=== PATIENT | male | born 1955 | race Caucasian/White ===

== ENCOUNTER 2017-10-07 13:46 | Emergency (ER) | payer MEDICARE, MEDICAID, SELFPAY ==
[2017-10-07 13:47] VITALS: BP 155/83; PULSE 106; RESP 18; TEMP 36.5; O2SAT 95; BMI 33.0
--- NOTE | 2017-10-07 14:04 | ED.VISSUMM ---
- ER Visit Summary Date of Service: 10/07/17 Chief Complaint: [Pain right neck and right arm] History of Present Illness: The patient is a 62 M [presents to the emergency department complaint of pain in his right shoulder and right arm started over a week ago. Patient denies any trauma. Patient denies any chest pain or shortness of breath. Patient states the pain is worse with certain movements. Patient also describes a numbness and tingling sensation going down the arm to the fingertips. Patient denies any falls or injuries to the neck. Patient denies weakness in the extremity.] Physical Examination: [HEENT-PERRLA, EOMI. Cranial nerves II through XII grossly intact. TMs clear. Mucous membranes moist. No adenopathy. Patient has some mild discomfort over the right cervical part paraspinal musculature as well as the right trapezius that seems to reproduce his pain. Cardiovascular-regular rate and rhythm without murmur or ectopy Lungs-clear to auscultation, chest wall stable without crepitus or subcu emphysema Abdomen-normoactive bowel sounds, soft, nontender, no rebound or rigidity, no peritoneal signs. Extremities-intact ?4, normal range of motion, normal pulses, atraumatic]. Patient has deep tendon reflexes of plus 1 out of 4 bilaterally at the bicep, tricep, and brachioradialis. Patient has normal emergency planning and response manager strength in both upper extremities. Test Results: [None indicated] Emergency Department Course and Treatment: [Patient will be medicated with [place] for pain as he did not want any steroids given his diabetes and risk of elevating his blood glucose.] Treatment Plan: [Patient to follow-up with Dr. Chavez as patient may require imaging such as MRI to evaluate further if symptoms persist or worsen.] Disposition: [Discharged home in stable condition]. Patient advised to return if worsening pain, weakness in extremity, or condition should worsen in any way. Impression: [Cervical radiculopathy] This note was generated with [employer] dictation software. It may contain incorrect words, spelling, and punctuation that were not noted in review of the chart prior to signing ED Disposition - Plan for ED Patient: Chief Complaint: Other, Pain/Inj Referrals: Connor Chavez MD [Primary Care Provider] -
--- NOTE | 2017-10-07 14:08 | ED.DCSUM_ITS ---
- ER Visit Summary Date of Service: 10/07/17 Chief Complaint: [Pain right neck and right arm] History of Present Illness: The patient is a 62 M [presents to the emergency department complaint of pain in his right shoulder and right arm started over a week ago. Patient denies any trauma. Patient denies any chest pain or shortness of breath. Patient states the pain is worse with certain movements. Patient also describes a numbness and tingling sensation going down the arm to the fingertips. Patient denies any falls or injuries to the neck. Patient denies weakness in the extremity.] Physical Examination: [HEENT-PERRLA, EOMI. Cranial nerves II through XII grossly intact. TMs clear. Mucous membranes moist. No adenopathy. Patient has some mild discomfort over the right cervical part paraspinal musculature as well as the right trapezius that seems to reproduce his pain. Cardiovascular-regular rate and rhythm without murmur or ectopy Lungs-clear to auscultation, chest wall stable without crepitus or subcu emphysema Abdomen-normoactive bowel sounds, soft, nontender, no rebound or rigidity, no peritoneal signs. Extremities-intact ?4, normal range of motion, normal pulses, atraumatic]. Patient has deep tendon reflexes of plus 1 out of 4 bilaterally at the bicep, tricep, and brachioradialis. Patient has normal on site nurse strength in both upper extremities. Test Results: [None indicated] Emergency Department Course and Treatment: [Patient will be medicated with [place] for pain as he did not want any steroids given his diabetes and risk of elevating his blood glucose.] Treatment Plan: [Patient to follow-up with Dr. Chavez as patient may require imaging such as MRI to evaluate further if symptoms persist or worsen.] Disposition: [Discharged home in stable condition]. Patient advised to return if worsening pain, weakness in extremity, or condition should worsen in any way. Impression: [Cervical radiculopathy] This note was generated with [email or web address] dictation software. It may contain incorrect words, spelling, and punctuation that were not noted in review of the chart prior to signing ED Disposition - Plan for ED Patient: Chief Complaint: Other, Pain/Inj Referrals: Connor Chavez MD [Primary Care Provider] -
--- NOTE | 2017-10-07 14:08 | ED.DEP ---
ED Disposition - Plan for ED Patient: Chief Complaint: Other, Pain/Inj Instructions: ED Cervical Radiculopathy Prescriptions: Hydrocodone/Acetaminophen [[place] 5-325 Tablet] 1 - 2 ea PO 4X/DAY PRN PRN 5 Days #20 tab PRN Reason: Pain Referrals: Connor Chavez MD [Primary Care Provider] - 3-5 Days
[2017-10-07 14:31] VITALS: PULSE 95; RESP 16; O2SAT 96
--- NOTE | 2017-10-07 14:31 | ED.RN ---
REVIEWED D/C INSTRUCTIONS, FOLLOW UP CARE, PRESCRIPTION, AND S/S THAT WOULD WARRANT A RETURN TO THE ED WITH PT. PT VERBALIZED AN UNDERSTANDING AND DENIES FURTHER QUESTIONS FOR THIS RN. PT SKIN P/W/D, RESP EVEN AND UNLABORED, PT A&O X 3, NO DISTRESS NOTED. PT AMBULATED OUT OF ED, GAIT STEADY.
== END 2017-10-07 14:32 | disposition home or self-care (01) ==
LOC: ED 14:16
PROVIDERS: Emergency Provider Emergency Medicine; Family Provider Family Medicine; PCP Family Medicine
DX: M54.12 Radiculopathy, cervical region (principal); I25.10 Atherosclerotic heart disease of native coronary artery without angina pectoris; E11.9 Type 2 diabetes mellitus without complications; I10 Essential (primary) hypertension; E78.00 Pure hypercholesterolemia, unspecified; G40.909 Epilepsy, unspecified, not intractable, without status epilepticus; Z86.73 Personal history of transient ischemic attack (TIA), and cerebral infarction without residual deficits; Z79.82 Long term (current) use of aspirin; Z79.4 Long term (current) use of insulin; Z79.84 Long term (current) use of oral hypoglycemic drugs; Z79.02 Long term (current) use of antithrombotics/antiplatelets; Z79.899 Other long term (current) drug therapy
CPT/HCPCS: 99282

== ENCOUNTER 2018-03-16 16:36 | Emergency (ER) | payer MEDICARE, MEDICAID, SELFPAY ==
[2018-03-16 16:37] VITALS: BP 146/86; PULSE 97; RESP 18; TEMP 36.4; O2SAT 95; BMI 33.8
[2018-03-16] MEDS: 0.9% Normal Saline 1,000 ML 150 ML IV (18:06)
[2018-03-16 18:07] VITALS: BP 145/77; PULSE 80; RESP 18; TEMP 36.6; O2SAT 94
--- NOTE | 2018-03-16 18:25 | RAD_ITS ---
STUDY: X-RAY - RIGHT FOOT CLINICAL: Male, 62 years old. ] Toe infection. TECHNIQUE: 3 view(s) of the foot. COMPARISON: None. FINDINGS: There is an enthesophyte involving the posterior superior calcaneus at the site of insertion of the Achilles tendon. There is a plantar calcaneal enthesophyte noted as well. There are degenerative changes of the mid and hindfoot. Normal metatarsi. There is degenerative arthrosis of the metatarsophalangeal joint of the hallux . There is degenerative arthrosis of the interphalangeal joint of the great toe. Within normal limits phalanges of the great toe. There is diffuse soft tissue swelling of the great toe. Normal second through fifth metatarsophalangeal joints. There are degenerative changes of the interphalangeal joints of the lesser toes. RAD/Foot min 3 Views IMPRESSION: Degenerative changes. No definitive evidence of osteomyelitis. Electronically Signed: Breann Marquez MD at 19:23 EST Tel , Service support ,
[2018-03-16 18:27] LABS: Absolute Lymphocyte Count 2.19 X10^3/ul (0.83-4.51); Absolute Neutrophil Count 3.3 X10^3/uL (2.0-7.7); Basophil# 0.03 X10^3/uL; Basophil% 0.5 % (0-1); Eosinophil# 0.27 X10^3/uL; Eosinophils% 4.3 % (0-5); Hematocrit 42.8 % (40-54); Hemoglobin 13.9 g/dl (13.0-16.5); Lymphocyte # 2.19 X10^3/ul (4.0); Lymphocyte % 34.9 % (19-41); Mean Corp Hgb Conc 32.5 g/gl (32-36); Mean Corpuscular Hgb 29.4 pg (27.0-32.0); Mean Corpuscular Volume 90.5 fL (80-94); Mean Platelet Vol. 10.5 fl (6.2-12.0); Monocyte# 0.48 X10^3/uL; Monocyte% 7.7 % (0-10); Neutrophil # 3.28 X10^3/uL (2.7-7.7); Neutrophil % 52.3 % (47-70); Platelet Count 273 K/mm3 (150-450); RBC Distribution Width CV 12.9 % (11.6-14.6); RBC Distribution Width SD 42.8 fl (35.1-43.9); Red Blood Count 4.73 M/mm3 (4.6-6.2); White Blood Count 6.3 K/mm3 (4.4-11.0)
[2018-03-16 18:28] LABS: POSITIVE COUNT NO; POSITIVE DIFFERENTIAL NO; POSITIVE MORPHOLOGY NO
[2018-03-16 18:33] LABS: Erythrocyte Sedimentation Rate 14 mm/hr (0-20)
[2018-03-16 18:47] LABS: Anion Gap 10 (5-15); BUN 11 mg/dL (7-18); BUN/Creat Ratio 13.6 RATIO (10-20); CRP < 2.90 mg/L (0.0-3.0); Calcium,Total 8.8 mg/dL (8.5-10.1); Chloride 104 mmol/L (98-107); Creatinine, Serum 0.81 mg/dL (0.70-1.30); EST Glomerular Filtration Rate 102 mL/min (>60); Est Glom Filt Rate - Afr Amer 123 mL/min (>60); Estimated Creatinine Clearance 96.38 ml/min; Glucose 162 mg/dL (74-106); Potassium 3.8 mmol/L (3.5-5.1); Sodium Level 138 mmol/L (136-145)
--- NOTE | 2018-03-16 19:34 | ED.VISSUMM ---
- ER Visit Summary Date of Service: 03/16/18 Chief Complaint: Right great toe infection History of Present Illness: The patient is a 62 M who was deer hunting 3 weeks ago when his feet got wet in his boots. He developed a right great toe medial ulceration. His PCP gave his clindamycin on the . He states the wound got better while he is on antibiotics, but is now worsening again since stopping the antibiotic. He is scheduled to see podiatry on March 23. He denies fever or chills. Physical Examination: Vital signs unremarkable. Patient sitting upright in bed no acute distress. He is nontoxic appearing. Heart is regular rate and rhythm. Lung sounds are clear. Abdomen is soft and nontender. Right lower extremity examination reveals a pencil eraser-sized punched-out ulcer to the medial right great toe. Wound edges around this are clean. He has moist granulation of the wound bed. There is mild erythema of the great toe, but no lymphangitic streaking is noted. Test Results: CBC and chemistry studies significant only for glucose of 162. Sed rate and CRP are both normal. Blood cultures were sent. Right foot x-ray shows degenerative changes with no evidence of osteomyelitis. Emergency Department Course and Treatment: Patient is resting comfortably on repeat exam. He did quite well with clindamycin previously. He will be given combination of clindamycin plus Cipro for diabetic foot wound. He will follow-up with podiatry next week as scheduled. If he develops worsening of the erythema or fever, he is to return for IV antibiotics. Treatment Plan: [] Disposition: Discharge Impression: Diabetic foot wound This note was generated with [employer] dictation software. It may contain incorrect words, spelling, and punctuation that were not noted in review of the chart prior to signing ED Disposition - Plan for ED Patient: Chief Complaint: Wound Check Referrals: Connor Chavez MD [Primary Care Provider] -
--- NOTE | 2018-03-16 19:36 | ED.DEP ---
ED Disposition - Plan for ED Patient: Disposition: Home or Assisted Living Chief Complaint: Wound Check Instructions: ED Foot Care Diabetic Prescriptions: Ciprofloxacin [Cipro] 500 mg PO BID #14 tablet Clindamycin [Cleocin] 450 mg PO TID #10 days Referrals: Marcell Fitzgerald DPM [STAFF PHYSICIAN] - Keep [place] appointment
[2018-03-16] MEDS: Clindamycin HCl 150 MG Capsule 450 MG PO (19:50)
[2018-03-16] MEDS: Ciprofloxacin 500 MG Tablet PO (19:50)
[2018-03-16 19:58] VITALS: RESP 16
== END 2018-03-16 19:58 | disposition home or self-care (01) ==
PROVIDERS: Emergency Provider Emergency Medicine; Family Provider Family Medicine; PCP Family Medicine
DX: E11.621 Type 2 diabetes mellitus with foot ulcer (principal); L97.519 Non-pressure chronic ulcer of other part of right foot with unspecified severity; I10 Essential (primary) hypertension; E78.00 Pure hypercholesterolemia, unspecified; Z86.73 Personal history of transient ischemic attack (TIA), and cerebral infarction without residual deficits; Z79.82 Long term (current) use of aspirin; Z79.02 Long term (current) use of antithrombotics/antiplatelets; Z79.4 Long term (current) use of insulin; Z79.84 Long term (current) use of oral hypoglycemic drugs; Z79.899 Other long term (current) drug therapy
CPT/HCPCS: 73630; 80048; 85025; 85652; 86140; 87040; 96360; 96361; 99284; J7030

== ENCOUNTER 2018-08-18 10:00 | Outpatient (RCR) | payer MEDICARE, MEDICAID, SELFPAY ==
[2018-08-11 10:21] VITALS: BP 156/88; PULSE 84; RESP 16; TEMP 36.6; BMI 33.0
--- NOTE | 2018-08-11 12:43 | PCM.WC.HP ---
(1) Diabetic foot ulcer associated with type 2 diabetes mellitus Status: Acute Current Visit: Yes Code(s): E11.621 - Type 2 diabetes mellitus with foot ulcer; L97.509 - Non-pressure chronic ulcer of other part of unspecified foot with unspecified severity (2) TIA (transient ischemic attack) Status: Acute Current Visit: Yes Qualifiers: (3) Hyperlipidemia Status: Chronic Current Visit: Yes Qualifiers: Code(s): E78.5 - Hyperlipidemia, unspecified (4) Hypertension Status: Chronic Current Visit: Yes Qualifiers: Code(s): I10 - Essential (primary) hypertension (5) Type II diabetes mellitus Status: Chronic Current Visit: Yes Qualifiers: Code(s): E11.9 - Type 2 diabetes mellitus without complications (6) Decubitus ulcer of toe, stage 3 Status: Chronic Current Visit: Yes Code(s): L89.893 - Pressure ulcer of other site, stage 3 History of Present Illness Date of Service: 08/11/18 Chief Complaint: Follow-up right great toe ulcer History of Wound: 63-year-old white male who is diabetic type II noncompliant on insulin for his type 2 diabetes. Seen by a manager gift and another city and is having difficulty with healing. Was already approved for puraply. Today we will clean it and apply the first puraply for treatment. Is in a boot and crutches. Patient is noncompliant with offloading and you can tell because he have undermining between 6 and 12 from him walking in the boot. Past Medical History Past Medical History: Chronic Problems Decubitus ulcer of toe, stage 3 (Chronic) Type II diabetes mellitus (Chronic) Coronary artery disease (Chronic) status post stents History of stroke (Chronic) Hyperlipidemia (Chronic) Hypertension (Chronic) Past Medical History: DFU right foot toe. Decubitus ulcer right great toe Surgical History: - - T+A, notes had ex lap for concern of renal CA, operative evaluation kidney unremarkable and it was placed back without resection. Allergies/Adverse Reactions: Allergies pregabalin [From Lyrica] Allergy (Verified 03/16/18 16:39) Unknown Penicillins Adverse Reaction (Verified 03/16/18 16:39) Hives Home Medications: Ambulatory Orders Medication Instructions Recorded Atorvastatin Calcium [Lipitor] 80 mg PO QHS 10/01/15 Carbidopa/Levodopa 25/100 [Sinemet 1 tablet PO TIDAC 10/01/15 25/100] Carvedilol [Coreg (Beta [place])] 6.25 mg PO BID 10/01/15 Insulin NPH Human [Humulin N Pen] 9 units SC BID 10/01/15 Lisinopril [Zestril] 5 mg PO DAILY 10/01/15 Metformin HCl [Glucophage] 1,000 mg PO BIDCM 10/01/15 Mirtazapine [Remeron] 30 mg PO QHS 01/24/17 Aspirin [Aspirin, Baby] 81 mg PO DAILY@0800 tab.chew 01/26/17 Clopidogrel Bisulfate [Plavix] 75 mg PO DAILY #30 tablet 01/26/17 Empagliflozin [Jardiance] 10 mg PO DAILY #30 tablet 01/26/17 Ciprofloxacin [Cipro] 500 mg PO BID #14 tablet 03/16/18 Clindamycin [Cleocin] 450 mg PO TID #10 days 03/16/18 Oxcarbazepine [Trileptal] 300 mg PO 4X/DAY 03/16/18 Polyethylene Glycol 3350 [Miralax] 17 gm PO DAILY 03/16/18 Tizanidine HCl 4 mg PO Q8H PRN PRN 03/16/18 - Family History Maternal No pertinent history Paternal No pertinent history Lives: Spouse/ Significant Other Smoking Status: Never smoker Alcohol: None Drugs: None Review of Systems Constitutional: Denies: Chills, Fever Eyes: Denies: Blurred vision, Drainage, Pain HEENT: Denies: Difficulty Hearing, Difficulty Swallowing, Sore Throat, Visual Changes Cardiovascular: Denies: Chest Pain, Palpitations, Syncope Respiratory: Denies: Cough, Shortness of Breath Gastrointestinal: Denies: Abdominal Pain, Nausea, Vomiting Genitourinary: Denies: Dysuria, Frequency Musculoskeletal: Denies: Joint Pain, Muscle pain Skin: Reports: - - Right great toe ulcer. Denies: Jaundice, Rash Neurological: Denies: Balance problems, Change in Speech, Difficulty swallowing, Focal weakness Psychiatric: Denies: Anxiety, Depression Endocrine: Denies: Change in Body Habitus Hematologic/ Lymphatic: Denies: Adenopathy - Physical Exam Vital Signs Temp Pulse Resp BP 97.8 F 84 16 156/88 H 08/11/18 10:21 08/11/18 10:21 08/11/18 10:21 08/11/18 10:21 General: Oriented x3, Cooperative, Well developed HEENT: Atraumatic, PERRLA Oral: Moist Mucosa Neck: Supple, No JVD Lungs: Clear to auscultation, Normal air movement Cardiovascular: Regular rate, Regular Rhythm Abdomen: Bowel Sounds Present, Soft, Non Tender, No Hepato-splenomegaly Extremities: No clubbing, No edema, - - Right great toe ulcer Wound Measurements and Assessment WC - Nurse 1 - General Ulcer Measurement Start: 08/11/18 10:21 Freq: Status: Active Protocol: Activity Type Activity Date Activity User E-Sign Co-Sign Detail Recorded Client Recorded Date Recorded By Document 08/11/18 10:21 [id number] 08/11/18 10:50 08/11/18 10:21 Wound Center Nurse 1 [Ulcer Assessment] #1 right great toe -Combined with other wound No -Current Size (cm) - Length 0.6 -Current Size (cm) - Width 0.6 -Current Size (cm) - Depth 0.2 -Total Square Cm 0.36 -Date of Last Picture (Recall this 08/11/18 field) -Photo Taken Yes -Epithelialization None Present -Tunneling No -Undermining/Tunneling No -Circular Undermining Yes -Exudate Amt Medium -Exudate Type Serous -Wound Margin Distinct, Outline Attached -Granulation Amt Small (1-33%) -Granulation Quality Pale [place] -Slough/Fibrin Yes -Necrosis Amt None Present (0 %) -Necrotic Tissue Type Adherent Slough -Texture ([place]-wound Skin Appearance) Callus -Moisture ([place]-wound Skin Appearance No Abnormality ) Assessed -Color ([place]-wound Skin Appearance) No Abnormality -Temperature ([place]-wound Skin No Abnormality Appearance) (Pt Warm) -Tenderness on Palpation ([place]-wound Yes Skin Appearance) -Ulcer Cleansing Rinsed/ Irrigated with Saline -Foul Odor after Cleansing No -Anesthetic Used 5% Lidocaine Gel [Edema Assessment] -Lower Limb Edema Present No -Right Calf (cm) 37.5 -Right Ankle (cm) 24 -Left Calf (cm) 37.8 -Left Ankle (cm) 24 WC - Nurse 2 - General Ulcer CM Notes Start: 08/11/18 10:21 Freq: Status: Active Protocol: Activity Type Activity Date Activity User E-Sign Co-Sign Detail Recorded Client Recorded Date Recorded By Document 08/11/18 11:10 MW [id number] 08/11/18 11:20 MW 08/11/18 11:10 Wound Center Nurse 2 [Procedure/Treatment] #1 right great toe -Time 11:12 -Correct Patient Yes -Correct Side, Site, Position Yes -Correct Procedure Yes -Procedure Performed Yes -Type of Procedure Debridement -Clinical Debridement Subcutaneous -Post Debridement Size (cm) - Length 0.8 -Post Debridement Size (cm) - Width 0.7 -Post Debridement Size (cm) - Depth 0.2 -Total Square Cm 0.56 -Wound/Ulcer Outcome Not Healed -Ulcer Cleansing Rinsed/ Irrigated with Saline -Foul Odor after Cleansing No -Bioengineered Tissue Yes -Type of bioengineered Tissue [id number] -Expiration Date 09/23/20 -Product Lot Number [id number] -Percent Used 100 -Saline Lot Number [id number] -Bleeding Controlled with Pressure -Offloading No -Treatment Response Procedure Tolerated Well [See Physician Procedure note for Specifics] Pain Scale: 0-10 Numeric [Pain] -Is Patient Pain Free? Yes Musculoskeletal: No Tenderness to Palpation of Joints or Extremities Lymphatic: No Cervical, Supraclavicular, or Inguinal Adenopathy Neurological: Cranial nerves II-XII grossly intact, Neuro grossly intact Psych/Mental Status: Normal Affect, Appropriate, Alert and oriented to time, place, person, mood and affect Debridement Note Post-Debridement Measurements/Treatment WC - Nurse 2 - General Ulcer CM Notes Start: 08/11/18 10:21 Freq: Status: Active Protocol: Activity Type Activity Date Activity User E-Sign Co-Sign Detail Recorded Client Recorded Date Recorded By Document 08/11/18 11:10 MW [id number] 08/11/18 11:20 MW 08/11/18 11:10 Wound Center Nurse 2 #1 right great toe -Time 11:12 -Correct Patient Yes -Correct Side, Site, Position Yes -Correct Procedure Yes -Procedure Performed Yes -Type of Procedure Debridement -Clinical Debridement Subcutaneous -Post Debridement Size (cm) - Length 0.8 -Post Debridement Size (cm) - Width 0.7 -Post Debridement Size (cm) - Depth 0.2 -Total Square Cm 0.56 -Wound/Ulcer Outcome Not Healed -Ulcer Cleansing Rinsed/ Irrigated with Saline -Foul Odor after Cleansing No -Bioengineered Tissue Yes -Type of bioengineered Tissue [id number] -Expiration Date 09/23/20 -Product Lot Number [id number] -Percent Used 100 -Saline Lot Number [id number] -Bleeding Controlled with Pressure -Offloading No -Treatment Response Procedure Tolerated Well Pain Scale: 0-10 Numeric Is Patient Pain Free? Yes Wound debrided: Right great toe ulcer Wound Grade/Stage: Stage III Type of Debridement: Excisional debridement Anesthesia Used: 5% Lidocaine Gel Depth: Down to and including healthy tissue, in the subcutaneous layer Percentage of wound debrided: 100 Instrument Used: 5mm curette Tissue Removed: Fibrin and callus Amount of bleeding with debridement: Mild Bleeding Controlled with: Compression and gauze Patient tolerated procedure well Assessment/Plan Active Problems Diabetic foot ulcer associated with type 2 diabetes mellitus (Acute) Decubitus ulcer of toe, stage 3 (Chronic) TIA (transient ischemic attack) (Acute) Type II diabetes mellitus (Chronic) Hyperlipidemia (Chronic) Hypertension (Chronic) Assessment: Decubitus ulcer right great toe stage II. DFU right great toe. Noncompliant diabetic type 2 insulin-dependent. Hypertension. stroke Plan: Applied puraply #1 to the area. Leave dressing alone do not remove. Follow-up in 1 week
--- NOTE | 2018-08-11 12:47 | HP.PCM_ITS ---
(1) Diabetic foot ulcer associated with type 2 diabetes mellitus Status: Acute Current Visit: Yes Code(s): E11.621 - Type 2 diabetes mellitus with foot ulcer; L97.509 - Non-pressure chronic ulcer of other part of unspecified foot with unspecified severity (2) TIA (transient ischemic attack) Status: Acute Current Visit: Yes Qualifiers: (3) Hyperlipidemia Status: Chronic Current Visit: Yes Qualifiers: Code(s): E78.5 - Hyperlipidemia, unspecified (4) Hypertension Status: Chronic Current Visit: Yes Qualifiers: Code(s): I10 - Essential (primary) hypertension (5) Type II diabetes mellitus Status: Chronic Current Visit: Yes Qualifiers: Code(s): E11.9 - Type 2 diabetes mellitus without complications (6) Decubitus ulcer of toe, stage 3 Status: Chronic Current Visit: Yes Code(s): L89.893 - Pressure ulcer of other site, stage 3 History of Present Illness Date of Service: 08/11/18 Chief Complaint: Follow-up right great toe ulcer History of Wound: 63-year-old white male who is diabetic type II noncompliant on insulin for his type 2 diabetes. Seen by a [place] management specialist and another city and is having difficulty with healing. Was already approved for puraply. Today we will clean it and apply the first puraply for treatment. Is in a boot and crutches. Patient is noncompliant with offloading and you can tell because he have undermining between 6 and 12 from him walking in the boot. Past Medical History Past Medical History: Chronic Problems Decubitus ulcer of toe, stage 3 (Chronic) Type II diabetes mellitus (Chronic) Coronary artery disease (Chronic) status post stents History of stroke (Chronic) Hyperlipidemia (Chronic) Hypertension (Chronic) Past Medical History: DFU right foot toe. Decubitus ulcer right great toe Surgical History: - - T+A, notes had ex lap for concern of renal CA, operative evaluation kidney unremarkable and it was placed back without resection. Allergies/Adverse Reactions: Allergies pregabalin [From Lyrica] Allergy (Verified 03/16/18 16:39) Unknown Penicillins Adverse Reaction (Verified 03/16/18 16:39) Hives Home Medications: Ambulatory Orders Medication Instructions Recorded Atorvastatin Calcium [Lipitor] 80 mg PO QHS 10/01/15 Carbidopa/Levodopa 25/100 [Sinemet 1 tablet PO TIDAC 10/01/15 25/100] Carvedilol [Coreg (Beta [place])] 6.25 mg PO BID 10/01/15 Insulin NPH Human [Humulin N Pen] 9 units SC BID 10/01/15 Lisinopril [Zestril] 5 mg PO DAILY 10/01/15 Metformin HCl [Glucophage] 1,000 mg PO BIDCM 10/01/15 Mirtazapine [Remeron] 30 mg PO QHS 01/24/17 Aspirin [Aspirin, Baby] 81 mg PO DAILY@0800 tab.chew 01/26/17 Clopidogrel Bisulfate [Plavix] 75 mg PO DAILY #30 tablet 01/26/17 Empagliflozin [Jardiance] 10 mg PO DAILY #30 tablet 01/26/17 Ciprofloxacin [Cipro] 500 mg PO BID #14 tablet 03/16/18 Clindamycin [Cleocin] 450 mg PO TID #10 days 03/16/18 Oxcarbazepine [Trileptal] 300 mg PO 4X/DAY 03/16/18 Polyethylene Glycol 3350 [Miralax] 17 gm PO DAILY 03/16/18 Tizanidine HCl 4 mg PO Q8H PRN PRN 03/16/18 - Family History Maternal No pertinent history Paternal No pertinent history Lives: Spouse/ Significant Other Smoking Status: Never smoker Alcohol: None Drugs: None Review of Systems Constitutional: Denies: Chills, Fever Eyes: Denies: Blurred vision, Drainage, Pain HEENT: Denies: Difficulty Hearing, Difficulty Swallowing, Sore Throat, Visual Changes Cardiovascular: Denies: Chest Pain, Palpitations, Syncope Respiratory: Denies: Cough, Shortness of Breath Gastrointestinal: Denies: Abdominal Pain, Nausea, Vomiting Genitourinary: Denies: Dysuria, Frequency Musculoskeletal: Denies: Joint Pain, Muscle pain Skin: Reports: - - Right great toe ulcer. Denies: Jaundice, Rash Neurological: Denies: Balance problems, Change in Speech, Difficulty swallowing, Focal weakness Psychiatric: Denies: Anxiety, Depression Endocrine: Denies: Change in Body Habitus Hematologic/ Lymphatic: Denies: Adenopathy - Physical Exam Vital Signs Temp Pulse Resp BP 97.8 F 84 16 156/88 H 08/11/18 10:21 08/11/18 10:21 08/11/18 10:21 08/11/18 10:21 General: Oriented x3, Cooperative, Well developed HEENT: Atraumatic, PERRLA Oral: Moist Mucosa Neck: Supple, No JVD Lungs: Clear to auscultation, Normal air movement Cardiovascular: Regular rate, Regular Rhythm Abdomen: Bowel Sounds Present, Soft, Non Tender, No Hepato-splenomegaly Extremities: No clubbing, No edema, - - Right great toe ulcer Wound Measurements and Assessment WC - Nurse 1 - General Ulcer Measurement Start: 08/11/18 10:21 Freq: Status: Active Protocol: Activity Type Activity Date Activity User E-Sign Co-Sign Detail Recorded Client Recorded Date Recorded By Document 08/11/18 10:21 [id number] 08/11/18 10:50 08/11/18 10:21 Wound Center Nurse 1 [Ulcer Assessment] #1 right great toe -Combined with other wound No -Current Size (cm) - Length 0.6 -Current Size (cm) - Width 0.6 -Current Size (cm) - Depth 0.2 -Total Square Cm 0.36 -Date of Last Picture (Recall this 08/11/18 field) -Photo Taken Yes -Epithelialization None Present -Tunneling No -Undermining/Tunneling No -Circular Undermining Yes -Exudate Amt Medium -Exudate Type Serous -Wound Margin Distinct, Outline Attached -Granulation Amt Small (1-33%) -Granulation Quality Pale [place] -Slough/Fibrin Yes -Necrosis Amt None Present (0 %) -Necrotic Tissue Type Adherent Slough -Texture ([place]-wound Skin Appearance) Callus -Moisture ([place]-wound Skin Appearance No Abnormality ) Assessed -Color ([place]-wound Skin Appearance) No Abnormality -Temperature ([place]-wound Skin No Abnormality Appearance) (Pt Warm) -Tenderness on Palpation ([place]-wound Yes Skin Appearance) -Ulcer Cleansing Rinsed/ Irrigated with Saline -Foul Odor after Cleansing No -Anesthetic Used 5% Lidocaine Gel [Edema Assessment] -Lower Limb Edema Present No -Right Calf (cm) 37.5 -Right Ankle (cm) 24 -Left Calf (cm) 37.8 -Left Ankle (cm) 24 WC - Nurse 2 - General Ulcer CM Notes Start: 08/11/18 10:21 Freq: Status: Active Protocol: Activity Type Activity Date Activity User E-Sign Co-Sign Detail Recorded Client Recorded Date Recorded By Document 08/11/18 11:10 MW [id number] 08/11/18 11:20 MW 08/11/18 11:10 Wound Center Nurse 2 [Procedure/Treatment] #1 right great toe -Time 11:12 -Correct Patient Yes -Correct Side, Site, Position Yes -Correct Procedure Yes -Procedure Performed Yes -Type of Procedure Debridement -Clinical Debridement Subcutaneous -Post Debridement Size (cm) - Length 0.8 -Post Debridement Size (cm) - Width 0.7 -Post Debridement Size (cm) - Depth 0.2 -Total Square Cm 0.56 -Wound/Ulcer Outcome Not Healed -Ulcer Cleansing Rinsed/ Irrigated with Saline -Foul Odor after Cleansing No -Bioengineered Tissue Yes -Type of bioengineered Tissue [id number] -Expiration Date 09/23/20 -Product Lot Number [id number] -Percent Used 100 -Saline Lot Number [id number] -Bleeding Controlled with Pressure -Offloading No -Treatment Response Procedure Tolerated Well [See Physician Procedure note for Specifics] Pain Scale: 0-10 Numeric [Pain] -Is Patient Pain Free? Yes Musculoskeletal: No Tenderness to Palpation of Joints or Extremities Lymphatic: No Cervical, Supraclavicular, or Inguinal Adenopathy Neurological: Cranial nerves II-XII grossly intact, Neuro grossly intact Psych/Mental Status: Normal Affect, Appropriate, Alert and oriented to time, place, person, mood and affect Debridement Note Post-Debridement Measurements/Treatment WC - Nurse 2 - General Ulcer CM Notes Start: 08/11/18 10:21 Freq: Status: Active Protocol: Activity Type Activity Date Activity User E-Sign Co-Sign Detail Recorded Client Recorded Date Recorded By Document 08/11/18 11:10 MW [id number] 08/11/18 11:20 MW 08/11/18 11:10 Wound Center Nurse 2 #1 right great toe -Time 11:12 -Correct Patient Yes -Correct Side, Site, Position Yes -Correct Procedure Yes -Procedure Performed Yes -Type of Procedure Debridement -Clinical Debridement Subcutaneous -Post Debridement Size (cm) - Length 0.8 -Post Debridement Size (cm) - Width 0.7 -Post Debridement Size (cm) - Depth 0.2 -Total Square Cm 0.56 -Wound/Ulcer Outcome Not Healed -Ulcer Cleansing Rinsed/ Irrigated with Saline -Foul Odor after Cleansing No -Bioengineered Tissue Yes -Type of bioengineered Tissue [id number] -Expiration Date 09/23/20 -Product Lot Number [id number] -Percent Used 100 -Saline Lot Number [id number] -Bleeding Controlled with Pressure -Offloading No -Treatment Response Procedure Tolerated Well Pain Scale: 0-10 Numeric Is Patient Pain Free? Yes Wound debrided: Right great toe ulcer Wound Grade/Stage: Stage III Type of Debridement: Excisional debridement Anesthesia Used: 5% Lidocaine Gel Depth: Down to and including healthy tissue, in the subcutaneous layer Percentage of wound debrided: 100 Instrument Used: 5mm curette Tissue Removed: Fibrin and callus Amount of bleeding with debridement: Mild Bleeding Controlled with: Compression and gauze Patient tolerated procedure well Assessment/Plan Active Problems Diabetic foot ulcer associated with type 2 diabetes mellitus (Acute) Decubitus ulcer of toe, stage 3 (Chronic) TIA (transient ischemic attack) (Acute) Type II diabetes mellitus (Chronic) Hyperlipidemia (Chronic) Hypertension (Chronic) Assessment: Decubitus ulcer right great toe stage II. DFU right great toe. Noncompliant diabetic type 2 insulin-dependent. Hypertension. stroke Plan: Applied puraply #1 to the area. Leave dressing alone do not remove. Follow-up in 1 week
[2018-08-18 09:42] VITALS: BP 155/84; PULSE 90; RESP 18; TEMP 36.6; BMI 33.0
--- NOTE | 2018-08-18 10:20 | PCM.WC.PN ---
(1) Diabetic foot ulcer associated with type 2 diabetes mellitus Status: Acute Current Visit: Yes Code(s): E11.621 - Type 2 diabetes mellitus with foot ulcer; L97.509 - Non-pressure chronic ulcer of other part of unspecified foot with unspecified severity (2) TIA (transient ischemic attack) Status: Acute Current Visit: Yes Qualifiers: (3) Hyperlipidemia Status: Chronic Current Visit: Yes Qualifiers: Code(s): E78.5 - Hyperlipidemia, unspecified (4) Hypertension Status: Chronic Current Visit: Yes Qualifiers: Code(s): I10 - Essential (primary) hypertension (5) Type II diabetes mellitus Status: Chronic Current Visit: Yes Qualifiers: Code(s): E11.9 - Type 2 diabetes mellitus without complications (6) Decubitus ulcer of toe, stage 3 Status: Chronic Current Visit: Yes Code(s): L89.893 - Pressure ulcer of other site, stage 3 Type of Wound Chief Complaint: Follow-up right great toe ulcer History of Wound: 63-year-old white male who is diabetic type II noncompliant on insulin for his type 2 diabetes. Seen by a life skills coach and another city and is having difficulty with healing. Was already approved for puraply. Today we will clean it and apply the first puraply for treatment. Is in a boot and crutches. Patient is noncompliant with offloading and you can tell because he have undermining between 6 and 12 from him walking in the boot. Progress of Wound: Today the wound has no undermining and very clean flat 0.1 depth after 1 puraply. Sign of infection good epithelial development in the wound base. - Physical Exam Vital Signs Temp Pulse Resp BP 98 F 90 18 155/84 H 08/18/18 09:42 08/18/18 09:42 08/18/18 09:42 08/18/18 09:42 General: Oriented x3, Cooperative, Well developed HEENT: Atraumatic, PERRLA Oral: Moist Mucosa Neck: Supple, No JVD Lungs: Clear to auscultation, Normal air movement Cardiovascular: Regular rate, Regular Rhythm Abdomen: Bowel Sounds Present, Soft, Non Tender, No Hepato-splenomegaly Extremities: No clubbing, No edema Skin: Ulcer/ Wound Wound Measurements and Assessment WC - Nurse 1 - General Ulcer Measurement Start: 08/11/18 10:21 Freq: Status: Active Protocol: Activity Type Activity Date Activity User E-Sign Co-Sign Detail Recorded Client Recorded Date Recorded By Document 08/18/18 09:[address] [facility] [id number] 08/18/18 09:[address] [facility] 08/18/18 09:42 Wound Center Nurse 1 [Ulcer Assessment] #1 right great toe -Combined with other wound No -Current Size (cm) - Length 0.9 -Current Size (cm) - Width 0.6 -Current Size (cm) - Depth 0.1 -Total Square Cm 0.54 -Photo Taken No -Tunneling No -Undermining/Tunneling Yes -Undermining/Tunneling Starts (O' 1 clock) -Undermining/Tunneling Ends (O'clock) 4 -Maximum Distance (cm) 0.1 -Circular Undermining No -Exudate Amt Small -Exudate Type Serosanguineous -Wound Margin Distinct, Outline Attached -Granulation Amt Large (67-100%) -Granulation Quality Pale [place] -Slough/Fibrin Yes -Necrosis Amt Small (1-33%) -Necrotic Tissue Type Adherent Slough -Texture ([place]-wound Skin Appearance) Assessed Scarring -Moisture ([place]-wound Skin Appearance Assessed ) Maceration -Color ([place]-wound Skin Appearance) Assessed Palor -Temperature ([place]-wound Skin No Abnormality Appearance) (Pt Warm) -Tenderness on Palpation ([place]-wound Yes Skin Appearance) -Ulcer Cleansing Wound Cleanser -Foul Odor after Cleansing No -Anesthetic Used 5% Lidocaine Gel WC - Nurse 2 - General Ulcer CM Notes Start: 08/11/18 10:21 Freq: Status: Active Protocol: Activity Type Activity Date Activity User E-Sign Co-Sign Detail Recorded Client Recorded Date Recorded By Document 08/18/18 09:53 [id number] 08/18/18 10:00 MW 08/18/18 09:53 Wound Center Nurse 2 [Procedure/Treatment] -Time 09:53 -Correct Patient Yes -Correct Side, Site, Position Yes -Correct Procedure Yes -Procedure Performed Yes -Type of Procedure Debridement -Clinical Debridement Subcutaneous -Post Debridement Size (cm) - Length 1.0 -Post Debridement Size (cm) - Width 0.7 -Post Debridement Size (cm) - Depth 0.1 -Total Square Cm 0.70 -Wound/Ulcer Outcome Not Healed -Ulcer Cleansing Rinsed/ Irrigated with Saline -Foul Odor after Cleansing No -Bioengineered Tissue Yes -Type of bioengineered Tissue [id number] -Expiration Date 09/23/20 -Product Lot Number [id number] -Percent Used 100 -Saline Lot Number [id number] -Bleeding Controlled with Pressure -Offloading No -Treatment Response Procedure Tolerated Well [See Physician Procedure note for Specifics] Pain Scale: 0-10 Numeric [Pain] -Is Patient Pain Free? Yes Musculoskeletal: No Tenderness to Palpation of Joints or Extremities Lymphatic: No Cervical, Supraclavicular, or Inguinal Adenopathy Neurological: Cranial nerves II-XII grossly intact, Neuro grossly intact Psych/Mental Status: Normal Affect, Appropriate, Alert and oriented to time, place, person, mood and affect - Right great toe lateral ulcer stage II Debridement Note Post-Debridement Measurements/Treatment WC - Nurse 2 - General Ulcer CM Notes Start: 08/11/18 10:21 Freq: Status: Active Protocol: Activity Type Activity Date Activity User E-Sign Co-Sign Detail Recorded Client Recorded Date Recorded By Document 08/11/18 11:10 MW [id number] 08/11/18 11:20 MW Document 08/18/18 09:53 MW [id number] 08/18/18 10:00 MW 08/11/18 08/18/18 11:10 09:53 Wound Center Nurse 2 #1 right great toe -Time 11:12 09:53 -Correct Patient Yes Yes -Correct Side, Site, Position Yes Yes -Correct Procedure Yes Yes -Procedure Performed Yes Yes -Type of Procedure Debridement Debridement -Clinical Debridement Subcutaneous Subcutaneous -Post Debridement Size (cm) - Length 0.8 1.0 -Post Debridement Size (cm) - Width 0.7 0.7 -Post Debridement Size (cm) - Depth 0.2 0.1 -Total Square Cm 0.56 0.70 -Wound/Ulcer Outcome Not Healed Not Healed -Ulcer Cleansing Rinsed/ Rinsed/ Irrigated with Irrigated with Saline Saline -Foul Odor after Cleansing No No -Bioengineered Tissue Yes Yes -Type of bioengineered Tissue [id number] -Expiration Date 09/23/20 09/23/20 -Product Lot Number [id number] -Percent Used 100 100 -Saline Lot Number [id number] -Bleeding Controlled with Pressure Pressure -Offloading No No -Treatment Response Procedure Procedure Tolerated Well Tolerated Well Pain Scale: 0-10 Numeric Is Patient Pain Free? Yes Yes Wound debrided: DFU right great toe Wound Grade/Stage: Stage II Type of Debridement: Excisional debridement Anesthesia Used: 5% Lidocaine Gel Depth: Down to and including healthy tissue, in the subcutaneous layer Instrument Used: 5mm curette Tissue Removed: Fibrin and some callus devitalized tissue Severity: Limited To Skin Breakdown Amount of bleeding with debridement: None Bleeding Controlled with: Compression and gauze Assessment/Plan Active Problems Diabetic foot ulcer associated with type 2 diabetes mellitus (Acute) Decubitus ulcer of toe, stage 3 (Chronic) TIA (transient ischemic attack) (Acute) Type II diabetes mellitus (Chronic) Hyperlipidemia (Chronic) Hypertension (Chronic) Assessment: Decubitus ulcer right great toe stage II. DFU right great toe. Noncompliant diabetic type 2 insulin-dependent. Hypertension. stroke Plan: Applied puraply #2 to the area. Leave dressing alone do not remove. Follow-up in 1 week
--- NOTE | 2018-08-18 10:23 | PN.PCM_ITS ---
(1) Diabetic foot ulcer associated with type 2 diabetes mellitus Status: Acute Current Visit: Yes Code(s): E11.621 - Type 2 diabetes mellitus with foot ulcer; L97.509 - Non-pressure chronic ulcer of other part of unspecified foot with unspecified severity (2) TIA (transient ischemic attack) Status: Acute Current Visit: Yes Qualifiers: (3) Hyperlipidemia Status: Chronic Current Visit: Yes Qualifiers: Code(s): E78.5 - Hyperlipidemia, unspecified (4) Hypertension Status: Chronic Current Visit: Yes Qualifiers: Code(s): I10 - Essential (primary) hypertension (5) Type II diabetes mellitus Status: Chronic Current Visit: Yes Qualifiers: Code(s): E11.9 - Type 2 diabetes mellitus without complications (6) Decubitus ulcer of toe, stage 3 Status: Chronic Current Visit: Yes Code(s): L89.893 - Pressure ulcer of other site, stage 3 Type of Wound Chief Complaint: Follow-up right great toe ulcer History of Wound: 63-year-old white male who is diabetic type II noncompliant on insulin for his type 2 diabetes. Seen by a [employer] black trainer and another city and is having difficulty with healing. Was already approved for puraply. Today we will clean it and apply the first puraply for treatment. Is in a boot and crutches. Patient is noncompliant with offloading and you can tell because he have undermining between 6 and 12 from him walking in the boot. Progress of Wound: Today the wound has no undermining and very clean flat 0.1 depth after 1 puraply. Sign of infection good epithelial development in the wound base. - Physical Exam Vital Signs Temp Pulse Resp BP 98 F 90 18 155/84 H 08/18/18 09:42 08/18/18 09:42 08/18/18 09:42 08/18/18 09:42 General: Oriented x3, Cooperative, Well developed HEENT: Atraumatic, PERRLA Oral: Moist Mucosa Neck: Supple, No JVD Lungs: Clear to auscultation, Normal air movement Cardiovascular: Regular rate, Regular Rhythm Abdomen: Bowel Sounds Present, Soft, Non Tender, No Hepato-splenomegaly Extremities: No clubbing, No edema Skin: Ulcer/ Wound Wound Measurements and Assessment WC - Nurse 1 - General Ulcer Measurement Start: 08/11/18 10:21 Freq: Status: Active Protocol: Activity Type Activity Date Activity User E-Sign Co-Sign Detail Recorded Client Recorded Date Recorded By Document 08/18/18 09:42 [facility] [id number] 08/18/18 09:46 [facility] 08/18/18 09:42 Wound Center Nurse 1 [Ulcer Assessment] #1 right great toe -Combined with other wound No -Current Size (cm) - Length 0.9 -Current Size (cm) - Width 0.6 -Current Size (cm) - Depth 0.1 -Total Square Cm 0.54 -Photo Taken No -Tunneling No -Undermining/Tunneling Yes -Undermining/Tunneling Starts (O' 1 clock) -Undermining/Tunneling Ends (O'clock) 4 -Maximum Distance (cm) 0.1 -Circular Undermining No -Exudate Amt Small -Exudate Type Serosanguineous -Wound Margin Distinct, Outline Attached -Granulation Amt Large (67-100%) -Granulation Quality Pale [place] -Slough/Fibrin Yes -Necrosis Amt Small (1-33%) -Necrotic Tissue Type Adherent Slough -Texture ([place]-wound Skin Appearance) Assessed Scarring -Moisture ([place]-wound Skin Appearance Assessed ) Maceration -Color ([place]-wound Skin Appearance) Assessed Palor -Temperature ([place]-wound Skin No Abnormality Appearance) (Pt Warm) -Tenderness on Palpation ([place]-wound Yes Skin Appearance) -Ulcer Cleansing Wound Cleanser -Foul Odor after Cleansing No -Anesthetic Used 5% Lidocaine Gel WC - Nurse 2 - General Ulcer CM Notes Start: 08/11/18 10:21 Freq: Status: Active Protocol: Activity Type Activity Date Activity User E-Sign Co-Sign Detail Recorded Client Recorded Date Recorded By Document 08/18/18 09:53 [id number] 08/18/18 10:00 MW 08/18/18 09:53 Wound Center Nurse 2 [Procedure/Treatment] -Time 09:53 -Correct Patient Yes -Correct Side, Site, Position Yes -Correct Procedure Yes -Procedure Performed Yes -Type of Procedure Debridement -Clinical Debridement Subcutaneous -Post Debridement Size (cm) - Length 1.0 -Post Debridement Size (cm) - Width 0.7 -Post Debridement Size (cm) - Depth 0.1 -Total Square Cm 0.70 -Wound/Ulcer Outcome Not Healed -Ulcer Cleansing Rinsed/ Irrigated with Saline -Foul Odor after Cleansing No -Bioengineered Tissue Yes -Type of bioengineered Tissue [id number] -Expiration Date 09/23/20 -Product Lot Number [id number] -Percent Used 100 -Saline Lot Number [id number] -Bleeding Controlled with Pressure -Offloading No -Treatment Response Procedure Tolerated Well [See Physician Procedure note for Specifics] Pain Scale: 0-10 Numeric [Pain] -Is Patient Pain Free? Yes Musculoskeletal: No Tenderness to Palpation of Joints or Extremities Lymphatic: No Cervical, Supraclavicular, or Inguinal Adenopathy Neurological: Cranial nerves II-XII grossly intact, Neuro grossly intact Psych/Mental Status: Normal Affect, Appropriate, Alert and oriented to time, place, person, mood and affect - Right great toe lateral ulcer stage II Debridement Note Post-Debridement Measurements/Treatment WC - Nurse 2 - General Ulcer CM Notes Start: 08/11/18 10:21 Freq: Status: Active Protocol: Activity Type Activity Date Activity User E-Sign Co-Sign Detail Recorded Client Recorded Date Recorded By Document 08/11/18 11:10 MW [id number] 08/11/18 11:20 MW Document 08/18/18 09:53 MW [id number] 08/18/18 10:00 MW 08/11/18 08/18/18 11:10 09:53 Wound Center Nurse 2 #1 right great toe -Time 11:12 09:53 -Correct Patient Yes Yes -Correct Side, Site, Position Yes Yes -Correct Procedure Yes Yes -Procedure Performed Yes Yes -Type of Procedure Debridement Debridement -Clinical Debridement Subcutaneous Subcutaneous -Post Debridement Size (cm) - Length 0.8 1.0 -Post Debridement Size (cm) - Width 0.7 0.7 -Post Debridement Size (cm) - Depth 0.2 0.1 -Total Square Cm 0.56 0.70 -Wound/Ulcer Outcome Not Healed Not Healed -Ulcer Cleansing Rinsed/ Rinsed/ Irrigated with Irrigated with Saline Saline -Foul Odor after Cleansing No No -Bioengineered Tissue Yes Yes -Type of bioengineered Tissue [id number] -Expiration Date 09/23/20 09/23/20 -Product Lot Number [id number] -Percent Used 100 100 -Saline Lot Number [id number] -Bleeding Controlled with Pressure Pressure -Offloading No No -Treatment Response Procedure Procedure Tolerated Well Tolerated Well Pain Scale: 0-10 Numeric Is Patient Pain Free? Yes Yes Wound debrided: DFU right great toe Wound Grade/Stage: Stage II Type of Debridement: Excisional debridement Anesthesia Used: 5% Lidocaine Gel Depth: Down to and including healthy tissue, in the subcutaneous layer Instrument Used: 5mm curette Tissue Removed: Fibrin and some callus devitalized tissue Severity: Limited To Skin Breakdown Amount of bleeding with debridement: None Bleeding Controlled with: Compression and gauze Assessment/Plan Active Problems Diabetic foot ulcer associated with type 2 diabetes mellitus (Acute) Decubitus ulcer of toe, stage 3 (Chronic) TIA (transient ischemic attack) (Acute) Type II diabetes mellitus (Chronic) Hyperlipidemia (Chronic) Hypertension (Chronic) Assessment: Decubitus ulcer right great toe stage II. DFU right great toe. Noncompliant diabetic type 2 insulin-dependent. Hypertension. stroke Plan: Applied puraply #2 to the area. Leave dressing alone do not remove. Follow-up in 1 week
== END 2018-08-18 23:59 ==
LOC: WC 10:00
PROVIDERS: Family Provider Family Medicine; PCP Family Medicine; Visit Provider Nurse Practitioner
DX: E11.621 Type 2 diabetes mellitus with foot ulcer (principal); E78.5 Hyperlipidemia, unspecified; I10 Essential (primary) hypertension; Z86.73 Personal history of transient ischemic attack (TIA), and cerebral infarction without residual deficits; L89.893 Pressure ulcer of other site, stage 3; Z91.14 Patient's other noncompliance with medication regimen; Z91.19 Patient's noncompliance with other medical treatment and regimen; I25.10 Atherosclerotic heart disease of native coronary artery without angina pectoris; Z79.899 Other long term (current) drug therapy; Z79.82 Long term (current) use of aspirin
CPT/HCPCS: 15275; 99213; Q4196; G0463

== ENCOUNTER 2018-09-15 10:00 | Outpatient (RCR) | payer MEDICARE, SELFPAY ==
[2018-08-19 01:28] VITALS: BP 155/84; PULSE 90; RESP 18; TEMP 36.6
[2018-08-25 09:52] VITALS: BP 138/87; PULSE 87; RESP 16; TEMP 36.6; BMI 33.0
--- NOTE | 2018-08-25 11:49 | PCM.WC.PN ---
(1) Diabetic foot ulcer associated with type 2 diabetes mellitus Status: Acute Current Visit: Yes Qualifiers: Diabetic foot ulcer location: toe Laterality: right Code(s): E11.621 - Type 2 diabetes mellitus with foot ulcer; L97.509 - Non-pressure chronic ulcer of other part of unspecified foot with unspecified severity (2) TIA (transient ischemic attack) Status: Chronic Current Visit: Yes Qualifiers: (3) Coronary artery disease Status: Chronic Current Visit: Yes Qualifiers: Code(s): I25.10 - Atherosclerotic heart disease of [place] coronary artery without angina pectoris Comment: status post stents (4) Decubitus ulcer of toe, stage 3 Status: Acute Current Visit: Yes Code(s): L89.893 - Pressure ulcer of other site, stage 3 (5) History of stroke Status: Chronic Current Visit: No Code(s): Z86.73 - Personal history of transient ischemic attack (TIA), and cerebral infarction without residual deficits Type of Wound Chief Complaint: Follow-up right great toe ulcer History of Wound: 63-year-old white male who is diabetic type II noncompliant on insulin for his type 2 diabetes. Seen by a dispatcher tow truck and another city and is having difficulty with healing. Was already approved for puraply. Today we will clean it and apply the first puraply for treatment. Is in a boot and crutches. Patient is noncompliant with offloading and you can tell because he have undermining between 6 and 12 from him walking in the boot. Progress of Wound: Today the wound has no undermining and very clean flat 0.1 depth after 2 puraply. No sign of infection good epithelial development in the wound base. Tolerating wound care well. - Physical Exam Vital Signs Temp Pulse Resp BP 97.9 F 87 16 138/87 H 08/25/18 09:52 08/25/18 09:52 08/25/18 09:52 08/25/18 09:52 General: Oriented x3, Cooperative, Well developed HEENT: Atraumatic, PERRLA Oral: Moist Mucosa Neck: Supple, No JVD Lungs: Clear to auscultation, Normal air movement Cardiovascular: Regular rate, Regular Rhythm Abdomen: Bowel Sounds Present, Soft, Non Tender, No Hepato-splenomegaly Extremities: No clubbing, No edema, - - Right great toe Skin: Ulcer/ Wound Wound Measurements and Assessment WC - Nurse 1 - General Ulcer Measurement Start: 08/25/18 09:50 Freq: Status: Active Protocol: Activity Type Activity Date Activity User E-Sign Co-Sign Detail Recorded Client Recorded Date Recorded By Document 08/25/18 09:52 [facility] [id number] 08/25/18 09:59 [facility] 08/25/18 09:52 Wound Center Nurse 1 [Ulcer Assessment] #1 right great toe -Combined with other wound No -Current Size (cm) - Length 1.2 -Current Size (cm) - Width 1.2 -Current Size (cm) - Depth 0.2 -Total Square Cm 1.44 -Photo Taken No -Epithelialization Small 1-33% -Tunneling No -Undermining/Tunneling No -Circular Undermining No -Exudate Amt Medium -Exudate Type Serous -Wound Margin Flat & Intact -Granulation Amt Large (67-100%) -Granulation Quality Red -Slough/Fibrin No -Necrosis Amt None Present (0 %) -Texture ([place]-wound Skin Appearance) Assessed Localized Edema Scarring -Moisture ([place]-wound Skin Appearance Assessed ) Maceration -Color ([place]-wound Skin Appearance) Palor -Temperature ([place]-wound Skin No Abnormality Appearance) (Pt Warm) -Tenderness on Palpation ([place]-wound Yes Skin Appearance) -Anesthetic Used 5% Lidocaine Gel - Nurse 2 - General Ulcer CM Notes Start: 08/25/18 09:50 Freq: Status: Active Protocol: Activity Type Activity Date Activity User E-Sign Co-Sign Detail Recorded Client Recorded Date Recorded By Document 08/25/18 10:48 MW [id number] 08/25/18 10:55 MW 08/25/18 10:48 Wound Center Nurse 2 [Procedure/Treatment] -Time 10:48 -Correct Patient Yes -Correct Side, Site, Position Yes -Correct Procedure Yes -Procedure Performed Yes -Type of Procedure Debridement -Clinical Debridement Subcutaneous -Post Debridement Size (cm) - Length 1.0 -Post Debridement Size (cm) - Width 0.8 -Post Debridement Size (cm) - Depth 0.2 -Total Square Cm 0.80 -Wound/Ulcer Outcome Not Healed -Ulcer Cleansing Rinsed/ Irrigated with Saline -Foul Odor after Cleansing No -Bioengineered Tissue Yes -Type of bioengineered Tissue [id number] -Expiration Date 01/05/21 -Product Lot Number [id number] -Percent Used 100 -Saline Lot Number [id number] -Bleeding Controlled with Pressure -Offloading No -Treatment Response Procedure Tolerated Well [See Physician Procedure note for Specifics] Pain Scale: 0-10 Numeric [Pain] -Is Patient Pain Free? Yes Musculoskeletal: No Tenderness to Palpation of Joints or Extremities Lymphatic: No Cervical, Supraclavicular, or Inguinal Adenopathy Neurological: Cranial nerves II-XII grossly intact, Neuro grossly intact Psych/Mental Status: Normal Affect, Appropriate, Alert and oriented to time, place, person, mood and affect Debridement Note Post-Debridement Measurements/Treatment WC - Nurse 2 - General Ulcer CM Notes Start: 08/25/18 09:50 Freq: Status: Active Protocol: Activity Type Activity Date Activity User E-Sign Co-Sign Detail Recorded Client Recorded Date Recorded By Document 08/25/18 10:48 MW [id number] 08/25/18 10:55 MW 08/25/18 10:48 Wound Center Nurse 2 #1 right great toe -Time 10:48 -Correct Patient Yes -Correct Side, Site, Position Yes -Correct Procedure Yes -Procedure Performed Yes -Type of Procedure Debridement -Clinical Debridement Subcutaneous -Post Debridement Size (cm) - Length 1.0 -Post Debridement Size (cm) - Width 0.8 -Post Debridement Size (cm) - Depth 0.2 -Total Square Cm 0.80 -Wound/Ulcer Outcome Not Healed -Ulcer Cleansing Rinsed/ Irrigated with Saline -Foul Odor after Cleansing No -Bioengineered Tissue Yes -Type of bioengineered Tissue [id number] -Expiration Date 01/05/21 -Product Lot Number [id number] -Percent Used 100 -Saline Lot Number [id number] -Bleeding Controlled with Pressure -Offloading No -Treatment Response Procedure Tolerated Well Pain Scale: 0-10 Numeric Is Patient Pain Free? Yes Wound debrided: Right great toe Wound Grade/Stage: Stage III Type of Debridement: Excisional debridement Anesthesia Used: 5% Lidocaine Gel Depth: Down to and including healthy tissue, in the subcutaneous layer Percentage of wound debrided: 100 Instrument Used: 5mm curette Tissue Removed: Fibrin Severity: Limited To Skin Breakdown Amount of bleeding with debridement: Mild Bleeding Controlled with: Compression and gauze Patient tolerated procedure well Assessment/Plan Active Problems Diabetic foot ulcer associated with type 2 diabetes mellitus (Acute) Decubitus ulcer of toe, stage 3 (Acute) TIA (transient ischemic attack) (Chronic) Coronary artery disease (Chronic) status post stents Assessment: Decubitus ulcer right great toe stage II. DFU right great toe. Noncompliant diabetic type 2 insulin-dependent. Hypertension. stroke Plan: Applied puraply #3 to the area. Leave dressing alone do not remove. Follow-up in 1 week
--- NOTE | 2018-08-25 11:52 | PN.PCM_ITS ---
(1) Diabetic foot ulcer associated with type 2 diabetes mellitus Status: Acute Current Visit: Yes Qualifiers: Diabetic foot ulcer location: toe Laterality: right Code(s): E11.621 - Type 2 diabetes mellitus with foot ulcer; L97.509 - Non- pressure chronic ulcer of other part of unspecified foot with unspecified severity (2) TIA (transient ischemic attack) Status: Chronic Current Visit: Yes Qualifiers: (3) Coronary artery disease Status: Chronic Current Visit: Yes Qualifiers: Code(s): I25.10 - Atherosclerotic heart disease of [place] coronary artery without angina pectoris Comment: status post stents (4) Decubitus ulcer of toe, stage 3 Status: Acute Current Visit: Yes Code(s): L89.893 - Pressure ulcer of other site, stage 3 (5) History of stroke Status: Chronic Current Visit: No Code(s): Z86.73 - Personal history of transient ischemic attack (TIA), and cerebral infarction without residual deficits Type of Wound Chief Complaint: Follow-up right great toe ulcer History of Wound: 63-year-old white male who is diabetic type II noncompliant on insulin for his type 2 diabetes. Seen by a operational risk manager and another city and is having difficulty with healing. Was already approved for puraply. Today we will clean it and apply the first puraply for treatment. Is in a boot and crutches. Patient is noncompliant with offloading and you can tell because he have undermining between 6 and 12 from him walking in the boot. Progress of Wound: Today the wound has no undermining and very clean flat 0.1 depth after 2 puraply. No sign of infection good epithelial development in the wound base. Tolerating wound care well. - Physical Exam Vital Signs Temp Pulse Resp BP 97.9 F 87 16 138/87 H 08/25/18 09:52 08/25/18 09:52 08/25/18 09:52 08/25/18 09:52 General: Oriented x3, Cooperative, Well developed HEENT: Atraumatic, PERRLA Oral: Moist Mucosa Neck: Supple, No JVD Lungs: Clear to auscultation, Normal air movement Cardiovascular: Regular rate, Regular Rhythm Abdomen: Bowel Sounds Present, Soft, Non Tender, No Hepato-splenomegaly Extremities: No clubbing, No edema, - - Right great toe Skin: Ulcer/ Wound Wound Measurements and Assessment WC - Nurse 1 - General Ulcer Measurement Start: 08/25/18 09:50 Freq: Status: Active Protocol: Activity Type Activity Date Activity User E-Sign Co-Sign Detail Recorded Client Recorded Date Recorded By Document 08/25/18 09:52 [facility] [id number] 08/25/18 09:59 [facility] 08/25/18 09:52 Wound Center Nurse 1 [Ulcer Assessment] #1 right great toe -Combined with other wound No -Current Size (cm) - Length 1.2 -Current Size (cm) - Width 1.2 -Current Size (cm) - Depth 0.2 -Total Square Cm 1.44 -Photo Taken No -Epithelialization Small 1-33% -Tunneling No -Undermining/Tunneling No -Circular Undermining No -Exudate Amt Medium -Exudate Type Serous -Wound Margin Flat & Intact -Granulation Amt Large (67-100%) -Granulation Quality Red -Slough/Fibrin No -Necrosis Amt None Present (0 %) -Texture ([place]-wound Skin Appearance) Assessed Localized Edema Scarring -Moisture ([place]-wound Skin Appearance Assessed ) Maceration -Color ([place]-wound Skin Appearance) Palor -Temperature ([place]-wound Skin No Abnormality Appearance) (Pt Warm) -Tenderness on Palpation ([place]-wound Yes Skin Appearance) -Anesthetic Used 5% Lidocaine Gel - Nurse 2 - General Ulcer CM Notes Start: 08/25/18 09:50 Freq: Status: Active Protocol: Activity Type Activity Date Activity User E-Sign Co-Sign Detail Recorded Client Recorded Date Recorded By Document 08/25/18 10:48 MW [id number] 08/25/18 10:55 MW 08/25/18 10:48 Wound Center Nurse 2 [Procedure/Treatment] -Time 10:48 -Correct Patient Yes -Correct Side, Site, Position Yes -Correct Procedure Yes -Procedure Performed Yes -Type of Procedure Debridement -Clinical Debridement Subcutaneous -Post Debridement Size (cm) - Length 1.0 -Post Debridement Size (cm) - Width 0.8 -Post Debridement Size (cm) - Depth 0.2 -Total Square Cm 0.80 -Wound/Ulcer Outcome Not Healed -Ulcer Cleansing Rinsed/ Irrigated with Saline -Foul Odor after Cleansing No -Bioengineered Tissue Yes -Type of bioengineered Tissue [id number] -Expiration Date 01/05/21 -Product Lot Number [id number] -Percent Used 100 -Saline Lot Number [id number] -Bleeding Controlled with Pressure -Offloading No -Treatment Response Procedure Tolerated Well [See Physician Procedure note for Specifics] Pain Scale: 0-10 Numeric [Pain] -Is Patient Pain Free? Yes Musculoskeletal: No Tenderness to Palpation of Joints or Extremities Lymphatic: No Cervical, Supraclavicular, or Inguinal Adenopathy Neurological: Cranial nerves II-XII grossly intact, Neuro grossly intact Psych/Mental Status: Normal Affect, Appropriate, Alert and oriented to time, place, person, mood and affect Debridement Note Post-Debridement Measurements/Treatment WC - Nurse 2 - General Ulcer CM Notes Start: 08/25/18 09:50 Freq: Status: Active Protocol: Activity Type Activity Date Activity User E-Sign Co-Sign Detail Recorded Client Recorded Date Recorded By Document 08/25/18 10:48 MW [id number] 08/25/18 10:55 MW 08/25/18 10:48 Wound Center Nurse 2 #1 right great toe -Time 10:48 -Correct Patient Yes -Correct Side, Site, Position Yes -Correct Procedure Yes -Procedure Performed Yes -Type of Procedure Debridement -Clinical Debridement Subcutaneous -Post Debridement Size (cm) - Length 1.0 -Post Debridement Size (cm) - Width 0.8 -Post Debridement Size (cm) - Depth 0.2 -Total Square Cm 0.80 -Wound/Ulcer Outcome Not Healed -Ulcer Cleansing Rinsed/ Irrigated with Saline -Foul Odor after Cleansing No -Bioengineered Tissue Yes -Type of bioengineered Tissue [id number] -Expiration Date 01/05/21 -Product Lot Number [id number] -Percent Used 100 -Saline Lot Number [id number] -Bleeding Controlled with Pressure -Offloading No -Treatment Response Procedure Tolerated Well Pain Scale: 0-10 Numeric Is Patient Pain Free? Yes Wound debrided: Right great toe Wound Grade/Stage: Stage III Type of Debridement: Excisional debridement Anesthesia Used: 5% Lidocaine Gel Depth: Down to and including healthy tissue, in the subcutaneous layer Percentage of wound debrided: 100 Instrument Used: 5mm curette Tissue Removed: Fibrin Severity: Limited To Skin Breakdown Amount of bleeding with debridement: Mild Bleeding Controlled with: Compression and gauze Patient tolerated procedure well Assessment/Plan Active Problems Diabetic foot ulcer associated with type 2 diabetes mellitus (Acute) Decubitus ulcer of toe, stage 3 (Acute) TIA (transient ischemic attack) (Chronic) Coronary artery disease (Chronic) status post stents Assessment: Decubitus ulcer right great toe stage II. DFU right great toe. Noncompliant diabetic type 2 insulin-dependent. Hypertension. stroke Plan: Applied puraply #3 to the area. Leave dressing alone do not remove. Follow-up in 1 week
[2018-09-01 09:41] VITALS: BP 149/89; PULSE 87; RESP 16; TEMP 36.1; BMI 33.0
--- NOTE | 2018-09-01 10:29 | PCM.WC.PN ---
(1) Diabetic foot ulcer associated with type 2 diabetes mellitus Status: Acute Current Visit: Yes Qualifiers: Diabetic foot ulcer location: toe Laterality: right Code(s): E11.621 - Type 2 diabetes mellitus with foot ulcer; L97.509 - Non-pressure chronic ulcer of other part of unspecified foot with unspecified severity (2) TIA (transient ischemic attack) Status: Chronic Current Visit: Yes Qualifiers: (3) Coronary artery disease Status: Chronic Current Visit: Yes Qualifiers: Code(s): I25.10 - Atherosclerotic heart disease of [place] coronary artery without angina pectoris Comment: status post stents (4) Decubitus ulcer of toe, stage 3 Status: Acute Current Visit: Yes Code(s): L89.893 - Pressure ulcer of other site, stage 3 (5) History of stroke Status: Chronic Current Visit: No Code(s): Z86.73 - Personal history of transient ischemic attack (TIA), and cerebral infarction without residual deficits Type of Wound Chief Complaint: Follow-up right great toe ulcer History of Wound: 63-year-old white male who is diabetic type II noncompliant on insulin for his type 2 diabetes. Seen by a auto servicer and another city and is having difficulty with healing. Was already approved for puraply. Today we will clean it and apply the first puraply for treatment. Is in a boot and crutches. Patient is noncompliant with offloading and you can tell because he have undermining between 6 and 12 from him walking in the boot. Progress of Wound: Today the wound very small, responded well to the puraply and now we will use nu- shield to finish the ulcer off and hopefully he will be healed by next week. Has no undermining and very clean flat 0.1 depth after 3 puraply. No sign of infection good epithelial development in the wound base. Tolerating wound care well. - Physical Exam Vital Signs Temp Pulse Resp BP 97.0 F L 87 16 149/89 H 09/01/18 09:41 09/01/18 09:41 09/01/18 09:41 09/01/18 09:41 General: Oriented x3, Cooperative, Well developed HEENT: Atraumatic, PERRLA Oral: Moist Mucosa Neck: Supple, No JVD Lungs: Clear to auscultation, Normal air movement Cardiovascular: Regular rate, Regular Rhythm Abdomen: Bowel Sounds Present, Soft, Non Tender, No Hepato-splenomegaly Extremities: No clubbing, No edema, - - Right great toe pressure ulcer Wound Measurements and Assessment WC - Nurse 1 - General Ulcer Measurement Start: 08/25/18 09:50 Freq: Status: Active Protocol: Activity Type Activity Date Activity User E-Sign Co-Sign Detail Recorded Client Recorded Date Recorded By Document 09/01/18 09:41 [id number] 09/01/18 09:43 JF 09/01/18 09:41 Wound Center Nurse 1 [Ulcer Assessment] #1 right great toe -Combined with other wound No -Current Size (cm) - Length 0.7 -Current Size (cm) - Width 0.5 -Current Size (cm) - Depth 0.2 -Total Square Cm 0.35 -Photo Taken No -Epithelialization Small 1-33% -Tunneling No -Undermining/Tunneling No -Circular Undermining No -Exudate Amt Medium -Exudate Type Serosanguineous -Wound Margin Flat & Intact -Granulation Amt Medium (34-66%) -Granulation Quality [place] -Slough/Fibrin Yes -Necrosis Amt Medium (34-66%) -Necrotic Tissue Type Adherent Slough -Structure Exposed N/A -Texture ([place]-wound Skin Appearance) Assessed -Moisture ([place]-wound Skin Appearance Assessed ) Maceration Dry/Scaly -Color ([place]-wound Skin Appearance) Assessed -Temperature ([place]-wound Skin No Abnormality Appearance) (Pt Warm) -Tenderness on Palpation ([place]-wound No Skin Appearance) -Ulcer Cleansing Wound Cleanser -Foul Odor after Cleansing No -Anesthetic Used 4% Lidocaine Solution [Edema Assessment] -Lower Limb Edema Present No WC - Nurse 2 - General Ulcer CM Notes Start: 08/25/18 09:50 Freq: Status: Active Protocol: Activity Type Activity Date Activity User E-Sign Co-Sign Detail Recorded Client Recorded Date Recorded By Document 09/01/18 09:48 MW [id number] 09/01/18 09:59 MW 09/01/18 09:48 Wound Center Nurse 2 [Procedure/Treatment] #1 right great toe -Time 09:53 -Correct Patient Yes -Correct Side, Site, Position Yes -Correct Procedure Yes -Procedure Performed Yes -Type of Procedure Debridement -Clinical Debridement Subcutaneous -Post Debridement Size (cm) - Length 0.7 -Post Debridement Size (cm) - Width 0.5 -Post Debridement Size (cm) - Depth 0.1 -Total Square Cm 0.35 -Wound/Ulcer Outcome Not Healed -Ulcer Cleansing Rinsed/ Irrigated with Saline -Foul Odor after Cleansing No -Bioengineered Tissue Yes -Type of bioengineered Tissue NU-[id number] -Expiration Date 07/24/23 -Product Lot Number [id number] -Percent Used 100 -Saline Lot Number [id number] -Bleeding Controlled with Pressure -Offloading No -Treatment Response Procedure Tolerated Well [See Physician Procedure note for Specifics] Pain Scale: 0-10 Numeric [Pain] -Is Patient Pain Free? Yes Musculoskeletal: No Tenderness to Palpation of Joints or Extremities Lymphatic: No Cervical, Supraclavicular, or Inguinal Adenopathy Neurological: Cranial nerves II-XII grossly intact, Neuro grossly intact Psych/Mental Status: Normal Affect, Appropriate Debridement Note Post-Debridement Measurements/Treatment WC - Nurse 2 - General Ulcer CM Notes Start: 08/25/18 09:50 Freq: Status: Active Protocol: Activity Type Activity Date Activity User E-Sign Co-Sign Detail Recorded Client Recorded Date Recorded By Document 08/25/18 10:48 MW [id number] 08/25/18 10:55 MW Document 09/01/18 09:48 MW [id number] 09/01/18 09:59 MW 08/25/18 09/01/18 10:48 09:48 Wound Center Nurse 2 #1 right great toe -Time 10:48 09:53 -Correct Patient Yes Yes -Correct Side, Site, Position Yes Yes -Correct Procedure Yes Yes -Procedure Performed Yes Yes -Type of Procedure Debridement Debridement -Clinical Debridement Subcutaneous Subcutaneous -Post Debridement Size (cm) - Length 1.0 0.7 -Post Debridement Size (cm) - Width 0.8 0.5 -Post Debridement Size (cm) - Depth 0.2 0.1 -Total Square Cm 0.80 0.35 -Wound/Ulcer Outcome Not Healed Not Healed -Ulcer Cleansing Rinsed/ Rinsed/ Irrigated with Irrigated with Saline Saline -Foul Odor after Cleansing No No -Bioengineered Tissue Yes Yes -Type of bioengineered Tissue [id number] NU-SHIELD -Expiration Date 01/05/21 07/24/23 -Product Lot Number [id number] -Percent Used 100 100 -Saline Lot Number [id number] -Bleeding Controlled with Pressure Pressure -Offloading No No -Treatment Response Procedure Procedure Tolerated Well Tolerated Well Pain Scale: 0-10 Numeric Is Patient Pain Free? Yes Yes Wound debrided: Right great toe Wound Grade/Stage: Stage II Type of Debridement: Excisional debridement Anesthesia Used: 5% Lidocaine Gel Depth: Down to and including healthy tissue, in the subcutaneous layer Instrument Used: 5mm curette Tissue Removed: Fibrin Severity: Limited To Skin Breakdown Amount of bleeding with debridement: Mild Bleeding Controlled with: Compression and gauze Patient tolerated procedure well Assessment/Plan Active Problems Diabetic foot ulcer associated with type 2 diabetes mellitus (Acute) Decubitus ulcer of toe, stage 3 (Acute) TIA (transient ischemic attack) (Chronic) Coronary artery disease (Chronic) status post stents Assessment: Decubitus ulcer right great toe stage II. DFU right great toe. Noncompliant diabetic type 2 insulin-dependent. Hypertension. stroke Plan: Applied nu-sheild #4 to the area. Leave dressing alone do not remove. Follow-up in 1 week
--- NOTE | 2018-09-01 10:32 | PN.PCM_ITS ---
(1) Diabetic foot ulcer associated with type 2 diabetes mellitus Status: Acute Current Visit: Yes Qualifiers: Diabetic foot ulcer location: toe Laterality: right Code(s): E11.621 - Type 2 diabetes mellitus with foot ulcer; L97.509 - Non- pressure chronic ulcer of other part of unspecified foot with unspecified severity (2) TIA (transient ischemic attack) Status: Chronic Current Visit: Yes Qualifiers: (3) Coronary artery disease Status: Chronic Current Visit: Yes Qualifiers: Code(s): I25.10 - Atherosclerotic heart disease of [place] coronary artery without angina pectoris Comment: status post stents (4) Decubitus ulcer of toe, stage 3 Status: Acute Current Visit: Yes Code(s): L89.893 - Pressure ulcer of other site, stage 3 (5) History of stroke Status: Chronic Current Visit: No Code(s): Z86.73 - Personal history of transient ischemic attack (TIA), and cerebral infarction without residual deficits Type of Wound Chief Complaint: Follow-up right great toe ulcer History of Wound: 63-year-old white male who is diabetic type II noncompliant on insulin for his type 2 diabetes. Seen by a information operator and another city and is having difficulty with healing. Was already approved for puraply. Today we will clean it and apply the first puraply for treatment. Is in a boot and crutches. Patient is noncompliant with offloading and you can tell because he have undermining between 6 and 12 from him walking in the boot. Progress of Wound: Today the wound very small, responded well to the puraply and now we will use nu- shield to finish the ulcer off and hopefully he will be healed by next week. Has no undermining and very clean flat 0.1 depth after 3 puraply. No sign of infection good epithelial development in the wound base. Tolerating wound care well. - Physical Exam Vital Signs Temp Pulse Resp BP 97.0 F L 87 16 149/89 H 09/01/18 09:41 09/01/18 09:41 09/01/18 09:41 09/01/18 09:41 General: Oriented x3, Cooperative, Well developed HEENT: Atraumatic, PERRLA Oral: Moist Mucosa Neck: Supple, No JVD Lungs: Clear to auscultation, Normal air movement Cardiovascular: Regular rate, Regular Rhythm Abdomen: Bowel Sounds Present, Soft, Non Tender, No Hepato-splenomegaly Extremities: No clubbing, No edema, - - Right great toe pressure ulcer Wound Measurements and Assessment WC - Nurse 1 - General Ulcer Measurement Start: 08/25/18 09:50 Freq: Status: Active Protocol: Activity Type Activity Date Activity User E-Sign Co-Sign Detail Recorded Client Recorded Date Recorded By Document 09/01/18 09:41 [id number] 09/01/18 09:43 JF 09/01/18 09:41 Wound Center Nurse 1 [Ulcer Assessment] #1 right great toe -Combined with other wound No -Current Size (cm) - Length 0.7 -Current Size (cm) - Width 0.5 -Current Size (cm) - Depth 0.2 -Total Square Cm 0.35 -Photo Taken No -Epithelialization Small 1-33% -Tunneling No -Undermining/Tunneling No -Circular Undermining No -Exudate Amt Medium -Exudate Type Serosanguineous -Wound Margin Flat & Intact -Granulation Amt Medium (34-66%) -Granulation Quality [place] -Slough/Fibrin Yes -Necrosis Amt Medium (34-66%) -Necrotic Tissue Type Adherent Slough -Structure Exposed N/A -Texture ([place]-wound Skin Appearance) Assessed -Moisture ([place]-wound Skin Appearance Assessed ) Maceration Dry/Scaly -Color ([place]-wound Skin Appearance) Assessed -Temperature ([place]-wound Skin No Abnormality Appearance) (Pt Warm) -Tenderness on Palpation ([place]-wound No Skin Appearance) -Ulcer Cleansing Wound Cleanser -Foul Odor after Cleansing No -Anesthetic Used 4% Lidocaine Solution [Edema Assessment] -Lower Limb Edema Present No WC - Nurse 2 - General Ulcer CM Notes Start: 08/25/18 09:50 Freq: Status: Active Protocol: Activity Type Activity Date Activity User E-Sign Co-Sign Detail Recorded Client Recorded Date Recorded By Document 09/01/18 09:48 MW [id number] 09/01/18 09:59 MW 09/01/18 09:48 Wound Center Nurse 2 [Procedure/Treatment] #1 right great toe -Time 09:53 -Correct Patient Yes -Correct Side, Site, Position Yes -Correct Procedure Yes -Procedure Performed Yes -Type of Procedure Debridement -Clinical Debridement Subcutaneous -Post Debridement Size (cm) - Length 0.7 -Post Debridement Size (cm) - Width 0.5 -Post Debridement Size (cm) - Depth 0.1 -Total Square Cm 0.35 -Wound/Ulcer Outcome Not Healed -Ulcer Cleansing Rinsed/ Irrigated with Saline -Foul Odor after Cleansing No -Bioengineered Tissue Yes -Type of bioengineered Tissue NU-SHIELD -Expiration Date 07/24/23 -Product Lot Number [id number] -Percent Used 100 -Saline Lot Number [id number] -Bleeding Controlled with Pressure -Offloading No -Treatment Response Procedure Tolerated Well [See Physician Procedure note for Specifics] Pain Scale: 0-10 Numeric [Pain] -Is Patient Pain Free? Yes Musculoskeletal: No Tenderness to Palpation of Joints or Extremities Lymphatic: No Cervical, Supraclavicular, or Inguinal Adenopathy Neurological: Cranial nerves II-XII grossly intact, Neuro grossly intact Psych/Mental Status: Normal Affect, Appropriate Debridement Note Post-Debridement Measurements/Treatment WC - Nurse 2 - General Ulcer CM Notes Start: 08/25/18 09:50 Freq: Status: Active Protocol: Activity Type Activity Date Activity User E-Sign Co-Sign Detail Recorded Client Recorded Date Recorded By Document 08/25/18 10:48 MW [id number] 08/25/18 10:55 MW Document 09/01/18 09:48 MW [id number] 09/01/18 09:59 MW 08/25/18 09/01/18 10:48 09:48 Wound Center Nurse 2 #1 right great toe -Time 10:48 09:53 -Correct Patient Yes Yes -Correct Side, Site, Position Yes Yes -Correct Procedure Yes Yes -Procedure Performed Yes Yes -Type of Procedure Debridement Debridement -Clinical Debridement Subcutaneous Subcutaneous -Post Debridement Size (cm) - Length 1.0 0.7 -Post Debridement Size (cm) - Width 0.8 0.5 -Post Debridement Size (cm) - Depth 0.2 0.1 -Total Square Cm 0.80 0.35 -Wound/Ulcer Outcome Not Healed Not Healed -Ulcer Cleansing Rinsed/ Rinsed/ Irrigated with Irrigated with Saline Saline -Foul Odor after Cleansing No No -Bioengineered Tissue Yes Yes -Type of bioengineered Tissue [id number] NU-SHIELD -Expiration Date 01/05/21 07/24/23 -Product Lot Number [id number] -Percent Used 100 100 -Saline Lot Number [id number] -Bleeding Controlled with Pressure Pressure -Offloading No No -Treatment Response Procedure Procedure Tolerated Well Tolerated Well Pain Scale: 0-10 Numeric Is Patient Pain Free? Yes Yes Wound debrided: Right great toe Wound Grade/Stage: Stage II Type of Debridement: Excisional debridement Anesthesia Used: 5% Lidocaine Gel Depth: Down to and including healthy tissue, in the subcutaneous layer Instrument Used: 5mm curette Tissue Removed: Fibrin Severity: Limited To Skin Breakdown Amount of bleeding with debridement: Mild Bleeding Controlled with: Compression and gauze Patient tolerated procedure well Assessment/Plan Active Problems Diabetic foot ulcer associated with type 2 diabetes mellitus (Acute) Decubitus ulcer of toe, stage 3 (Acute) TIA (transient ischemic attack) (Chronic) Coronary artery disease (Chronic) status post stents Assessment: Decubitus ulcer right great toe stage II. DFU right great toe. Noncompliant diabetic type 2 insulin-dependent. Hypertension. stroke Plan: Applied nu-sheild #4 to the area. Leave dressing alone do not remove. Follow-up in 1 week
[2018-09-08 08:50] VITALS: BP 146/84; PULSE 83; RESP 16; TEMP 37; BMI 33.0
--- NOTE | 2018-09-08 12:14 | PCM.WC.HP ---
(1) Diabetic foot ulcer associated with type 2 diabetes mellitus Status: Acute Current Visit: Yes Qualifiers: Diabetic foot ulcer location: toe Laterality: right Non-pressure ulcer stage: with fat layer exposed Qualified Code(s): E11.621 - Type 2 diabetes mellitus with foot ulcer; L97.512 - Non-pressure chronic ulcer of other part of right foot with fat layer exposed Code(s): E11.621 - Type 2 diabetes mellitus with foot ulcer; L97.509 - Non-pressure chronic ulcer of other part of unspecified foot with unspecified severity (2) Decubitus ulcer of toe, stage 3 Status: Chronic Current Visit: Yes Qualifiers: Laterality: right Qualified Code(s): L89.893 - Pressure ulcer of other site, stage 3 Code(s): L89.893 - Pressure ulcer of other site, stage 3 (3) Type II diabetes mellitus Status: Chronic Current Visit: Yes Qualifiers: Diabetes mellitus complication detail: with other skin complication Code(s): E11.9 - Type 2 diabetes mellitus without complications (4) Paresthesia Status: Acute Current Visit: Yes Code(s): R20.2 - Paresthesia of skin History of Present Illness Date of Service: 09/08/18 Chief Complaint: Follow-up right great toe ulcer History of Wound: 63-year-old white male who is diabetic type II noncompliant on insulin for his type 2 diabetes. Seen by a drying rack changer in another city and was having difficulty with healing. He's in a boot and using crutches. He has been having N[place]ield applied to his wound by Thelma Mann NP and has had improvement. He is being seen as a courtesy visit for her today. He denies any concerns at this time. Past Medical History Past Medical History: Chronic Problems Decubitus ulcer of toe, stage 3 (Chronic) TIA (transient ischemic attack) (Chronic) Type II diabetes mellitus (Chronic) Coronary artery disease (Chronic) status post stents History of stroke (Chronic) Hyperlipidemia (Chronic) Hypertension (Chronic) Surgical History: - - T+A, notes had ex lap for concern of renal CA, operative evaluation kidney unremarkable and it was placed back without resection. Allergies/Adverse Reactions: Allergies pregabalin [From Lyrica] Allergy (Verified 03/16/18 16:39) Unknown Penicillins Adverse Reaction (Verified 03/16/18 16:39) Hives Home Medications: Ambulatory Orders Medication Instructions Recorded Atorvastatin Calcium [Lipitor] 80 mg PO QHS 10/01/15 Carbidopa/Levodopa 25/100 [Sinemet 1 tablet PO TIDAC 10/01/15 25/100] Carvedilol [Coreg (Beta [place])] 6.25 mg PO BID 10/01/15 Insulin NPH Human [Humulin N Pen] 9 units SC BID 10/01/15 Lisinopril [Zestril] 5 mg PO DAILY 10/01/15 metFORMIN HCl [Glucophage] 1,000 mg PO BIDCM 10/01/15 Mirtazapine [Remeron] 30 mg PO QHS 01/24/17 Aspirin [Aspirin, Baby] 81 mg PO DAILY@0800 tab.chew 01/26/17 Clopidogrel Bisulfate [Plavix] 75 mg PO DAILY #30 tablet 01/26/17 Empagliflozin [Jardiance] 10 mg PO DAILY #30 tablet 01/26/17 Ciprofloxacin [Cipro] 500 mg PO BID #14 tablet 03/16/18 Clindamycin [Cleocin] 450 mg PO TID #10 days 03/16/18 Oxcarbazepine [Trileptal] 300 mg PO 4X/DAY 03/16/18 Polyethylene Glycol 3350 [Miralax] 17 gm PO DAILY 03/16/18 Tizanidine HCl 4 mg PO Q8H PRN PRN 03/16/18 - Family History Maternal No pertinent history Paternal No pertinent history Smoking Status: Never smoker Tobacco Use: Non-smoker Alcohol: None Drugs: None Review of Systems Constitutional: Denies: Chills, Fever, Weight Change Eyes: Denies: Pain, Vision Change HEENT: Denies: Difficulty Hearing, Difficulty Swallowing, Sinus Congestion Cardiovascular: Denies: Chest Pain, Palpitations Respiratory: Denies: Cough, Shortness of Breath Gastrointestinal: Denies: Diarrhea, Nausea, Vomiting Genitourinary: Denies: Dysuria, Hematuria Musculoskeletal: Reports: Foot Pain Skin: Reports: Wounds Endocrine: Denies: Heat/ Cold Intolerance, Polydipsia, Polyuria Hematologic/ Lymphatic: Denies: Easy Bruising, Easy Bleeding - Physical Exam Vital Signs Temp Pulse Resp BP 98.6 F 83 16 146/84 H 09/08/18 08:50 09/08/18 08:50 09/08/18 08:50 09/08/18 08:50 General: Alert, Oriented x3, Cooperative, No apparent distress HEENT: Atraumatic, Normocephalic Oral: Moist Mucosa Neck: Supple Lungs: Clear to auscultation Cardiovascular: Regular rate, Regular Rhythm Abdomen: Soft, Non Tender, Obese Extremities: No edema Skin: Ulcer/ Wound Wound Measurements and Assessment WC - Nurse 1 - General Ulcer Measurement Start: 08/25/18 09:50 Freq: Status: Active Protocol: Activity Type Activity Date Activity User E-Sign Co-Sign Detail Recorded Client Recorded Date Recorded By Document 09/08/18 08:50 [id number] 09/08/18 09:05 MD Document 09/08/18 09:49 [id number] 09/08/18 09:51 09/08/18 09/08/18 08:50 09:49 Wound Center Nurse 1 [Ulcer Assessment] #1 right great toe -Combined with other wound No No -Current Size (cm) - Length 0.5 -Current Size (cm) - Width 0.7 -Current Size (cm) - Depth 0.1 -Total Square Cm 0.35 -Photo Taken No -Epithelialization None Present None Present -Tunneling No -Undermining/Tunneling No No -Circular Undermining No No -Exudate Amt Small Small -Exudate Type Serosanguineous Sanguineous -Wound Margin Flat & Intact Distinct, Outline Attached -Granulation Amt Large (67-100%) Large (67-100%) -Granulation Quality Pale Pale -Slough/Fibrin Yes Yes -Necrosis Amt None Present (0 %) -Necrotic Tissue Type Adherent Slough -Structure Exposed None/Limited to None/Limited to Skin Breakdown Skin Breakdown -Texture ([place]-wound Skin Appearance) Friable Friable -Moisture ([place]-wound Skin Appearance Maceration Maceration ) -Color ([place]-wound Skin Appearance) [place] -Temperature ([place]-wound Skin No Abnormality No Abnormality Appearance) (Pt Warm) (Pt Warm) -Tenderness on Palpation ([place]-wound No No Skin Appearance) -Ulcer Cleansing Rinsed/ Irrigated with Saline -Foul Odor after Cleansing No No -Anesthetic Used 5% Lidocaine 5% Lidocaine Gel Gel [Edema Assessment] -Lower Limb Edema Present No No WC - Nurse 2 - General Ulcer CM Notes Start: 08/25/18 09:50 Freq: Status: Active Protocol: Activity Type Activity Date Activity User E-Sign Co-Sign Detail Recorded Client Recorded Date Recorded By Document 09/08/18 09:27 AN [id number] 09/08/18 09:29 AN 09/08/18 09:27 Wound Center Nurse 2 [Procedure/Treatment] #1 right great toe -Time 09:27 -Correct Patient Yes -Correct Side, Site, Position Yes -Correct Procedure Yes -Procedure Performed Yes -Type of Procedure Debridement -Clinical Debridement Subcutaneous -Post Debridement Size (cm) - Length 0.3 -Post Debridement Size (cm) - Width 0.3 -Post Debridement Size (cm) - Depth 0.2 -Total Square Cm 0.09 -Wound/Ulcer Outcome Not Healed -Ulcer Cleansing Rinsed/ Irrigated with Saline -Foul Odor after Cleansing No -Bioengineered Tissue Yes -Type of bioengineered Tissue NU-SHIELD -Expiration Date 07/05/23 -Product Lot Number [id number] -Percent Used 100 -Saline Lot Number [id number] -Bleeding Controlled with Pressure -Offloading Yes -Type of Offloading Camwalker -Treatment Response Procedure Tolerated Well [See Physician Procedure note for Specifics] Pain Scale: 0-10 Numeric [Pain] -Is Patient Pain Free? Yes Psych/Mental Status: Normal Affect, Appropriate Debridement Note Post-Debridement Measurements/Treatment WC - Nurse 2 - General Ulcer CM Notes Start: 08/25/18 09:50 Freq: Status: Active Protocol: Activity Type Activity Date Activity User E-Sign Co-Sign Detail Recorded Client Recorded Date Recorded By Document 08/25/18 10:48 MW [id number] 08/25/18 10:55 MW Document 09/01/18 09:48 MW [id number] 09/01/18 09:59 MW Document 09/08/18 09:27 AN [id number] 09/08/18 09:29 AN 08/25/18 09/01/18 09/08/18 10:48 09:48 09:27 Wound Center Nurse 2 #1 right great toe -Time 10:48 09:53 09:27 -Correct Patient Yes Yes Yes -Correct Side, Site, Position Yes Yes Yes -Correct Procedure Yes Yes Yes -Procedure Performed Yes Yes Yes -Type of Procedure Debridement Debridement Debridement -Clinical Debridement Subcutaneous Subcutaneous Subcutaneous -Post Debridement Size (cm) - Length 1.0 0.7 0.3 -Post Debridement Size (cm) - Width 0.8 0.5 0.3 -Post Debridement Size (cm) - Depth 0.2 0.1 0.2 -Total Square Cm 0.80 0.35 0.09 -Wound/Ulcer Outcome Not Healed Not Healed Not Healed -Ulcer Cleansing Rinsed/ Rinsed/ Rinsed/ Irrigated with Irrigated with Irrigated with Saline Saline Saline -Foul Odor after Cleansing No No No -Bioengineered Tissue Yes Yes Yes -Type of bioengineered Tissue [id number] NU-SHIELD NU-SHIELD -Expiration Date 01/05/21 07/24/23 07/05/23 -Product Lot Number [id number] -Percent Used 100 100 100 -Saline Lot Number [id number] -Bleeding Controlled with Pressure Pressure Pressure -Offloading No No Yes -Type of Offloading Camwalker -Treatment Response Procedure Procedure Procedure Tolerated Well Tolerated Well Tolerated Well Pain Scale: 0-10 Numeric Is Patient Pain Free? Yes Yes Yes Wound debrided: right great toe Laterality: Right Wound Grade/Stage: Stage 3 Type of Debridement: Excisional debridement Anesthesia Used: 4% Lidocaine Solution Depth: Down to and including healthy tissue, in the subcutaneous layer Percentage of wound debrided: 100 Instrument Used: 3mm curette Tissue Removed: yellow slough, devitalized tissue Severity: Fat Layer Exposed Amount of bleeding with debridement: Mild Bleeding Controlled with: Compression and gauze Patient tolerated procedure well Assessment/Plan Active Problems Diabetic foot ulcer associated with type 2 diabetes mellitus (Acute) Decubitus ulcer of toe, stage 3 (Chronic) TIA (transient ischemic attack) (Chronic) Type II diabetes mellitus (Chronic) Coronary artery disease (Chronic) status post stents Paresthesia (Acute) Assessment: Decubitus ulcer right great toe stage II. DFU right great toe. Noncompliant diabetic type 2 insulin-dependent. Hypertension. stroke Plan: Applied nu-sheild #5 to the area. Cover with gauze. Leave dressing alone do not remove. Follow-up in 1 week
[2018-09-15 10:25] VITALS: BP 151/79; PULSE 94; RESP 18; TEMP 36.9; BMI 33.0
--- NOTE | 2018-09-15 12:52 | PCM.WC.PN ---
(1) Diabetic foot ulcer associated with type 2 diabetes mellitus Status: Chronic Current Visit: Yes Qualifiers: Diabetic foot ulcer location: toe Laterality: right Non-pressure ulcer stage: with fat layer exposed Qualified Code(s): E11.621 - Type 2 diabetes mellitus with foot ulcer; L97.512 - Non-pressure chronic ulcer of other part of right foot with fat layer exposed Code(s): E11.621 - Type 2 diabetes mellitus with foot ulcer; L97.509 - Non-pressure chronic ulcer of other part of unspecified foot with unspecified severity (2) TIA (transient ischemic attack) Status: Chronic Current Visit: Yes Qualifiers: (3) Coronary artery disease Status: Chronic Current Visit: Yes Qualifiers: Code(s): I25.10 - Atherosclerotic heart disease of [place] coronary artery without angina pectoris Comment: status post stents (4) Decubitus ulcer of toe, stage 3 Status: Chronic Current Visit: Yes Qualifiers: Laterality: right Qualified Code(s): L89.893 - Pressure ulcer of other site, stage 3 Code(s): L89.893 - Pressure ulcer of other site, stage 3 (5) History of stroke Status: Chronic Current Visit: Yes Code(s): Z86.73 - Personal history of transient ischemic attack (TIA), and cerebral infarction without residual deficits Type of Wound Date of Service: 09/15/18 Chief Complaint: Follow-up right great toe ulcer History of Wound: 63-year-old white male who is diabetic type II noncompliant on insulin for his type 2 diabetes. Seen by a field human resources manager in another city and was having difficulty with healing. He's in a boot and using crutches. He has been having [facility] applied to his wound by Thelma Mann NP and has had improvement. He is being seen as a courtesy visit for her today. He denies any concerns at this time. Progress of Wound: Today the wound very small a pinpoint, responded well to the puraply and now we will use nu- shield to finish the ulcer off and hopefully he will be healed by next week. - Physical Exam Vital Signs Temp Pulse Resp BP 98.4 F 94 18 151/79 H 09/15/18 10:25 09/15/18 10:25 09/15/18 10:25 09/15/18 10:25 General: Oriented x3, Cooperative, Well developed HEENT: Atraumatic, PERRLA Oral: Moist Mucosa Neck: Supple, No JVD Lungs: Clear to auscultation, Normal air movement Cardiovascular: Regular rate, Regular Rhythm Abdomen: Bowel Sounds Present, Soft, Non Tender, No Hepato-splenomegaly Extremities: No clubbing, No edema, - - Right great toe pressure ulcer Wound Measurements and Assessment - Nurse 1 - General Ulcer Measurement Start: 08/25/18 09:50 Freq: Status: Active Protocol: Activity Type Activity Date Activity User E-Sign Co-Sign Detail Recorded Client Recorded Date Recorded By Document 09/15/18 10:25 RB [id number] 09/15/18 10:32 RB 09/15/18 10:25 Wound Center Nurse 1 [Ulcer Assessment] #1 right great toe -Combined with other wound No -Current Size (cm) - Length 0.1 -Current Size (cm) - Width 0.1 -Current Size (cm) - Depth 0.1 -Total Square Cm 0.01 -Tunneling No -Undermining/Tunneling No -Circular Undermining No -Exudate Amt None Present -Wound Margin Distinct, Outline Attached -Granulation Amt Small (1-33%) -Granulation Quality [place] -Slough/Fibrin Yes -Necrosis Amt Large (67-100%) -Necrotic Tissue Type Adherent Slough -Structure Exposed N/A -Texture (Magdalena-wound Skin Appearance) Callus -Moisture ([place]dalena-wound Skin Appearance Assessed ) -Color ([place]dalena-wound Skin Appearance) Assessed -Temperature ([place]dalena-wound Skin No Abnormality Appearance) (Pt Warm) -Tenderness on Palpation ([place]dalena-wound No Skin Appearance) -Ulcer Cleansing Wound Cleanser -Foul Odor after Cleansing No -Anesthetic Used 5% Lidocaine Gel - Nurse 2 - General Ulcer CM Notes Start: 08/25/18 09:50 Freq: Status: Active Protocol: Activity Type Activity Date Activity User E-Sign Co-Sign Detail Recorded Client Recorded Date Recorded By Document 09/15/18 10:54 MW [id number] 09/15/18 11:06 MW 09/15/18 10:54 Wound Center Nurse 2 [Procedure/Treatment] -Time 10:54 -Correct Patient Yes -Correct Side, Site, Position Yes -Correct Procedure Yes -Procedure Performed Yes -Type of Procedure Debridement -Clinical Debridement Subcutaneous -Post Debridement Size (cm) - Length 0.5 -Post Debridement Size (cm) - Width 0.6 -Post Debridement Size (cm) - Depth 0.1 -Total Square Cm 0.30 -Wound/Ulcer Outcome Not Healed -Ulcer Cleansing Rinsed/ Irrigated with Saline -Foul Odor after Cleansing No -Bioengineered Tissue Yes -Type of bioengineered Tissue NU-SHIELD -Expiration Date 07/18/23 -Product Lot Number [id number] -Percent Used 33 -Saline Lot Number [id number] -Bleeding Controlled with Pressure -Offloading No -Treatment Response Procedure Tolerated Well [See Physician Procedure note for Specifics] Pain Scale: 0-10 Numeric [Pain] -Is Patient Pain Free? Yes Musculoskeletal: No Tenderness to Palpation of Joints or Extremities Lymphatic: No Cervical, Supraclavicular, or Inguinal Adenopathy Neurological: Cranial nerves II-XII grossly intact, Neuro grossly intact Psych/Mental Status: Normal Affect, Appropriate Debridement Note Post-Debridement Measurements/Treatment WC - Nurse 2 - General Ulcer CM Notes Start: 08/25/18 09:50 Freq: Status: Active Protocol: Activity Type Activity Date Activity User E-Sign Co-Sign Detail Recorded Client Recorded Date Recorded By Document 08/25/18 10:48 MW [id number] 08/25/18 10:55 MW Document 09/01/18 09:48 MW [id number] 09/01/18 09:59 MW Document 09/08/18 09:27 AN [id number] 09/08/18 09:29 AN Document 09/15/18 10:54 MW [id number] 09/15/18 11:06 MW 08/25/18 09/01/18 09/08/18 10:48 09:48 09:27 Wound Center Nurse 2 #1 right great toe -Time 10:48 09:53 09:27 -Correct Patient Yes Yes Yes -Correct Side, Site, Position Yes Yes Yes -Correct Procedure Yes Yes Yes -Procedure Performed Yes Yes Yes -Type of Procedure Debridement Debridement Debridement -Clinical Debridement Subcutaneous Subcutaneous Subcutaneous -Post Debridement Size (cm) - Length 1.0 0.7 0.3 -Post Debridement Size (cm) - Width 0.8 0.5 0.3 -Post Debridement Size (cm) - Depth 0.2 0.1 0.2 -Total Square Cm 0.80 0.35 0.09 -Wound/Ulcer Outcome Not Healed Not Healed Not Healed -Ulcer Cleansing Rinsed/ Rinsed/ Rinsed/ Irrigated with Irrigated with Irrigated with Saline Saline Saline -Foul Odor after Cleansing No No No -Bioengineered Tissue Yes Yes Yes -Type of bioengineered Tissue [id number] NU-SHIELD NU-SHIELD -Expiration Date 01/05/21 07/24/23 07/05/23 -Product Lot Number [id number] -Percent Used 100 100 100 -Saline Lot Number [id number] -Bleeding Controlled with Pressure Pressure Pressure -Offloading No No Yes -Type of Offloading [place] -Treatment Response Procedure Procedure Procedure Tolerated Well Tolerated Well Tolerated Well Pain Scale: 0-10 Numeric Is Patient Pain Free? Yes Yes Yes 09/15/18 10:54 Wound Center Nurse 2 #1 right great toe -Time 10:54 -Correct Patient Yes -Correct Side, Site, Position Yes -Correct Procedure Yes -Procedure Performed Yes -Type of Procedure Debridement -Clinical Debridement Subcutaneous -Post Debridement Size (cm) - Length 0.5 -Post Debridement Size (cm) - Width 0.6 -Post Debridement Size (cm) - Depth 0.1 -Total Square Cm 0.30 -Wound/Ulcer Outcome Not Healed -Ulcer Cleansing Rinsed/ Irrigated with Saline -Foul Odor after Cleansing No -Bioengineered Tissue Yes -Type of bioengineered Tissue NU-SHIELD -Expiration Date 07/18/23 -Product Lot Number [id number] -Percent Used 33 -Saline Lot Number [id number] -Bleeding Controlled with Pressure -Offloading No -Type of Offloading -Treatment Response Procedure Tolerated Well Pain Scale: 0-10 Numeric Is Patient Pain Free? Yes Wound debrided: Right great toe Laterality: Right Wound Grade/Stage: Stage II Type of Debridement: Excisional debridement Anesthesia Used: 5% Lidocaine Gel Depth: Down to and including healthy tissue, in the subcutaneous layer Instrument Used: 7mm curette, - - Nippers Tissue Removed: Callus devitalized tissue fibrin Severity: Fat Layer Exposed Amount of bleeding with debridement: Moderate Bleeding Controlled with: Compression and gauze Patient tolerated procedure well Assessment/Plan Active Problems Diabetic foot ulcer associated with type 2 diabetes mellitus (Chronic) Decubitus ulcer of toe, stage 3 (Chronic) TIA (transient ischemic attack) (Chronic) Type II diabetes mellitus (Chronic) Coronary artery disease (Chronic) status post stents History of stroke (Chronic) Paresthesia (Acute) Assessment: Decubitus ulcer right great toe stage II. DFU right great toe. Noncompliant diabetic type 2 insulin-dependent. Hypertension. stroke Plan: Applied kalpana-lavonneild #6 to the area. Cover with gauze. Leave dressing alone do not remove. Follow-up in 1 week
== END 2018-09-17 23:59 ==
LOC: WC 10:00
PROVIDERS: Family Provider Family Medicine; PCP Family Medicine; Visit Provider Nurse Practitioner
DX: E11.621 Type 2 diabetes mellitus with foot ulcer (principal); L89.893 Pressure ulcer of other site, stage 3; Z86.73 Personal history of transient ischemic attack (TIA), and cerebral infarction without residual deficits; I25.10 Atherosclerotic heart disease of native coronary artery without angina pectoris; Z91.19 Patient's noncompliance with other medical treatment and regimen; Z91.14 Patient's other noncompliance with medication regimen; I10 Essential (primary) hypertension; L89.892 Pressure ulcer of other site, stage 2
CPT/HCPCS: 15275; Q4160; Q4196

== ENCOUNTER 2018-09-29 09:00 | Outpatient (RCR) | payer MEDICARE, MEDICAID, SELFPAY ==
[2018-09-18 00:58] VITALS: BP 151/79; PULSE 94; RESP 18; TEMP 36.9
[2018-09-22 09:00] VITALS: BP 143/82; PULSE 87; RESP 16; TEMP 36.8; BMI 33.0
--- NOTE | 2018-09-22 09:50 | PN.PCM_ITS ---
(1) Speech abnormality Status: Acute Current Visit: No (2) Diabetic foot ulcer associated with type 2 diabetes mellitus Status: Chronic Current Visit: No Qualifiers: Diabetic foot ulcer location: toe Non-pressure ulcer stage: with fat layer exposed Code(s): E11.621 - Type 2 diabetes mellitus with foot ulcer; L97.509 - Non- pressure chronic ulcer of other part of unspecified foot with unspecified severity (3) History of stroke Status: Chronic Current Visit: Yes Code(s): Z86.73 - Personal history of transient ischemic attack (TIA), and cerebral infarction without residual deficits Type of Wound Date of Service: 09/22/18 Chief Complaint: Follow-up right great toe ulcer History of Wound: 63-year-old white male who is diabetic type II noncompliant on insulin for his type 2 diabetes. Seen by a networking engineer in another city and was having difficulty with healing. He's in a boot and using crutches. He has been having Nushield applied to his wound by Thelma Mann NP and has had improvement. He is being seen as a courtesy visit for her today. He denies any concerns at this time. Progress of Wound: Today the wound very small a pinpoint, responded well to the puraply and now we will use nu- shield to finish healing of the ulcer. - Physical Exam Vital Signs Temp Pulse Resp BP 98.2 F 87 16 143/82 H 09/22/18 09:00 09/22/18 09:00 09/22/18 09:00 09/22/18 09:00 General: Oriented x3, Cooperative, Well developed HEENT: Atraumatic, PERRLA Oral: Moist Mucosa Neck: Supple, No JVD Lungs: Clear to auscultation, Normal air movement Cardiovascular: Regular rate, Regular Rhythm Abdomen: Bowel Sounds Present, Soft, Non Tender, No Hepato-splenomegaly Extremities: No clubbing, No edema Skin: Ulcer/ Wound - Right great toe decubitus ulcer stage II Wound Measurements and Assessment WC - Nurse 1 - General Ulcer Measurement Start: 09/22/18 08:58 Freq: Status: Active Protocol: Activity Type Activity Date Activity User E-Sign Co-Sign Detail Recorded Client Recorded Date Recorded By Document 09/22/18 09:00 [facility] [id number] 09/22/18 09:06 [facility] 09/22/18 09:00 Wound Center Nurse 1 [Ulcer Assessment] #1 right great toe -Combined with other wound No -Current Size (cm) - Length 0.3 -Current Size (cm) - Width 0.5 -Current Size (cm) - Depth 0.2 -Total Square Cm 0.15 -Photo Taken No -Epithelialization Small 1-33% -Tunneling No -Undermining/Tunneling No -Circular Undermining No -Exudate Amt Small -Exudate Type Serous -Wound Margin Flat & Intact -Granulation Amt Large (67-100%) -Granulation Quality [place] -Slough/Fibrin No -Necrosis Amt None Present (0 %) -Texture ([place]dalena-wound Skin Appearance) Callus,Scarring -Moisture ([place]dalena-wound Skin Appearance Assessed, ) Maceration -Color ([place]dalena-wound Skin Appearance) Assessed,Palor -Temperature ([place]-wound Skin No Abnormality Appearance) (Pt Warm) -Tenderness on Palpation ([place]-wound Yes Skin Appearance) -Foul Odor after Cleansing No -Anesthetic Used 5% Lidocaine Gel WC - Nurse 2 - General Ulcer CM Notes Start: 09/22/18 08:58 Freq: Status: Active Protocol: Activity Type Activity Date Activity User E-Sign Co-Sign Detail Recorded Client Recorded Date Recorded By Document 09/22/18 09:26 MW [id number] 09/22/18 09:35 MW 09/22/18 09:26 Wound Center Nurse 2 [Procedure/Treatment] -Time 09:26 -Correct Patient Yes -Correct Side, Site, Position Yes -Correct Procedure Yes -Procedure Performed Yes -Type of Procedure Debridement -Clinical Debridement Subcutaneous -Post Debridement Size (cm) - Length 0.5 -Post Debridement Size (cm) - Width 0.5 -Post Debridement Size (cm) - Depth 0.1 -Total Square Cm 0.25 -Wound/Ulcer Outcome Not Healed -Ulcer Cleansing Rinsed/ Irrigated with Saline -Foul Odor after Cleansing No -Bioengineered Tissue Yes -Type of bioengineered Tissue NU-SHIELD -Expiration Date 07/28/23 -Product Lot Number [id number] -Percent Used 100 -Saline Lot Number [id number] -Bleeding Controlled with Pressure -Offloading No -Treatment Response Procedure Tolerated Well [See Physician Procedure note for Specifics] Pain Scale: 0-10 Numeric [Pain] -Is Patient Pain Free? Yes Musculoskeletal: No Tenderness to Palpation of Joints or Extremities Lymphatic: No Cervical, Supraclavicular, or Inguinal Adenopathy Neurological: Cranial nerves II-XII grossly intact, Neuro grossly intact Psych/Mental Status: Normal Affect, Appropriate Debridement Note Post-Debridement Measurements/Treatment WC - Nurse 2 - General Ulcer CM Notes Start: 09/22/18 08:58 Freq: Status: Active Protocol: Activity Type Activity Date Activity User E-Sign Co-Sign Detail Recorded Client Recorded Date Recorded By Document 09/22/18 09:26 MW [id number] 09/22/18 09:35 MW 09/22/18 09:26 Wound Center Nurse 2 #1 right great toe -Time 09:26 -Correct Patient Yes -Correct Side, Site, Position Yes -Correct Procedure Yes -Procedure Performed Yes -Type of Procedure Debridement -Clinical Debridement Subcutaneous -Post Debridement Size (cm) - Length 0.5 -Post Debridement Size (cm) - Width 0.5 -Post Debridement Size (cm) - Depth 0.1 -Total Square Cm 0.25 -Wound/Ulcer Outcome Not Healed -Ulcer Cleansing Rinsed/ Irrigated with Saline -Foul Odor after Cleansing No -Bioengineered Tissue Yes -Type of bioengineered Tissue NU-SHIELD -Expiration Date 07/28/23 -Product Lot Number [id number] -Percent Used 100 -Saline Lot Number [id number] -Bleeding Controlled with Pressure -Offloading No -Treatment Response Procedure Tolerated Well Pain Scale: 0-10 Numeric Is Patient Pain Free? Yes Wound debrided: Right great toe Laterality: Right Wound Grade/Stage: Stage II Type of Debridement: Excisional debridement Anesthesia Used: 5% Lidocaine Gel Depth: Down to and including healthy tissue, in the subcutaneous layer Percentage of wound debrided: 100 Instrument Used: 3mm curette, - - Nippers Tissue Removed: Fibrin and devitalized tissue Severity: Limited To Skin Breakdown Amount of bleeding with debridement: Mild Bleeding Controlled with: Compression and gauze Patient tolerated procedure well Assessment/Plan Active Problems History of stroke (Chronic) Assessment: Decubitus ulcer right great toe stage II. DFU right great toe. Noncompliant diabetic type 2 insulin-dependent. Hypertension. stroke Plan: Applied nu-sheild #7 to the area. Cover with gauze. Leave dressing alone do not remove. Follow-up in 1 week
[2018-09-29 09:03] VITALS: BP 142/77; PULSE 92; RESP 18; TEMP 36.1; BMI 33.0
--- NOTE | 2018-09-29 09:54 | PN.PCM_ITS ---
(1) Speech abnormality Status: Chronic Current Visit: Yes (2) Diabetic foot ulcer associated with type 2 diabetes mellitus Status: Chronic Current Visit: Yes Qualifiers: Diabetic foot ulcer location: toe Non-pressure ulcer stage: with fat layer exposed Code(s): E11.621 - Type 2 diabetes mellitus with foot ulcer; L97.509 - Non- pressure chronic ulcer of other part of unspecified foot with unspecified severity (3) History of stroke Status: Chronic Current Visit: Yes Code(s): Z86.73 - Personal history of transient ischemic attack (TIA), and cerebral infarction without residual deficits Type of Wound Date of Service: 09/29/18 Chief Complaint: Follow-up right great toe ulcer History of Wound: 63-year-old white male who is diabetic type II noncompliant on insulin for his type 2 diabetes. Seen by a emergency technician in another city and was having difficulty with healing. He's in a boot and using crutches. He has been having Nushield applied to his wound by Thelma Mann NP and has had improvement. He is being seen as a courtesy visit for her today. He denies any concerns at this time. Progress of Wound: Today the wound is healed patient will be discharged from the wound center. Patient finally bought his diabetic tennis shoes - Physical Exam Vital Signs Temp Pulse Resp BP 97 F L 92 18 142/77 H 09/29/18 09:03 09/29/18 09:03 09/29/18 09:03 09/29/18 09:03 General: Oriented x3, Cooperative, Well developed HEENT: Atraumatic, PERRLA Oral: Moist Mucosa Neck: Supple, No JVD Lungs: Clear to auscultation, Normal air movement Cardiovascular: Regular rate, Regular Rhythm Abdomen: Bowel Sounds Present, Soft, Non Tender, No Hepato-splenomegaly Extremities: No clubbing, No edema Skin: Ulcer/ Wound Wound Measurements and Assessment WC - Nurse 1 - General Ulcer Measurement Start: 09/22/18 08:58 Freq: Status: Active Protocol: Activity Type Activity Date Activity User E-Sign Co-Sign Detail Recorded Client Recorded Date Recorded By Document 09/29/18 09:03 [facility] [id number] 09/29/18 09:07 [facility] 09/29/18 09:03 Wound Center Nurse 1 [Ulcer Assessment] #1 right great toe -Combined with other wound No -Current Size (cm) - Length 0.1 -Current Size (cm) - Width 0.1 -Current Size (cm) - Depth 0.1 -Total Square Cm 0.01 -Photo Taken No -Epithelialization Large 67-100% -Tunneling No -Undermining/Tunneling No -Circular Undermining No -Exudate Amt Small -Exudate Type Serosanguineous -Slough/Fibrin Yes -Necrosis Amt Small (1-33%) -Necrotic Tissue Type Adherent Slough -Texture ([place]dalena-wound Skin Appearance) Assessed, Scarring -Moisture ([place]dal[place]-wound Skin Appearance Assessed, ) Maceration -Color ([place]dalena-wound Skin Appearance) Assessed,Palor -Temperature ([place]dalena-wound Skin No Abnormality Appearance) (Pt Warm) -Tenderness on Palpation ([place]dalena-wound Yes Skin Appearance) -Ulcer Cleansing Wound Cleanser -Foul Odor after Cleansing No -Anesthetic Used 5% Lidocaine Gel WC - Nurse 2 - General Ulcer CM Notes Start: 09/22/18 08:58 Freq: Status: Active Protocol: Activity Type Activity Date Activity User E-Sign Co-Sign Detail Recorded Client Recorded Date Recorded By Document 09/29/18 09:14 MW [id number] 09/29/18 09:15 MW 09/29/18 09:14 Wound Center Nurse 2 [Procedure/Treatment] -Time 09:14 -Correct Patient Yes -Correct Side, Site, Position Yes -Correct Procedure Yes -Procedure Performed No -Post Debridement Size (cm) - Length 0 -Post Debridement Size (cm) - Width 0 -Post Debridement Size (cm) - Depth 0 -Total Square Cm 0 -Wound/Ulcer Outcome Healed- Epithelialized [See Physician Procedure note for Specifics] Pain Scale: 0-10 Numeric [Pain] -Is Patient Pain Free? Yes Musculoskeletal: No Tenderness to Palpation of Joints or Extremities Lymphatic: No Cervical, Supraclavicular, or Inguinal Adenopathy Neurological: Cranial nerves II-XII grossly intact, Neuro grossly intact Psych/Mental Status: Normal Affect, Appropriate, Alert and oriented to time, pl delta, person, mood and affect Debridement Note Post-Debridement Measurements/Treatment WC - Nurse 2 - General Ulcer CM Notes Start: 09/22/18 08:58 Freq: Status: Active Protocol: Activity Type Activity Date Activity User E-Sign Co-Sign Detail Recorded Client Recorded Date Recorded By Document 09/22/18 09:26 MW [id number] 09/22/18 09:35 MW Document 09/29/18 09:14 MW [id number] 09/29/18 09:15 MW 09/22/18 09/29/18 09:26 09:14 Wound Center Nurse 2 #1 right great toe -Time 09: 09:14 -Correct Patient Yes Yes -Correct Side, Site, Position Yes Yes -Correct Procedure Yes Yes -Procedure Performed Yes No -Type of Procedure Debridement -Clinical Debridement Subcutaneous -Post Debridement Size (cm) - Length 0.5 0 -Post Debridement Size (cm) - Width 0.5 0 -Post Debridement Size (cm) - Depth 0.1 0 -Total Square Cm 0.25 0 -Wound/Ulcer Outcome Not Healed Healed- Epithelialized -Ulcer Cleansing Rinsed/ Irrigated with Saline -Foul Odor after Cleansing No -Bioengineered Tissue Yes -Type of bioengineered Tissue NU-SHIELD -Expiration Date 07/28/23 -Product Lot Number [id number] -Percent Used 100 -Saline Lot Number [id number] -Bleeding Controlled with Pressure -Offloading No -Treatment Response Procedure Tolerated Well Pain Scale: 0-10 Numeric Is Patient Pain Free? Yes Yes No debridement was completed today Assessment/Plan Active Problems Diabetic foot ulcer associated with type 2 diabetes mellitus (Chronic) History of stroke (Chronic) Speech abnormality (Chronic) Assessment: Decubitus ulcer right great toe stage II resolved. DFU right great toe resolved. Noncompliant diabetic type 2 insulin-dependent. Hypertension. stroke Plan: Discharge from the wound center follow-up as needed
== END 2018-10-18 23:59 ==
LOC: WC 09:00
PROVIDERS: Family Provider Family Medicine; PCP Family Medicine; Visit Provider Nurse Practitioner
DX: E11.621 Type 2 diabetes mellitus with foot ulcer (principal); L89.892 Pressure ulcer of other site, stage 2; I10 Essential (primary) hypertension; Z86.73 Personal history of transient ischemic attack (TIA), and cerebral infarction without residual deficits; Z91.19 Patient's noncompliance with other medical treatment and regimen; Z79.4 Long term (current) use of insulin
CPT/HCPCS: 15275; 99213; Q4160; G0463

== ENCOUNTER 2019-03-27 18:58 | Emergency (ER) | payer MEDICARE, MEDICAID, SELFPAY ==
[2019-03-27 18:59] VITALS: BP 146/85; PULSE 90; RESP 16; TEMP 36.8; O2SAT 97; BMI 33.7
--- NOTE | 2019-03-27 20:17 | ED.VIS.GEN ---
History of Present Illness Chief Complaint: Abd Pain Detail of Chief Complaint: Pain after lifting heavy bucket Informant: Patient, Significant Other Onset: Today Context: Sudden Onset Timing: Intermittent Quality: Pain initially Location: Right side near anterior axillary line below rib cage Current Severity: - - None Maximum Severity: Moderate Worsened by: Lifting bucket Relieved by: On its own Associated Symptoms: No nausea or vomiting. Narrative: She has a 63-year-old male status post kidney surgery who presents because of severe pain and bulge right upper abdomen anterior axillary line to posterior axillary line. This is over her incision site. He states he had a small bulge. Is not significant. He no longer is having pain. He denies nausea or vomiting. He has no other complaints. Prior similar symptoms: No Recent Illness/Hospitalization: No - Past Medical History (1) Seizure Status: Acute (2) Coronary artery disease Status: Chronic Comment: status post stents (3) History of stroke Status: Chronic (4) Hyperlipidemia Status: Chronic (5) Hypertension Status: Chronic (6) TIA (transient ischemic attack) Status: Chronic (7) Type II diabetes mellitus Status: Chronic Past Medical History - Allergies and Home Meds Allergies/Adverse Reactions: Allergies pregabalin [From Lyrica] Allergy (Verified 03/27/19 18:59) Unknown Penicillins Adverse Reaction (Verified 03/27/19 18:59) Hives Primary Care Physician: Connor Chavez MD [Primary Care Provider] - Surgical History: - - T+A, notes had ex lap for concern of renal CA, operative evaluation kidney unremarkable and it was placed back without resection. Lives: Spouse/ Significant Other Smoking Status: Never smoker Alcohol: None Drugs: None - Family History Maternal Family History: Reports: No pertinent history Paternal Family History: Reports: No pertinent history Review of Systems General: Denies: Chills, Fever, Malaise, Subjective Respiratory: Denies: Dyspnea, Cough, Dyspnea on exertion Gastrointestinal: Reports: Abdominal pain. Denies: Nausea, Vomiting, Constipation Genitourinary: Denies: Dysuria, Hematuria, Frequency Musculoskeletal: Denies: Myalgias, Arthralgias, Neck pain, Back pain, Swelling, Extremity Pain, -, - Physical Exam Vital Signs/Narrative: Vital Signs Temp Pulse Resp BP Pulse Ox 03/27/19 18:59 98.2 F 90 16 146/85 H 97 Inital Vital Signs reviewed: Yes General: Well nourished, Well developed, No Acute Distress Head: Normocephalic, Atraumatic Eyes: Perrl, EOMI Cardiovascular: Regular rate, Regular rhythm Respiratory: No distress Abdomen: Soft, Nontender, Nondistended, Normal bowel sounds, Hernia reducible - Incisional Back: Nontender, Normal Inspection Skin: Normal color, No rash Neurological: Alert, Oriented x3, Cranial nerves II-XII grossly intact, Normal Strength, Normal Sensation Psychological: Normal affect, Normal Mood Diagnostic/Tx/Re-eval - Medical Decision Making Patient presents with hernia after lifting bucket. Since the hernia is reducible he was referred to Dr. Natalia Davis. ED Disposition - Plan for ED Patient: Disposition: Home or Assisted Living Diagnosis: Incisional hernia of anterior abdominal wall without obstruction or gangrene Instructions: HERNIA (Inguinal, Ventral, Umbilical) Referrals: Connor Chavez MD [Primary Care Provider] - Natalia Davis MD [STAFF PHYSICIAN] - 3-5 Days
[2019-03-27 21:05] VITALS: O2SAT 95
[2019-03-27 21:06] VITALS: RESP 16
== END 2019-03-27 21:06 | disposition home or self-care (01) ==
PROVIDERS: Emergency Provider Emergency Medicine; Family Provider Family Medicine; PCP Family Medicine
DX: K43.2 Incisional hernia without obstruction or gangrene (principal); E11.9 Type 2 diabetes mellitus without complications; E78.5 Hyperlipidemia, unspecified; I10 Essential (primary) hypertension; I25.10 Atherosclerotic heart disease of native coronary artery without angina pectoris; G40.909 Epilepsy, unspecified, not intractable, without status epilepticus; Z86.73 Personal history of transient ischemic attack (TIA), and cerebral infarction without residual deficits; Z95.5 Presence of coronary angioplasty implant and graft; Z79.82 Long term (current) use of aspirin; Z79.4 Long term (current) use of insulin; Z79.02 Long term (current) use of antithrombotics/antiplatelets; Z79.899 Other long term (current) drug therapy
CPT/HCPCS: 99282

== ENCOUNTER → 2019-04-05 14:02 | Outpatient (CLI) | payer MEDICARE, SELFPAY ==
[2019-04-05 13:22] VITALS: BMI 33.7
--- NOTE | 2019-04-05 14:04 | CT_ITS ---
STUDY: CT ABDOMEN AND PELVIS WITHOUT CONTRAST REASON FOR EXAM: Male, 63 years old. PT STATED RT SIDE SWELLING POST KIDNEY SURGERY. SUSPECTED INCISIONAL HERNIA RADIATION DOSAGE (If Supplied By Facility): CTDIvol = ( 19.45 ) mGy, DLP = ( 1161.54 ) mGycm TECHNIQUE: Transaxial images were obtained from the dome of the diaphragm to the symphysis pubis without oral contrast, and without intravenous contrast. Sagittal and coronal images were reconstructed. Individualized dose optimization techniques were used for this CT. COMPARISON: 01/28/2012 FINDINGS: The visualized lung bases are unremarkable. The visualized portions of the heart are within normal limits. Normal liver. There is a solitary gallstone. Normal spleen. Normal pancreas. No change in a 3 cm mass of decreased attenuation the right adrenal gland consistent with an adenoma. No change in 1.5 cm similar mass of the left adrenal gland consistent with an adenoma. Some partially calcified scarring surrounding the right kidney likely from prior trauma or infection. The kidney itself is relatively normal. Normal left kidney. Normal visualized stomach. Normal small intestine. Normal colon. The appendix is visualized and appears normal. There is diffuse atherosclerotic calcification of the abdominal aorta, without a demonstrated aneurysm. Normal inferior vena cava. Normal retroperitoneum. Normal urinary bladder. There is enlargement of the prostate gland. There is a small umbilical hernia containing fat. Small bilateral anal hernias containing fat. Normal osseous structures. CT/Abdomen without IV Contrast IMPRESSION: Some calcified scarring surrounding the right kidney. Electronically Signed: Canelo Rodriguez MD at 14:57 EST Tel , Service support ,
== END ==
PROVIDERS: PCP Family Medicine; Referring Provider Surgery; Visit Provider Surgery
DX: K43.2 Incisional hernia without obstruction or gangrene (principal); R10.9 Unspecified abdominal pain
CPT/HCPCS: 74150

== ENCOUNTER 2019-04-10 11:54 | Emergency (ER) | payer MEDICARE, MEDICAID, SELFPAY ==
[2019-04-05 13:22] VITALS: BMI 33.7
[2019-04-10 11:55] VITALS: BP 159/79; PULSE 89; RESP 16; TEMP 36.4; O2SAT 95; BMI 33.1
--- NOTE | 2019-04-10 12:29 | ED.DCSUM_ITS ---
- ER Visit Summary Date of Service: 04/10/19 Chief Complaint: Abdominal pain History of Present Illness: The patient is a 63 M who presents with right upper quadrant abdominal pain that is been constant for the past 1 to 2 weeks. Patient had an outpatient CT scan for possible incisional hernia. Patient st ates his surgeon contacted him and was told that it was not an incisional hernia and that he should come to the emergency department. Patient states his pain began initially when he was lifting something. Patient states the swelling is worse with standing. Patient admits to some mild nausea when the pain is severe. Patient also admits to some diarrhea which is loose. Patient denies any dysuria or hematuria. Patient admits to subjective fever. Physical Examination: Vital signs are stable. Patient is afebrile. Patient is in no acute distress. Oral mucosa is pink and moist. Neck is supple. Trachea is midline. There is no JVD. Heart was regular rate and rhythm. Lungs are clear and equal bilaterally. Abdomen is soft. Bowel sounds are normal. There is some right upper quadrant tenderness. There is some mild edema over the lateral aspect of the right upper quadrant. There is no erythema or warmth. There is no hernia palpated. Cranial nerves II through XII are intact. There are no focal motor or sensory deficits noted. Test Results: CBC and comprehensive metabolic profile were essentially within normal limits. Emergency Department Course and Treatment: Patient was advised of his CT results. Patient was also advised of his lab results. Patient was instructed to use ice to the area. Patient was instructed to follow-up with his primary care physician in 5 to 7 days. Patient was given a prescription for Naprosyn for pain. Patient understood and was agreeable with the plan. All questions were answered. Disposition: Discharge home Impression: Right upper quadrant abdominal pain This note was generated with [employer] dictation software. It may contain incorrect words, spelling, and punctuation that were not noted in review of the chart prior to signing ED Disposition - Plan for ED Patient: Disposition: Home or Assisted Living Diagnosis: Right upper quadrant abdominal pain of unknown etiology Instructions: ABDOMINAL PAIN, Unkown Cause, (Male) Prescriptions: Naproxen [Naprosyn] 500 mg PO BID PRN #20 tab Prescription Printed Referrals: Connor Chavez MD [Primary Care Provider] - 3-5 Days Natalia Davis MD [STAFF PHYSICIAN] - 3-5 Days
[2019-04-10] MEDS: Ketorolac 30 MG/ML Syringe IV (12:32)
[2019-04-10 12:42] LABS: Absolute Lymphocyte Count 1.89 X10^3/uL (0.83-4.51); Absolute Neutrophil Count 2.9 X10^3/uL (2.0-7.7); Basophil# 0.05 X10^3/uL; Basophil% 0.9 % (0-1); Eosinophil# 0.19 X10^3/uL; Eosinophils% 3.5 % (0-5); Hematocrit 45.9 % (40-54); Hemoglobin 14.7 g/dL (13.0-16.5); Lymphocyte # 1.89 X10^3/ul (4.0); Lymphocyte % 34.4 % (19-41); Mean Corpuscular Hgb 29.1 pg (27.0-32.0); Mean Corpuscular Volume 90.9 fL (80-94); Mean Platelet Vol. 10.1 fl (6.2-12.0); Monocyte# 0.41 X10^3/uL; Monocyte% 7.5 % (0-10); NRBC Flagged by Analyzer 0 % (0-5); Neutrophil # 2.92 X10^3/uL (2.7-7.7); Neutrophil % 53.2 % (47-70); Platelet Count 240 K/mm3 (150-450); RBC Distribution Width CV 12.8 % (11.6-14.6); RBC Distribution Width SD 41.9 fl (35.1-43.9); Red Blood Count 5.05 M/mm3 (4.6-6.2); White Blood Count 5.5 K/mm3 (4.4-11.0)
[2019-04-10 12:54] LABS: AST(SGOT) 18 U/L (15-37); Alanine Aminotransfer ALT/SGPT 18 U/L (16-61); Albumin, Serum 3.7 g/dL (3.2-5.0); Alkaline Phosphatase 120 U/L (45-117); Anion Gap 5 (5-15); BUN 12 mg/dL (7-18); Calcium,Total 9.3 mg/dL (8.5-10.1); Chloride 107 mmol/L (98-107); Creatinine, Serum 0.92 mg/dL (0.70-1.30); EST Glomerular Filtration Rate 88 mL/min (>60); Est Glom Filt Rate - Afr Amer 106 mL/min (>60); Estimated Creatinine Clearance 83.76 ml/min; Globulin 3.8 g/dL (2.2-4.2); Glucose 162 mg/dL (74-106); Lipase 340 U/L (73-393); Potassium 4.3 mmol/L (3.5-5.1); Protein, Total 7.5 g/dL (6.4-8.2); Sodium Level 139 mmol/L (136-145)
== END 2019-04-10 13:40 | disposition home or self-care (01) ==
PROVIDERS: Emergency Provider Emergency Medicine; PCP Family Medicine
DX: R10.11 Right upper quadrant pain (principal); R19.7 Diarrhea, unspecified; R11.0 Nausea; I25.2 Old myocardial infarction; E11.9 Type 2 diabetes mellitus without complications; I10 Essential (primary) hypertension; G40.909 Epilepsy, unspecified, not intractable, without status epilepticus; Z86.73 Personal history of transient ischemic attack (TIA), and cerebral infarction without residual deficits; Z95.5 Presence of coronary angioplasty implant and graft; Z79.82 Long term (current) use of aspirin; Z79.4 Long term (current) use of insulin; Z79.84 Long term (current) use of oral hypoglycemic drugs; Z79.02 Long term (current) use of antithrombotics/antiplatelets; Z79.899 Other long term (current) drug therapy
CPT/HCPCS: 80053; 83690; 85025; 96374; 99283; A4216

== ENCOUNTER 2020-06-14 13:58 | Emergency (ER) | payer MEDICARE, MEDICAID, SELFPAY ==
[2020-06-14 14:01] VITALS: BP 134/73; PULSE 95; RESP 18; TEMP 36.2; O2SAT 98; BMI 32.5
--- NOTE | 2020-06-14 14:10 | ED.VIS.GEN ---
History of Present Illness Chief Complaint: Constipation Informant: Patient Narrative: 64-year-old male states that he has not had a bowel movement for days. No vomiting. He is passing a small amount of gas. He states he can hear his stomach gurgling. He has been taking MiraLAX for 4 days. No history of bowel obstructions. He states that he feels very bloated. He notes some upper abdominal discomfort after he eats. No vomiting. No fevers. - Past Medical History (1) Coronary artery disease Status: Chronic Comment: status post stents (2) History of stroke Status: Chronic (3) Hyperlipidemia Status: Chronic (4) Hypertension Status: Chronic (5) TIA (transient ischemic attack) Status: Chronic (6) Type II diabetes mellitus Status: Chronic Past Medical History - Allergies and Home Meds Allergies/Adverse Reactions: Allergies pregabalin [From Lyrica] Allergy (Verified 06/14/20 14:01) Unknown Penicillins Adverse Reaction (Verified 06/14/20 14:01) Hives Primary Care Physician: Connor Chavez MD [Primary Care Provider] - Surgical History: - Smoking Status: Former smoker Alcohol: None Drugs: None - Family History Maternal Family History: Family History (Last Updated 04/05/19 @ 13:18 by Gem Us) Mother Diabetes Heart disease Hypertension Brother Diabetes Heart disease Hypertension Family History: Reports: No pertinent history Paternal Family History: Family History (Last Updated 04/05/19 @ 13:18 by Gem Us) Mother Diabetes Heart disease Hypertension Brother Diabetes Heart disease Hypertension Family History: Reports: No pertinent history Review of Systems General: Denies: Chills, Fever, Sweats Eyes: Denies: Visual changes - bilaterally, Diplopia ENT: Denies: Rhinorrhea, Sore throat Cardiovascular: Denies: Chest pain, Palpitations Respiratory: Denies: Dyspnea, Cough, Dyspnea on exertion Gastrointestinal: Reports: Constipation. Denies: Abdominal pain, Nausea, Vomiting, Diarrhea, Melena, Hematochezia Genitourinary: Denies: Dysuria, Hematuria, Frequency Musculoskeletal: Denies: Back pain, Extremity Pain Skin: Denies: Rash, Wounds Neurological: Denies: Headache, Weakness, Numbness Physical Exam Vital Signs/Narrative: Vital Signs Temp Pulse Resp BP Pulse Ox 06/14/20 14:01 97.2 F L 95 18 134/73 H 98 Inital Vital Signs reviewed: Yes General: Well nourished, Well developed, No Acute Distress Head: Normocephalic, Atraumatic Eyes: Perrl, EOMI ENT: Moist mucous membranes, No rhinorrhea Neck: Supple, Nontender Cardiovascular: Regular rate, Regular rhythm, No murmurs Respiratory: No distress, CTA bilaterally, Chest nontender Abdomen: Soft, Nontender, Hyperactive bowel sounds. Negative for: Nondistended Back: Nontender, Normal Inspection Extremities: Nontender, No edema Skin: Normal color, No rash Neurological: Alert, Oriented x3, Cranial nerves II-XII grossly intact, Normal Strength, Normal Sensation Psychological: Normal affect, Normal Mood Diagnostic/Tx/Re-eval Clinical Impression(s) from Imaging Studies KUB X-Ray 06/14/20 14:28 IMPRESSION: Nonobstructive bowel gas pattern. Electronically Signed: Nash Jacobs MD (Brooks) at 14:34 EDT , Service support , Abdomen/Pelvis CT 06/14/20 14:48 IMPRESSION: No acute findings in the abdomen or pelvis. Electronically Signed: Nash Jacobs MD (Brooks) at 15:13 EDT , Service support , - Medical Decision Making My interpretation of the single view abdominal x-ray is known obstructive pattern. Patient appears to have very minimal stool. With bag spoke with the patient he states that he has been getting some discomfort after he eats and he has not been eating as much. He describes it as more of a fullness in his epigastrium. Therefore a CT of the pelvis was ordered. Again very minimal stool. He appears to have a gallstone. He is not tender in the right upper quadrant nor is he had any right upper quadrant pain or vomiting. Patient can continue his MiraLAX I do not see the need for mag citrate or enema. I will place him on a PPI. If he continues to have symptoms have him follow-up with his primary care doctor ED Disposition - Plan for ED Patient: Disposition: Home or Assisted Living Diagnosis: Constipation, Abdominal pain Instructions: ED Constipation (Adult), ED Gastritis (Adult) Prescriptions: Pantoprazole Sodium [Protonix] 20 mg PO DAILY #14 tab Transmission Status: Pending to [facility]/pharmacy #[id number] Referrals: Connor Chavez MD [Primary Care Provider] - 1 Week if not improving Additional Instructions: You can continue on your MiraLAX.
--- NOTE | 2020-06-14 14:28 | RAD_ITS ---
STUDY: X-RAY - ABDOMEN/PELVIS REASON FOR EXAM: Male, 64 years old. Constipation and nausea. Pain across lower abdomen. TECHNIQUE: Single AP view of the abdomen / pelvis. COMPARISON: None. FINDINGS: Normal visualized lung bases. There is an unremarkable bowel gas pattern. There is no demonstrated free abdominal air. The visualized liver, spleen and kidneys are grossly normal in size and morphology. Atherosclerosis of the iliac arteries. There are diffuse degenerative changes of the visualized lumbar spine. RAD/Abdomen Single View IMPRESSION: Nonobstructive bowel gas pattern. Electronically Signed: Nash Jacobs MD (Brooks) at 14:34 EDT , Service support ,
--- NOTE | 2020-06-14 14:48 | CT_ITS ---
EXAM: CT ABDOMEN AND PELVIS WITHOUT INTRAVENOUS CONTRAST CLINICAL INDICATION: constipation abdominal pain TECHNIQUE: Helically acquired images were obtained of the abdomen and pelvis without intravenous contrast. This CT exam was performed using one or more of the following dose reduction techniques: automated exposure control, adjustment of the mA and/or kV according to patient size, and/or use of iterative reconstruction technique. This report was created using [employer] report generation technology. COMPARISON: 04/05/2019 FINDINGS: LOWER THORAX: Granuloma in the right lower lobe. Coronary artery stents/calcifications. No cardiomegaly. No significant pericardial effusion. ABDOMEN: LIVER: Granulomatous calcifications of the liver. No hepatic masses. GALLBLADDER AND BILE DUCTS: Unremarkable. No calcified gallstones. No gallbladder distention or wall edema. No intra- or extrahepatic biliary ductal dilation. PANCREAS: Unremarkable. No focal cystic mass. SPLEEN: Granulomatous calcifications of the spleen, stable. ADRENALS: Lipid rich adenomas of the bilateral adrenal glands are stable; benign. No imaging follow-up needed. KIDNEYS AND URETERS: Exophytic partially calcified lesions of the right kidney compatible with sequela of prior injury/hematoma (chronic). Stable simple cyst of the inferior left kidney. Normal renal size and position. No hydronephrosis. STOMACH AND BOWEL: Unremarkable. No stomach or bowel distention. No focal inflammatory change. PELVIS: APPENDIX: No evidence of acute appendicitis. BLADDER: Unremarkable. REPRODUCTIVE: Prostate is enlarged. ABDOMEN and PELVIS: INTRAPERITONEAL SPACE: Unremarkable. No ascites or other fluid collection. No free air. BONES/JOINTS: Unremarkable. No suspicious lytic or blastic abnormality. SOFT TISSUES: Fat-containing bilateral inguinal hernias. Small fat-containing periumbilical hernia. VASCULATURE: Atherosclerosis of the abdominal aorta and iliac arteries. Abdominal aorta is non-dilated. LYMPH NODES: Unremarkable. No enlarged lymph nodes. CT/Abdomen/Pelvis without Cont IMPRESSION: No acute findings in the abdomen or pelvis. Electronically Signed: Nash Jacobs MD (Brooks) at 15:13 EDT , Service support ,
[2020-06-14 15:43] VITALS: BP 130/67; PULSE 87; RESP 18
== END 2020-06-14 15:44 | disposition home or self-care (01) ==
PROVIDERS: Emergency Provider Emergency Medicine; PCP Family Medicine
DX: K59.00 Constipation, unspecified (principal); I10 Essential (primary) hypertension; I25.10 Atherosclerotic heart disease of native coronary artery without angina pectoris; E78.5 Hyperlipidemia, unspecified; E11.9 Type 2 diabetes mellitus without complications; Z86.73 Personal history of transient ischemic attack (TIA), and cerebral infarction without residual deficits; Z87.891 Personal history of nicotine dependence; Z79.4 Long term (current) use of insulin; Z79.82 Long term (current) use of aspirin; Z79.899 Other long term (current) drug therapy
CPT/HCPCS: 74018; 74176; 99282

== ENCOUNTER 2020-12-05 15:13 | Inpatient (IN) | payer MEDICARE, MEDICAID, SELFPAY ==
[2020-12-05] VITALS (9 sets, daily range): BP systolic 100–148; BP diastolic 59–84; PULSE 85–117; RESP 15–23; TEMP 36.6–38.1; O2SAT 89–97; BMI 32.0; BMI 32.1
--- NOTE | 2020-12-05 15:35 | EKG12_ITS ---
Test Reason : Blood Pressure : / mmHG Vent. Rate : 111 BPM Atrial Rate : 111 BPM P-R Int : 144 ms QRS Dur : 096 ms QT Int : 348 ms P-R-T Axes : 037 -56 041 degrees QTc Int : 473 ms Sinus tachycardia Left axis deviation Inferior infarct (cited on or before 06-JAN-2014) Anterolateral infarct (cited on or before 06-JAN-2014) Abnormal ECG Confirmed by HAYLIE SMITH, SURYA ([id number]), design editor MONO LLAMAS ([id number]) on 12/09/2020 1:40:26 PM Referred By: JERZY Confirmed By:SURYA STALLINGS MD
--- NOTE | 2020-12-05 15:35 | RAD_ITS ---
STUDY: X-RAY - LEFT FOOT CLINICAL: Male, 65 years old. infection TECHNIQUE: 3 view(s) of the foot. COMPARISON: None. FINDINGS: Normal talus, calcaneus, and tarsal bones. Tiny plantar and posterior calcaneal enthesophytes. 1.2 cm type II accessory navicular bone. Normal visualized subtalar, talonavicular, calcaneocuboid, tarsal and tarsometatarsal articulations. Normal metatarsi. Normal metatarsophalangeal joint of the great toe. There is a bipartite tibial sesamoid. Normal interphalangeal joint of the great toe. Soft tissue swelling of the first digit consistent with cellulitis. Some disruption of the tibial cortex of the base of the first distal phalanx worrisome for osteomyelitis. Normal second through fifth metatarsophalangeal joints. Normal interphalangeal joints and phalanges of the lesser toes. The soft tissue structures are unremarkable. RAD/Foot min 3 Views IMPRESSION: Suspects cellulitis of the first digit with osteomyelitis of the tibial aspect of the base of the first distal phalanx. Electronically Signed: Canelo Rodriguez MD at 17:07 EDT Tel , Service support ,
--- NOTE | 2020-12-05 15:46 | EX.ED.DYSGE1 ---
HPI History of Present Illness Chief Complaint: Cellulitis Narrative Narrative: Patient presents with left foot pain, he has had swelling and redness in the foot but then he had it 4 days ago, now he has fevers, chills, generalized weakness. He is a diabetic. No chest pain shortness of breath fever or chills. No Covid symptoms. [facility] Medical History (Updated 12/05/20 @ 15:[address] Rusty Marquis MD) Acute encephalopathy Acute respiratory failure Coronary artery disease Diabetic foot ulcer associated with type 2 diabetes mellitus History of stroke Hyperlipidemia Hypertension Incisional hernia Paresthesia Seizure Sepsis Speech abnormality TIA (transient ischemic attack) Type II diabetes mellitus Home Medications atorvastatin 80 mg PO QHS 10/01/15 [History Last Taken Unknown] carbidopa-levodopa 1 tab PO TIDAC 10/01/15 [History Last Taken Unknown] carvedilol 6.25 mg PO BID 10/01/15 [History Last Taken Unknown] insulin NPH isoph U-100 human 13 units SUBCUT QHS 10/01/15 [History Last Taken Unknown] lisinopril 5 mg PO DAILY 10/01/15 [History Last Taken Unknown] metformin 1,000 mg PO BIDCM 10/01/15 [History Last Taken Unknown] aspirin 81 mg PO DAILY@0800 tab.chew 01/26/17 [Rx Last Taken Unknown] clopidogrel 75 mg PO DAILY #30 tab 01/26/17 [Rx Last Taken Unknown] empagliflozin 10 mg PO DAILY #30 tab 01/26/17 [Rx Last Taken Unknown] oxcarbazepine 300 mg PO 4X/DAY 03/16/18 [History Last Taken Unknown] tizanidine 4 mg PO Q8H PRN PRN 03/16/18 [History Last Taken Unknown] naproxen 500 mg PO BID PRN PRN 06/14/20 [History Last Taken Unknown] pantoprazole 20 mg PO DAILY #14 tab 06/14/20 [Rx Last Taken Unknown] Allergy/AdvReac Type Severity Reaction Status Date / Time pregabalin [From Lyrica] Allergy Unknown Verified 12/05/20 15:14 Penicillins AdvReac Hives Verified 12/05/20 15:14 Family History (Updated 04/05/19 @ 13:18 by Gem Us) Mother Diabetes Heart disease Hypertension Brother Diabetes Heart disease Hypertension Surgical History (Updated 06/14/20 @ 14:[address] Carlos Quiles, DO) History of heart artery stent history of right great toe surgery Status post biopsy of kidney Social History (Updated 04/05/19 @ 13:[address] Natalia Davis MD) Smoking Status: Former smoker ROS ROS ED ROS Narrative Past medical history: Reviewed, significant for diabetic foot ulcer, TIA, sepsis, coronary artery disease, hyperlipidemia history of seizures and hypertension Medications: Reviewed Social history: Noncontributory Review of systems: All systems negative except as indicated General: Fever as in HPI Eyes: No visual changes ENT: No upper airway congestion, normal voice Neck: No neck pain Cardiovascular: No chest pain Respiratory: No shortness of breath or cough Gastrointestinal: No abdominal pain, nausea vomiting or diarrhea Genitourinary: No dysuria Musculoskeletal: Foot pain as in HPI Skin: No rash Neurological: No memory loss, confusion or any focal weakness Psych: No recent behavioral changes Hematologic: No easy bleeding or easy bruising EXAM Physical Exam Narrative Exam Narrative: Physical exam General: Patient appears chronically ill, he does not appear in significant distress Head: Normocephalic, Atraumatic Eyes: Conjunctiva not pale ENT: Somewhat dry mucous membranes Neck: Supple, Nontender, No lymphadenopathy Cardiovascular: Regular rate, Regular rhythm Respiratory: Coarse bilateral breath sounds. He is speaking in full sentences. Abdomen: Soft, Nontender, Nondistended Back: Nontender, Normal Inspection. Negative for: CVA tenderness Extremities: There is significant infection of the left great toe, some discharges present from the fall but no obvious abscess. There is anterior lymphangitic streak just proximal to the ankle. Skin: As above Neurological: Alert, Normal Strength, Normal Sensation Psychological: Normal affect Const Vital Signs: 12/05/20 15:14 Temperature 100.6 F H Temperature Source Temporal Pulse Rate 117 H Respiratory Rate 17 Blood Pressure 110/84 H Blood Pressure Mean 92 Pulse Ox 97 Oxygen Delivery Method Room Air MDM MDM MDM Narrative Medical decision making narrative: Patient is septic secondary to a diabetic foot ulcer. He will need admission and podiatry consult. I started antibiotics in the ED. Discharge Plan Triage Chief Complaint: Cellulitis ED Provider: Rusty Marquis Dx/Rx/DC Orders Clinical Impression: Sepsis, Diabetic foot Prescriptions: No Action atorvastatin 80 MG tablet 80 mg PO QHS RF: 0 carvedilol 6.25 MG tablet 6.25 mg PO BID RF: 0 metformin 1,000 MG tablet 1,000 mg PO BIDCM RF: 0 lisinopril 5 MG tablet 5 mg PO DAILY RF: 0 carbidopa-levodopa 1 TABLET tablet 1 tab PO TIDAC RF: 0 insulin NPH isoph U-100 human 100 UNITS/ML insulin pen 13 units subcut QHS RF: 0 empagliflozin 10 MG tablet 10 mg PO DAILY Qty: 30 RF: 0 clopidogrel 75 MG tablet 75 mg PO DAILY Qty: 30 RF: 0 aspirin 81 MG tablet,chewable 81 mg PO DAILY@0800 RF: 0 tizanidine 4 MG tablet 4 mg PO Q8H PRN PRN (Reason: NERVES) RF: 0 oxcarbazepine 600 MG tablet 300 mg PO 4X/DAY RF: 0 naproxen 500 MG tablet 500 mg PO BID PRN PRN (Reason: Pain Score 1-10) RF: 0 pantoprazole 20 MG tablet 20 mg PO DAILY Qty: 14 RF: 0 Primary Care Provider: Connor Chavez Referrals: Connor Chavez MD [Primary Care Provider] - Disposition Disposition: Acute Care Hospital [facility]
[2020-12-05] MEDS: 0.9% Normal Saline 1,000 ML 999 ML IV (16:13)
[2020-12-05 16:16] LABS: Absolute Lymphocyte Count 1.36 X10^3/uL (0.83-4.51); Absolute Neutrophil Count 11.5 X10^3/uL (2.0-7.7); Basophil# 0.04 X10^3/uL; Basophil% 0.3 % (0-1); Eosinophil# 0.04 X10^3/uL; Eosinophils% 0.3 % (0-5); Hematocrit 43.7 % (40-54); Hemoglobin 13.4 g/dL (13.0-16.5); Lymphocyte # 1.36 X10^3/ul (0.83-4.51); Lymphocyte % 9.9 % (19-41); Mean Corp Hgb Conc 30.7 g/dL (32-36); Mean Corpuscular Volume 88.1 fL (80-94); Mean Platelet Vol. 10.3 fl (6.2-12.0); Monocyte# 0.66 X10^3/uL; Monocyte% 4.8 % (0-10); NRBC Flagged by Analyzer 0 % (0-5); Neutrophil # 11.48 X10^3/uL (2.7-7.7); Platelet Count 427 K/mm3 (150-450); RBC Distribution Width CV 13.7 % (11.6-14.6); RBC Distribution Width SD 43.9 fl (35.1-43.9); Red Blood Count 4.96 M/mm3 (4.6-6.2); White Blood Count 13.7 K/mm3 (4.4-11.0)
[2020-12-05 16:26] LABS: Bacteria 0 SEEN /hpf (None Seen); Mucous, Urine 0 SEEN /hpf (<or=2+); Red Blood Cells-Urine 0 SEEN /hpf (0-5); Squamous Epithelial Cells - UA 0 SEEN /hpf (0-5); White Blood Cells 0 SEEN /hpf (0-5)
[2020-12-05] MEDS: Morphine 4 MG/ML Syringe IV (16:29)
[2020-12-05] MEDS: Ondansetron 4 MG/2 ML Vial IV (16:29)
[2020-12-05 16:32] LABS: Color, Urine Yellow (Yellow); Glucose, Dipstick 1000 mg/dl (Normal); Ketone-Dipstick Negative (Negative); Leukocyte Esterase-Dipstick Negative /ul (Negative); Nitrite-Dipstick Negative (Negative); Occult Blood-Urine Negative /ul (Negative); Protein-Dipstick Negative (Negative); Urine Bilirubin Dipstick Negative (Negative); Urine Clarity Clear (Clear); Urine Urobilinogen Normal (Normal)
--- NOTE | 2020-12-05 16:38 | RAD_ITS ---
STUDY: X-RAY CHEST REASON FOR EXAM: Male, 65 years old. fever TECHNIQUE: Single AP portable view of the chest. COMPARISON: 01/24/2017 FINDINGS: The lungs are clear and expanded. There is no demonstrated pleural abnormality. Normal size heart. Normal mediastinum and kristine. Normal visualized pulmonary arteries. Normal visualized aortic arch and descending thoracic aorta. Normal visualized thoracic spine. Normal visualized ribs, clavicles, and shoulders. There is no demonstrated abnormality of the visualized soft tissue structures of the upper abdomen. RAD/Chest 1 View (Portable) IMPRESSION: Normal x-ray examination of the chest. Electronically Signed: Canelo Rodriguez MD at 17:08 EDT Tel , Service support ,
[2020-12-05 16:40] LABS: Lactic Acid 2.4 mmol/L (0.4-1.9)
[2020-12-05 16:41] LABS: Erythrocyte Sedimentation Rate 29 mm/hr (0-20)
[2020-12-05 16:52] LABS: ALB/GLOB Ratio 0.6 RATIO (0.9-2.4); AST(SGOT) 11 U/L (15-37); Alanine Aminotransfer ALT/SGPT 18 U/L (16-61); Albumin, Serum 3.3 g/dL (3.2-5.0); Alkaline Phosphatase 118 U/L (45-117); Anion Gap 9 (5-15); BUN 13 mg/dL (7-18); BUN/Creat Ratio 13.3 RATIO (10-20); Calcium,Total 9.7 mg/dL (8.5-10.1); Chloride 100 mmol/L (98-107); Creatinine, Serum 0.97 mg/dL (0.70-1.30); EST Glomerular Filtration Rate 82 mL/min (>60); Est Glom Filt Rate - Afr Amer 99 mL/min (>60); Estimated Creatinine Clearance 77.35 ml/min; Globulin 5.6 g/dL (2.2-4.2); Glucose 235 mg/dL (74-106); Protein, Total 8.9 g/dL (6.4-8.2); Sodium Level 133 mmol/L (136-145)
--- NOTE | 2020-12-05 17:10 | ED.RN ---
DR GOLDEN NOTIFIED OF SEPSIS ALERT. NO FURTHER ORDERS
[2020-12-05 17:11] LABS: International Normalized Ratio 1.1; Prothrombin Time (Protime)PT. 13.6 SECONDS (11.7-14.9)
[2020-12-05 17:13] LABS: Partial Thromboplast Time 25.3 Seconds (24.1-36.2)
--- NOTE | 2020-12-05 17:13 | HP.PCM_ITS ---
Documented by User: JESSICA Craven 12/05/20 17:37 HPI - General General Date of Admission: 12/05/20 Date of Service: 12/05/20 Chief Complaint: Left foot wound HPI Narrative JAUN SMITH, is a 65 M who presents with complaints of left foot pain. Patient reports that he has had increased swelling and redness for the past 4 days and now reports fevers and chills. Patient denies other symptoms. [facility] Medical History Acute encephalopathy Acute respiratory failure Coronary artery disease Diabetic foot ulcer associated with type 2 diabetes mellitus History of stroke Hyperlipidemia Hypertension Incisional hernia Paresthesia Seizure Sepsis Speech abnormality TIA (transient ischemic attack) Type II diabetes mellitus Home Medications atorvastatin 80 mg PO QHS 10/01/15 [History Last Taken Unknown] carbidopa-levodopa 1 tab PO TIDAC 10/01/15 [History Last Taken Unknown] carvedilol 6.25 mg PO BID 10/01/15 [History Last Taken Unknown] insulin NPH isoph U-100 human 13 units SUBCUT QHS 10/01/15 [History Last Taken Unknown] lisinopril 5 mg PO DAILY 10/01/15 [History Last Taken Unknown] metformin 1,000 mg PO BIDCM 10/01/15 [History Last Taken Unknown] aspirin 81 mg PO DAILY@0800 tab.chew 01/26/17 [Rx Last Taken Unknown] clopidogrel 75 mg PO DAILY #30 tab 01/26/17 [Rx Last Taken Unknown] empagliflozin 10 mg PO DAILY #30 tab 01/26/17 [Rx Last Taken Unknown] oxcarbazepine 300 mg PO 4X/DAY 03/16/18 [History Last Taken Unknown] tizanidine 4 mg PO Q8H PRN PRN 03/16/18 [History Last Taken Unknown] naproxen 500 mg PO BID PRN PRN 06/14/20 [History Last Taken Unknown] pantoprazole 20 mg PO DAILY #14 tab 06/14/20 [Rx Last Taken Unknown] Allergy/AdvReac Type Severity Reaction Status Date / Time pregabalin [From Lyrica] Allergy Unknown Verified 12/05/20 15:14 Penicillins AdvReac Hives Verified 12/05/20 15:14 Family History Mother Diabetes Heart disease Hypertension Brother Diabetes Heart disease Hypertension Surgical History History of heart artery stent history of right great toe surgery Status post biopsy of kidney Social History Smoking Status: Former smoker alcohol intake: never substance use type: does not use ROS Constitutional Constitutional: Reports chills, fatigue, fever(s) and weakness; Denies anorexia, malaise or night sweats Cardiovascular Cardiovascular: Denies chest pain, edema or palpitations Respiratory/Chest Respiratory/Chest: Denies cough, shortness of breath at rest or shortness of breath with exertion Gastrointestinal Gastrointestinal: Denies abdominal pain, constipation, diarrhea, nausea or vomiting Genitourinary Genitourinary: Denies dysuria Musculoskeletal Musculoskeletal: Reports extremity pain; Denies back pain, joint pain or joint stiffness Integumentary Integumentary: Reports wounds; Denies dry skin or jaundice Neurologic Neurologic: Denies abnormal gait, abnormal speech, confusion or dizziness Psychiatric Psychiatric: Denies anxiety or depression Endocrine Endocrinology: Denies change in body appearance Hematologic/Lymphatic Hematologic/Lymphatic: Denies easy bleeding or easy bruising Vital Signs Vital Signs Vital Signs: 12/05/20 15:14 12/05/20 16:24 12/05/20 16:29 Temperature 100.6 F H 99.1 F 99.1 F Temperature Source Temporal Oral Oral Pulse Rate 117 H 108 H Respiratory Rate 17 23 H Blood Pressure 110/84 H 125/69 H Blood Pressure Mean 92 87 Pulse Ox 97 93 Oxygen Delivery Method Room Air Room Air Oxygen Flow Rate (L/min) 12/05/20 16:59 12/05/20 17:03 Temperature 99.3 F H 99.3 F H Temperature Source Oral Oral Pulse Rate 100 100 Respiratory Rate 22 H 22 H Blood Pressure 120/59 L 120/59 L Blood Pressure Mean 79 79 Pulse Ox 89 94 Oxygen Delivery Method Room Air Nasal Cannula Oxygen Flow Rate (L/min) 2 Weight Weight: 223 lb 3.2 oz Body Mass Index (BMI) 32.0 Physical Exam Const alert, oriented x3 and no apparent distress General Appearance: cooperative HEENT normocephalic and head/scalp atraumatic Eyes conjunctivae normal and no scleral icterus Neck supple and no JVD General: trachea midline Resp normal respiratory effort, normal air movement and clear to auscultation bilaterally Effort and Inspection: tachypneic Cardio regular rate, regular rhythm, S1 normal heart sound, S2 normal heart sound and peripheral pulses 2+ throughout GI normal to inspection, nondistended, normoactive bowel sounds, soft to palpation and non-tender Extremity normal capillary refill General Extremity: edema left lower extremity mild Peripheral Pulses: Yes pulses 2+ throughout Left Lower Extremity: foot and digits Positive for inspection (Left great toe red, warm, swollen), palpation (Tender) and neurovascular exam (Intact) Skin General Skin Exam: turgor normal Rashes: no rashes Wounds: wounds noted other Left great toe bright red, warm and swollen with streaking noted to the anterior aspect of the foot extending up to the ankle Neuro no focal motor deficits and no sensory deficits noted Speech: speech normal Motor Exam: general weakness Psych thought process normal, cooperative and affect normal Appearance: appropriate Results Lab / Micro Data Result Diagrams: 12/05/20 15:45 12/05/20 15:45 Labs: Laboratory Results - last 24 hr 12/05/20 15:45: WBC 13.7 H, RBC 4.96, Hgb 13.4, Hct 43.7, MCV 88.1, MCH 27.0, MCHC 30.7 L, RDW Std Deviation 43.9, RDW Coeff of Ana 13.7, Plt Count 427, MPV 10.3, Immature Gran % (Auto) 0.700, Neut % (Auto) 84.0 H, Lymph % (Auto) 9.9 L, [place] % (Auto) 4.8, Eos % (Auto) 0.3, Baso % (Auto) 0.3, Absolute Neuts (auto) 11.5 H, Absolute Lymphs (auto) 1.36, Nucleated RBC % 0, ESR 29 H 12/05/20 15:45: Sodium 133 L, Potassium 4.0, Chloride 100, Carbon Dioxide 24.0, Anion Gap 9, BUN 13, Creatinine 0.97, Estim Creat Clear Calc 77.35, Est GFR (MDRD) Af Amer 99, Est GFR (MDRD) Non-Af 82, BUN/Creatinine Ratio 13.3, Glucose 235 H, Calcium 9.7, Total Bilirubin 0.40, AST 11 L, ALT 18, Alkaline Phosphatase 118 H, C-React Prot High Sens 123.00 H, Total Protein 8.9 H, Albumin 3.3, Globulin 5.6 H, Albumin/Globulin Ratio 0.6 L 12/05/20 15:45: Lactic Acid 2.4 H* 12/05/20 16:00: PT Cancelled, INR Cancelled, APTT Cancelled 12/05/20 16:18: Urine Color Yellow, Urine Clarity Clear, Urine pH 5.0, Ur Specific [place] 1.010, Urine Protein Negative, Urine Glucose (UA) 1000 H, Urine Ketones Negative, Urine Occult Blood Negative, Urine Nitrite Negative, Urine Bilirubin Negative, Urine Urobilinogen Normal, Ur Leukocyte Esterase Negative, Urine RBC 0 SEEN, Urine WBC 0 SEEN, Ur Squamous Epith Cells 0 SEEN, Urine Bacteria 0 SEEN, Urine Mucus 0 SEEN 12/05/20 16:53: PT 13.6, INR 1.1 Radiology Impression Foot X-Ray 12/05/20 15:35 IMPRESSION: Suspects cellulitis of the first digit with osteomyelitis of the tibial aspect of the base of the first distal phalanx. Electronically Signed: Canelo Rodriguez MD at 17:07 EDT Tel , Service support , Chest X-Ray 12/05/20 16:38 IMPRESSION: Normal x-ray examination of the chest. Electronically Signed: Canelo Rodriguez MD at 17:08 EDT Tel , Service support , Assessment & Plan Assessment/Plan (1) Diabetic foot ulcer associated with type 2 diabetes mellitus: QUALIFIERS: Diabetic foot ulcer location: toe Laterality: left Non-pressure ulcer stage: limited to breakdown of skin Qualified Code(s): E11.621 - Type 2 diabetes mellitus with foot ulcer; L97.521 - Non-pressure c hronic ulcer of other part of left foot limited to breakdown of skin (2) Osteomyelitis of ankle or foot, left, acute: (3) Sepsis: QUALIFIERS: Sepsis acute organ dysfunction status: without acute organ dysfunction Sepsis type: sepsis due to unspecified organism Qualified Code(s): A41.9 - Sepsis, unspecified organism PLAN: 1. Sepsis secondary to diabetic foot ulcer associated with type 2 diabetes mellitus -Admit to [facility] -Foot xray demonstrates cellulitis of the first digit with osteomyelitis of the tibial aspect of the base of the first distal phalanx -Patient has elevated white blood cell count of 13.7, is tachycardic, tachypneic with a lactic acid of 2.4. CRP and ESR also elevated. -Consult podiatry -Consult wound nurse -PT and OT ordered -CBC, CMP, mag, Phos, TSH ordered for a.m. -MRSA culture of wound ordered -Vital signs per protocol -Clindamycin given in ER, meropenem and vancomycin ordered inpatient -Pain management regimen ordered 2. Osteomyelitis of left foot, left, acute -Secondary to #1 -White blood cell count elevated at 13.7 3. Diabetes mellitus type 2 -AC at bedtime blood sugars with sliding scale insulin ordered -Continue home NPH insulin, hold Metformin and Jardiance -Consistent carb calorie controlled diet ordered 4. Hypertension -Continue home medication regimen including carvedilol, lisinopril. 5. CAD -Hold Plavix for pending surgical evaluation 6. Parkinson's disease -Continue carbidopa levodopa 7. Seizure disorder -Continue oxcarbazepine DVT prophylaxis-subcu heparin This patient was seen by Kirsten Kaur NP-C under the supervision of Dr. Brown. Documented by User: Dr. Luna Brown DO 12/05/20 18:25 HPI - General General Date of Admission: 12/05/20 Date of Service: 12/05/20 Chief Complaint: L Toe pain HPI Narrative This patient was seen in conjunction with Kirsten Kaur NP. The following is representation my independent history and physical examination. Please see below for any addendum the above. Mr. Smith is a 65-year-old white male with a past medical history of diabetes, stroke, CAD, hyperlipidemia, hypertension, and epilepsy who presented to the emergency department [facility] on 12/05/2020 with a chief complaint of left toe pain. The patient reports that on Tuesday of this past week he bumped his toe into a table and it has progressively gotten more red and painful since that point time. He reports now he has fevers, chills, and generalized weakness. He denies any chest pain, shortness of breath, change in taste or smell, cough, or nausea/vomiting/diarrhea. He denies any sensory deficits in his feet and states he has been seen by podiatry in the past for a right great toe wound which is well-healed at this time. In the emergency department he had low-grade temps but his vital signs were otherwise stable. His CBC shows a mildly elevated white count at 13.7 with a left shift but is otherwise normal. His coags are normal. His serum sodium is low but when corrected for his serum glucose it is within normal limits. His lactic acid was 2.4. His liver enzymes are unremarkable. High-sensitivity CRP was elevated at 123 and his ESR was 29. A chest x-ray was unremarkable. On exam the toe was very erythematous and has evidence of subcutaneous abscess. Given his elevated CRP and ESR and clinical exam I got an x-ray of his foot and it showed cellulitis of the first digit with osteomyelitis of the tibial aspect of the base of the first distal phalanx. He will be admitted to medical surgical floor for further treatment. [facility] Medical History Acute encephalopathy Acute respiratory failure Coronary artery disease Diabetic foot ulcer associated with type 2 diabetes mellitus History of stroke Hyperlipidemia Hypertension Incisional hernia Paresthesia Seizure Sepsis Speech abnormality TIA (transient ischemic attack) Type II diabetes mellitus Home Medications atorvastatin 80 mg PO QHS 10/01/15 [History Last Taken Unknown] carbidopa-levodopa 1 tab PO TIDAC 10/01/15 [History Last Taken Unknown] carvedilol 6.25 mg PO BID 10/01/15 [History Last Taken Unknown] insulin NPH isoph U-100 human 13 units SUBCUT QHS 10/01/15 [History Last Taken Unknown] lisinopril 5 mg PO DAILY 10/01/15 [History Last Taken Unknown] metformin 1,000 mg PO BIDCM 10/01/15 [History Last Taken Unknown] aspirin 81 mg PO DAILY@0800 tab.chew 01/26/17 [Rx Last Taken Unknown] clopidogrel 75 mg PO DAILY #30 tab 01/26/17 [Rx Last Taken Unknown] empagliflozin 10 mg PO DAILY #30 tab 01/26/17 [Rx Last Taken Unknown] oxcarbazepine 300 mg PO 4X/DAY 03/16/18 [History Last Taken Unknown] tizanidine 4 mg PO Q8H PRN PRN 03/16/18 [History Last Taken Unknown] naproxen 500 mg PO BID PRN PRN 06/14/20 [History Last Taken Unknown] pantoprazole 20 mg PO DAILY #14 tab 06/14/20 [Rx Last Taken Unknown] Allergy/AdvReac Type Severity Reaction Status Date / Time pregabalin [From Lyrica] Allergy Unknown Verified 12/05/20 15:14 Penicillins AdvReac Hives Verified 12/05/20 15:14 Family History Mother Diabetes Heart disease Hypertension Brother Diabetes Heart disease Hypertension Surgical History History of heart artery stent history of right great toe surgery Status post biopsy of kidney Social History Smoking Status: Former smoker alcohol intake: never substance use type: does not use ROS Constitutional Constitutional: Reports chills, fever(s), malaise and weakness; Denies anorexia, change in weight, fatigue, night sweats, weight gain or weight loss Eyes Eyes: Denies blurry vision, change in vision, discharge from eye(s), double vision, erythema, eye pain, irritation or itchy eyes ENT HEENT: Denies abnormal hearing, dysphagia, ear pain, epistaxis, headache(s), hearing loss, loss taste/smell, nasal congestion, nasal discharge, post nasal drip, sinus pain, sinus pressure, sore throat or throat swelling Cardiovascular Cardiovascular: Denies chest pain, claudication, edema, orthopnea, palpitations, paroxysmal nocturnal dyspnea or syncope Respiratory/Chest Respiratory/Chest: Denies cough, hemoptysis, shortness of breath at rest, shortness of breath with exertion or wheezing Gastrointestinal Gastrointestinal: Denies abdominal pain, constipation, diarrhea, dyspepsia, hematemesis, hematochezia, melena, nausea or vomiting Genitourinary Genitourinary: Denies dysuria, hematuria, nocturia, oliguria, polyuria, urinary frequency, urinary hesitancy, urinary incontinence or urinary urgency Musculoskeletal Musculoskeletal: Reports extremity pain, joint pain, joint swelling and limited range of motion; Denies back pain, joint stiffness, muscle weakness, neck pain or stiffness Integumentary Integumentary: Reports rash and wounds; Denies dry skin, jaundice, lesions or pruritus Neurologic Neurologic: Reports abnormal gait, focal weakness, lack of coordination and seizures; Denies abnormal speech, confusion, dizziness, headache(s), numbness, sensory deficit, tingling, tremor(s) or weakness Psychiatric Psychiatric: Denies anxiety, depression, homicidal ideation or suicidal ideation Endocrine Endocrinology: Denies change in body appearance, cold intolerance, heat intolerance, polydipsia or polyuria Hematologic/Lymphatic Hematologic/Lymphatic: Denies anemia, easy bleeding, easy bruising or lymphadenopathy Physical Exam Const alert, oriented x3, no apparent distress and well nourished Constitutional Narrative: Overweight white male who appears older than stated age, sitting up in bed, nontoxic General Appearance: cooperative and well developed HEENT normocephalic, head/scalp atraumatic and moist oral mucous membranes HEENT Narrative: Fair dentition, Mallampati 2, no thrush Eyes PERRL and EOMs intact bilaterally Neck no lymphadenopathy, supple, no JVD, thyroid normal and no carotid bruits General: trachea midline Resp normal respiratory effort, normal air movement and clear to auscultation bilaterally Effort and Inspection: Negative for uses accessory muscles Auscultation: Negative for rhonchi, wheezes or diminished lung sounds Cardio regular rate, regular rhythm, S1 normal heart sound, S2 normal heart sound, no murmurs, no rub, no gallops and peripheral pulses 2+ throughout GI normal to inspection, nondistended, normoactive bowel sounds, soft to palpation, non-tender and non-distended Palpation: no hepatosplenomegaly Extremity Extremity Narrative: Left great toe is swollen and erythematous with evidence of subcutaneous abscess, no drainage, streaking of erythema to the left medial malleolus Skin General Skin Exam: turgor normal Rashes: no rashes Wounds: wounds noted Neuro Neuro Narrative: Chronic right-sided focal motor deficits related to previous speech, dysarthria, cranial nerve XI abnormalities Psych affect normal Psych Narrative: Very pleasant Appearance: appropriate Results Lab / Micro Data Attestation: I reviewed the patient's lab results. Result Diagrams: 12/05/20 15:45 12/05/20 15:45 Assessment & Plan Assessment/Plan (1) Osteomyelitis of ankle or foot, left, acute: (2) Diabetic foot: PLAN: Assessment: Osteomyelitis of the left lower extremity Diabetic foot wound Leukocytosis Type II lactic acidosis DM-2 Hypertension Hyperlipidemia CAD Parkinson's disease Epilepsy GERD Plan: -Patient does not meet sepsis criteria -Start IV antibiotics with meropenem given penicillin allergy and vancomycin -Culture sent and pending -X-ray is consistent with osteomyelitis so will defer any MRI to podiatry -Suspect patient will need debridement versus amputation--> podiatry consult pending -Check MRSA PCR -Check wound MRSA if able -Hold home Plavix but continue aspirin -Check hemoglobin A1c -Wound care consultation -Hold home oral antihyperglycemic agents -Suspect lactic acid elevation is type II and may be related to Metformin dosing -Serum bicarb is within normal limits and appears to be at baseline and no anion gap is present -SSI -Accu-Cheks Charges/Coding Visit Charges Inpatient E&M: 51745 Init Hosp L3
[2020-12-05 18:49] LABS: M R Staph aureus DNA By PCR Negative (Negative); Probe Check PASS; Specimen Processing Control PASS; Staph aureus DNA By PCR NEGATIVE (Negative)
--- NOTE | 2020-12-05 19:56 | NURSING ---
called pt ex- Gina to request information about home meds and immunizations, she reports that pt should have vaccine card in his wallet. She will gather medications and list and will call back in to review home meds.
[2020-12-05 20:07] LABS: Reflex Lactate? Y
[2020-12-05] MEDS: 0.9% Saline Lock 10 ML Syringe IV (20:21)
[2020-12-05 21:29] LABS: Lactic Acid 1.2 mmol/L (0.4-1.9)
[2020-12-05] MEDS: Insulin NPH Human 100 UNITS/ML PEN 13 UNITS SC (22:27)
[2020-12-05] MEDS: Heparin Injection (Vial) 5,000 UNIT/ML VIAL 5000 UNIT SC (22:27)
[2020-12-05] MEDS: oxyCODONE 5 MG Tablet PO (22:28)
[2020-12-05] MEDS: Acetaminophen 325 MG Tablet 650 MG PO (22:28)
[2020-12-05] MEDS: OXcarbazepine 300 MG Tablet PO (22:28)
[2020-12-05] MEDS: MELATONIN 3 MG TABLET PO (22:29)
[2020-12-05] MEDS: Carvedilol 6.25 MG Tablet PO (22:29)
[2020-12-05 23:11] LABS: Bedside Glucose 173 mg/dL (70-110)
[2020-12-05] MEDS: Atorvastatin Calcium 20 MG Tablet PO (23:19)
--- NOTE | 2020-12-05 23:50 | PCM.RX.CS ---
Consult Pharmacy has been consulted to manage selected antiobiotic: Vancomycin Type of Consult: New start Suspected Infection: Osteomyelitis Prior Doses of Antibiotics Received/Current Regimen: Medications Vancomycin HCl 1,750 mg/ (Sodium Chloride) 535 mls @ 250 mls/hr IV Q12H MILLIE Discontinued Medications Vancomycin HCl 2,000 mg/ (Sodium Chloride) 540 mls @ 250 mls/hr IV X1 ONE Stop: 12/05/20 22:39 Last Admin: 12/05/20 23:18 Dose: 250 mls/hr Labs: Sodium 133 mmol/L (136-145) L 12/05/20 15:45 Potassium 4.0 mmol/L (3.5-5.1) 12/05/20 15:45 Chloride 100 mmol/L (98-107) 12/05/20 15:45 Carbon Dioxide 24.0 mmol/L (21.0-32.0) 12/05/20 15:45 Anion Gap 9 (5-15) 12/05/20 15:45 BUN 13 mg/dL (7-18) 12/05/20 15:45 Creatinine 0.97 mg/dL (0.70-1.30) 12/05/20 15:45 Est GFR (MDRD) Af Amer 99 mL/min (>60) 12/05/20 15:45 Est GFR (MDRD) Non-Af 82 mL/min (>60) 12/05/20 15:45 BUN/Creatinine Ratio 13.3 RATIO (10-20) 12/05/20 15:45 Glucose 235 mg/dL (74-106) H 12/05/20 15:45 Weight used for dosin.5 kg Estimated Creatinine Clearance: 89 Goal Trough: 15-20 mcg/mL Pharmacy Plan for Drug Dosing: Pharmacy Service will continue to monitor and adjust dosing as required. Follow-Up Labs: Trough Vancomycin Labs to be done on [date and time ordered]: 12/07/20 @1100
--- NOTE | 2020-12-05 23:57 | NURSING ---
neldaid emergency charting in effect on 12/05/20 @ 1999.
--- NOTE | 2020-12-05 23:58 | NURSING ---
Pt was previously vaccinated with the covid vaccine but did not have his card with him. I talked with the and she is going to try to locate it but she believes that he received the Phizer Vaccine.
[2020-12-06] VITALS (11 sets, daily range): BP systolic 110–139; BP diastolic 61–68; PULSE 68–99; RESP 16–18; TEMP 36.5–37.8; O2SAT 94–95
[2020-12-06] MEDS: Heparin Injection (Vial) 5,000 UNIT/ML VIAL 5000 UNIT SC (06:07)
[2020-12-06] MEDS: Carbidopa/Levodopa 25/100 Tablet PO ×3 (06:08→17:21)
[2020-12-06] MEDS: Acetaminophen 325 MG Tablet 650 MG PO ×2 (06:11→15:22)
[2020-12-06] MEDS: oxyCODONE 5 MG Tablet PO ×4 (06:11→19:44)
[2020-12-06 06:31] LABS: Absolute Lymphocyte Count 1.12 X10^3/uL (0.83-4.51); Basophil# 0.04 X10^3/uL; Basophil% 0.6 % (0-1); Eosinophil# 0.11 X10^3/uL; Eosinophils% 1.6 % (0-5); Hemoglobin 11.9 g/dL (13.0-16.5); Lymphocyte # 1.12 X10^3/ul (0.83-4.51); Lymphocyte % 16.4 % (19-41); Mean Corp Hgb Conc 30.5 g/dL (32-36); Mean Corpuscular Hgb 27.4 pg (27.0-32.0); Mean Corpuscular Volume 89.7 fL (80-94); Mean Platelet Vol. 10.3 fl (6.2-12.0); Monocyte# 0.46 X10^3/uL; Monocyte% 6.8 % (0-10); NRBC Flagged by Analyzer 0 % (0-5); Neutrophil # 5.03 X10^3/uL (2.7-7.7); Neutrophil % 73.9 % (47-70); Platelet Count 325 K/mm3 (150-450); RBC Distribution Width CV 13.6 % (11.6-14.6); RBC Distribution Width SD 44.8 fl (35.1-43.9); Red Blood Count 4.35 M/mm3 (4.6-6.2); White Blood Count 6.8 K/mm3 (4.4-11.0)
[2020-12-06] MEDS: Insulin Lispro 100 UNIT/ML INSULN.PEN SC ×3 (07:00→17:21)
[2020-12-06 07:06] LABS: Bedside Glucose 184 mg/dL (70-110)
[2020-12-06 07:09] LABS: ALB/GLOB Ratio 0.5 RATIO (0.9-2.4); AST(SGOT) 11 U/L (15-37); Alanine Aminotransfer ALT/SGPT 23 U/L (16-61); Albumin, Serum 2.5 g/dL (3.2-5.0); Alkaline Phosphatase 90 U/L (45-117); Anion Gap 6 (5-15); BUN 11 mg/dL (7-18); BUN/Creat Ratio 14.2 RATIO (10-20); Calcium,Total 8.5 mg/dL (8.5-10.1); Chloride 105 mmol/L (98-107); Creatinine, Serum 0.78 mg/dL (0.70-1.30); EST Glomerular Filtration Rate 106 mL/min (>60); Est Glom Filt Rate - Afr Amer 129 mL/min (>60); Estimated Creatinine Clearance 75.03 ml/min; Globulin 4.6 g/dL (2.2-4.2); Glucose 151 mg/dL (74-106); Phosphorus 2.8 mg/dL (2.5-4.9); Potassium 3.7 mmol/L (3.5-5.1); Protein, Total 7.1 g/dL (6.4-8.2); Sodium Level 137 mmol/L (136-145); Thyroid Stim Hormone (TSH) 1.32 uIU/mL (0.358-3.74)
[2020-12-06] MEDS: OXcarbazepine 300 MG Tablet PO ×4 (08:54→21:21)
[2020-12-06] MEDS: Pantoprazole Sodium 20 MG Tablet PO (08:54)
[2020-12-06] MEDS: Aspirin 81 MG TAB.CHEW PO (08:54)
[2020-12-06] MEDS: Carvedilol 6.25 MG Tablet PO ×2 (08:54→21:21)
[2020-12-06] MEDS: Glucerna Shake 120 ML LIQUID PO (08:54)
[2020-12-06] MEDS: Lisinopril 5 MG Tablet PO (08:54)
[2020-12-06 09:46] LABS: Hemoglobin A1c 8.5 % (3.8-5.6)
--- NOTE | 2020-12-06 09:57 | ART_ITS ---
Reason For Study: Ulcer Procedure A bilateral lower extremity continuous wave Doppler with analog waveform analysis,segmental pressures,and ankle brachial indexes without exercise. Left Segmental Pressures Left posterior tibial artery = 162mmHg. Right Segmental Pressures Right brachial= 110mmHg. Right posterior tibial artery = 206mmHg. Right dorsalis pedis artery = 171mmHg. Right digit = 101 mmHg. Indices The right ankle brachial index by the posterior tibial artery is 1.87. The right ankle brachial index by the dorsalis pedis is 1.55. The right digital-brachial index is 0.92. The left ankle brachial index by the posterior tibial artery is 1.47. VL/Lower Ext Art Exam w/o Exercis Interpretation Summary Triphasic Doppler waveforms are noted at ankle level bilaterally. Pulse-volume recordings appear satisfactory at all levels bilaterally, though not assessed at digital level on the left. Resting ankle-brachial indices are supra-normal bilaterally. The right digital brachial index is normal. The left digital-brachial index was not determined due to the presence of bandages. There is evidence of arterial calcification at ankle level bilaterally. There i s no evidence of arterial occlusive disease in the lower extremities bilaterally, though not ful ly assessed at digital level on the left due to the presence of bandages. Ordering Physician: Goran Cat Referring Physician: Connor Chavez Performed By: Tiffanie Martinez RDCS/RVT
--- NOTE | 2020-12-06 10:18 | PCM.CONS.GEN ---
Assessment & Plan Assessment/Plan (1) Non-pressure chronic ulcer of other part of left foot with necrosis of bone: (2) Diabetes mellitus with diabetic polyneuropathy: (3) Type 2 diabetes mellitus with foot ulcer: (4) Osteomyelitis of ankle or foot, left, acute: (5) Sepsis: QUALIFIERS: Sepsis acute organ dysfunction status: without acute organ dysfunction Sepsis type: sepsis due to unspecified organism Qualified Code(s): A41.9 - Sepsis, unspecified organism PLAN: Evaluation performed. Reviewed diagnostic data. There is significant necrosis to the left 1st toe with xray changes of osteomyelitis to the base of the distal phalanx of the 1st toe. There is no gas noted on xrays. Discussed the options with patient and given the findings it was agreed upon to proceed with left 1st toe amputation. Discussed with anesthesia, patient ate at 8AM, we will proceed plan for OR tomorrow AM, as otherwise patient is stable and is on antibiotics at this time - Vancomycin and Meropenem. A deep culture was obtained from the ulcer site and sent to microbiology. LEAS were ordered for furthe revaluation of arterial flow bilateral LE. A dressing to the left 1st toe was applied - betadine soln, gauze, kerlix and delta dressing - keep clean, dry and intact. Patient will need to be NPO after midnight. Hold am Heparin. Discussed with Dr. Barnhart. Also with patient's request and permission I spoke with his significant other Gina. HPI Consult Data Date of Consult: 12/06/20 HPI Narrative HPI Narrative: JAUN SMITH, is a 65 M who presents with left 1st toe ulceration and infection. Patient relates he first noticed this last week. He relates to swelling and redness. He relates he knows he should have come in sooner for treatment, but he relates he is hard headed. He has been admitted for further management. He has been started on IV antibiotics - Meropenem and Vancomycin. Patient had left foot xrays which showed osteomyelitis to the distal phalanx of the 1st toe. He is resting in bed, with no other complaints. Patient is afebrile, WBC is normal. Ha1c wsa elevated at 8.5 PFSH Medical History (Updated 12/06/20 @ 10:[address] Goran Cat, DPM) Acute encephalopathy Acute respiratory failure Coronary artery disease Diabetic foot ulcer associated with type 2 diabetes mellitus Former smoker History of stroke Hyperlipidemia Hypertension Incisional hernia Kidney stones Myocardial infarct Paresthesia Seizure Sepsis Speech abnormality TIA (transient ischemic attack) Type II diabetes mellitus Home Medications atorvastatin 20 mg PO QHS 10/01/15 [History Last Taken 12/04/20 20:00] carbidopa-levodopa 1 tab PO TIDAC 10/01/15 [History Last Taken 12/05/20 08:00] carvedilol 6.25 mg PO BID 10/01/15 [History Last Taken 12/05/20 08:00] insulin NPH isoph U-100 human 13 units SUBCUT QHS 10/01/15 [History Last Taken 12/04/20 20:00] lisinopril 5 mg PO DAILY 10/01/15 [History Last Taken 12/05/20 08:00] metformin 1,000 mg PO BIDCM 10/01/15 [History Last Taken 12/05/20 08:00] aspirin 81 mg PO DAILY@0800 tab.chew 01/26/17 [Rx Last Taken 12/05/20 08:00] clopidogrel 75 mg PO DAILY #30 tab 01/26/17 [Rx Last Taken 12/05/20 08:00] empagliflozin 10 mg PO DAILY #30 tab 01/26/17 [Rx Last Taken 12/05/20 08:00] oxcarbazepine 300 mg PO 4X/DAY 03/16/18 [History Last Taken 12/05/20 08:00] mirtazapine 30 mg QHS 12/05/20 [History Last Taken 12/04/20 20:00] Allergy/AdvReac Type Severity Reaction Status Date / Time pregabalin [From Lyrica] Allergy Unknown Verified 12/05/20 19:33 Penicillins AdvReac Hives Verified 12/05/20 15:14 Family History Mother Diabetes Heart disease Hypertension Brother Diabetes Heart disease Hypertension Surgical History History of heart artery stent history of right great toe surgery Status post biopsy of kidney Social History Smoking Status: Former smoker alcohol intake: never substance use type: does not use Physical Exam Const alert, oriented x3 and no apparent distress Extremity Extremity Narrative: There is necrotic ulceration to the medial and lateral aspect of the left 1st toe at the level of the IPJ - there is maloder and noted purulence present to the site, there is significant edema and cellulitis to the 1st toe, there is some streaking to the dorsal forefoot and midfoot, there is maloder from the left 1st toe, there is deep probing to bone to the ulcer site. Left - No calf edema or pain, there are no other open lesions to the foot, ankle or leg, there is decreased sensation consistent with peripheral neuropathy, there is no m/s POP or pain on ROM to the foot or ankle. Lab / Micro Data Result Diagrams: 12/06/20 05:50 12/06/20 05:50 Labs: Laboratory Results - last 24 hr 12/05/20 15:45: WBC 13.7 H, RBC 4.96, Hgb 13.4, Hct 43.7, MCV 88.1, MCH 27.0, MCHC 30.7 L, RDW Std Deviation 43.9, RDW Coeff of Ana 13.7, Plt Count 427, MPV 10.3, Immature Gran % (Auto) 0.700, Neut % (Auto) 84.0 H, Lymph % (Auto) 9.9 L, [place] % (Auto) 4.8, Eos % (Auto) 0.3, Baso % (Auto) 0.3, Absolute Neuts (auto) 11.5 H, Absolute Lymphs (auto) 1.36, Nucleated RBC % 0, ESR 29 H 12/05/20 15:45: Sodium 133 L, Potassium 4.0, Chloride 100, Carbon Dioxide 24.0, Anion Gap 9, BUN 13, Creatinine 0.97, Estim Creat Clear Calc 77.35, Est GFR (MDRD) Af Amer 99, Est GFR (MDRD) Non-Af 82, BUN/Creatinine Ratio 13.3, Glucose 235 H, Calcium 9.7, Total Bilirubin 0.40, AST 11 L, ALT 18, Alkaline Phosphatase 118 H, C-React Prot High Sens 123.00 H, Total Protein 8.9 H, Albumin 3.3, Globulin 5.6 H, Albumin/Globulin Ratio 0.6 L 12/05/20 15:45: Lactic Acid 2.4 H* 12/05/20 16:00: PT Cancelled, INR Cancelled, APTT Cancelled 12/05/20 16:18: Urine Color Yellow, Urine Clarity Clear, Urine pH 5.0, Ur Specific [place] 1.010, Urine Protein Negative, Urine Glucose (UA) 1000 H, Urine Ketones Negative, Urine Occult Blood Negative, Urine Nitrite Negative, Urine Bilirubin Negative, Urine Urobilinogen Normal, Ur Leukocyte Esterase Negative, Urine RBC 0 SEEN, Urine WBC 0 SEEN, Ur Squamous Epith Cells 0 SEEN, Urine Bacteria 0 SEEN, Urine Mucus 0 SEEN 12/05/20 16:53: PT 13.6, INR 1.1, APTT 25.3 12/05/20 17:23: S.aureus Protein A PCR NEGATIVE, MRSA (PCR) Negative 12/05/20 20:28: Lactic Acid 1.2 12/05/20 22:23: POC Glucose 173 H 12/06/20 05:50: WBC 6.8, RBC 4.35 L, Hgb 11.9 L, Hct 39.0 L, MCV 89.7, MCH 27.4, MCHC 30.5 L, RDW Std Deviation 44.8 H, RDW Coeff of Ana 13.6, Plt Count 325, MPV 10.3, Immature Gran % (Auto) 0.700, Neut % (Auto) 73.9 H, Lymph % (Auto) 16.4 L, [place] % (Auto) 6.8, Eos % (Auto) 1.6, Baso % (Auto) 0.6, Absolute Neuts (auto) 5.0, Absolute Lymphs (auto) 1.12, Nucleated RBC % 0 12/06/20 05:50: Sodium 137, Potassium 3.7, Chloride 105, Carbon Dioxide 26.0, Anion Gap 6, BUN 11, Creatinine 0.78, Estim Creat Clear Calc 75.03, Est GFR (MDRD) Af Amer 129, Est GFR (MDRD) Non-Af 106, BUN/Creatinine Ratio 14.2, Glucose 151 H, Calcium 8.5, Phosphorus 2.8, Magnesium 2.0, Total Bilirubin 0.30, AST 11 L, ALT 23, Alkaline Phosphatase 90, Total Protein 7.1, Albumin 2.5 L, Globulin 4.6 H, Albumin/Globulin Ratio 0.5 L, TSH 1.32 12/06/20 05:50: Hemoglobin A1c 8.5 H 12/06/20 06:57: POC Glucose 184 H Radiology Impression Foot X-Ray 12/05/20 15:35 IMPRESSION: Suspects cellulitis of the first digit with osteomyelitis of the tibial aspect of the base of the first distal phalanx. Electronically Signed: Canelo Rodriguez MD at 17:07 EDT Tel , Service support , Chest X-Ray 12/05/20 16:38 IMPRESSION: Normal x-ray examination of the chest. Electronically Signed: Canelo Rodriguez MD at 17:08 EDT Tel , Service support ,
--- NOTE | 2020-12-06 11:46 | PN_ITS ---
Documented by User: JESSICA Craven 12/06/20 12:01 Subjective Subjective Patient seen and examined. Patient states that he less pain this morning. Patient denies other complaints at this time. Patient sitting in bed no distress noted eating breakfast. Objective Data Objective Data Vital Signs: Vital Signs Temp Pulse Resp BP Pulse Ox 97.7 F L 93 16 128/61 H 95 12/06/20 08:33 12/06/20 08:33 12/06/20 08:33 12/06/20 08:33 12/06/20 08:33 Oxygen Flow Rate (L/min) 2 Oxygen Delivery Method Room Air Weight: 223 lb 12.8 oz Body Mass Index (BMI) 32.1 Intake & Output: Intake and Output for Last 24 Hours 12/04/20 12/05/20 12/06/20 23:59 23:59 23:59 Intake Total 1246 / 1246 2304.25 / 2304.25 Output Total 2 / 2 Balance 1246 / 1246 2302.25 / 2302.25 Lab / Micro Data Result Diagrams: 12/06/20 05:50 12/06/20 05:50 Labs: Laboratory Results - last 24 hr 12/05/20 15:45: WBC 13.7 H, RBC 4.96, Hgb 13.4, Hct 43.7, MCV 88.1, MCH 27.0, MCHC 30.7 L, RDW Std Deviation 43.9, RDW Coeff of Ana 13.7, Plt Count 427, MPV 10.3, Immature Gran % (Auto) 0.700, Neut % (Auto) 84.0 H, Lymph % (Auto) 9.9 L, [place] % (Auto) 4.8, Eos % (Auto) 0.3, Baso % (Auto) 0.3, Absolute Neuts (auto) 11.5 H, Absolute Lymphs (auto) 1.36, Nucleated RBC % 0, ESR 29 H 12/05/20 15:45: Sodium 133 L, Potassium 4.0, Chloride 100, Carbon Dioxide 24.0, Anion Gap 9, BUN 13, Creatinine 0.97, Estim Creat Clear Calc 77.35, Est GFR (MDRD) Af Amer 99, Est GFR (MDRD) Non-Af 82, BUN/Creatinine Ratio 13.3, Glucose 235 H, Calcium 9.7, Total Bilirubin 0.40, AST 11 L, ALT 18, Alkaline Phosphatase 118 H, C-React Prot High Sens 123.00 H, Total Protein 8.9 H, Albumin 3.3, Globulin 5.6 H, Albumin/Globulin Ratio 0.6 L 12/05/20 15:45: Lactic Acid 2.4 H* 12/05/20 16:00: PT Cancelled, INR Cancelled, APTT Cancelled 12/05/20 16:18: Urine Color Yellow, Urine Clarity Clear, Urine pH 5.0, Ur Specif ic [place] 1.010, Urine Protein Negative, Urine Glucose (UA) 1000 H, Urine Ke tones Negative, Urine Occult Blood Negative, Urine Nitrite Negative, Urine Bilirubin Negative, Urine Urobilinogen Normal, Ur Leukocyte Esterase Negative, Urine RBC 0 SEEN, Urine WBC 0 SEEN, Ur Squamous Epith Cells 0 SEEN, Urine Bacteria 0 SEEN, Urine Mucus 0 SEEN 12/05/20 16:53: PT 13.6, INR 1.1, APTT 25.3 12/05/20 17:23: S.aureus Protein A PCR NEGATIVE, MRSA (PCR) Negative 12/05/20 20:28: Lactic Acid 1.2 12/05/20 22:23: POC Glucose 173 H 12/06/20 05:50: WBC 6.8, RBC 4.35 L, Hgb 11.9 L, Hct 39.0 L, MCV 89.7, MCH 27.4, MCHC 30.5 L, RDW Std Deviation 44.8 H, RDW Coeff of Ana 13.6, Plt Count 325, MPV 10.3, Immature Gran % (Auto) 0.700, Neut % (Auto) 73.9 H, Lymph % (Auto) 16.4 L, [place] % (Auto) 6.8, Eos % (Auto) 1.6, Baso % (Auto) 0.6, Absolute Neuts (auto) 5.0, Absolute Lymphs (auto) 1.12, Nucleated RBC % 0 12/06/20 05:50: Sodium 137, Potassium 3.7, Chloride 105, Carbon Dioxide 26.0, Anion Gap 6, BUN 11, Creatinine 0.78, Estim Creat Clear Calc 75.03, Est GFR (MDRD) Af Amer 129, Est GFR (MDRD) Non-Af 106, BUN/Creatinine Ratio 14.2, Glucose 151 H, Calcium 8.5, Phosphorus 2.8, Magnesium 2.0, Total Bilirubin 0.30, AST 11 L, ALT 23, Alkaline Phosphatase 90, Total Protein 7.1, Albumin 2.5 L, Globulin 4.6 H, Albumin/Globulin Ratio 0.5 L, TSH 1.32 12/06/20 05:50: Hemoglobin A1c 8.5 H 12/06/20 06:57: POC Glucose 184 H Radiography Diagnostic Testing: Radiology Impression Foot X-Ray 12/05/20 15:35 IMPRESSION: Suspects cellulitis of the first digit with osteomyelitis of the tibial aspect of the base of the first distal phalanx. Electronically Signed: Canelo Rodriguez MD at 17:07 EDT Tel , Service support , Chest X-Ray 12/05/20 16:38 IMPRESSION: Normal x-ray examination of the chest. Electronically Signed: Canelo Rodriguez MD at 17:08 EDT Tel , Service support , Physical Exam Const alert, oriented x3 and no apparent distress General Appearance: cooperative HEENT normocephalic and head/scalp atraumatic Eyes conjunctivae normal and no scleral icterus Neck supple and no JVD General: trachea midline Resp normal respiratory effort, normal air movement and clear to auscultation bilaterally Cardio regular rate, regular rhythm, S1 normal heart sound and S2 normal heart sound Peripheral Pulses: pulses 2+ throughout GI normal to inspection, nondistended, normoactive bowel sounds, soft to palpation and non-tender Extremity normal capillary refill General Extremity: edema bilateral lower extremity (Left worse than right due to decreased blood flow from prior accident in left leg) Skin Skin Narrative: Wound noted to left great toe with redness, edema, warmth. Redness improved from yesterday with decreased streaking noted. General Skin Exam: turgor normal Lesions: no lesions Rashes: no rashes Wounds: wounds noted Neuro no focal motor deficits and no sensory deficits noted Speech: speech normal Motor Exam: general weakness Psych thought process normal, cooperative and affect normal Appearance: appropriate Assessment & Plan Assessment/Plan (1) Non-pressure chronic ulcer of other part of left foot with necrosis of bone: PLAN: 1. Sepsis secondary to diabetic foot ulcer associated with type 2 diabetes mellitus -Podiatry consulted, Dr. Mooney following. Per podiatry no patient will be n.p.o. at midnight for pending surgery 12/07/2020. -Lower extremity arterial exams ordered -Blood and wound cultures pending -Continue meropenem and vancomycin -Wound nurse consult placed -Wound dressing instructions per podiatry 2. Osteomyelitis of left foot -Secondary to #1 -White blood cell count 6.8 today, much improved following initiation of antibiotics 3. Diabetes mellitus type 2 -AC at bedtime blood sugars with sliding scale insulin ordered -Continue home NPH insulin -Continue to hold Metformin and Jardiance 4. Hypertension -Continue home medication regimen vital signs currently stable -Vital signs per protocol, currently stable 5. CAD -Continue to hold Plavix for pending surgical evaluation DVT prophylaxis-SCDs, subcu heparin held for pending surgery 12/07/2020 This patient was seen by CAMERON CravenC under the supervision of Dr. Barnhart. Documented by User: Dr. Murtaza Barnhart, 12/06/20 15:41 Objective Data Lab / Micro Data Result Diagrams: 12/06/20 05:50 12/06/20 05:50 Charges/Coding Addendum Addendum: Patient seen and examined independently. Data and vitals reviewed. I agree with the above note by the nurse practitioner. Feeling well at present. States that he had his toe on Tuesday and notes that it progressively gotten worse. No acute distress and afebrile. Left great toe with necrosis and malodorous. Assessment and plan 1. Left great toe osteomyelitis and cellulitis Continue with antibiotics with vancomycin and meropenem Podiatry on board. Plan for amputation on 12/07. 2. DM2: NPH and SSI Visit Charges Inpatient E&M: 63049 Subs Hosp L2
[2020-12-06 11:55] LABS: Bedside Glucose 212 mg/dL (70-110)
[2020-12-06 13:30] LABS: M R Staph aureus DNA By PCR Negative (Negative); Probe Check PASS; Specimen Processing Control PASS; Staph aureus DNA By PCR NEGATIVE (Negative)
--- NOTE | 2020-12-06 13:30 | CASEMGMT ---
RN KAREN Face to Face with patient for initial transition planning/care coordination assessment. RN CM introduced self and role at [facility]. Patient lying in bed, alert and oriented. Patient willing to participate in assessment and is able to answer all questions appropriately. Care providers, pharmacy, and demographics verified. Patient wishes to discharge home, denies need for home health at this time, will monitor for need for HHC for wound care and possible IV ATBS. Patient states he has no further needs or concerns at this time. CM to follow for discharge planning needs that may arise. PCP: Scott Specialists: none [facility] Prescription Benefit: yes Living Will/HPOA: none LNOK: ex-, daughter Living Arrangements: Patient lives with ex- and daughter in a mobile home with 4 steps and railing to enter the home. Patient states he is independent at home. Family can learn and assist with wound care. Transportation: self, family DME/HHC: Patient states he has a walker at home. No previous HHC. [facility]. Will monitor for HHC for wound care and possible IV ATBs Disposition Plan: Patient to discharge home with family support and follow-up plans in place. Monitor for HHC Katlyn FULLER, RN, CM
[2020-12-06 16:35] LABS: Bedside Glucose 168 mg/dL (70-110)
[2020-12-06] MEDS: Atorvastatin Calcium 20 MG Tablet PO (21:22)
[2020-12-06 22:21] LABS: Bedside Glucose 146 mg/dL (70-110)
--- NOTE | 2020-12-06 23:56 | PCS.PANDOC ---
PANDEMIC DOCUMENTATION INITIATED: Date: 11/03/2020 Time: 190
[2020-12-07] VITALS (16 sets, daily range): BP systolic 110–141; BP diastolic 54–69; PULSE 78–98; RESP 16–18; TEMP 36.1–37.8; O2SAT 93–99; BMI 32.1
--- NOTE | 2020-12-07 | BON_PTH ---
PATIENT: JAUN SMITH LOC: MS3 U#:[id number] AGE/SX: 65/M [place] [facility] [place]: Dr. Inez Nieto MD : [id number] BED: 1 DIS: 12/10/2020 SPEC #: [id number] RECD: 12/08/20 08:34 STATUS: NIRAV REQ #: [id number] EUNICE: 12/07/20 00:[address]: Goran Cat DEPT: SURGICAL PATHOLOGY RECD BY: Eris Roblero ENTERED: 12/08/20 13:01 SP TYPE: Bone OTHR DR: Dr. Murtaza Barnhart, DO Dr. Goran Cat, DPM Dr. Luna Brown, MD Dr. 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 Left first metatarsal, B ? Left first toe MICROSCOPIC DIAGNOSIS A. Left metatarsal bone: Fragments of bone, negative for acute osteomyelitis. B. Left first toe, amputation: Focal ulceration and associated acute inflammation and abscess formation. Underlying bone with acute osteomyelitis. SJ:priti 12/11/2020 MICROSCOPIC DESCRIPTION Slides are reviewed. GROSS DESCRIPTION A - Received in fixative is one container labeled with the patient's name and designated left metatarsal head. The specimen consists of multiple irregular fragments of lopez bone that in aggregate measure 0.5 x 0.5 x 0.1 cm. The specimen is totally submitted in one cassette after decalcification. B - Received in fixative is one container labeled with the patient's name and designated left first toe. The specimen consists of a great toe containing skin, bone and deformed nail measuring 6.5 cm in length and 3.5 cm in diameter. An ulcer is present in the plantar region measuring 2 x 1.7 x 0.5 cm. The bone and soft tissue at margin of resection are grossly unremarkable. Barrel Tester sections of ulcer, underlying soft tissue and bone are submitted in two cassettes after decalcification. / AM:priti 12/08/20 TC:2 CPT: 86111, 34355, 21670 x2
[2020-12-07 04:50] LABS: Absolute Lymphocyte Count 1.33 X10^3/uL (0.83-4.51); Absolute Neutrophil Count 6.1 X10^3/uL (2.0-7.7); Basophil# 0.02 X10^3/uL; Basophil% 0.2 % (0-1); Eosinophil# 0.09 X10^3/uL; Eosinophils% 1.1 % (0-5); Hematocrit 36.7 % (40-54); Hemoglobin 11.4 g/dL (13.0-16.5); Lymphocyte # 1.33 X10^3/ul (0.83-4.51); Lymphocyte % 16.2 % (19-41); Mean Corp Hgb Conc 31.1 g/dL (32-36); Mean Corpuscular Hgb 27.3 pg (27.0-32.0); Mean Platelet Vol. 10.5 fl (6.2-12.0); Monocyte# 0.61 X10^3/uL; Monocyte% 7.4 % (0-10); NRBC Flagged by Analyzer 0 % (0-5); Neutrophil # 6.08 X10^3/uL (2.7-7.7); Neutrophil % 74.2 % (47-70); Platelet Count 327 K/mm3 (150-450); RBC Distribution Width CV 13.5 % (11.6-14.6); RBC Distribution Width SD 43.9 fl (35.1-43.9); Red Blood Count 4.17 M/mm3 (4.6-6.2); White Blood Count 8.2 K/mm3 (4.4-11.0)
[2020-12-07 05:00] LABS: International Normalized Ratio 1.1; Prothrombin Time (Protime)PT. 13.4 SECONDS (11.7-14.9)
[2020-12-07] MEDS: oxyCODONE 5 MG Tablet PO ×2 (05:05→13:47)
[2020-12-07 05:06] LABS: Anion Gap 9 (5-15); BUN 13 mg/dL (7-18); BUN/Creat Ratio 23.5 RATIO (10-20); Calcium,Total 8.3 mg/dL (8.5-10.1); Chloride 104 mmol/L (98-107); Creatinine, Serum 0.55 mg/dL (0.70-1.30); EST Glomerular Filtration Rate 157 mL/min (>60); Est Glom Filt Rate - Afr Amer 190 mL/min (>60); Estimated Creatinine Clearance 75.03 ml/min; Glucose 145 mg/dL (74-106); Potassium 3.7 mmol/L (3.5-5.1); Sodium Level 134 mmol/L (136-145)
[2020-12-07 06:46] LABS: Bedside Glucose 144 mg/dL (70-110)
[2020-12-07] MEDS: Carvedilol 6.25 MG Tablet PO ×2 (07:23→22:36)
--- NOTE | 2020-12-07 07:50 | NURSING ---
Report called to ANNEMARIE Abarca RN. Pt being transported to OR via bed by CRESENCIO Vnace.
[2020-12-07] MEDS: Bupivacaine Mpf 0.5% 30 ML VIAL (08:29)
--- NOTE | 2020-12-07 09:05 | PCM.OPRPT ---
Report of Operation Date of Procedure: 12/07/20 Pre-Operative Diagnosis: Necrotic ulcer down to necrotic bone with osteomyelitis left 1st toe Post-Operative Diagnosis: Same Surgery/Procedure Performed:: Amputation of left 1st toe Surgeon: Goran Cat certified prosthetist/orthotist: None Type of Anesthesia: Local MAC Specimen's removed: 1. Amputated left 1st toe sent to pathology 2. Bone culture of the distal phalanx left 1st toe 3. Clearance fragment left 1st metatarsal head - sent to pathology and microbiology Estimated Blood Loss (mL): 1mL Description of Procedure: Indications: The patient is a 65 year old gentleman who has ulceration to the left 1st toe at level of the interphalangeal joint (IPJ) which probes to necrotic bone, there is osteomyelitis to the 1st toe on xray. There is severe edema to the 1st toe with erythema and purulent drainage, there is significant maloder. He was admitted and started on IV antibiotics. Due to the severity of the infection and extent of necrosis he elected to proceed with surgical debridement/amputation of the toe.This was discussed in great detail. This was discussed with him in detail, reviewed the possible benefits vs risks. He were advised the risks include, but are not limited to pain, further infections, need for further surgery, nonhealing, delay healing, scarring, poor cosmetic result, numbness, weakness, loss of function, complex regional pain syndrome, blood clots, loss of limb, loss of life. Patient expressed understanding and agreement, and able to repeat back, all questions were answered. The consent form was reviewed and it was freely signed. No guaranties were given nor implied. Operative Procedure: The patient was brought into the operating room, and was place on the operating room table in the supine position. He was carefully secured to the operating room table with a safely belt around his waist. A time out was performed, the patient was properly identified and the surgical plan was confirmed. Patient was already on antibiotics - Vancomycin and Meropenum. A well padded pneumatic tourniquet was placed around the left ankle. The patient received MAC anesthesia per the anesthesia team, and a total of 10mL of 0.5% Marcaine plain was given as a left foot 1st ray block after the skin was cleansed with 70% isopropyl alcohol. The left foot was scrubbed, prepped and draped in the usual aseptic fashion. The left foot was exsanguinated via elevation for 3 minutes, and the ankle pneumatic tourniquet was inflated to 250mmHg. There was noted to be a deep ulceration to the plantar 1st toe down to bone - extending from medial and lateral with necrosis, maloder, purulence, and significant cellulitis as noted above. Using a 15 scalpel blade the ulceration was debrided in excisional fashion removing all nonviable, necrotic soft tissue and bone from the site, this involved removing the toe at the level of the 1st metatarsal phalangeal joint. The bone of the base of the distal phalanx as well as some of the proximal phalanx were noted to be nonviable, necrotic, soft, yellow, fragmented, and reed all consistent with osteomyelitis. The base of the proximal phalanx as well as the head of the 1st metatarsal were noted to be viable appearing - were noted to be hard, white and did not appear to be infected. However the soft tissue of the plantar toe was significant necrotic which was debrided and excised using a 15 blade. A small sample of bone for a clearance fragment/bone culture was obtained from the dorsal head of the 1st metatarsal just proximal to the end of the articular cartilage using a bone cutting rongeur and was sent to microbiology and pathology for further evaluation. The amputed 1st toe was sent to pathology for further evaluation as well, along with a culture of the necrotic bone from base of the distal phalanx/head of the proximal phalanx being sent to microbiology for further evaluation. The site was flushed out with copious amounts of normal saline solution. All remaining tissues appeared to be healthy and viable, free of any infection. The site was again flushed out with copious amounts of normal saline solution. A flap was created with the remaining viable skin using a 15 blade, the skin edges were brought together and were reapproximated using 3-0 Prolene, leaving open centrally to allow for drainage. The pneumatic tourniquet was deflated (total tourniquet time was 33 minutes), and there was immediate return of good vascular flow to the left foot, with normal temperature gradient and CFT < 2 seconds to the amputation site and to all remaining toes. A dressing was applied which consisted of betadine soaked adaptic, 4x4 gauze, kerlix and delta dressing. Patient tolerated the above procedure well with no complications. He was transported from the operating room to the recovery room in good condition. Post operative orders placed. Post operating instructions were reviewed with patient. Keep foot elevated, keep dressing left foot clean, dry and intact, and no weightbearing to the foot. Patient will be followed as an inpatient. Post operative left foot xrays obtained in the recovery room which confirmed 1st toe removal, no evidence of complication or acute findings otherwise. Grafts/Implants Used: None Complications None
[2020-12-07] MEDS: Pantoprazole Sodium 20 MG Tablet PO (10:01)
[2020-12-07] MEDS: OXcarbazepine 300 MG Tablet PO ×4 (10:01→22:37)
[2020-12-07] MEDS: Lisinopril 5 MG Tablet PO (10:01)
[2020-12-07] MEDS: Aspirin 81 MG TAB.CHEW PO (10:01)
[2020-12-07] MEDS: Carbidopa/Levodopa 25/100 Tablet PO ×2 (11:32→16:13)
[2020-12-07] MEDS: Insulin Lispro 100 UNIT/ML INSULN.PEN SC ×2 (11:32→16:13)
[2020-12-07] MEDS: 0.9% Saline Lock 10 ML Syringe IV (11:33)
[2020-12-07 11:45] LABS: Bedside Glucose 175 mg/dL (70-110)
[2020-12-07 12:13] LABS: Vancomycin, Trough Level 11.9 ug/mL (5.0-15.0)
--- NOTE | 2020-12-07 13:11 | PN.HOSP_ITS ---
Subjective Subjective Post amputation of left great toe. Objective Data Objective Data Vital Signs: Vital Signs Temp Pulse Resp BP Pulse Ox 36.8 C 78 18 115/61 97 12/07/20 09:49 12/07/20 09:49 12/07/20 09:49 12/07/20 09:49 12/07/20 09:49 Oxygen Flow Rate (L/min) 2 Oxygen Delivery Method Room Air Weight: 101.514 kg Body Mass Index (BMI) 32.1 Intake & Output: Intake and Output for Last 24 Hours 12/05/20 12/06/20 12/07/20 23:59 23:59 23:59 Intake Total 1246 / 1246 3649.50 / 3649.50 1106.75 / 1106.75 Output Total 377 / 377 475 / 475 Balance 1246 / 1246 3272.50 / 3272.50 631.75 / 631.75 Lab / Micro Data Result Diagrams: 12/07/20 04:05 12/07/20 04:05 Labs: Laboratory Results - last 24 hr 12/06/20 09:57: S.aureus Protein A PCR NEGATIVE, MRSA (PCR) Negative 12/06/20 16:29: POC Glucose 168 H 12/06/20 21:19: POC Glucose 146 H 12/07/20 04:05: WBC 8.2, RBC 4.17 L, Hgb 11.4 L, Hct 36.7 L, MCV 88.0, MCH 27.3, MCHC 31.1 L, RDW Std Deviation 43.9, RDW Coeff of Ana 13.5, Plt Count 327, MPV 10.5, Immature Gran % (Auto) 0.900, Neut % (Auto) 74.2 H, Lymph % (Auto) 16.2 L, [place] % (Auto) 7.4, Eos % (Auto) 1.1, Baso % (Auto) 0.2, Absolute Neuts (auto) 6.1, Absolute Lymphs (auto) 1.33, Nucleated RBC % 0 12/07/20 04:05: PT 13.4, INR 1.1 12/07/20 04:05: Sodium 134 L, Potassium 3.7, Chloride 104, Carbon Dioxide 21.0, Anion Gap 9, BUN 13, Creatinine 0.55 L, Estim Creat Clear Calc 75.03, Est GFR (MDRD) Af Amer 190, Est GFR (MDRD) Non-Af 157, BUN/Creatinine Ratio 23.5 H, Glucose 145 H, Calcium 8.3 L 12/07/20 06:31: POC Glucose 144 H 12/07/20 11:09: Vancomycin Trough 11.9 12/07/20 11:31: POC Glucose 175 H Micro: Microbiology 12/06/20 09:53 Wound - Left Foot Wound Culture - Preliminary Beta streptococcus Gram positive organism 12/05/20 16:18 Urine, Clean Catch Urine Culture - Preliminary GPC Poss Enterococcus sp Beta streptococcus 12/05/20 15:45 Blood Culture (Wb) - Anticubital Left Blood Culture - Preliminary 12/07/20 04:55 Nasal Secretion SARS-CoV-2 Antigen (Rapid) - Final Physical Exam Const Constitutional Narrative: groggy post op Resp normal respiratory effort and no retractions Cardio regular rate, regular rhythm, S1 normal heart sound and S2 normal heart sound GI normal to inspection, nondistended, normoactive bowel sounds, soft to palpation and non-tender Extremity Extremity Narrative: left foot bandaged. Psych affect normal Assessment & Plan Assessment/Plan (1) Non-pressure chronic ulcer of other part of left foot with necrosis of bone: PLAN: 1. Sepsis secondary to diabetic foot ulcer associated with type 2 diabetes mellitus Podiatry consulted, Dr. Mooney following. Per podiatry no patient will be n.p.o. at midnight for pending surgery 12/07/2020. Lower extremity arterial exams ordered BCx with gram variable rods in 1 of 2 bottles. Monitor. Continue meropenem and vancomycin Wound nurse consult placed Wound dressing instructions per podiatry 2. Osteomyelitis of left foot s/p amputation on 12/07 follow up cultures consult ID 3. Diabetes mellitus type 2 -fair control AC at bedtime blood sugars with sliding scale insulin ordered -Continue home NPH insulin -Continue to hold Metformin and Jardiance 4. Hypertension -Continue home medication regimen vital signs currently stable -Vital signs per protocol, currently stable 5. CAD -Continue to hold Plavix for pending surgical evaluation DVT prophylaxis-LMWH
--- NOTE | 2020-12-07 14:38 | PCM.RX.CS ---
Consult Pharmacy has been consulted to manage selected antiobiotic: Vancomycin Type of Consult: Follow-up Labs: Sodium 134 mmol/L (136-145) L 12/07/20 04:05 Potassium 3.7 mmol/L (3.5-5.1) 12/07/20 04:05 Chloride 104 mmol/L (98-107) 12/07/20 04:05 Carbon Dioxide 21.0 mmol/L (21.0-32.0) 12/07/20 04:05 Anion Gap 9 (5-15) 12/07/20 04:05 BUN 13 mg/dL (7-18) 12/07/20 04:05 Creatinine 0.55 mg/dL (0.70-1.30) L 12/07/20 04:05 Est GFR (MDRD) Af Amer 190 mL/min (>60) 12/07/20 04:05 Est GFR (MDRD) Non-Af 157 mL/min (>60) 12/07/20 04:05 BUN/Creatinine Ratio 23.5 RATIO (10-20) H 12/07/20 04:05 Glucose 145 mg/dL (74-106) H 12/07/20 04:05 Vancomycin Trough 11.9 ug/mL (5.0-15.0) 12/07/20 11:09 Microbiology: Microbiology 12/06/20 09:53 Wound - Left Foot Gram Stain - Final 12/06/20 09:53 Wound - Left Foot Wound Culture - Preliminary Beta streptococcus Gram positive organism 12/05/20 16:18 Urine, Clean Catch Urine Culture - Preliminary GPC Poss Enterococcus sp Beta streptococcus 12/05/20 15:45 Blood Culture (Wb) - Anticubital Left Blood Culture - Preliminary 12/07/20 04:55 Nasal Secretion SARS-CoV-2 Antigen (Rapid) - Final Goal Trough: 15-20 mcg/mL Pharmacy Plan for Drug Dosing: VANCOMYCIN LEVEL RECEIVED Current Vancomycin Dose: 1750MG IV Q12hr Number of Doses Received: 4 (3 prior to trough draw) Vancomycin Level: 11.9 Hours Since Last Dose: 12hr Renal Function: 0.55 Renal Function Trend: stable Lab/Micro: enterococcus in multiple Cx, surgical Cx pending Vancomycin Plan/Comments: Trough slightly subtherapeutic (Goal 15-20). Will increase dose and start ~10hr from last admin. Starting vancomycin 2000mg IV Q12hr 12/07 @2100. Trough prior to the 4th dose of new regimen per protocol. Pending Level: 12/09/20 @0830 Pharmacy Service will continue to monitor and adjust dosing as required.
--- NOTE | 2020-12-07 15:35 | RAD_ITS ---
STUDY: X-RAY - LEFT FOOT CLINICAL: Male, 65 years old. post op TECHNIQUE: 3 view(s) of the foot. COMPARISON: Plain film done 2 days ago FINDINGS: There is a plantar calcaneal spur. There is an enthesophyte involving the posterior superior calcaneus at the site of insertion of the Achilles tendon. Normal visualized subtalar, talonavicular, calcaneocuboid, tarsal and tarsometatarsal articulations. Normal metatarsi. There has been an amputation of the great toe. Soft tissue flap in place. Soft tissue air overlying the resection site consistent for recent surgery. Normal second through fifth metatarsophalangeal joints. Normal interphalangeal joints and phalanges of the lesser toes. RAD/Foot min 3 Views IMPRESSION: There has been an amputation of the great toe. Electronically Signed: Louie Dealrosa MD at 16:46 EDT , Service support ,
[2020-12-07 16:20] LABS: Bedside Glucose 164 mg/dL (70-110)
[2020-12-07] MEDS: oxyCODONE 5 MG Tablet 10 MG PO ×2 (17:06→22:35)
[2020-12-07] MEDS: Insulin NPH Human 100 UNITS/ML PEN 13 UNITS SC (22:35)
[2020-12-07] MEDS: Mirtazapine 30 MG Tablet PO (22:37)
[2020-12-07] MEDS: Atorvastatin Calcium 20 MG Tablet PO (22:37)
[2020-12-07 22:45] LABS: Bedside Glucose 126 mg/dL (70-110)
[2020-12-08] VITALS (8 sets, daily range): BP systolic 93–123; BP diastolic 60–79; PULSE 77–88; RESP 16–18; TEMP 36.9–37.4; O2SAT 94–96
[2020-12-08] MEDS: oxyCODONE 5 MG Tablet 10 MG PO ×4 (05:07→22:57)
[2020-12-08 05:17] LABS: Absolute Lymphocyte Count 1.61 X10^3/uL (0.83-4.51); Absolute Neutrophil Count 4.7 X10^3/uL (2.0-7.7); Basophil# 0.03 X10^3/uL; Basophil% 0.4 % (0-1); Eosinophil# 0.15 X10^3/uL; Hematocrit 35.4 % (40-54); Lymphocyte # 1.61 X10^3/ul (0.83-4.51); Lymphocyte % 21.9 % (19-41); Mean Corp Hgb Conc 31.1 g/dL (32-36); Mean Platelet Vol. 10.1 fl (6.2-12.0); Monocyte# 0.81 X10^3/uL; NRBC Flagged by Analyzer 0 % (0-5); Neutrophil # 4.68 X10^3/uL (2.7-7.7); Neutrophil % 63.7 % (47-70); Platelet Count 329 K/mm3 (150-450); RBC Distribution Width CV 13.6 % (11.6-14.6); RBC Distribution Width SD 43.4 fl (35.1-43.9); Red Blood Count 4.07 M/mm3 (4.6-6.2); White Blood Count 7.4 K/mm3 (4.4-11.0)
[2020-12-08 05:43] LABS: Anion Gap 9 (5-15); BUN 14 mg/dL (7-18); BUN/Creat Ratio 25.3 RATIO (10-20); Calcium,Total 8.2 mg/dL (8.5-10.1); Chloride 105 mmol/L (98-107); Creatinine, Serum 0.55 mg/dL (0.70-1.30); EST Glomerular Filtration Rate 157 mL/min (>60); Est Glom Filt Rate - Afr Amer 190 mL/min (>60); Estimated Creatinine Clearance 75.03 ml/min; Glucose 111 mg/dL (74-106); Potassium 3.5 mmol/L (3.5-5.1); Sodium Level 136 mmol/L (136-145)
[2020-12-08] MEDS: Carbidopa/Levodopa 25/100 Tablet PO ×3 (06:24→16:26)
[2020-12-08 06:30] LABS: Bedside Glucose 116 mg/dL (70-110)
--- NOTE | 2020-12-08 06:59 | PN_ITS ---
Subjective Subjective This 65-year-old male was seen bedside this morning postoperative day #1 left hallux amputation for treatment of an action including sepsis. He denies fever, chill, nausea, vomiting, shortness of breath, chest pain, or calf pain. Objective Data Objective Data Vital Signs: Vital Signs Temp Pulse Resp BP Pulse Ox 99.4 F H 78 18 118/64 94 12/08/20 02:20 12/08/20 04:43 12/08/20 02:20 12/08/20 02:20 12/08/20 02:20 Oxygen Flow Rate (L/min) 2 Oxygen Delivery Method Room Air Weight: 101.514 kg Body Mass Index (BMI) 32.1 Intake & Output: Intake and Output for Last 24 Hours 12/06/20 12/07/20 12/08/20 23:59 23:59 23:59 Intake Total 3649.50 / 3649.50 2983.50 / 2983.50 209.62 / 209.62 Output Total 377 / 377 1100 / 1100 450 / 450 Balance 3272.50 / 3272.50 1883.50 / 1883.50 -240.38 / -240.38 Lab / Micro Data Result Diagrams: 12/08/20 04:24 12/08/20 04:24 Labs: Laboratory Results - last 24 hr 12/07/20 11:09: Vancomycin Trough 11.9 12/07/20 11:31: POC Glucose 175 H 12/07/20 16:12: POC Glucose 164 H 12/07/20 22:34: POC Glucose 126 H 12/08/20 04:24: WBC 7.4, RBC 4.07 L, Hgb 11.0 L, Hct 35.4 L, MCV 87.0, MCH 27.0, MCHC 31.1 L, RDW Std Deviation 43.4, RDW Coeff of Ana 13.6, Plt Count 329, MPV 10.1, Immature Gran % (Auto) 1.000 H, Neut % (Auto) 63.7, Lymph % (Auto) 21.9, [place] % (Auto) 11.0 H, Eos % (Auto) 2.0, Baso % (Auto) 0.4, Absolute Neuts (auto) 4.7, Absolute Lymphs (auto) 1.61, Nucleated RBC % 0 12/08/20 04:24: Sodium 136, Potassium 3.5, Chloride 105, Carbon Dioxide 22.0, Anion Gap 9, BUN 14, Creatinine 0.55 L, Estim Creat Clear Calc 75.03, Est GFR (MDRD) Af Amer 190, Est GFR (MDRD) Non-Af 157, BUN/Creatinine Ratio 25.3 H, Glucose 111 H, Calcium 8.2 L 12/08/20 06:23: POC Glucose 116 H Micro: Microbiology 12/06/20 09:53 Wound - Left Foot Gram Stain - Final 12/06/20 09:53 Wound - Left Foot Wound Culture - Preliminary Beta streptococcus Gram positive organism 12/05/20 16:18 Urine, Clean Catch Urine Culture - Preliminary GPC Poss Enterococcus sp Beta streptococcus 12/05/20 15:45 Blood Culture (Wb) - Anticubital Left Blood Culture - Preliminary 12/07/20 04:55 Nasal Secretion SARS-CoV-2 Antigen (Rapid) - Final Radiography Diagnostic Testing: Radiology Impression Foot X-Ray 12/07/20 15:35 IMPRESSION: There has been an amputation of the great toe. Electronically Signed: Louie Delarosa MD at 16:46 EDT , Service support , Physical Exam Const alert, oriented x3 and no apparent distress Extremity Extremity Narrative: Status post left hallux ulcer with sutures in place. No gapping, necrosis or purulent drainage. The intense red erythematous streak extending to the ankle level is now localized within 2 to 3 cm of the amputation site. No adjacent bogginess or fluctuance on palpation. There is no odor. There is decreased sensation consistent with peripheral neuropathy, there is no m/s POP or pain on ROM to the foot or ankle. Assessment & Plan Assessment/Plan (1) Non-pressure chronic ulcer of other part of left foot with necrosis of bone: (2) Diabetes mellitus with diabetic polyneuropathy: (3) Type 2 diabetes mellitus with foot ulcer: (4) Osteomyelitis of ankle or foot, left, acute: (5) Sepsis: QUALIFIERS: Sepsis acute organ dysfunction status: without acute organ dysfunction Sepsis type: sepsis due to unspecified organism Qualified Code(s): A41.9 - Sepsis, unspecified organism PLAN: Evaluation performed. Reviewed diagnostic data. He is afebrile and vital signs stable. His leukocytosis has resolved. His postoperative x-rays demonstrate adequate hallux amputation. His cultures and pathology specimens from surgical intervention on 12-07-[address] Cat are pending. It is noted a clearance fragment was obtained from the remaining first metatarsal head and intraoperatively the remaining tissues looked healthy and free of infection. He is on IV meropenem and vancomycin. ID consultation was placed and recommendations will be greatly appreciated. He is at risk for further limb loss. LEAS were ordered for further revaluation of arterial flow bilateral LE. A dressing to the left 1st toe was applied - betadine soln, gauze, kerlix and delta dressing - keep clean, dry and intact. To keep weight off of the surgical site by wearing a surgical shoe. To apply weight to the heel only for limited transfers and short walking sessions. Medical management per hospitalist service is greatly appreciated. Recommend nutritional supplementation to optimize healing as well. Please do not hesitate to call if you have any questions. Madeline Ward DPM, FACFAS [facility] [phone]
--- NOTE | 2020-12-08 07:05 | WOUNDNOTE ---
wound photo: left foot
--- NOTE | 2020-12-08 07:06 | WOUNDNOTE ---
wound photo: left foot
[2020-12-08] MEDS: Enoxaparin 40 MG/0.4 ML Syringe SC (08:23)
[2020-12-08] MEDS: Pantoprazole Sodium 20 MG Tablet PO (08:23)
[2020-12-08] MEDS: OXcarbazepine 300 MG Tablet PO ×4 (08:23→22:57)
[2020-12-08] MEDS: Aspirin 81 MG TAB.CHEW PO (08:23)
[2020-12-08] MEDS: Carvedilol 6.25 MG Tablet PO ×2 (08:24→22:56)
[2020-12-08] MEDS: Senna/Docusate Sodium 1 Tablet 2 TABLET PO (10:02)
[2020-12-08] MEDS: Insulin Lispro 100 UNIT/ML INSULN.PEN SC ×2 (11:39→16:26)
[2020-12-08 11:45] LABS: Bedside Glucose 162 mg/dL (70-110)
[2020-12-08] MEDS: Lisinopril 5 MG Tablet PO (14:01)
--- NOTE | 2020-12-08 14:14 | PCM.PN.HOSP ---
Subjective Subjective Some discomfort in foot. Otherwise feels well. Objective Data Objective Data Vital Signs: Vital Signs Temp Pulse Resp BP Pulse Ox 36.9 C 77 16 93/79 95 12/08/20 08:00 12/08/20 13:42 12/08/20 08:00 12/08/20 08:00 12/08/20 08:00 Oxygen Flow Rate (L/min) 2 Oxygen Delivery Method Room Air Weight: 101.514 kg Body Mass Index (BMI) 32.1 Intake & Output: Intake and Output for Last 24 Hours 12/06/20 12/07/20 12/08/20 23:59 23:59 23:59 Intake Total 3649.50 / 3649.50 2983.50 / 2983.50 1428.00 / 1428.00 Output Total 377 / 377 1100 / 1100 1050 / 1050 Balance 3272.50 / 3272.50 1883.50 / 1883.50 378.00 / 378.00 Lab / Micro Data Result Diagrams: 12/08/20 04:24 12/08/20 04:24 Labs: Laboratory Results - last 24 hr 12/07/20 16:12: POC Glucose 164 H 12/07/20 22:34: POC Glucose 126 H 12/08/20 04:24: WBC 7.4, RBC 4.07 L, Hgb 11.0 L, Hct 35.4 L, MCV 87.0, MCH 27.0, MCHC 31.1 L, RDW Std Deviation 43.4, RDW Coeff of Ana 13.6, Plt Count 329, MPV 10.1, Immature Gran % (Auto) 1.000 H, Neut % (Auto) 63.7, Lymph % (Auto) 21.9, [place] % (Auto) 11.0 H, Eos % (Auto) 2.0, Baso % (Auto) 0.4, Absolute Neuts (auto) 4.7, Absolute Lymphs (auto) 1.61, Nucleated RBC % 0 12/08/20 04:24: Sodium 136, Potassium 3.5, Chloride 105, Carbon Dioxide 22.0, Anion Gap 9, BUN 14, Creatinine 0.55 L, Estim Creat Clear Calc 75.03, Est GFR (MDRD) Af Amer 190, Est GFR (MDRD) Non-Af 157, BUN/Creatinine Ratio 25.3 H, Glucose 111 H, Calcium 8.2 L 12/08/20 06:23: POC Glucose 116 H 12/08/20 11:38: POC Glucose 162 H Micro: Microbiology 12/06/20 09:53 Wound - Left Foot Gram Stain - Final 12/06/20 09:53 Wound - Left Foot Wound Culture - Preliminary Streptococcus group B Gram positive organism Coag Negative Staph 12/06/20 09:53 Wound - Left Foot Anaerobic Culture - Preliminary Checking for anaerobes, further studies to follow. 12/07/20 08:40 Tissue - Toe Gram Stain - Final 12/07/20 08:40 Tissue - Toe Wound Culture - Preliminary Streptococcus group B Gram positive organism 12/07/20 08:40 Bone - Great Toe Gram Stain - Final 12/07/20 08:40 Bone - Great Toe Wound Culture - Preliminary No growth-Final to follow 12/05/20 15:45 Blood Culture (Wb) - Anticubital Left Blood Culture - Preliminary 12/05/20 16:00 Blood Culture (Wb) - Left Forearm Blood Culture - Preliminary No growth in 48 hours. 12/05/20 16:18 Urine, Clean Catch Urine Culture - Final GPC Poss Enterococcus sp Beta streptococcus 12/07/20 04:55 Nasal Secretion SARS-CoV-2 Antigen (Rapid) - Final Radiography Diagnostic Testing: Radiology Impression Foot X-Ray 12/07/20 15:35 IMPRESSION: There has been an amputation of the great toe. Electronically Signed: Louie Delarosa MD at 16:46 EDT , Service support , Physical Exam Const alert and no apparent distress Resp normal respiratory effort, no retractions, no use of accessory muscles and clear to auscultation bilaterally Cardio regular rate, regular rhythm, S1 normal heart sound and S2 normal heart sound GI normal to inspection, nondistended, normoactive bowel sounds, soft to palpation, non-tender and non-distended Extremity Extremity Narrative: left foot wrapped--did not remove. I did review Berna Odell's pictures which shows surrounding erythema left distal foot at 1st great toe site. sutures intact. Neuro Sensorium / Orientation: awake and alert Assessment & Plan Assessment/Plan (1) Non-pressure chronic ulcer of other part of left foot with necrosis of bone: PLAN: 1. Sepsis secondary to diabetic foot ulcer associated with type 2 diabetes mellitus Podiatry consulted, Dr. Mooney following. Per podiatry no patient will be n.p.o. at midnight for pending surgery 12/07/2020. Lower extremity arterial exams ordered Cx with GBS and GPO Continue meropenem and vancomycin Wound nurse consult placed Wound dressing instructions per podiatry ID consult 2. Osteomyelitis of left foot s/p amputation on 12/07 3. Diabetes mellitus type 2 -fair control AC at bedtime blood sugars with sliding scale insulin ordered -Continue home NPH insulin -Continue to hold Metformin and Jardiance 4. Hypertension -Continue home medication regimen vital signs currently stable -Vital signs per protocol, currently stable 5. CAD -Continue to hold Plavix for pending surgical evaluation DVT prophylaxis-LMWH Charges/Coding Visit Charges Inpatient E&M: 15443 Subs Hosp L2
--- NOTE | 2020-12-08 14:40 | CHAPLAIN ---
Type of Pastoral Visit _x__ Initial Visit ___ Follow-up Visit ___ On-call Visit ___ General Patient Visit ___ Spiritual Assessment ___ Family Conference ___ Bereavement ___ Rapid Response ___ Code Blue ___ Other (describe below) Pastoral Care Referral From _x__ Patient ___ Family ___ Nurse ___ Physician ___ Pipe Turner ___ Soil And Plant Scientist ___ Other (describe below) Sacrament/Intervention _x__ Active listening ___ Anointing ___ Sabianism ___ Bereavement ___ Communion ___ Joyce exploration ___ ___ Life review _x__ Prayer ___ Reconciliation ___ Sacrament of Sick _x__ Supportive presence ___ Wedding ___ Other (describe below) Pastoral Comments
[2020-12-08] MEDS: 0.9% Saline Lock 10 ML Syringe IV (16:32)
[2020-12-08 17:05] LABS: Bedside Glucose 183 mg/dL (70-110)
[2020-12-08] MEDS: Acetaminophen 325 MG Tablet 650 MG PO (20:25)
[2020-12-08] MEDS: Insulin NPH Human 100 UNITS/ML PEN 13 UNITS SC (22:56)
[2020-12-08] MEDS: Mirtazapine 30 MG Tablet PO (22:57)
[2020-12-08] MEDS: Atorvastatin Calcium 20 MG Tablet PO (22:57)
[2020-12-08 23:01] LABS: Bedside Glucose 138 mg/dL (70-110)
[2020-12-09 02:56] VITALS: PULSE 78
[2020-12-09 03:03] VITALS: BP 110/51; PULSE 77; RESP 18; TEMP 37.3; O2SAT 96
[2020-12-09] MEDS: Carbidopa/Levodopa 25/100 Tablet PO ×3 (06:05→16:28)
[2020-12-09 06:21] LABS: Bedside Glucose 121 mg/dL (70-110)
[2020-12-09 07:27] LABS: Absolute Lymphocyte Count 1.25 X10^3/uL (0.83-4.51); Absolute Neutrophil Count 3.4 X10^3/uL (2.0-7.7); Basophil# 0.02 X10^3/uL; Basophil% 0.4 % (0-1); Eosinophil# 0.25 X10^3/uL; Eosinophils% 4.4 % (0-5); Hematocrit 35.5 % (40-54); Hemoglobin 11.5 g/dL (13.0-16.5); Lymphocyte # 1.25 X10^3/ul (0.83-4.51); Mean Corp Hgb Conc 32.4 g/dL (32-36); Mean Corpuscular Hgb 27.4 pg (27.0-32.0); Mean Corpuscular Volume 84.7 fL (80-94); Mean Platelet Vol. 10.3 fl (6.2-12.0); Monocyte# 0.72 X10^3/uL; Monocyte% 12.7 % (0-10); NRBC Flagged by Analyzer 0 % (0-5); Neutrophil % 59.6 % (47-70); Platelet Count 329 K/mm3 (150-450); RBC Distribution Width CV 13.7 % (11.6-14.6); RBC Distribution Width SD 42.5 fl (35.1-43.9); Red Blood Count 4.19 M/mm3 (4.6-6.2); White Blood Count 5.7 K/mm3 (4.4-11.0)
[2020-12-09] MEDS: Aspirin 81 MG TAB.CHEW PO (07:44)
[2020-12-09 07:50] LABS: Anion Gap 6 (5-15); BUN 15 mg/dL (7-18); BUN/Creat Ratio 30.7 RATIO (10-20); Calcium,Total 8.5 mg/dL (8.5-10.1); Chloride 106 mmol/L (98-107); Creatinine, Serum 0.49 mg/dL (0.70-1.30); EST Glomerular Filtration Rate 181 mL/min (>60); Est Glom Filt Rate - Afr Amer 219 mL/min (>60); Estimated Creatinine Clearance 75.03 ml/min; Glucose 124 mg/dL (74-106); Potassium 3.5 mmol/L (3.5-5.1); Sodium Level 136 mmol/L (136-145)
--- NOTE | 2020-12-09 08:12 | PN_ITS ---
Subjective Subjective Patient seen and examined resting comfortably. Patient denies any new pedal complaints. Patient denies any nausea, fever, chills, chest pain, shortness of breath, cough, streaking, purulence, vomiting. Objective Data Objective Data Vital Signs: Vital Signs Temp Pulse Resp BP Pulse Ox 99.1 F 77 18 110/51 L 96 12/09/20 03:03 12/09/20 03:03 12/09/20 03:03 12/09/20 03:03 12/09/20 03:03 Oxygen Flow Rate (L/min) 2 Oxygen Delivery Method Room Air Weight: 101.514 kg Body Mass Index (BMI) 32.1 Intake & Output: Intake and Output for Last 24 Hours 12/07/20 12/08/20 12/09/20 23:59 23:59 23:59 Intake Total 2983.50 / 2983.50 2348.00 / 2348.00 477.00 / 477.00 Output Total 1100 / 1100 1050 / 1050 Balance 1883.50 / 1883.50 1298.00 / 1298.00 477.00 / 477.00 Lab / Micro Data Result Diagrams: 12/09/20 05:55 12/09/20 05:55 Labs: Laboratory Results - last 24 hr 12/08/20 11:38: POC Glucose 162 H 12/08/20 16:24: POC Glucose 183 H 12/08/20 22:51: POC Glucose 138 H 12/09/20 05:55: WBC 5.7, RBC 4.19 L, Hgb 11.5 L, Hct 35.5 L, MCV 84.7, MCH 27.4, MCHC 32.4, RDW Std Deviation 42.5, RDW Coeff of Ana 13.7, Plt Count 329, MPV 10.3, Immature Gran % (Auto) 0.900, Neut % (Auto) 59.6, Lymph % (Auto) 22.0, [place] % (Auto) 12.7 H, Eos % (Auto) 4.4, Baso % (Auto) 0.4, Absolute Neuts (auto) 3.4, Absolute Lymphs (auto) 1.25, Nucleated RBC % 0 12/09/20 05:55: Sodium 136, Potassium 3.5, Chloride 106, Carbon Dioxide 24.0, Anion Gap 6, BUN 15, Creatinine 0.49 L, Estim Creat Clear Calc 75.03, Est GFR (MDRD) Af Amer 219, Est GFR (MDRD) Non-Af 181, BUN/Creatinine Ratio 30.7 H, Glucose 124 H, Calcium 8.5 12/09/20 06:07: POC Glucose 121 H Micro: Microbiology 12/06/20 09:53 Wound - Left Foot Gram Stain - Final 12/06/20 09:53 Wound - Left Foot Wound Culture - Preliminary Streptococcus agalactiae (B) Streptococcus sanguinis Staphylococcus epidermidis 12/06/20 09:53 Wound - Left Foot Anaerobic Culture - Preliminary Checking for anaerobes, further studies to follow. 12/07/20 08:40 Tissue - Toe Gram Stain - Final 12/07/20 08:40 Tissue - Toe Wound Culture - Preliminary Streptococcus group B Gram positive organism 12/07/20 08:40 Bone - Great Toe Gram Stain - Final 12/07/20 08:40 Bone - Great Toe Wound Culture - Preliminary No growth-Final to follow 12/05/20 15:45 Blood Culture (Wb) - Anticubital Left Blood Culture - Preliminary 12/05/20 16:00 Blood Culture (Wb) - Left Forearm Blood Culture - Preliminary No growth in 48 hours. 12/05/20 16:18 Urine, Clean Catch Urine Culture - Final GPC Poss Enterococcus sp Beta streptococcus 12/07/20 04:55 Nasal Secretion SARS-CoV-2 Antigen (Rapid) - Final Physical Exam Const alert, oriented x3 and no apparent distress Extremity Extremity Narrative: Derm: Status post left hallux ulcer with sutures in place. No gapping, necrosis or purulent drainage. The intense red erythematous streak extending to the ankle level is now localized within 3-4 cm of the amputation site. No adjacent bogginess or fluctuance on palpation. There is no odor. Neuro: There is decreased sensation consistent with peripheral neuropathy Musculoskeletal: Left hallux amputation. There is no m/s POP or pain on ROM to the foot or ankle. Vascular: Left PT and DP pulses are 2 out of 4. CFT less than 2 to remaining digits left foot Assessment & Plan Assessment/Plan (1) Non-pressure chronic ulcer of other part of left foot with necrosis of bone: (2) Diabetes mellitus with diabetic polyneuropathy: (3) Type 2 diabetes mellitus with foot ulcer: (4) Osteomyelitis of ankle or foot, left, acute: (5) Sepsis: QUALIFIERS: Sepsis type: sepsis due to unspecified organism Sepsis acute organ dysfunction status: without acute organ dysfunction Qualified Code(s): A41.9 - Sepsis, unspecified organism (6) Cellulitis of left foot: PLAN: Evaluation performed. He is afebrile and vital signs stable. Patient is status post hallux amputation left foot with Dr. Cat on 12/07/2020. Erythema is still noted periwound with improvement noted from line drawn preoperatively, but still extends about 4 cm from amputation site. OR cultures from 12/07/2020 are so far demonstrating Streptococcus group B and gram-positive organisms from the great toe. Remaining cultures including anaerobic, fungal, acid-fast are pending. Proximal clearance fragment of first metatarsal head so far issue growing no organisms, these results are not finalized. Continue antibiotic therapy. ID consult is noted. Follow their recommendations. LEAS were ordered for further revaluation of arterial flow bilateral LE. Left dorsalis pedis pulse was not able to be obtained due to surgery bandages as well as left arm BP due to IV. Right DP and PT were triphasic and left PT was triphasic. Right HANS was 1.55 and TBI 0.92. A dressing to the left 1st toe was applied - betadine soln, gauze, kerlix and delta dressing - keep clean, dry and intact. To keep weight off of the surgical site by wearing a surgical shoe. To apply weight to the heel only for limited transfers and short walking sessions. Medical management per hospitalist service is greatly appreciated. Recommend nutritional supplementation to optimize healing as well. Please do not hesitate to call if you have any questions. Alicia Pinto DPM [facility] [phone] This note was generated with InformedDNAation software. It may contain incorrect words, spelling, and punctuation that were not noted in checking the note before signing.
[2020-12-09 08:52] VITALS: BP 121/56; PULSE 84; RESP 16; TEMP 36.7; O2SAT 94
[2020-12-09] MEDS: Enoxaparin 40 MG/0.4 ML Syringe SC (09:08)
[2020-12-09] MEDS: OXcarbazepine 300 MG Tablet PO ×4 (09:09→22:08)
[2020-12-09] MEDS: Carvedilol 6.25 MG Tablet PO ×2 (09:09→22:07)
[2020-12-09] MEDS: Lisinopril 5 MG Tablet PO (09:09)
[2020-12-09] MEDS: Pantoprazole Sodium 20 MG Tablet PO (09:09)
[2020-12-09] MEDS: Senna/Docusate Sodium 1 Tablet 2 TABLET PO ×2 (09:13→22:22)
[2020-12-09] MEDS: oxyCODONE 5 MG Tablet 10 MG PO ×3 (09:13→22:21)
[2020-12-09 09:28] LABS: Vancomycin, Trough Level 16.1 ug/mL (5.0-15.0)
--- NOTE | 2020-12-09 09:51 | PCM.RX.CS ---
Consult Type of Consult: Follow-up Suspected Infection: Sepsis, Skin/Soft tissue Labs: Sodium 136 mmol/L (136-145) 12/09/20 05:55 Potassium 3.5 mmol/L (3.5-5.1) 12/09/20 05:55 Chloride 106 mmol/L (98-107) 12/09/20 05:55 Carbon Dioxide 24.0 mmol/L (21.0-32.0) 12/09/20 05:55 Anion Gap 6 (5-15) 12/09/20 05:55 BUN 15 mg/dL (7-18) 12/09/20 05:55 Creatinine 0.49 mg/dL (0.70-1.30) L 12/09/20 05:55 Est GFR (MDRD) Af Amer 219 mL/min (>60) 12/09/20 05:55 Est GFR (MDRD) Non-Af 181 mL/min (>60) 12/09/20 05:55 BUN/Creatinine Ratio 30.7 RATIO (10-20) H 12/09/20 05:55 Glucose 124 mg/dL (74-106) H 12/09/20 05:55 Vancomycin Trough 16.1 ug/mL (5.0-15.0) H 12/09/20 08:34 Microbiology: Microbiology 12/07/20 08:40 Tissue - Toe Gram Stain - Final 12/07/20 08:40 Tissue - Toe Wound Culture - Preliminary Streptococcus group B Gram positive organism 12/06/20 09:53 Wound - Left Foot Gram Stain - Final 12/06/20 09:53 Wound - Left Foot Wound Culture - Preliminary Streptococcus agalactiae (B) Streptococcus sanguinis Staphylococcus epidermidis 12/06/20 09:53 Wound - Left Foot Anaerobic Culture - Preliminary Checking for anaerobes, further studies to follow. 12/07/20 08:40 Bone - Great Toe Gram Stain - Final 12/07/20 08:40 Bone - Great Toe Wound Culture - Preliminary No growth-Final to follow 12/05/20 15:45 Blood Culture (Wb) - Anticubital Left Blood Culture - Preliminary 12/05/20 16:00 Blood Culture (Wb) - Left Forearm Blood Culture - Preliminary No growth in 48 hours. 12/05/20 16:18 Urine, Clean Catch Urine Culture - Final GPC Poss Enterococcus sp Beta streptococcus 12/07/20 04:55 Nasal Secretion SARS-CoV-2 Antigen (Rapid) - Final Goal Trough: 15-20 mcg/mL Pharmacy Plan for Drug Dosing: VANCOMYCIN LEVEL RECEIVED Current Vancomycin Dose: 2000MG Q12H Number of Doses Received: 3 Vancomycin Level: 16.1 Hours Since Last Dose: 12 Renal Function: sCr 0.49, CrCl 75 ML/MIN Renal Function Trend: STABLE Vancomycin Plan/Comments: CONTINUE VANCOMYCIN 2000MG Q12H Pending Level: VANCOMYCIN LEVEL SCHEDULED @ 0812/11/20 Pharmacy Service will continue to monitor and adjust dosing as required. Labs to be done on [date and time ordered]: VANCOMYCIN LEVEL @ 0812/11/20
--- NOTE | 2020-12-09 10:33 | PCM.CONS.GEN ---
Assessment & Plan Assessment/Plan (1) Diabetes mellitus with diabetic polyneuropathy: (2) Osteomyelitis of ankle or foot, left, acute: PLAN: L 1st toe osteo, wound cx with GBS, strep, MRSE so far. Now s/p OR 12/07/[address] Cat for amp. Clearance cx neg so far, path pending. On vanc/junior. Has had covid shot. If margins are neg, plan on short course po abx. Will follow, thank you HPI Consult Data Date of Consult: 12/09/20 HPI Narrative HPI Narrative: JAUN SMITH, is a 65 M who presented with 2-3 weeks of L 1st toe pain, redness, drainage, odor, swelling. No inciting event. Has h/o DM, mild neuropathy. Has had covid shots. No fever, no n/v/d. Came to ED, started on vanc/junior, seen by podiatry, taken to OR 12/07/[address] Cat for toe amputation. Feeling better. Full ROS performed and neg except as noted above. [facility] Medical History Acute encephalopathy Acute respiratory failure Coronary artery disease Diabetic foot ulcer associated with type 2 diabetes mellitus Former smoker History of stroke Hyperlipidemia Hypertension Incisional hernia Kidney stones Myocardial infarct Paresthesia Seizure Sepsis Speech abnormality TIA (transient ischemic attack) Type II diabetes mellitus Home Medications atorvastatin 20 mg PO QHS 10/01/15 [History Last Taken 12/04/20 20:00] carbidopa-levodopa 1 tab PO TIDAC 10/01/15 [History Last Taken 12/05/20 08:00] carvedilol 6.25 mg PO BID 10/01/15 [History Last Taken 12/05/20 08:00] insulin NPH isoph U-100 human 13 units SUBCUT QHS 10/01/15 [History Last Taken 12/04/20 20:00] lisinopril 5 mg PO DAILY 10/01/15 [History Last Taken 12/05/20 08:00] metformin 1,000 mg PO BIDCM 10/01/15 [History Last Taken 12/05/20 08:00] aspirin 81 mg PO DAILY@0800 tab.chew 01/26/17 [Rx Last Taken 12/05/20 08:00] clopidogrel 75 mg PO DAILY #30 tab 01/26/17 [Rx Last Taken 12/05/20 08:00] empagliflozin 10 mg PO DAILY #30 tab 01/26/17 [Rx Last Taken 12/05/20 08:00] oxcarbazepine 300 mg PO 4X/DAY 03/16/18 [History Last Taken 12/05/20 08:00] mirtazapine 30 mg QHS 12/05/20 [History Last Taken 12/04/20 20:00] Allergy/AdvReac Type Severity Reaction Status Date / Time pregabalin [From Lyrica] Allergy Unknown Verified 12/05/20 19:33 Penicillins AdvReac Hives Verified 12/05/20 15:14 Family History Mother Diabetes Heart disease Hypertension Brother Diabetes Heart disease Hypertension Surgical History History of heart artery stent history of right great toe surgery Status post biopsy of kidney Social History Smoking Status: Former smoker alcohol intake: never substance use type: does not use Physical Exam Const alert and no apparent distress General Appearance: cooperative HEENT normocephalic and head/scalp atraumatic Eyes PERRL and EOMs intact bilaterally Neck supple and No nodes Resp normal air movement and clear to auscultation bilaterally Cardio regular rate and regular rhythm GI normal to inspection, nondistended, normoactive bowel sounds Extremity General Extremity: edema Skin Skin Narrative: reviewed photo Neuro CN's II-XII intact bilaterally Lab / Micro Data Result Diagrams: 12/09/20 05:55 12/09/20 05:55 Labs: Laboratory Results - last 24 hr 12/08/20 11:38: POC Glucose 162 H 12/08/20 16:24: POC Glucose 183 H 12/08/20 22:51: POC Glucose 138 H 12/09/20 05:55: WBC 5.7, RBC 4.19 L, Hgb 11.5 L, Hct 35.5 L, MCV 84.7, MCH 27.4, MCHC 32.4, RDW Std Deviation 42.5, RDW Coeff of Ana 13.7, Plt Count 329, MPV 10.3, Immature Gran % (Auto) 0.900, Neut % (Auto) 59.6, Lymph % (Auto) 22.0, [place] % (Auto) 12.7 H, Eos % (Auto) 4.4, Baso % (Auto) 0.4, Absolute Neuts (auto) 3.4, Absolute Lymphs (auto) 1.25, Nucleated RBC % 0 12/09/20 05:55: Sodium 136, Potassium 3.5, Chloride 106, Carbon Dioxide 24.0, Anion Gap 6, BUN 15, Creatinine 0.49 L, Estim Creat Clear Calc 75.03, Est GFR (MDRD) Af Amer 219, Est GFR (MDRD) Non-Af 181, BUN/Creatinine Ratio 30.7 H, Glucose 124 H, Calcium 8.5 12/09/20 06:07: POC Glucose 121 H 12/09/20 08:34: Vancomycin Trough 16.1 H Micro: Microbiology 12/07/20 08:40 Tissue - Toe Gram Stain - Final 12/07/20 08:40 Tissue - Toe Wound Culture - Preliminary Streptococcus group B Coag Negative Staph Gram positive rebekah 12/06/20 09:53 Wound - Left Foot Gram Stain - Final 12/06/20 09:53 Wound - Left Foot Wound Culture - Preliminary Streptococcus agalactiae (B) Streptococcus sanguinis Staphylococcus epidermidis 12/06/20 09:53 Wound - Left Foot Anaerobic Culture - Preliminary Checking for anaerobes, further studies to follow. 12/07/20 08:40 Bone - Great Toe Gram Stain - Final 12/07/20 08:40 Bone - Great Toe Wound Culture - Preliminary No growth-Final to follow 12/05/20 15:45 Blood Culture (Wb) - Anticubital Left Blood Culture - Preliminary 12/05/20 16:00 Blood Culture (Wb) - Left Forearm Blood Culture - Preliminary No growth in 48 hours. 12/05/20 16:18 Urine, Clean Catch Urine Culture - Final GPC Poss Enterococcus sp Beta streptococcus
[2020-12-09] MEDS: Insulin Lispro 100 UNIT/ML INSULN.PEN SC (11:14)
--- NOTE | 2020-12-09 14:10 | PN_ITS ---
Documented by User: JESSICA Craven 12/09/20 14:50 Subjective Subjective Patient seen and examined. Patient lying in bed no distress noted. Patient denies needs at this time. Patient states ordered pain medication effective for controlling pain. Objective Data Objective Data Vital Signs: Vital Signs Temp Pulse Resp BP Pulse Ox 98.0 F 84 16 121/56 H 94 12/09/20 08:52 12/09/20 08:52 12/09/20 08:52 12/09/20 08:52 12/09/20 08:52 Oxygen Flow Rate (L/min) 2 Oxygen Delivery Method Room Air Weight: 223 lb 12.801 oz Body Mass Index (BMI) 32.1 Intake & Output: Intake and Output for Last 24 Hours 12/07/20 12/08/20 12/09/20 23:59 23:59 23:59 Intake Total 2983.50 / 2983.50 2348.00 / 2348.00 617.00 / 617.00 Output Total 1100 / 1100 1050 / 1050 Balance 1883.50 / 1883.50 1298.00 / 1298.00 617.00 / 617.00 Lab / Micro Data Result Diagrams: 12/09/20 05:55 12/09/20 05:55 Labs: Laboratory Results - last 24 hr 12/08/20 16:24: POC Glucose 183 H 12/08/20 22:51: POC Glucose 138 H 12/09/20 05:55: WBC 5.7, RBC 4.19 L, Hgb 11.5 L, Hct 35.5 L, MCV 84.7, MCH 27.4, MCHC 32.4, RDW Std Deviation 42.5, RDW Coeff of Ana 13.7, Plt Count 329, MPV 10.3, Immature Gran % (Auto) 0.900, Neut % (Auto) 59.6, Lymph % (Auto) 22.0, [place] % (Auto) 12.7 H, Eos % (Auto) 4.4, Baso % (Auto) 0.4, Absolute Neuts (auto) 3.4, Absolute Lymphs (auto) 1.25, Nucleated RBC % 0 12/09/20 05:55: Sodium 136, Potassium 3.5, Chloride 106, Carbon Dioxide 24.0, Anion Gap 6, BUN 15, Creatinine 0.49 L, Estim Creat Clear Calc 75.03, Est GFR (MDRD) Af Amer 219, Est GFR (MDRD) Non-Af 181, BUN/Creatinine Ratio 30.7 H, Glucose 124 H, Calcium 8.5 12/09/20 06:07: POC Glucose 121 H 12/09/20 08:34: Vancomycin Trough 16.1 H Micro: Microbiology 12/07/20 08:40 Tissue - Toe Gram Stain - Final 12/07/20 08:40 Tissue - Toe Wound Culture - Preliminary Streptococcus group B Coag Negative Staph Gram positive rebekah 12/07/20 08:40 Tissue - Toe Anaerobic Culture - Preliminary Checking for anaerobes, further studies to follow. 12/07/20 08:40 Bone - Great Toe Gram Stain - Final 12/07/20 08:40 Bone - Great Toe Wound Culture - Preliminary No growth-Final to follow 12/07/20 08:40 Bone - Great Toe Anaerobic Culture - Preliminary No growth in 48 hours. 12/06/20 09:53 Wound - Left Foot Gram Stain - Final 12/06/20 09:53 Wound - Left Foot Wound Culture - Preliminary Streptococcus agalactiae (B) Streptococcus sanguinis Staphylococcus epidermidis 12/06/20 09:53 Wound - Left Foot Anaerobic Culture - Preliminary Checking for anaerobes, further studies to follow. 12/05/20 15:45 Blood Culture (Wb) - Anticubital Left Blood Culture - Preliminary 12/05/20 16:00 Blood Culture (Wb) - Left Forearm Blood Culture - Preliminary No growth in 48 hours. 12/05/20 16:18 Urine, Clean Catch Urine Culture - Final GPC Poss Enterococcus sp Beta streptococcus 12/07/20 04:55 Nasal Secretion SARS-CoV-2 Antigen (Rapid) - Final Physical Exam Const alert, oriented x3 and no apparent distress General Appearance: cooperative HEENT normocephalic, head/scalp atraumatic and moist oral mucous membranes Eyes conjunctivae normal and no scleral icterus Neck supple and no JVD General: trachea midline Resp normal respiratory effort, normal air movement, no retractions, no use of accessory muscles and clear to auscultation bilaterally Effort and Inspection: tachypneic Cardio regular rate, regular rhythm, S1 normal heart sound, S2 normal heart sound and peripheral pulses 2+ throughout Peripheral Pulses: pulses 2+ throughout GI normal to inspection, nondistended, normoactive bowel sounds, soft to palpation and non-tender Extremity normal capillary refill Extremity Narrative: left foot wrapped,did not remove. wound nurse note reviewed General Extremity: edema bilateral lower extremity (Left worse than right due to decreased blood flow from prior accident in left leg) Left Lower Extremity: foot and digits Positive for inspection (Left great toe red, warm, swollen), palpation (Tender) and neurovascular exam (Intact) Skin General Skin Exam: turgor normal Lesions: no lesions Rashes: no rashes Neuro no focal motor deficits and no sensory deficits noted Sensorium / Orientation: awake and alert Speech: speech normal Motor Exam: general weakness Psych thought process normal, cooperative and affect normal Appearance: appropriate Assessment & Plan Assessment/Plan (1) Status post amputation of left great toe: (2) Osteomyelitis of ankle or foot, left, acute: PLAN: 1. Sepsis secondary to diabetic foot ulcer associated with type 2 diabetes mellitus -Surgery performed 12/07/[address] Cat per podiatry. -Lower extremity arterial exams ordered -Cultures with GBS and GPO -Continue meropenem and vancomycin -Wound nurse following, notes reviewed -ID following -Nonweightbearing left lower extremity, postop shoe 2. Osteomyelitis of left foot -Secondary to #1 -Status post amputation on 12/07 3. Diabetes mellitus type 2 -AC at bedtime blood sugars with sliding scale insulin ordered -Continue home NPH insulin -Continue to hold Metformin and Jardiance 4. Hypertension -Continue home medication regimen vital signs currently stable -Vital signs per protocol, currently stable 5. CAD -hold plavix due to surgery DVT prophylaxis-SCDs This patient was seen by CAMERON CravenC under the supervision of Dr. Barnhart. Documented by User: Dr. Murtaza Barnhart DO 12/09/20 15:32 Objective Data Lab / Micro Data Result Diagrams: 12/09/20 05:55 12/09/20 05:55 Charges/Coding Addendum Addendum: Patient seen and examined independently. Data and vitals reviewed. I agree with the above note by the nurse practitioner. feels better. Has some discomfort but otherwise pretty tolerable. Up in a chair. Eating breakfast. No acute distress and afebrile. Left foot wrapped, did not remove. Assessment and plan 1. Sepsis secondary to diabetic foot ulcer associated with type 2 diabetes mellitus Continue meropenem and vancomycin Wound nurse consult placed Wound dressing instructions per podiatry ID consult 2. Osteomyelitis of left foot great toe s/p amputation on 12/07 3. Diabetes mellitus type 2 -fair control AC at bedtime blood sugars with sliding scale insulin ordered -Continue home NPH insulin -Continue to hold Metformin and Jardiance 4. Hypertension -Continue home medication regimen vital signs currently stable -Vital signs per protocol, currently stable 5. CAD stable Visit Charges Inpatient E&M: [id number] [facility] Hosp L1
[2020-12-09 15:00] VITALS: BP 113/52; PULSE 77; RESP 16; TEMP 36.8; O2SAT 98
[2020-12-09 16:35] LABS: Bedside Glucose 148 mg/dL (70-110)
[2020-12-09 17:01] LABS: Bedside Glucose 204 mg/dL (70-110)
[2020-12-09 19:00] VITALS: PULSE 97
[2020-12-09 22:01] VITALS: BP 123/55; PULSE 89; RESP 18; TEMP 37.3; O2SAT 98
[2020-12-09] MEDS: Insulin NPH Human 100 UNITS/ML PEN 13 UNITS SC (22:06)
[2020-12-09] MEDS: Mirtazapine 30 MG Tablet PO (22:08)
[2020-12-09] MEDS: Atorvastatin Calcium 20 MG Tablet PO (22:08)
[2020-12-09 22:20] LABS: Bedside Glucose 184 mg/dL (70-110)
[2020-12-09] MEDS: MELATONIN 3 MG TABLET PO (22:22)
[2020-12-10] VITALS (9 sets, daily range): BP systolic 106–127; BP diastolic 48–64; PULSE 76–84; RESP 18; TEMP 36.4–36.8; O2SAT 94–99
[2020-12-10] MEDS: Carbidopa/Levodopa 25/100 Tablet PO ×2 (05:04→11:39)
[2020-12-10] MEDS: Insulin Lispro 100 UNIT/ML INSULN.PEN SC ×2 (06:30→11:38)
[2020-12-10 06:40] LABS: Bedside Glucose 151 mg/dL (70-110)
[2020-12-10 07:01] LABS: Absolute Lymphocyte Count 1.04 X10^3/uL (0.83-4.51); Absolute Neutrophil Count 2.9 X10^3/uL (2.0-7.7); Basophil# 0.02 X10^3/uL; Basophil% 0.4 % (0-1); Eosinophil# 0.22 X10^3/uL; Eosinophils% 4.6 % (0-5); Hematocrit 33.4 % (40-54); Hemoglobin 10.7 g/dL (13.0-16.5); Lymphocyte # 1.04 X10^3/ul (0.83-4.51); Lymphocyte % 21.6 % (19-41); Mean Corpuscular Hgb 27.1 pg (27.0-32.0); Mean Corpuscular Volume 84.6 fL (80-94); Mean Platelet Vol. 10.6 fl (6.2-12.0); Monocyte# 0.58 X10^3/uL; NRBC Flagged by Analyzer 0 % (0-5); Neutrophil # 2.93 X10^3/uL (2.7-7.7); Neutrophil % 60.8 % (47-70); Platelet Count 348 K/mm3 (150-450); RBC Distribution Width CV 13.6 % (11.6-14.6); RBC Distribution Width SD 42.5 fl (35.1-43.9); Red Blood Count 3.95 M/mm3 (4.6-6.2); White Blood Count 4.8 K/mm3 (4.4-11.0)
[2020-12-10 07:30] LABS: Anion Gap 6 (5-15); BUN 14 mg/dL (7-18); BUN/Creat Ratio 27.5 RATIO (10-20); Calcium,Total 8.2 mg/dL (8.5-10.1); Chloride 106 mmol/L (98-107); Creatinine, Serum 0.51 mg/dL (0.70-1.30); EST Glomerular Filtration Rate 173 mL/min (>60); Est Glom Filt Rate - Afr Amer 209 mL/min (>60); Estimated Creatinine Clearance 75.03 ml/min; Glucose 149 mg/dL (74-106); Potassium 3.3 mmol/L (3.5-5.1); Sodium Level 136 mmol/L (136-145)
--- NOTE | 2020-12-10 08:06 | PN_ITS ---
Subjective Subjective Patient seen and examined resting comfortably. Patient denies any new pedal complaints. Patient denies any nausea, fever, chills, chest pain, shortness of breath, cough, streaking, purulence, vomiting. Objective Data Objective Data Vital Signs: Vital Signs Temp Pulse Resp BP Pulse Ox 98.2 F 81 18 126/64 H 94 12/10/20 07:19 12/10/20 07:19 12/10/20 07:19 12/10/20 07:19 12/10/20 07:34 Oxygen Flow Rate (L/min) 2 Oxygen Delivery Method Room Air Weight: 101.514 kg Body Mass Index (BMI) 32.1 Intake & Output: Intake and Output for Last 24 Hours 12/08/20 12/09/20 12/10/20 23:59 23:59 23:59 Intake Total 2348.00 / 2348.00 2187.00 / 2187.00 520 / 520 Output Total 1050 / 1050 Balance 1298.00 / 1298.00 2187.00 / 2187.00 520 / 520 Lab / Micro Data Result Diagrams: 12/10/20 05:45 12/10/20 05:45 Labs: Laboratory Results - last 24 hr 12/09/20 08:34: Vancomycin Trough 16.1 H 12/09/20 11:09: POC Glucose 204 H 12/09/20 16:25: POC Glucose 148 H 12/09/20 22:05: POC Glucose 184 H 12/10/20 05:45: WBC 4.8, RBC 3.95 L, Hgb 10.7 L, Hct 33.4 L, MCV 84.6, MCH 27.1, MCHC 32.0, RDW Std Deviation 42.5, RDW Coeff of Ana 13.6, Plt Count 348, MPV 10. 6, Immature Gran % (Auto) 0.600, Neut % (Auto) 60.8, Lymph % (Auto) 21.6, [place] % (Auto) 12.0 H, Eos % (Auto) 4.6, Baso % (Auto) 0.4, Absolute Neuts (auto) 2.9, Absolute Lymphs (auto) 1.04, Nucleated RBC % 0 12/10/20 05:45: Sodium 136, Potassium 3.3 L, Chloride 106, Carbon Dioxide 24.0, Anion Gap 6, BUN 14, Creatinine 0.51 L, Estim Creat Clear Calc 75.03, Est GFR (MDRD) Af Amer 209, Est GFR (MDRD) Non-Af 173, BUN/Creatinine Ratio 27.5 H, Glucose 149 H, Calcium 8.2 L 12/10/20 06:29: POC Glucose 151 H Micro: Microbiology 12/05/20 15:45 Blood Culture (Wb) - Anticubital Left Blood Culture - Final Fusobacterium nucleatum 12/07/20 08:40 Tissue - Toe Gram Stain - Final 12/07/20 08:40 Tissue - Toe Wound Culture - Preliminary Streptococcus group B Coag Negative Staph Gram positive rebekah 12/07/20 08:40 Tissue - Toe Anaerobic Culture - Preliminary Checking for anaerobes, further studies to follow. 12/07/20 08:40 Bone - Great Toe Gram Stain - Final 12/07/20 08:40 Bone - Great Toe Wound Culture - Preliminary No growth-Final to follow 12/07/20 08:40 Bone - Great Toe Anaerobic Culture - Preliminary No growth in 48 hours. 12/06/20 09:53 Wound - Left Foot Gram Stain - Final 12/06/20 09:53 Wound - Left Foot Wound Culture - Preliminary Streptococcus agalactiae (B) Streptococcus sanguinis Staphylococcus epidermidis 12/06/20 09:53 Wound - Left Foot Anaerobic Culture - Preliminary Checking for anaerobes, further studies to follow. 12/05/20 16:00 Blood Culture (Wb) - Left Forearm Blood Culture - Preliminary No growth in 48 hours. 12/05/20 16:18 Urine, Clean Catch Urine Culture - Final GPC Poss Enterococcus sp Beta streptococcus 12/07/20 04:55 Nasal Secretion SARS-CoV-2 Antigen (Rapid) - Final Radiography Diagnostic Testing: Radiology Impression Extremity Arterial Study 12/06/20 09:57 Interpretation Summary Triphasic Doppler waveforms are noted at ankle level bilaterally. Pulse-volume recordings appear satisfactory at all levels bilaterally, though not assessed at digital level on the left. Resting ankle-brachial indices are supra-normal bilaterally. The right digital brachial index is normal. The left digital-brachial index was not determined due to the presence of bandages. There is evidence of arterial calcification at ankle level bilaterally. There is no evidence of arterial occlusive disease in the lower extremities bilaterally, though not fully assessed at digital level on the left due to the presence of bandages. Ordering Physician: Goran Cat Referring Physician: Connor Chavez Performed By: Tiffanie Martinez RDCS/RVT Physical Exam Const alert, oriented x3 and no apparent distress Extremity Extremity Narrative: Derm: Status post left hallux ulcer with sutures in place. No gapping, necrosis or purulent drainage. There is scant drainage on dressing. The intense red erythematous streak extending to the ankle level is now localiz ed within 3-4 cm of the amputation site but is more intense redness compared to yesterday without obvious spreading noted. No adjacent bogginess or fluctuance on palpation. There is no odor. Neuro: There is decreased sensation consistent with peripheral neuropathy Musculoskeletal: Left hallux amputation. There is no m/s POP or pain on ROM to the foot or ankle. Vascular: Left PT and DP pulses are 2 out of 4. CFT less than 2 to remaining digits left foot Assessment & Plan Assessment/Plan (1) Non-pressure chronic ulcer of other part of left foot with necrosis of bone: (2) Diabetes mellitus with diabetic polyneuropathy: (3) Type 2 diabetes mellitus with foot ulcer: (4) Osteomyelitis of ankle or foot, left, acute: (5) Sepsis: QUALIFIERS: Sepsis type: sepsis due to unspecified organism Sepsis acute organ dysfunction status: without acute organ dysfunction Qualified Code(s): A41.9 - Sepsis, unspecified organism (6) Cellulitis of left foot: PLAN: Evaluation performed. He is afebrile and vital signs stable. Patient is status post hallux amputation left foot with Dr. Cat on 12/07/2020. Erythema is more intense redness to periwound without obvious spreading of erythema. Possibility of increased redness due to ambulation on surgical site. Patient remains afebrile with no leukocytosis noted OR cultures from 12/07/2020 are so far demonstrating Streptococcus group B and gram-positive organisms and gram-positive rebekah from the great toe. Remaining cultures including anaerobic, fungal, acid-fast are pending. Proximal clearance fragment of first metatarsal head so far issue growing no organisms, these results are not finalized. Reviewed these results with the patient. Continue antibiotic therapy. ID consult is noted. Follow their recommendations. LEAS were ordered for further revaluation of arterial flow bilateral LE. Left dorsalis pedis pulse was not able to be obtained due to surgery bandages as well as left arm BP due to IV. Right DP and PT were triphasic and left PT was triphasic. Right HANS was 1.55 and TBI 0.92. A dressing to the left 1st toe was applied - betadine soln, gauze, kerlix and delta dressing - keep clean, dry and intact. Discussed not getting area wet until sutures are removed. To keep weight off of the surgical site by wearing a surgical shoe. To apply weight to the heel only for limited transfers and short walking sessions. Medical management per hospitalist service is greatly appreciated. Recommend nutritional supplementation to optimize healing as well. Please do not hesitate to call if you have any questions. To follow-up with Dr. Cat at the office upon discharge. Alicia Pinto DPM [facility] [phone] This note was generated with [employer] software. It may contain incorrect words, spelling, and punctuation that were not noted in checking the note before signing.
[2020-12-10] MEDS: Aspirin 81 MG TAB.CHEW PO (08:16)
[2020-12-10] MEDS: Carvedilol 6.25 MG Tablet PO (08:17)
[2020-12-10] MEDS: Clopidogrel Bisulfate 75 MG Tablet PO (08:18)
[2020-12-10] MEDS: Enoxaparin 40 MG/0.4 ML Syringe SC (08:18)
[2020-12-10] MEDS: OXcarbazepine 300 MG Tablet PO ×2 (08:19→14:15)
[2020-12-10] MEDS: Pantoprazole Sodium 20 MG Tablet PO (08:19)
[2020-12-10] MEDS: Lisinopril 5 MG Tablet PO (08:20)
[2020-12-10] MEDS: oxyCODONE 5 MG Tablet 10 MG PO ×2 (08:21→14:14)
[2020-12-10] MEDS: Acetaminophen 325 MG Tablet 650 MG PO ×2 (08:22→14:14)
--- NOTE | 2020-12-10 08:25 | WOUNDNOTE ---
wound photo: left foot
--- NOTE | 2020-12-10 08:25 | WOUNDNOTE ---
wound photo: left foot
[2020-12-10] MEDS: Potassium Chloride Oral Tablet 20 MEQ 60 MEQ PO (09:50)
[2020-12-10 11:45] LABS: Bedside Glucose 188 mg/dL (70-110)
--- NOTE | 2020-12-10 13:32 | CASEMGMT ---
Addendum entered by Norma Rodríguez 12/10/20 15:27: Faxed dc instructions to [facility]. Addendum entered by Norma Rodríguez 12/10/20 15:07: Received tc back from [facility]. They are able to accept pt. TYSHAWN JONES in to pt room and made pt aware. Spoke with patient nurse Reji regarding pt speech. This is not a new issue, he had a stroke prior. Pt did not receive ST in the hospital, not ordered for [facility] either. Original Note: TYSHAWN JONES in to pt room to verify if pt would be agreeable to some home PT. Pt states he will defer this to Gina and would like this CM to call her. TC to Gina. She states that she would like pt to have therapy. Gina was provided a list of [facility] providers including quality and resource use data and consistent with the patient?s preferred geographic region, medical needs, and insurance network via tc. Her preferred provider is [facility]. TC to [facility], left message for [facility] the liaison and faxed referral at this time.
--- NOTE | 2020-12-10 13:41 | PCM.RX.CS ---
Consult Pharmacy has been consulted to manage selected antiobiotic: Vancomycin Type of Consult: Follow-up Prior Doses of Antibiotics Received/Current Regimen: 12/09/2020 1008 12/09/2020199912/10/2020 0831 Labs: Sodium 136 mmol/L (136-145) 12/10/20 05:45 Potassium 3.3 mmol/L (3.5-5.1) L 12/10/20 05:45 Chloride 106 mmol/L (98-107) 12/10/20 05:45 Carbon Dioxide 24.0 mmol/L (21.0-32.0) 12/10/20 05:45 Anion Gap 6 (5-15) 12/10/20 05:45 BUN 14 mg/dL (7-18) 12/10/20 05:45 Creatinine 0.51 mg/dL (0.70-1.30) L 12/10/20 05:45 Est GFR (MDRD) Af Amer 209 mL/min (>60) 12/10/20 05:45 Est GFR (MDRD) Non-Af 173 mL/min (>60) 12/10/20 05:45 BUN/Creatinine Ratio 27.5 RATIO (10-20) H 12/10/20 05:45 Glucose 149 mg/dL (74-106) H 12/10/20 05:45 Vancomycin Trough 16.1 ug/mL (5.0-15.0) H 12/09/20 08:34 Microbiology: Microbiology 12/06/20 09:53 Wound - Left Foot Gram Stain - Final 12/06/20 09:53 Wound - Left Foot Wound Culture - Final Streptococcus agalactiae (B) Streptococcus sanguinis Staphylococcus epidermidis 12/06/20 09:53 Wound - Left Foot Anaerobic Culture - Preliminary Checking for anaerobes, further studies to follow. 12/07/20 08:40 Tissue - Toe Gram Stain - Final 12/07/20 08:40 Tissue - Toe Wound Culture - Preliminary Streptococcus group B Coag Negative Staph Gram positive rebekah 12/07/20 08:40 Tissue - Toe Anaerobic Culture - Preliminary Checking for anaerobes, further studies to follow. 12/07/20 08:40 Bone - Great Toe Gram Stain - Final 12/07/20 08:40 Bone - Great Toe Wound Culture - Final No growth aerobically. 12/07/20 08:40 Bone - Great Toe Anaerobic Culture - Preliminary No growth in 48 hours. 12/05/20 15:45 Blood Culture (Wb) - Anticubital Left Blood Culture - Final Fusobacterium nucleatum 12/05/20 16:00 Blood Culture (Wb) - Left Forearm Blood Culture - Preliminary No growth in 48 hours. 12/05/20 16:18 Urine, Clean Catch Urine Culture - Final GPC Poss Enterococcus sp Beta streptococcus 12/07/20 04:55 Nasal Secretion SARS-CoV-2 Antigen (Rapid) - Final Weight used for dosin.5 kg Estimated Creatinine Clearance: 75 Goal Trough: 15-20 mcg/mL Pharmacy Plan for Drug Dosing: No dosage adjustment today, continue 2000mg of vancomycin q12h. Thank You Pharmacy Service will continue to monitor and adjust dosing as required. Follow-Up Labs: Trough Vancomycin Labs to be done on [date and time ordered]: 12/11/2020 @ 0802
--- NOTE | 2020-12-10 14:46 | PCM.PN.ID ---
Physical Exam Narrative Feeling better, no fever, no n/v/d. Const alert General Appearance: cooperative Resp normal air movement and clear to auscultation bilaterally Cardio regular rate and regular rhythm GI normal to inspection, nondistended, normoactive bowel sounds Skin Skin Narrative: foot wrapped ID ID: Route of nutrition/ use of supplements: [] Nutritional Intake: [] IV Site: [] Escoto Catheter: [] Assessment & Plan Assessment/Plan (1) Diabetes mellitus with diabetic polyneuropathy: (2) Osteomyelitis of ankle or foot, left, acute: PLAN: L 1st toe osteo, wound cx with GBS, strep, MRSE so far. Now s/p OR 12/07/[address] Cat for amp. Clearance cx neg so far, path pending. On vanc/junior. Has had covid shot. Ok for home with 5 days doxy, keflex, flagyl. Will follow as needed, d/w primary team
--- NOTE | 2020-12-10 14:53 | PCM.DC ---
Discharge Instructions Diet Discharge Diet: Low fat / Low cholesterol and Carb Control Diet Activity Discharge Activity: May Not Shower (Until sutures removed) Weight Bearing Status: No weight bearing (Left lower extremity, wear surgical shoe when standing or ambulating) Keep extremity elevated above heart level: Left Leg Dressing / Incision Call your doctor if you observe: Fever of 101 or Higher, Coldness, Increased Pain, Numbness or Tingling, Shortness of breath, Chest pain, Calf discomfort and Uncontrolled pain Follow Up Care Please Follow Up With: Alicia Pinto DPM Test Results: Test results from this visit will be discussed in further detail at your follow-up appointment, if applicable. Discharge Plan Admission Admit Date/Time: 12/05/20 16:32 Primary Reason for Your Visit: Diabetic foot ulcer Attending Provider: Inez Nieto Primary Care Provider: Connor Chavez Consulting Providers: Goran Cat ; Arias Bustillo Instructions Patient Instructions: Diabetes: Inspecting Your Feet, Amputation Phantom Sensation Pain, Amputation Lower Body Strength Discharge Orders/Prescriptions Prescriptions: New cephalexin 500 mg capsule 500 mg PO TID Qty: 12 RF: 0 doxycycline hyclate 100 mg capsule 100 mg PO BID Qty: 8 RF: 0 metronidazole 500 mg tablet 500 mg PO TID Qty: 12 RF: 0 pantoprazole 20 mg Tablet,Delayed Release (Dr/Ec) 20 mg PO DAILY 30 Days Qty: 30 RF: 0 oxycodone 5 mg Tablet 5 mg PO Q4H PRN PRN (Reason: Pain Score 7-10) 7 Days Qty: 42 RF: 0 Continued atorvastatin 80 MG tablet 20 mg PO QHS RF: 0 carvedilol 6.25 MG tablet 6.25 mg PO BID RF: 0 metformin 1,000 MG tablet 1,000 mg PO BIDCM RF: 0 lisinopril 5 MG tablet 5 mg PO DAILY RF: 0 carbidopa-levodopa 1 TABLET tablet 1 tab PO TIDAC RF: 0 insulin NPH isoph U-100 human 100 UNITS/ML insulin pen 13 units subcut QHS RF: 0 empagliflozin 10 MG tablet 10 mg PO DAILY Qty: 30 RF: 0 clopidogrel 75 MG tablet 75 mg PO DAILY Qty: 30 RF: 0 aspirin 81 MG tablet,chewable 81 mg PO DAILY@0800 RF: 0 oxcarbazepine 600 MG tablet 300 mg PO 4X/DAY RF: 0 mirtazapine 30 mg tablet 30 mg QHS RF: 0 Referrals / Follow Up: Goran Cat DPM [STAFF PHYSICIAN] - (In office 1 week) Connor Chavez MD [Primary Care Provider] - Disposition Disposition (needs filled in before D/C Order can be placed): Home Health Service
--- NOTE | 2020-12-10 15:21 | PCM.DC.SUM ---
Documented by User: JESSICA Craven 12/10/20 15:27 Providers Date of Admission: 12/05/20 Primary Care Physician: Dr. Connor Chavez MD Consultations 12/05/20 18:53 Consult: Onc/Wound/digital asset specialist Routine Comment: Consult: Podiatry Routine Consulting Provider: Goran Cat Reason for Consult: Diabetic foot infection EMERGENT Consult: No MD Notified: Yes Date Notified: 12/05/20 Time Notified: 07:12 Method of Notification: Verbal 12/07/20 13:16 Consult: Infectious Disease Routine Consulting Provider: Arias Bustillo Reason for Consult: left great toe osteomyelitis EMERGENT Consult: No MD Notified: Yes Date Notified: 12/07/20 Time Notified: 13:16 Method of Notification: Answering Service Comments:: Dr. Bacon covering for Dr. Bustillo Reason For Visit: INFECTED DIABETIC WOUND Diagnosis Discharge Diagnosis (1) Diabetes mellitus with diabetic polyneuropathy: Status: Acute Code(s): E11.42 - Type 2 diabetes mellitus with diabetic polyneuropathy (2) Osteomyelitis of ankle or foot, left, acute: Status: Acute Code(s): M86.172 - Other acute osteomyelitis, left ankle and foot Medications at Discharge Home Medications atorvastatin 20 mg PO QHS 10/01/15 carbidopa-levodopa 1 tab PO TIDAC 10/01/15 carvedilol 6.25 mg PO BID 10/01/15 insulin NPH isoph U-100 human 13 units SUBCUT QHS 10/01/15 lisinopril 5 mg PO DAILY 10/01/15 metformin 1,000 mg PO BIDCM 10/01/15 aspirin 81 mg PO DAILY@0800 tab.chew 01/26/17 clopidogrel 75 mg PO DAILY #30 tab 01/26/17 empagliflozin 10 mg PO DAILY #30 tab 01/26/17 oxcarbazepine 300 mg PO 4X/DAY 03/16/18 mirtazapine 30 mg QHS 12/05/20 cephalexin 500 mg PO TID #12 cap 12/10/20 doxycycline hyclate 100 mg PO BID #8 cap 12/10/20 metronidazole 500 mg PO TID #12 tab 12/10/20 oxycodone 5 mg PO Q4H PRN PRN 7 Days #42 tab 12/10/20 pantoprazole 20 mg PO DAILY 30 Days #30 tab 12/10/20 Hospital Course Operations - (left great toe amputation) Procedures EKG and - (extremity arterial study) Summary of Care Provided Minutes Spent on Discharge: 35 Hospital Course: Patient was admitted to the hospital on 12/05/2020 for a left toe infection. Upon complete work-up in ER patient was noted to have osteomyelitis of the left great toe and underwent a left great toe amputation on 12/07/[address] Cat. Patient has been followed by infectious disease who provided discharge antibiotic recommendations. Patient has experienced no complications following surgery. Patient will be discharged home with home health. Patient to follow-up with Dr. Cat in 1 week. Physical Exam Const alert, oriented x3 and no apparent distress General Appearance: cooperative HEENT normocephalic and head/scalp atraumatic Eyes conjunctivae normal and no scleral icterus Neck supple and no JVD General: trachea midline Resp normal respiratory effort, normal air movement, no retractions, no use of accessory muscles and clear to auscultation bilaterally Cardio regular rate, regular rhythm, S1 normal heart sound, S2 normal heart sound and peripheral pulses 2+ throughout Peripheral Pulses: pulses 2+ throughout GI normal to inspection, nondistended, normoactive bowel sounds, soft to palpation and non-tender Extremity normal capillary refill Extremity Narrative: left foot wrapped,did not remove. wound nurse note reviewed General Extremity: edema bilateral lower extremity (Left worse than right due to decreased blood flow from prior accident in left leg) Left Lower Extremity: foot and digits Positive for inspection (Left great toe red), palpation (Tender) and neurovascular exam (Intact) Skin General Skin Exam: turgor normal Lesions: no lesions Rashes: no rashes Wounds: wounds noted other Neuro no focal motor deficits and no sensory deficits noted Sensorium / Orientation: awake and alert Speech: speech normal Motor Exam: general weakness Psych thought process normal, cooperative and affect normal Appearance: appropriate Weight / BMI Weight Weight: 223 lb 12.801 oz Body Mass Index (BMI) 32.1 ABG / Lab / Microbiology Data Result Diagrams: 12/10/20 05:45 12/10/20 05:45 Laboratory: Laboratory Results - last 24 hr 12/09/20 11:09: POC Glucose 204 H 12/09/20 16:25: POC Glucose 148 H 12/09/20 22:05: POC Glucose 184 H 12/10/20 05:45: WBC 4.8, RBC 3.95 L, Hgb 10.7 L, Hct 33.4 L, MCV 84.6, MCH 27.1, MCHC 32.0, RDW Std Deviation 42.5, RDW Coeff of Ana 13.6, Plt Count 348, MPV 10.6, Immature Gran % (Auto) 0.600, Neut % (Auto) 60.8, Lymph % (Auto) 21.6, [place] % (Auto) 12.0 H, Eos % (Auto) 4.6, Baso % (Auto) 0.4, Absolute Neuts (auto) 2.9, Absolute Lymphs (auto) 1.04, Nucleated RBC % 0 12/10/20 05:45: Sodium 136, Potassium 3.3 L, Chloride 106, Carbon Dioxide 24.0, Anion Gap 6, BUN 14, Creatinine 0.51 L, Estim Creat Clear Calc 75.03, Est GFR (MDRD) Af Amer 209, Est GFR (MDRD) Non-Af 173, BUN/Creatinine Ratio 27.5 H, Glucose 149 H, Calcium 8.2 L 12/10/20 06:29: POC Glucose 151 H 12/10/20 11:28: POC Glucose 188 H Microbiology: Microbiology 12/06/20 09:53 Wound - Left Foot Gram Stain - Final 12/06/20 09:53 Wound - Left Foot Wound Culture - Final Streptococcus agalactiae (B) Streptococcus sanguinis Staphylococcus epidermidis 12/06/20 09:53 Wound - Left Foot Anaerobic Culture - Preliminary Checking for anaerobes, further studies to follow. 12/07/20 08:40 Tissue - Toe Gram Stain - Final 12/07/20 08:40 Tissue - Toe Wound Culture - Preliminary Streptococcus group B Coag Negative Staph Gram positive rebekah 12/07/20 08:40 Tissue - Toe Anaerobic Culture - Preliminary Checking for anaerobes, further studies to follow. 12/07/20 08:40 Bone - Great Toe Gram Stain - Final 12/07/20 08:40 Bone - Great Toe Wound Culture - Final No growth aerobically. 12/07/20 08:40 Bone - Great Toe Anaerobic Culture - Preliminary No growth in 48 hours. 12/05/20 15:45 Blood Culture (Wb) - Anticubital Left Blood Culture - Final Fusobacterium nucleatum 12/05/20 16:00 Blood Culture (Wb) - Left Forearm Blood Culture - Preliminary No growth in 48 hours. 12/05/20 16:18 Urine, Clean Catch Urine Culture - Final GPC Poss Enterococcus sp Beta streptococcus 12/07/20 04:55 Nasal Secretion SARS-CoV-2 Antigen (Rapid) - Final Radiography Diagnostic Testing: Radiology Impression Extremity Arterial Study 12/06/20 09:57 Interpretation Summary Triphasic Doppler waveforms are noted at ankle level bilaterally. Pulse-volume recordings appear satisfactory at all levels bilaterally, though not assessed at digital level on the left. Resting ankle-brachial indices are supra-normal bilaterally. The right digital brachial index is normal. The left digital-brachial index was not determined due to the presence of bandages. There is evidence of arterial calcification at ankle level bilaterally. There is no evidence of arterial occlusive disease in the lower extremities bilaterally, though not fully assessed at digital level on the left due to the presence of bandages. Ordering Physician: Goran Cat Referring Physician: Connor Chavez Performed By: Tiffanie Martinez RDCS/RVT D/C Instructions Discharge Diet: Low fat / Low cholesterol and Carb Control Diet Weight Bearing Status: No weight bearing (Left lower extremity, wear surgical shoe when standing or ambulating) Keep extremity elevated above heart level: Left Leg Call your doctor if you observe: Fever of 101 or Higher, Coldness, Increased Pain, Numbness or Tingling, Shortness of breath, Chest pain, Calf discomfort and Uncontrolled pain Cleanse incision/area with: Keep Dressing Clean & Dry Please Follow Up With: Goran Cat DPM When: 1 week Meaningful Use Info Meaningful Use Diagnoses (Choose all that apply): None applicable Discharge Plan Admission Admit Date/Time: 12/05/20 16:32 Primary Reason for Your Visit: Diabetic foot ulcer Attending Provider: Inez Nieto Primary Care Provider: Connor Chavez Consulting Providers: Goran Cat ; Arias Bustillo Instructions Patient Instructions: Diabetes: Inspecting Your Feet, Amputation Phantom Sensation Pain, Amputation Lower Body Strength Discharge Orders/Prescriptions Prescriptions: New cephalexin 500 mg capsule 500 mg PO TID Qty: 12 RF: 0 doxycycline hyclate 100 mg capsule 100 mg PO BID Qty: 8 RF: 0 metronidazole 500 mg tablet 500 mg PO TID Qty: 12 RF: 0 pantoprazole 20 mg Tablet,Delayed Release (Dr/Ec) 20 mg PO DAILY 30 Days Qty: 30 RF: 0 oxycodone 5 mg Tablet 5 mg PO Q4H PRN PRN (Reason: Pain Score 7-10) 7 Days Qty: 42 RF: 0 Continued atorvastatin 80 MG tablet 20 mg PO QHS RF: 0 carvedilol 6.25 MG tablet 6.25 mg PO BID RF: 0 metformin 1,000 MG tablet 1,000 mg PO BIDCM RF: 0 lisinopril 5 MG tablet 5 mg PO DAILY RF: 0 carbidopa-levodopa 1 TABLET tablet 1 tab PO TIDAC RF: 0 insulin NPH isoph U-100 human 100 UNITS/ML insulin pen 13 units subcut QHS RF: 0 empagliflozin 10 MG tablet 10 mg PO DAILY Qty: 30 RF: 0 clopidogrel 75 MG tablet 75 mg PO DAILY Qty: 30 RF: 0 aspirin 81 MG tablet,chewable 81 mg PO DAILY@0800 RF: 0 oxcarbazepine 600 MG tablet 300 mg PO 4X/DAY RF: 0 mirtazapine 30 mg tablet 30 mg QHS RF: 0 Referrals / Follow Up: Goran Cat DPM [STAFF PHYSICIAN] - In 1 Week (DOCTOR ANTIONETTE:Tuesday @ 0900AM. PLEASE ARRIVE AT 0830 FOR PAPERWORK. BRING INSURANCE CARD, PHOTO ID AND WEAR A MASK.) Connor Chavez MD [Primary Care Provider] - Disposition Disposition (needs filled in before D/C Order can be placed): Home Health Service Documented by User: Dr. Inez Nieto MD 12/10/20 16:54 Providers Date of Admission: 12/05/20 Reason For Visit: INFECTED DIABETIC WOUND Medications at Discharge Home Medications atorvastatin 20 mg PO QHS 10/01/15 carbidopa-levodopa 1 tab PO TIDAC 10/01/15 carvedilol 6.25 mg PO BID 10/01/15 insulin NPH isoph U-100 human 13 units SUBCUT QHS 10/01/15 lisinopril 5 mg PO DAILY 10/01/15 metformin 1,000 mg PO BIDCM 10/01/15 aspirin 81 mg PO DAILY@0800 tab.chew 01/26/17 clopidogrel 75 mg PO DAILY #30 tab 01/26/17 empagliflozin 10 mg PO DAILY #30 tab 01/26/17 oxcarbazepine 300 mg PO 4X/DAY 03/16/18 mirtazapine 30 mg QHS 12/05/20 cephalexin 500 mg PO TID #12 cap 12/10/20 doxycycline hyclate 100 mg PO BID #8 cap 12/10/20 metronidazole 500 mg PO TID #12 tab 12/10/20 oxycodone 5 mg PO Q4H PRN PRN 7 Days #42 tab 12/10/20 pantoprazole 20 mg PO DAILY 30 Days #30 tab 12/10/20 ABG / Lab / Microbiology Data Result Diagrams: 12/10/20 05:45 12/10/20 05:45 Discharge Plan Admission Admit Date/Time: 12/05/20 16:32 Primary Reason for Your Visit: Diabetic foot ulcer Attending Provider: Inez Nieto Primary Care Provider: Connor Chavez Consulting Providers: Goran Cat ; Arias Bustillo Instructions Patient Instructions: Diabetes: Inspecting Your Feet, Amputation Phantom Sensation Pain, Amputation Lower Body Strength Discharge Orders/Prescriptions Prescriptions: New cephalexin 500 mg capsule 500 mg PO TID Qty: 12 RF: 0 doxycycline hyclate 100 mg capsule 100 mg PO BID Qty: 8 RF: 0 metronidazole 500 mg tablet 500 mg PO TID Qty: 12 RF: 0 pantoprazole 20 mg Tablet,Delayed Release (Dr/Ec) 20 mg PO DAILY 30 Days Qty: 30 RF: 0 oxycodone 5 mg Tablet 5 mg PO Q4H PRN PRN (Reason: Pain Score 7-10) 7 Days Qty: 42 RF: 0 Continued atorvastatin 80 MG tablet 20 mg PO QHS RF: 0 carvedilol 6.25 MG tablet 6.25 mg PO BID RF: 0 metformin 1,000 MG tablet 1,000 mg PO BIDCM RF: 0 lisinopril 5 MG tablet 5 mg PO DAILY RF: 0 carbidopa-levodopa 1 TABLET tablet 1 tab PO TIDAC RF: 0 insulin NPH isoph U-100 human 100 UNITS/ML insulin pen 13 units subcut QHS RF: 0 empagliflozin 10 MG tablet 10 mg PO DAILY Qty: 30 RF: 0 clopidogrel 75 MG tablet 75 mg PO DAILY Qty: 30 RF: 0 aspirin 81 MG tablet,chewable 81 mg PO DAILY@0800 RF: 0 oxcarbazepine 600 MG tablet 300 mg PO 4X/DAY RF: 0 mirtazapine 30 mg tablet 30 mg QHS RF: 0 Referrals / Follow Up: Goran Cat DPM [STAFF PHYSICIAN] - In 1 Week (DOCTOR ANTIONETTE:Tuesday @ 0900AM. PLEASE ARRIVE AT 0830 FOR PAPERWORK. BRING INSURANCE CARD, PHOTO ID AND WEAR A MASK.) Connor Chavez MD [Primary Care Provider] - Disposition Disposition (needs filled in before D/C Order can be placed): Home Health Service Charges/Coding Addendum Addendum: This patient was seen in conjunction with Carlos Kaur NP. I have independently interviewed and examined the patient and reviewed pertinent historical, laboratory, and other data. I have reviewed her note and concur with her documentation 65-year-old male with past medical history of type II DM, with neuropathy who comes in with a 2 to 3 weeks of left first toe pain, drainage, redness, swelling. Patient was seen by podiatry and is status post left great toe amputation on 12/07/20. Patient's wound cultures growing GBS, strep, MRSA E. He was managed initially on IV vancomycin and meropenem. He was discharged on 5 days of doxycycline, Flagyl and Keflex. He will follow up with podiatry in the outpatient as scheduled On the day of discharge, patient was seen and examined. Denied any new complaints. Physical Exam: Gen: Comfortable not pale, not jaundiced CVS:HS I +II, regular, no murmurs RESP: Diminished at lung bases, few crackles at the bases GI: BS present and normal, soft, nontender, no palpable organs EXT: Left foot dressed up in Fran wraps Visit Charges Inpatient E&M: 26247 Disch Hosp
--- NOTE | 2020-12-11 14:53 | CASEMGMT ---
TYSHAWN JONES Discharge Follow Up Phone Call: CORINNE: Ruthann Strata:3 Call Date: 12/11/20 Discharge Date: 12/10/20 Time of Call:1448 Duration:3 min Admitting Dx:infected diabetic foot wound RN KAREN completed follow up phone call after recent hospitalization. Pt states he is doing well since being home, then gave the phone to his ex who states he is not doing too bad. She states [facility] called yesterday and they are supposed to call yet today again. His medications were picked up and patient has a follow up appt with next . Pt ex denies further questions at this time regarding medications or dc instructions.
== END 2020-12-10 17:58 | disposition home health service (06) | DRG 617 ==
LOC: ED 17:32 → MS3 18:00
PROVIDERS: Nurse Practitioner Family; Podiatrist; Admitting Provider Internal Medicine; Emergency Provider Emergency Medicine; PCP Family Medicine; Visit Provider Internal Medicine
PROC: 0Y6Q0Z0 Detachment at Left 1st Toe, Complete, Open Approach (ICD-10-PCS; principal; 2020-12-07 08:00)
DX: E11.69 Type 2 diabetes mellitus with other specified complication (principal); M86.172 Other acute osteomyelitis, left ankle and foot; L03.116 Cellulitis of left lower limb; E11.621 Type 2 diabetes mellitus with foot ulcer; L97.524 Non-pressure chronic ulcer of other part of left foot with necrosis of bone; B95.1 Streptococcus, group B, as the cause of diseases classified elsewhere; B96.89 Other specified bacterial agents as the cause of diseases classified elsewhere; E11.42 Type 2 diabetes mellitus with diabetic polyneuropathy; E78.5 Hyperlipidemia, unspecified; G20 Parkinson's disease; G40.909 Epilepsy, unspecified, not intractable, without status epilepticus; I10 Essential (primary) hypertension; I25.10 Atherosclerotic heart disease of native coronary artery without angina pectoris; I25.2 Old myocardial infarction; K21.9 Gastro-esophageal reflux disease without esophagitis; Z86.73 Personal history of transient ischemic attack (TIA), and cerebral infarction without residual deficits; Z87.442 Personal history of urinary calculi; Z95.5 Presence of coronary angioplasty implant and graft; Z79.02 Long term (current) use of antithrombotics/antiplatelets; Z79.4 Long term (current) use of insulin; Z79.82 Long term (current) use of aspirin; Z79.899 Other long term (current) drug therapy; Z87.891 Personal history of nicotine dependence
CPT/HCPCS: 36415; 71045; 73630; 76000; 80048; 80053; 80202; 81001; 82962; 83036; 83605; 83735; 84100; 84443; 85025; 85610; 85652; 85730; 86141; 87015; 87040; 87070; 87075; 87077; 87086; 87088; 87102; 87116; 87186; 87205; 87206; 87426; 87640; 87641; 88304; 88305; 88311; 93005; 93923; 97116; 97162; 97530; 97802; 99251; 99285; J2185; J7030; J7040; J7050; A4216; G0463; J2405

== ENCOUNTER → 2020-12-23 11:57 | Outpatient (CLI) | payer MEDICARE, MEDICAID, SELFPAY ==
[2020-12-23 15:25] LABS: Absolute Lymphocyte Count 2.19 X10^3/uL (0.83-4.51); Absolute Neutrophil Count 3.6 X10^3/uL (2.0-7.7); Basophil# 0.06 X10^3/uL; Basophil% 0.9 % (0-1); Eosinophil# 0.27 X10^3/uL; Eosinophils% 4.1 % (0-5); Hemoglobin 12.8 g/dL (13.0-16.5); Lymphocyte # 2.19 X10^3/ul (0.83-4.51); Lymphocyte % 33.3 % (19-41); Mean Corp Hgb Conc 29.8 g/dL (32-36); Mean Corpuscular Hgb 26.4 pg (27.0-32.0); Mean Corpuscular Volume 88.8 fL (80-94); Mean Platelet Vol. 10.4 fl (6.2-12.0); Monocyte# 0.46 X10^3/uL; NRBC Flagged by Analyzer 0 % (0-5); Neutrophil # 3.57 X10^3/uL (2.7-7.7); Neutrophil % 54.2 % (47-70); Platelet Count 458 K/mm3 (150-450); RBC Distribution Width CV 14.4 % (11.6-14.6); RBC Distribution Width SD 46.6 fl (35.1-43.9); Red Blood Count 4.84 M/mm3 (4.6-6.2); White Blood Count 6.6 K/mm3 (4.4-11.0)
[2020-12-23 15:42] LABS: ALB/GLOB Ratio 0.7 RATIO (0.9-2.4); AST(SGOT) 18 U/L (15-37); Alanine Aminotransfer ALT/SGPT 22 U/L (16-61); Albumin, Serum 3.4 g/dL (3.2-5.0); Alkaline Phosphatase 112 U/L (45-117); Anion Gap 11 (5-15); BUN 12 mg/dL (7-18); BUN/Creat Ratio 14.3 RATIO (10-20); Calcium,Total 9.5 mg/dL (8.5-10.1); Chloride 102 mmol/L (98-107); Creatinine, Serum 0.84 mg/dL (0.70-1.30); EST Glomerular Filtration Rate 97 mL/min (>60); Est Glom Filt Rate - Afr Amer 118 mL/min (>60); Globulin 4.8 g/dL (2.2-4.2); Glucose 174 mg/dL (74-106); Potassium 4.1 mmol/L (3.5-5.1); Protein, Total 8.2 g/dL (6.4-8.2); Sodium Level 139 mmol/L (136-145)
== END ==
PROVIDERS: PCP Family Medicine; Referring Provider Podiatrist; Visit Provider Podiatrist
DX: M86.9 Osteomyelitis, unspecified (principal)
CPT/HCPCS: 36415; 80053; 85025

== ENCOUNTER 2023-05-23 19:41 | Emergency (ER) | payer MEDICARE, SELFPAY ==
[2023-05-23 19:42] VITALS: BP 147/89; PULSE 99; RESP 16; TEMP 36.3; O2SAT 95; BMI 32.8
--- NOTE | 2023-05-23 22:19 | EX.ED.GENINJ ---
HPI History of Present Illness Chief Complaint: Fall Informant: patient Narrative Narrative: Presents by private vehicle mechanical fall 4 hours prior to arrival. States moving a bucket twisted he fell sitting onto his foot. Also injured his sacrum. No head injuries. Drove himself here. No medications taken. [facility] Medical History Acute encephalopathy Acute respiratory failure Coronary artery disease Diabetic foot ulcer associated with type 2 diabetes mellitus Former smoker History of stroke Hyperlipidemia Hypertension Incisional hernia Kidney stones Myocardial infarct Paresthesia Seizure Sepsis Speech abnormality TIA (transient ischemic attack) Type II diabetes mellitus Home Medications atorvastatin 80 mg tablet 20 mg PO QHS cholesterol 10/01/15 [History Last Taken 12/04/20 20:00] carbidopa 25 mg-levodopa 100 mg tablet 1 tab PO TIDAC parkinsons 10/01/15 [History Last Taken 12/05/20 08:00] carvedilol 6.25 mg tablet 6.25 mg PO BID blood pressure 10/01/15 [History Last Taken 12/05/20 08:00] insulin NPH isoph U-100 human 100 unit/mL (3 mL) subcutaneous pen 13 units subcut QHS diabetes 10/01/15 [History Last Taken 12/04/20 20:00] lisinopril 5 mg tablet 5 mg PO DAILY blood pressure 10/01/15 [History Last Taken 12/05/20 08:00] metformin 1,000 mg tablet 1,000 mg PO BIDCM diabetes 10/01/15 [History Last Taken 12/05/20 08:00] aspirin 81 mg chewable tablet 81 mg PO DAILY@0800 01/26/17 [Rx Last Taken 12/05/20 08:00] clopidogrel 75 mg tablet 75 mg PO DAILY ##30 01/26/17 [Rx Last Taken 12/05/20 08:00] empagliflozin 10 mg tablet 10 mg PO DAILY ##30 01/26/17 [Rx Last Taken 12/05/20 08:00] oxcarbazepine 600 mg tablet 300 mg PO 4X/DAY anticonvulsant 03/16/18 [History Last Taken 12/05/20 08:00] mirtazapine 30 mg tablet 30 mg QHS sleep 12/05/20 [History Last Taken 12/04/20 20:00] cephalexin 500 mg capsule 500 mg PO TID #12 caps 12/10/20 [Rx Last Taken Unknown] doxycycline hyclate 100 mg capsule 100 mg PO BID #8 caps 12/10/20 [Rx Last Taken Unknown] metronidazole 500 mg tablet 500 mg PO TID #12 tabs 12/10/20 [Rx Last Taken Unknown] oxycodone 5 mg tablet 5 mg PO Q4H PRN PRN Pain Score 7-10 7 days #42 tabs 12/10/20 [Rx Last Taken Unknown] pantoprazole 20 mg tablet,delayed release 20 mg PO DAILY 30 days #30 tabs 12/10/20 [Rx Last Taken Unknown] acetaminophen 500 mg tablet (Tylenol Extra Strength) 500 - 1,000 mg (1 - 2 x 500 mg) PO Q6H PRN pain #60 tabs 05/23/23 [Rx Last Taken Unknown] Allergy/AdvReac Type Severity Reaction Status Date / Time pregabalin [From Lyrica] Allergy Unknown Verified 05/23/23 19:44 Penicillins AdvReac Hives Verified 05/23/23 19:44 Family History Mother Diabetes Heart disease Hypertension Brother Diabetes Heart disease Hypertension Surgical History History of heart artery stent history of right great toe surgery Status post biopsy of kidney Social History Smoking Status: Former smoker alcohol intake: never substance use type: does not use ROS ROS ED Constitutional Constitutional ED: Denies chills, fever(s) or sweats Eyes Eyes: Denies change in vision ENT ENT ED: Denies dysphagia or sore throat Cardiovascular Cardiovascular: Denies chest pain, leg edema, palpitations or racing heartbeat Respiratory/Chest Respiratory/Chest: Denies cough, dyspnea or dyspnea on exertion Gastrointestinal Gastrointestinal: Denies abdominal pain, diarrhea, nausea or vomiting Genitourinary Genitourinary ED: Denies dysuria, hematuria or urinary frequency Musculoskeletal Musculoskeletal: Reports extremity pain and other Details: Sacral injury ; Denies back pain or neck pain Integumentary Denies rash or wounds Neurologic Neurologic: Denies headache(s), paresthesias or weakness EXAM Physical Exam Const Vital Signs: 05/23/23 19:42 05/23/23 22:51 05/23/23 23:38 Temperature 97.4 F L 97.5 F L Temperature Source Temporal Pulse Rate 99 69 Respiratory Rate 16 12 Respiratory Effort Normal Respiratory Depth Normal Respiratory Pattern Normal Blood Pressure 147/89 H 145/74 H Blood Pressure Mean 108 97 Pulse Ox 95 100 Oxygen Delivery Method Room Air Room Air Positive well nourished and well developed Constitutional Narrative: GCS 15, chronic speech abnormality. General Appearance ED: well developed and NAD HEENT Reports moist mucous membranes normocephalic and atraumatic Eyes PERRL, EOMs intact bilaterally and conjunctivae normal General Eye ED: Yes normal appearance of both eyes Neck no lymphadenopathy and supple General: Negative for tenderness Chest Wall Chest: Negative for tenderness Resp normal respiratory effort and normal air movement Effort and Inspection: symmetric chest movement; Negative for respiratory distress Cardio regular rate, regular rhythm and no murmurs Peripheral Pulses: pulses 2+ throughout GI normal to inspection, nondistended, normoactive bowel sounds and non-tender Palpation: Negative for guarding or rebound tenderness present Back/Spine no CVA tenderness and no thoracic nor lumbar tenderness Back/Spine Narrative: Tender palpation coccyx, no ecchymosis. No ischial tenderness. Extremity Extremity Narrative: Right lower extremity: No knee or ankle tenderness. There is swelling on the dorsal foot with ecchymosis. No midfoot or proximal fifth base tenderness. Tender palpation second third metatarsal. Skin is intact. General Extremety ED: Yes edema and tenderness General Extremity: edema Neuro oriented x3 and no sensory deficits noted Sensorium / Orientation: awake and alert Skin no rashes or lesions noted and no wounds MDM MDM MDM Narrative Medical decision making narrative: Interventions / MDM: Differential diagnosis: Contusion Diagnosis considered but do not suspect: Fracture however x-ray negative My EKG interpretation: N/A Imaging independently reviewed and interpreted by myself: 3 view sacrum: No fracture 3 view right foot: No fracture External documents reviewed: N/A Test considered but not ordered:N/A ED course: Ice ordered Tylenol ordered. X-ray sacrum and right foot ordered. X-rays are negative. Request prescription for Tylenol to his pharmacy. This was sent. He declines Fran wrap for his foot. Outpatient follow-up. All questions were answered. Re-evaluation: stable Disposition discussed with patient/family/significant other: Patient Case discussed with consulting clinician: N/A This note was generated with [employer] dictation software. It may contain incorrect words, spelling, and punctuation that were not noted in checking the note before signing. Radiography Diagnostic Testing: Clinical Impression(s) from Imaging Studies Foot X-Ray 05/23/23 22:39 IMPRESSION: No acute bony injury. Electronically Signed: Brett Marie MD at 23:11 EST , Sacrum and Coccyx X-Ray 05/23/23 22:39 IMPRESSION: No acute bony injury. Electronically Signed: Brett Marie MD at 23:08 EST , Discharge Plan Triage Chief Complaint: Fall ED Provider: Sotero Sarmiento Dx/Rx/DC Orders Clinical Impression: Fall, Sacral contusion, Contusion of foot, right Instructions: ED Foot Contusion, ED Coccyx or Sacrum Contusion Prescriptions: New acetaminophen [Tylenol Extra Strength] 500 mg tablet 500 - 1,000 mg PO Q6H PRN (Reason: pain) Qty: 60 0RF No Action atorvastatin 80 MG tablet 20 mg PO QHS carvedilol 6.25 MG tablet 6.25 mg PO BID metformin 1,000 MG tablet 1,000 mg PO BIDCM lisinopril 5 MG tablet 5 mg PO DAILY carbidopa-levodopa 1 TABLET tablet 1 tab PO TIDAC insulin NPH isoph U-100 human 100 UNITS/ML insulin pen 13 units subcut QHS empagliflozin 10 MG tablet 10 mg PO DAILY Qty: 30 0RF clopidogrel 75 MG tablet 75 mg PO DAILY Qty: 30 0RF aspirin 81 MG tablet,chewable 81 mg PO DAILY@0800 0RF oxcarbazepine 600 MG tablet 300 mg PO 4X/DAY mirtazapine 30 mg tablet 30 mg QHS Patient Comments: TAKE 1 TABLET BY MOUTH EVERYDAY AT BEDTIME cephalexin 500 mg capsule 500 mg PO TID Qty: 12 0RF doxycycline hyclate 100 mg capsule 100 mg PO BID Qty: 8 0RF metronidazole 500 mg tablet 500 mg PO TID Qty: 12 0RF Rx Instructions: No alcohol while on this medication pantoprazole 20 mg Tablet,Delayed Release (Dr/Ec) 20 mg PO DAILY 30 Days Qty: 30 0RF oxycodone 5 mg Tablet 5 mg PO Q4H PRN PRN (Reason: Pain Score 7-10) 7 Days Qty: 42 0RF Primary Care Provider: Connor Chavez Referrals: Connor Chavez MD [Primary Care Provider] - 1-2 Weeks Activity Restrictions/Additional Instructions: Sacral x-ray negative. Right foot x-ray negative. Use Tylenol as needed continue to ice. Follow-up with your doctor. Disposition Disposition: Home, Self Care Discharge Date/Time: 05/23/23 23:38
--- OUTSIDE RECORDS SUMMARY | 2023-05-23 22:27 | XMS RPT_ITS | CCD ---
Author Name Unknown Address [address] [facility] [address] [facility] [address] [place] [address] Organization [facility] Care Team Providers Care Facilities Administrator Name Role Phone BLADIMIR DIAMOND Unavailable Unavailable BLADIMIR DIAMOND Unavailable Unavailable Verena Christian Unavailable Verena Christian MD Primary Care Provider Verena Christian MD Primary Care Provider Verena Christian MD Primary Care Provider Av FORTUNE Referring Unavailable VERENA CHRISTIAN Primary Care Unavailable Av FORTUNE Attending Unavailable VERENA CHRISTIAN Primary Care Unavailable Av FORTUNE Referring Unavailable VERENA CHRISTIAN Primary Care Unavailable Allergies Allergy Classification Reported Allergen(s) Allergy Type Date of Onset Reaction(s) Facility (20 sources) Penicillins; Translations: [PENICILLINS] Propensity to adverse reactions (disorder) 8 Hives [facility] (20 sources) pregabalin; Translations: [PREGABALIN] Drug Allergy 6 Mental Status Change, Other: See Comments [facility] Medications Current Medications Medication Drug Class(es) Dates Sig (Normalized) Sig (Original) 3 ml insulin glargine 100 unt/ml pen injector (20 sources) Insulin Analog Start: 12-28-2022 End: 12-28-2023 insulin glargine (LANTUS SOLOSTAR U-100 INSULIN) 100 unit/mL (3 mL) Indications: Diabetes mellitus due to underlying condition with diabetic nephropathy, unspecified whether termite exterminator helper insulin use (HCC) Inject 13 Units subcutaneously daily at bedtime. 4 mL 11 12/28/2022 12/28/2023 Active Completed/Discontinued Medications Medication Drug Class(es) Dates Sig (Normalized) Sig (Original) aspirin 81 mg delayed release oral tablet (20 sources) Platelet Aggregation Inhibitor, Nonsteroidal Anti-inflammatory Drug Start: 03-08-2014 take 1 tablet by mouth once daily aspirin, enteric coated (ECOTRIN LOW STRENGTH) 81 mg EC tablet Take 1 tablet by mouth once daily. 0 03/08/2014 Active Problems Active Problems Problem Classification Problem Date Documented Date Episodic/Chronic Acute cerebrovascular disease (8 sources) Cerebrovascular accident; Translations: [Cerebral infarction, unspecified] Onset: 12-23-2022 Chronic Bacterial infection; unspecified site (1 source) Helicobacter pylori [H. 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)] Onset: 12-23-2022 Chronic Coronary atherosclerosis and other heart disease (20 sources) Arteriosclerotic vascular disease; Translations: [Atherosclerotic heart disease of [place] coronary artery without angina pectoris] Onset: 05-06-2014 10-25-2019 Chronic Diabetes mellitus with complications (18 sources) Secondary diabetes mellitus; Translations: [Diabetes mellitus due to underlying condition with diabetic nephropathy] Onset: 02-21-2014 Chronic Diabetes mellitus without complication (20 sources) Diabetes mellitus type 2 without retinopathy; Translations: [Type 2 diabetes mellitus without complications] Onset: 02-21-2014 Chronic Disorders of lipid metabolism (20 sources) Mixed hyperlipidemia; Translations: [Mixed hyperlipidemia] Onset: 10-14-2015 10-14-2015 Chronic Epilepsy; convulsions (20 sources) Complex partial epileptic seizure; Translations: [Localization-related (focal) (partial) symptomatic epilepsy and epileptic syndromes with complex partial seizures, not intractable, without status epilepticus] Onset: 10-27-2015 10-25-2019 Chronic Essential hypertension (20 sources) Essential hypertension; Translations: [Essential (primary) hypertension] Onset: 10-14-2015 10-14-2015 Chronic Gastritis and duodenitis (6 sources) Unspecified chronic gastritis without bleeding; Translations: [Atrophic gastritis, without mention of hemorrhage] Onset: 12-23-2022 12-23-2022 Chronic Hyperplasia of prostate (20 sources) Benign prostatic hyperplasia; Translations: [Benign prostatic hyperplasia without lower urinary tract symptoms] Onset: 10-18-2007 08-03-2016 Chronic Immunizations and screening for infectious disease (2 sources) Patient encounter status; Translations: [Encounter for immunization] Onset: 12-23-2022 12-23-2022 Episodic Mood disorders (20 sources) Major depression single episode, in partial remission; Translations: [Major depressive disorder, single episode, in partial remission] Onset: 11-10-2016 11-10-2016 Chronic Open wounds of extremities (20 sources) Amputated big toe; Translations: [Complete traumatic amputation of left great toe, initial encounter] Onset: 03-27-2021 03-27-2021 Chronic Other aftercare (1 source) Drug therapy finding; Translations: [Other termite exterminator helper (current) drug therapy] 11-24-2022 Episodic Other aftercare (1 source) Other nursing home (current) drug therapy; Translations: [Current use of proton pump inhibitor] Onset: 12-23-2022 Episodic Other nutritional; endocrine; and metabolic disorders (13 sources) Obesity; Translations: [Other obesity due to excess calories] Onset: 09-26-2020 09-26-2020 Chronic Other nutritional; endocrine; and metabolic disorders (9 sources) Obesity caused by energy imbalance; Translations: [Other obesity due to excess calories] Onset: 09-26-2020 09-26-2020 Chronic Respiratory failure; insufficiency; arrest (adult) (2 sources) Acute respiratory failure; Translations: [Acute respiratory failure with hypoxia] Onset: 12-23-2022 12-23-2022 Episodic Past or Other Problems Problem Classification Problem Date Documented Date Episodic/Chronic Deficiency and other anemia (20 sources) Iron deficiency anemia; Translations: [Iron deficiency anemia, unspecified] Onset: 08-01-2020 08-01-2020 Episodic Other acquired deformities (20 sources) Retrolisthesis; Translations: [Spondylolisthesis, site unspecified] Onset: 10-25-2019 10-25-2019 Episodic Other circulatory disease (20 sources) History of cerebrovascular accident; Translations: [Personal history of transient ischemic attack (TIA), and cerebral infarction without residual deficits] Onset: 01-09-2014 11-29-2018 Episodic Other circulatory disease (1 source) Personal history of transient ischemic attack (TIA), and cerebral infarction without residual deficits; Translations: [Hx of ischemic left MCA stroke] Onset: 11-29-2018 Episodic Screening and history of mental health and substance abuse codes (20 sources) Ex-smoker; Translations: [Personal history of nicotine dependence] Onset: 09-26-2020 09-26-2020 Episodic Spondylosis; intervertebral disc disorders; other back problems (20 sources) Cervical radiculopathy; Translations: [Radiculopathy, cervical region] Onset: 11-23-2017 11-23-2017 Episodic Results Test Name Value Interpretation Reference Range Facil ity Vital Signs Date Time Vital Sign Value Performing Clinician Kasi meyers 12-23-2022 13:30-0400 Body weight 101.61 kg NA Fortune PA-C Work Phone: [facility] 12-23-2022 13:30-0400 Diastolic blood pressure 68 mm[Hg] NA Fortune PA-C Work Phone: [facility] 12-23-2022 13:30-0400 Heart rate 73 /min NA Fortune PA-C Work Phone: [facility] 12-23-2022 13:30-0400 Respiratory rate 18 /min NA Fortune PA-C Work Phone: [facility] 12-23-2022 13:30-0400 SaO2% (BldA) [Mass fraction] 96 % NA Fortune PA-C Work Phone: [facility] 12-23-2022 13:30-0400 Systolic blood pressure 130 mm[Hg] NA Fortune PA-C Work Phone: [facility] 10-05-2021 17:44-0400 Body weight 104.78 kg Verena Christian MD Work Phone: [facility] 10-05-2021 17:44-0400 Diastolic blood pressure 72 mm[Hg] Verena Christian MD Work Phone: [facility] 10-05-2021 17:44-0400 Heart rate 84 /min Verena Christian MD Work Phone: [facility] 10-05-2021 17:44-0400 Systolic blood pressure 124 mm[Hg] Verena Crhistian MD Work Phone: [facility] Encounters Encounter Date Encounter Type Care Provider Facility Start: 05-11-2023 Refill Verena Christian MD Work Phone: [facility] Procedures Date Procedure Procedure Detail Performing Clinician Start: 09-29-2020 Colonoscopy Salena marsh OD Work Phone: Plan of Treatment Date Care Activity Detail Author Start: 09-29-2030 Colonoscopy COLONOSCOPY [facility] Start: 09-29-2030 COLORECTAL CANCER SCREENING COLORECTAL CANCER SCREENING [facility] Start: 09-29-2030 Screening for malign ant neoplasm of colon [facility] Start: 06-20-2025 PROSTATE CANCER SCRE ENING DISCUSSION PROSTATE CANCER SCREENING DISCUSSION [facility] Start: 06-20-2025 Prostate specific an tigen measurement Prostate Cancer Screening Discussion [facility] Start: 12-24-2023 3 comp foot exam completed Diabetic Foot Exam [facility] Start: 12-24-2023 Annual PCP Team Unload Associate osvaldo Disease Visit Annual PCP Team Chronic Disease Visit [facility] Start: 12-24-2023 Covid-19 Vaccine ( season) Covid-19 Vaccine ( season) [facility] Immunizations Immunization Date Immunization Notes Care Provider Fa danny 12-23-2022 pneumococcal Conjuga te, unspecified formulation NA Fortune PA-C Work Phone: [facility] Work Phone: 12-23-2022 pneumococcal (PCV20) vaccine, 20 valent (PREVNAR 20) NA Fortune PA-C Work Phone: [facility] 12-21-2022 influenza, high dose seasonal, preservative-free NA Fortune PA-C Work Phone: [facility] 11-26-2020 influenza, high dose seasonal, preservative-free Salena Chow OD Work Phone: [facility] 11-26-2020 influenza, high-dose , quadrivalent vaccine (FLUZONE HIGH DOSE QUADRIVALENT) Salena Chow OD Work Phone: [facility] Work Phone: 09-11-2020 COVID-19 vaccine, ag e 12+ yr (PFIZER-BIONTECH - PURPLE TOP) Salena Chow OD Work Phone: [facility] 08-21-2020 COVID-19 vaccine, ag e 12+ yr (PFIZER-BIONTECH - PURPLE TOP) Salena Chow OD Work Phone: [facility] 01-18-2020 influenza (aIIV4) vaccine, age 65+ yr, quadrivalent, PF (FLUAD QUADRIVALENT) Salena Chow OD Work Phone: [facility] 11-28-2018 influenza, injectabl e, quadrivalent, contains preservative Saelna Chow OD Work Phone: [facility] Work Phone: 02-22-2018 influenza, injectabl e, quadrivalent, contains preservative Salena Chow OD Work Phone: [facility] 01-25-2017 influenza, seasonal, injectable, preservative free Salena Chow OD Work Phone: [facility] 05-16-2015 pneumococcal polysaccharide vaccine, 23 valent Salena Chow OD Work Phone: [facility] 01-14-2015 influenza, injectabl e, quadrivalent, contains preservative Salena Chow OD Work Phone: [facility] Work Phone: Payers Date Payer Category Payer Medicare MEDICARE MEDICAR E A AND B [id number] 2016-Present [phone] [place] [address] Medicare [id number] 2016 Medicare MEDICARE MEDICAR E A AND B [id number] 2016-Present [phone] [place] [address] Medicare [id number] 2016 Medicare [id number] Medicare [id number] Social History Date Type Detail Facility Start: 02-04-2014 End: 12-23-2022 Tobacco smoking status NHIS Ex-smoker [facility] End: 01-06-2014 History of tobacco use Current smoker [facility] End: 01-06-2014 History of tobacco use Cigarette Smoker [facility] Start: 02-04-2014 End: 10-28-2022 Cigarettes smoked current (pack per day) - Reported 1.5 [facility] Start: 02-04-2014 End: 12-23-2022 Tobacco use and exposure Smokeless tobacco non-user [facility] Start: 06-22-2021 End: 12-24-2022 Alcohol intake Current non-drinker of alcohol (finding) [facility] Start: 02-04-2014 End: 12-23-2022 Tobacco Comment has not smoked since heart attack on 01/06/14 [facility] Start: 1955 Sex Assigned At Not on file [facility] Start: 05-24-2021 End: 10-05-2021 Exposure to SARS-CoV-2 (event) Not sure [facility] Start: 10-05-2021 End: 10-28-2022 Tobacco use panel [facility] National Score (1-10 0), lower number is lower risk 57 [facility] Medical Equipment Procedure Code Equipment Code Equipment Origin al Text Equipment Identifier Dates Start: 02-05-2014 End: 12-24-2022 Clinical Notes 05-06-2014 to 05-11-2023 Telephone Encounter - Caroline Sepulveda - 05/11/2023 3:30 PM ESTTelephone Encounter - Av Castillo RN - 12/29/2022 8:15 AM EDTTelephone Encounter - Verena Christian MD - 12/28/2022 5:11 PM EDT Note Date & Type Note Facility 05-11-2023 Miscellaneous Notes Pharmacy verified in Epic Patient has been identified by name and date of : Yes Patient aware RX will be sent to pharmacy. No need to notify patient. Patient phones for refill(s): Requested Prescriptions Pending Prescriptions Disp Refills carbidopa-levodopa (SINEMET 25-100) 25-100 mg per tablet 270 tablet 1 Sig: Take 1 tablet by mouth three times a day. Date of last office visit : 12/23/2022 Date of next office visit : 06/27/2023 Last 2 Encounter Wt Readings: Date: Wt: 12/23/2022 101.6 kg (224 lb) 10/05/2021 104.8 kg (231 lb) Not applicable Please advise. Caroline Cardenas Pss documented in this encounter [facility] 12-29-2022 Miscellaneous Notes Phoned and given provider's message below with verbalized understanding. Rx sent. Ok to use Pt's calls to report that insurance will not cover Toujeo. Insurance will cover Lantus. is asking if that is an acceptable alternative. Call with dr's message. Araceli Granados LPN documented in this encounter [facility] 12-23-2022 Note HNO ID: [id number] Author: Av Fortune PA-C Service: ? Author Type: Physician Composing Machine Operator/Tender Type: Progress Notes Filed: 12/24/2022 9:06 AM Note Text: 67 year old male with c/o here for follow up. Hasn't completed lab work. Cerebrovascular accident (cva), unspecified mechanism (hcc) (primary encounter diagnosis) Hx of ischemic left mca stroke Ascvd (arteriosclerotic cardiovascular disease) Essential hypertension Mixed hyperlipidemia Cardiovascular interval data/hx: 03/02/2018 PVR ankle bilat: WNL RIGHT SIDE Resting right ankle brachial index: greater than 1.90 Non-compressible arteries, HANS not accurate. Right toe brachial index: 1.11 Non-compressible vessels, results called by PVR tracings. Normal toe brachial index at rest in the right leg. LEFT SIDE Resting left ankle brachial index: 1.23 Left toe brachial index: 0.98 Normal ankle brachial index at rest in the left leg. Normal toe brachial index at rest in the left leg. 10/02/15 echo: LV Segmental wall dysfunction, EF 55%, MV calcification anterior leaflet, RV size NL LA, RA NL size. 02/25/2015 echo: LV size NL, LVH apical aneurysm and thrombus resolved, continued mod upper septal left hypertrophy; LVSF diminshed, EF 50%; stage 1 diast dysf; RV size and RVSF NL. RVSP 31 mmHG. No valvular or great vessel disease 04/08/2014 echo LV size NL, LVH with upper disproportionately htick, LVSF diminshed, EF 41%; stage 1 daist dysf; small apicla thrombus, RV size and RVSF NL. RVSP 27mmHG. No valvular or great vessel disease 12/1913 Anteroseptal SC urgent heart cath: LV 140/50, Aortic 140/80 Mod to severe LVD with dyskinesia apex; LM minimal; CX/ OM mild; RCA 30% mid thirds, stent patent 03/2010 Stent RCA Current meds: ASA EC 81 mg daily Atorvastatin 20 mg daily Carvedilol 6.25 mg 1 tablet twice daily with meals Clopidogrel 75 mg daily Lisinopril 5 mg daily Use of NTG: No Chest pain, arm, jaw pain, neck, or upper back pain suggestive of angina: No. SOB: No Dyspnea with exertion: No orthopnea: No Cough : No racing or irregular heartbeats: No palpitations: No syncopal sx: No Headache: No Unexplainable fatigue No Leg swelling: No Nausea: No diaphoresis: No Heartburn: none Claudication: No Smoking: No Following Low cholesterol, high fiber diet? No If on statin: muscle aches? No If on statin: GI sx or diarrhea? Alittle after coffee in the morning Additional history none. Lab review: Component Latest Ref Rng AND Units 10/25/2019 08/19/2020 08/17/2022 Protein, Total 6.3 - 8.0 g/dL 7.4 Albumin 3.9 - 4.9 g/dL 4.4 Calcium 8.5 - 10.2 mg/dL 10.0 Bilirubin, Total 0.2 - 1.3 mg/dL 0.2 Alkaline Phosphatase 38 - 113 U/L 96 AST 14 - 40 U/L 17 ALT 10 - 54 U/L 6 (L) Glucose 74 - 99 mg/dL 132 (H) BUN 9 - 24 mg/dL 11 Creatinine 0.73 - 1.22 mg/dL 0.73 Sodium 136 - 144 mmol/L 138 Potassium 3.7 - 5.1 mmol/L 4.6 Chloride 97 - 105 mmol/L 103 CO2 22 - 30 mmol/L 20 (L) Anion Gap 9 - 18 mmol/L 15 eGFR >=60 mL/min/1.73mA? 99 WBC 3.70 - 11.00 k/uL 7.31 RBC 4.20 - 6.00 m/uL 4.86 Hemoglobin 13.0 - 17.0 g/dL 14.4 Hematocrit 39.0 - 51.0 % 44.4 MCV 80.0 - 100.0 fL 91.4 MCH 26.0 - 34.0 pG 29.6 MCHC 30.5 - 36.0 g/dL 32.4 RDW-CV 11.5 - 15.0 % 13.2 Platelet Count 150 - 400 k/uL 288 MPV 9.0 - 12.7 fL 10.3 Absolute nRBC <0.01 k/uL <0.01 Cholesterol, Total <200 mg/dL 153 141 Triglyceride <150 mg/dL 237 (H) 220 (H) HDL Cholesterol >39 mg/dL 32 (L) 35 (L) LDL Cholesterol <100 mg/dL 74 62 Non HDL Cholesterol <130 mg/dL 121 106 Fasting Time hrs 0 18 VLDL Cholesterol <30 mg/dL 47 (H) 44 (H) TC:HDL Ratio <5.10 4.78 4.03 LDL:HDL Ratio <2.54 2.31 1.77 Acute respiratory failure with hypoxia (hcc) Resolved Partial symptomatic epilepsy with complex partial seizures, intractable, without status epilepticus (hcc) Current medications: Oxcarbazepine 300 mg 4 times daily 5 years or more since last seizure Uncontrolled type 2 diabetes mellitus with hyperglycemia, without long-term current use of insulin (hcc) Diabetes mellitus due to underlying condition with diabetic nephropathy, unspecified whether nursing home insulin use (hcc) 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 Yes Medication side effects: Medical Issues / Complications: hypertension, hyperlipidemia, peripheral neuropathy, and cardiovascular disease Checking blood sugars at home?No, needs new monitor. Watching diet? Yes, has made changes to lower carbs Physical Activity: Regular Hypoglycemic spells? No Any visual disturbance? No Chest pain? No New numbness, tingling or loss of sensation? No Any recent foot problems, sores or rashes? No Any recent or sudden weight loss? No [facility] (more content not included)... [facility] (statuses as of 12/25/2022) [facility]10-05-2023 History of Past illness Narrative* Problem Noted Date Diagnosed Date Resolved Date Acute respiratory failure with hypoxia 12/23/2022 12/24/2022 Hypertension 05/06/2014 10/27/2015 Hyperlipidemia 05/06/2014 10/27/2015 Infection of kidney, unspecified 11/28/2007 08/03/2016 Bladder neck obstruction 10/18/2007 Malignant neoplasm of kidney, except pelvis 10/18/2007 11/28/2007 documented as of this encounter (statuses as of 12/29/2022) [facility] History of Past illness Narrative* Problem Noted Date Diagnosed Date Resolved Date Acute respiratory failure with hypoxia 12/23/2022 12/24/2022 Hypertension 05/06/2014 10/27/2015 Hyperlipidemia 05/06/2014 10/27/2015 Infection of kidney, unspecified 11/28/2007 08/03/2016 Bladder neck obstruction 10/18/2007 Malignant neoplasm of kidney, except pelvis 10/18/2007 11/28/2007 documented as of this encounter (statuses as of 02/08/2023) [facility] History of Past illness Narrative* Problem Noted Date Diagnosed Date Resolved Date Acute respiratory failure with hypoxia 12/23/2022 12/24/2022 Hypertension 05/06/2014 10/27/2015 Hyperlipidemia 05/06/2014 10/27/2015 Infection of kidney, unspecified 11/28/2007 08/03/2016 Bladder neck obstruction 10/18/2007 Malignant neoplasm of kidney, except pelvis 10/18/2007 11/28/2007 documented as of this encounter (statuses as of 05/11/2023) [facility] History of Present illness Narrative* Av Fortune PA-C - 12/23/2022 1:40 PM EDT 67 year old male with c/o here for follow up. Hasn't completed lab work. Cerebrovascular accident (cva), unspecified mechanism (hcc) (primary encounter diagnosis) Hx of ischemic left mca stroke Ascvd (arteriosclerotic cardiovascular disease) Essential hypertension Mixed hyperlipidemia Cardiovascular interval data/hx: 03/02/2018 PVR ankle bilat: WNL RIGHT SIDE Resting right ankle brachial index: greater than 1.90 Non-compressible arteries, HANS not accurate. Right toe brachial index: 1.11 Non-compressible vessels, results called by PVR tracings. Normal toe brachial index at rest in the right leg. LEFT SIDE Resting left ankle brachial index: 1.23 Left toe brachial index: 0.98 Normal ankle brachial index at rest in the left leg. Normal toe brachial index at rest in the left leg. 10/02/15 echo: LV Segmental wall dysfunction, EF 55%, MV calcification anterior leaflet, RV size NL LA, RA NL size. 02/25/2015 echo: LV size NL, LVH apical aneurysm and thrombus resolved, continued mod upper septal left hypertrophy; LVSF diminshed, EF 50%; stage 1 diast dysf; RV size and RVSF NL. RVSP 31 mmHG. No valvular or great vessel disease 04/08/2014 echo LV size NL, LVH with upper disproportionately htick, LVSF diminshed, EF 41%; stage 1daist dysf; small apicla thrombus, RV size and RVSF NL. RVSP 27mmHG. No valvular or great vessel disease 12/1913 Anteroseptal SC urgent heart cath: LV 140/50, Aortic 140/80 Mod to severe LVD with dyskinesia apex; LM minimal; CX/ OM mild; RCA 30% mid thirds, stent patent 03/2010 Stent RCA Current meds: ASA EC 81 mg daily Atorvastatin 20 mg daily Carvedilol 6.25 mg 1 tablet twice daily with meals Clopidogrel 75 mg daily Lisinopril 5 mg daily Use of NTG: No Chest pain, arm, jaw pain, neck, or upper back pain suggestive of angina: No. SOB: No Dyspnea with exertion: No orthopnea: No Cough : No racing or irregular heartbeats: No palpitations: No syncopal sx: No Headache: No Unexplainable fatigue No Leg swelling: No Nausea: No diaphoresis: No Heartburn: none Claudication: No Smoking: No Following Low cholesterol, high fiber diet? No If on statin: muscle aches? No If on statin: GI sx or diarrhea? Alittle after coffee in the morning Additional history none. Lab review: Component Latest Ref Rng & Units 10/25/2019 08/19/2020 08/17/2022 Protein, Total 6.3 - 8.0 g/dL 7.4 Albumin 3.9 - 4.9 g/dL 4.4 Calcium 8.5 - 10.2 mg/dL 10.0 Bilirubin, Total 0.2 - 1.3 mg/dL 0.2 Alkaline Phosphatase 38 - 113 U/L 96 AST 14 - 40 U/L 17 ALT 10 - 54 U/L 6 (L) Glucose 74 - 99 mg/dL 132 (H) BUN 9 - 24 mg/dL 11 Creatinine 0.73 - 1.22 mg/dL 0.73 Sodium 136 - 144 mmol/L 138 Potassium 3.7 - 5.1 mmol/L 4.6 Chloride 97 - 105 mmol/L 103 CO2 22 - 30 mmol/L 20 (L) Anion Gap 9 - 18 mmol/L 15 eGFR >=60 mL/min/1.73m 99 WBC 3.70 - 11.00 k/uL 7.31 RBC 4.20 - 6.00 m/uL 4.86 Hemoglobin 13.0 - 17.0 g/dL 14.4 Hematocrit 39.0 - 51.0 % 44.4 MCV 80.0 - 100.0 fL 91.4 MCH 26.0 - 34.0 pG 29.6 MCHC 30.5 - 36.0 g/dL 32.4 RDW-CV 11.5 - 15.0 % 13.2 Platelet Count 150 - 400 k/uL 288 MPV 9.0 - 12.7 fL 10.3 Absolute nRBC <0.01 k/uL <0.01 Cholesterol, Total <200 mg/dL 153 141 Triglyceride <150 mg/dL 237 (H) 220 (H) HDL Cholesterol >39 mg/dL 32 (L) 35 (L) LDL Cholesterol <100 mg/dL 74 62 Non HDL Cholesterol <130 mg/dL 121 106 Fasting Time hrs 0 18 VLDL Cholesterol <30 mg/dL 47 (H) 44 (H) TC:HDL Ratio <5.10 4.78 4.03 LDL:HDL Ratio <2.54 2.31 1.77 Acute respiratory failure with hypoxia (hcc) Resolved Partial symptomatic epilepsy with complex partial seizures, intractable, without status epilepticus(hcc) Current medications: Oxcarbazepine 300 mg 4 times daily 5 years or more since last seizure Uncontrolled type 2 diabetes mellitus with hyperglycemia, without long-term current use of insulin (hcc) Diabetes mellitus due to underlying condition with diabetic nephropathy, unspecified whether termite exterminator helper insulin use (hcc) 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 Yes Medication side effects: Medical Issues / Complications: hypertension, hyperlipidemia, peripheral neuropathy, and cardiovascular disease Checking blood sugars at home?No, needs new monitor. Watching diet? Yes, has made changes to lower carbs Physical Activity: Regular Hypoglycemic spells? No Any visual disturbance? No Chest pain? No New numbness, tingling or loss of sensation? No Any recent foot problems, sores or rashes? No Any recent or sudden weight loss? No Change in urination? No. If yes: Any recent illness? No Last eye exam: due. William Last foot exam: due. HBA1C: Hemoglobin A1C (%) Date Value 08/17/2022 8.0 03/27/2021 9.2 06/09/2020 8.5 ) CMP: Glucose 132 08/17/2022 BUN 11 08/17/2022 Creatinine, Whole Blood (iSTAT) 0.73 08/17/2022 Sodium 138 08/17/2022 Potassium 4.6 08/17/2022 Chloride 103 08/17/2022 CO2 20 08/17/2022 Protein, Total 7.4 08/17/2022 Albumin 4.4 08/17/2022 Calcium 10.0 08/17/2022 Alkaline Phosphatase 96 08/17/2022 Bilirubin, Total 0.2 08/17/2022 AST 17 08/17/2022 ALT 6 08/17/2022 Last 2 Encounter Wt Readings: Date: Wt: 10/05/2021 104.8 kg (231 lb) 03/27/2021 104.8 kg (231 lb) Major depressive disorder with single episode, in partial remission (hcc) Currently on no medication aside from above Hard to sleep at times Mood is pretty good. Looks forward to the next. Chronic H. Pylori gastritis Impression: - Normal examined jejunum. - Duodenitis. - Gastritis. Biopsied. - Normal lower third of esophagus. Biopsied - Normal middle third of esophagus. Biopsied. - The entire examined colon is normal. - The distal rectum and anal verge are normal on retroflexion view. - No lower GI specimens collected. Path report: 1. Esophagus, distal, biopsy (A) - Squamous mucosa with scattered active inflammatory cells infiltrate and small fragments of slight chronically inflamed gastric mucosa; negative for intestinal metaplasia and dysplasia. 2. Esophagus, mid, biopsy (B) - Squamous mucosa with no pathologic diagnostic abnormality. 3. Esophagogastric junction, biopsy (C) - Gastric fundic-type mucosa with no pathologic diagnostic abnormality; negative for squamous mucosa, intestinal metaplasia and dysplasia. 4. Stomach, antral, biopsy (D) - Chronic active gastritis with H. pylori-like organisms; see comment. SS 09/30/2020 CONVERTED DIAGNOSIS COMMENT 4. H. pylori-like organisms are identified on routine H&E stained sections. HISTORIES No family history on file. PAST MEDICAL HISTORY Diagnosis Date Acute SC (HCC) 01/06/14 CAD (coronary artery disease) CVA (cerebral vascular accident) ([facility]) 01/09/14 Epilepsy ([facility]) Dr. 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 without mention of complication, not stated as uncontrolled ([facility]) Unspecified essential hypertension PAST SURGICAL HISTORY Procedure Laterality Date COLONOSCOPY FLX DX W/COLLJ SPEC WHEN PFRMD 09/29/2020 ESOPHAGOGASTRODUODENOSCOPY TRANSORAL DIAGNOSTIC 09/29/2020 STENT PLACEMENT 01/18/2011 STENT PLACEMENT 01/06/2014 Social History Tobacco Use Smoking status: Former Packs/day: 1.50 Years: 40.00 Additional pack years: 0.00 Total pack years: 60.00 Types: Cigarettes Quit date: 01/06/2014 Years since quittin.9 Smokeless tobacco: Never Tobacco comments: has not smoked since heart attack on 01/06/14 Substance Use Topics Alcohol use: No Drug use: No ACTIVE PROBLEM LIST Benign Non-Nodular Prostatic Hyperplasia Without Lower Urinary Tract Symptoms Hx of Ischemic Left Mca Stroke Diabetes (Hcc) Ascvd (Arteriosclerotic Cardiovascular Disease) Essential Hypertension Mixed Hyperlipidemia Epilepsy With Partial Complex Seizures (Hcc) Major Depressive Disorder With Single Episode, in Partial Remission (Hcc) Cervical Radiculopathy Retrolisthesis of Vertebrae Neck Pain Iron Deficiency Anemia Former Smoker Class 1 Obesity Due to Excess Calories With Serious Comorbidity and Body Mass Index (Bmi) of 32.0 to 32.9 in Adult Amputation of Left Great Toe (Hcc) Current Outpatient Medications Medication Sig Dispense Refill carvedilol (COREG) 6.25 mg tablet TAKE ONE (1) TABLET BY MOUTH TWICE DAILY WITH MEALS 60 tablet 0 lisinopril (ZESTRIL) 5 mg tablet Take 1 tablet by mouth once daily. 90 tablet 0 empagliflozin (JARDIANCE) 10 mg tablet Take 1 tablet by mouth every morning. 90 tablet 0 carbidopa-levodopa (SINEMET 25-100) 25-100 mg per tablet Take 1 tablet by mouth three times daily. 270 tablet 1 Insulin Satin, Disposable, (BD ULTRA-FINE KELSIE PEN NEEDLE) 32 gauge x 5/32 Use one needle for each dose. once/day. 100 Each 0 mirtazapine (REMERON) 30 mg tablet Take 1 tablet by mouth daily at bedtime. 90 tablet 3 atorvastatin (LIPITOR) 20 mg tablet Take 1 tablet by mouth daily at bedtime. For cholesterol. 90 tablet 3 clopidogrel (PLAVIX) 75 mg tablet Take 1 tablet by mouth once daily. 90 tablet 1 metFORMIN (GLUCOPHAGE) 1,000 mg tablet TAKE ONE (1) TABLET BY MOUTH TWICE DAILY WITH MEALS 180 tablet 3 OXcarbazepine (TRILEPTAL) 300 mg tablet Take 1 tablet by mouth four times daily. 360 tablet 3 insulin glargine U-300 conc (TOUJEO SOLOSTAR U-300 INSULIN) 300 unit/mL (1.5 mL) Inject 13 Units subcutaneously daily at bedtime. 3 Each 3 Lancets lancets Test blood sugar(s) 3 times daily. Dx: Type 2 DM - Uncontrolled E11. Insulin: [id number] Each 11 blood sugar diagnostic (BLOOD GLUCOSE TEST) test strip Test blood sugar(s) 3 times daily. Dx: Type 2 DM - Uncontrolled E11. Insulin: Yes 50 Strip 11 cyclobenzaprine (FLEXERIL) 10 mg tablet Take 1 tablet by mouth three times daily as needed for muscle spasm. 30 tablet 1 lisinopril (ZESTRIL, PRINIVIL) 5 mg tablet Take 1 tablet by mouth once daily. 30 tablet 12 polyethylene glycol 3350 (MIRALAX) 17 gram/dose powder Take 17 g by mouth once daily. As needed 510g [address] (PROTONIX) 40 mg tablet Take 1 tablet by mouth twice daily for 14 days. 28 tablet 0 Bisacodyl (DULCOLAX) 5 mg tab Use as directed for Miralax / Gatorade Bowel Prep Kit 4 tablet 0 aspirin, enteric coated (ECOTRIN LOW STRENGTH) 81 mg EC tablet Take 1 tablet by mouth once daily. 0 No current facility-administered medications for this visit. DTaP,Tdap,Td Vaccine(1 - Tdap) Never done Shingrix Vaccine(1 of 2) Never done Hepatitis B Vaccine(1 of 3 - Risk 3-dose series) Never done Pneumococcal Vaccine: 65+(2 - PCV) due on 05/16/2016 BP Controlled (<130/80) due on 10/14/2018 Covid-19 Vaccine(3 - Pfizer series) due on 11/06/2020 Advance Directive Discussion Never done Diabetic Foot Exam due on 03/27/2022 Dilated Retinal Exam due on 06/22/2022 Annual PCP Team Chronic Disease Visit due on 10/05/2022 HbA1C due on 11/17/2022 Influenza Vaccine(1) due on 11/19/2022 EXAM: BP 130/68 Pulse 73 Resp 18 Wt 101.6 kg (224 lb) SpO2 96% BMI 32.14 kg/m Pleasant overweight man in no acute distress. Alert and oriented all spheres. Normal affect and cognition. Speech normal. No deficits to learning or comprehension. Dysarthria and might word recall issues. Skin warm, dry, pink to lips and nailbeds. Normal turgor. Respirations regular and unlabored. HEENT: NCAT. No scleral icterus or conjunctival injection. TM's clear. Nose and oropharynx free from injection or lesion. Oral membranes moist and pink. No cervical lymph nodes. Thyroid non-tender, no masses, or enlargement. Carotids pulses 2+/4+ without bruits. No JVD with HOB at 30 degrees. Chest is normal shape. Lungs are clear to all mijares with good air exchange through out. HRRR without murmur or gallop. No lifts, heaves, or rubs. Extrem: no clubbing or cyanosis. Edema: none. Extremities are warm and pink with prompt capillary refill. Feet:Shoes and socks removed, Are you having foot pain no-not much sensation, No deformities, ulcers, calluses, normal distal pulses, not sensitive to monofilament pathchy sensation over dorsal midfoot starting at base of toes. Almost all toes without clear sensation proximal toe base, vibratory perception normal hallux and 5th MT calluses noted bilaterally, and nails notable for Hypertrophic ASSESSMENT/PLAN: 1. Cerebrovascular accident (CVA), unspecified mechanism (HCC) - ICD9: 434.91, ICD10: I63.9 (primary diagnosis) Stable with good hypertensive and lipid control. - LIPID PANEL, NONFASTING 2. Hx of ischemic left MCA stroke - ICD9: V12.54, ICD10: Z86.73 As above 3. ASCVD (arteriosclerotic cardiovascular disease) - ICD9: 429.2, 440.9, ICD10: I25.10 As above, no ischemic equivalent sx. 4. Essential hypertension - ICD9: 401.9, ICD10: I10 - Controlled - Continue current medications - Recommend home blood pressure monitoring, to bring results to next visit - Encouraged sodium restriction, DASH or Mediterranean diet - Recommend regular aerobic exercise - CARVEDILOL 6.25 MG TABLET - LISINOPRIL 5 MG TABLET 5. Mixed hyperlipidemia - ICD9: 272.2, ICD10: E78.2 - Controlled - Continue current medications - Counseled on healthy diet and regular exercise - LIPID PANEL, NONFASTING 6. Acute respiratory failure with hypoxia (HCC) - ICD9: 518.81, ICD10: J96.01 resolved 7. Partial symptomatic epilepsy with complex partial seizures, intractable, without status epilepticus (HCC) - ICD9: 345.41, ICD10: G40.219 No seizures in 5 years 8. Uncontrolled type 2 diabetes mellitus with hyperglycemia, without long-term current use of insulin ([facility]) - ICD9: 250.02, ICD10: E11.65 - Control undetermined, due for labs - Continue current medications - BLOOD-GLUCOSE METER KIT 9. Diabetes mellitus due to underlying condition with diabetic nephropathy, unspecified whether termite exterminator helper insulin use ([facility]) - ICD9: 249.40, 583.81, ICD10: E08.21 - BLOOD-GLUCOSE METER KIT - CARVEDILOL 6.25 MG TABLET - EMPAGLIFLOZIN 10 MG TABLET - TOUJEO SOLOSTAR U-300 INSULIN 300 UNIT/ML (1.5 ML) SUBCUTANEOUS PEN - BLOOD-GLUCOSE METER - BLOOD GLUCOSE CONTROL, NORMAL SOLUTION 10. Type 2 diabetes mellitus with ulcer ([facility]) - ICD9: 250.80, 707.9, ICD10: E11.622, L98.499 - Controlled Ulcer resolved. Recent PV sydies show normal circulation. Wears shoes when up fpr prevention of sores. Instructed to inspect feet every night, lotion, shoe wear surveillance for defects. 11. Amputation of left great toe ([facility]) - ICD9: 895.0, ICD10: S98.112A 12. Major depressive disorder with single episode, in partial remission ([facility]) - ICD9: 296.25, ICD10: F32.4 Follows with psych Feels he is doing well. 13. Encounter for immunization - ICD9: V03.89, ICD10: Z23 - TDAP PRINTED PHARMACY INSTRUCTIONS - PNEUMOCOCCAL VACCINE (PREVNAR 20) 14. Chronic Helicobacter pylori gastritis - ICD9: 535.10, 041.86, ICD10: K29.50, B96.81 Treated: currently without sx and off meds. Will notify results when labs return F/u 6 months and as needed Av Fortune PA-C documented [facility] Miscellaneous Notes* Telephone Encounter - Yadira Laurent LPN - 11/24/2022 4:46 PM EDT Spoke with pt's and information listed below given. She will check with pt on schedule and call back. Will get fasting blood work done also. Yadira Laurent LPN * Telephone Encounter - Av Fortune PA-C - 11/24/2022 12:16 PM EDT Please schedule follow up as physical for HM Refill on 11/24/22 HGB A1C COMP METABOLIC PANEL LIPID PANEL BASIC MAGNESIUM BLD CBC Narciso Guy PA-C * Telephone Encounter - Winston Jane LPN - 11/24/2022 11:45 AM EDT KENNY 10/05/21 NOV no upcoming appt *Pt is due for Annual appt and labs. Winston Jane LPN * Telephone Encounter - Caroline Sepulveda - 11/24/2022 11:05 AM EDT Pharmacy verified in [facility] Patient has been identified by name and date of : Yes Patient aware RX will be sent to pharmacy. No need to notify patient. Spouse phones for refill(s): Requested Prescriptions Pending Prescriptions Disp Refills carvedilol (COREG) 6.25 mg tablet 60 tablet 0 Sig: TAKE ONE (1) TABLET BY MOUTH TWICE DAILY WITH MEALS lisinopril (ZESTRIL) 5 mg tablet 90 tablet 1 Sig: Take 1 tablet by mouth once daily. Date of last office visit : 10/05/2021 Date of next office visit : Visit date not found Last 2 Encounter Wt Readings: Date: Wt: 10/05/2021 104.8 kg (231 lb) 03/27/2021 104.8 kg (231 lb) Not applicable Please advise. Caroline Salazar documented in [facility] encounter[facility]09-[facility]-2023 Miscellaneous Notes* Telephone Encounter - Winston Jane LPN - 11/19/2022 1:45 PM EDT KENNY 10/05/21 NOV no upcoming appt Pt is due for Annual appt with PCP. Winston Jane LPN * Telephone Encounter - Danielle Clemente - 11/19/2022 11:59 AM EDT Patient has been identified by name and date of : Yes Requested Prescriptions Pending Prescriptions Disp Refills empagliflozin (JARDIANCE) 10 mg tablet 90 tablet 0 Sig: Take 1 tablet by mouth every morning. RX INSTRUCTIONS: Patient aware RX will be sent to pharmacy. No need to notify patient. Danielle Clemente documented in this encounter[facility]08-17-2023 Miscellaneous Notes* Telephone Encounter - Caroline Sepulveda - 11/04/2022 2:35 PM EDT Pharmacy verified in [facility] Patient has been identified by name and date of : Yes Patient aware RX will be sent to pharmacy. No need to notify patient. Spouse phones for refill(s): Requested Prescriptions Pending Prescriptions Disp Refills carbidopa-levodopa (SINEMET 25-100) 25-100 mg per tablet 270 tablet 1 Sig: Take 1 tablet by mouth three times daily. Date of last office visit : 10/05/2021 Date of next office visit : Visit date not found Last 2 Encounter Wt Readings: Date: Wt: 10/05/2021 104.8 kg (231 lb) 03/27/2021 104.8 kg (231 lb) Not applicable Please advise. Caroline Salazar documented in this encounterEast [facility]07-13-2023 NoteHNO ID: [id number] Author: Sarah Reyez MA Service: ? Author Type: Instrument Person Type: Progress Notes Filed: 09/30/2022 1:34 PM Note Text: POPULATION HEALTH NAVIGATION OUTREACH Action/FYI September 30, 2022 1:26 PM HCC Gaps E11.9 - Diabetes (HCC) F32.4 - Major depressive disorder with single episode, in partial remission (HCC) - [id number] Last Billed 03/27/2021 G40.209 - Epilepsy with partial complex seizures (HCC) - [id number] Last Billed 10/05/2021 KENNY with Verena Christian MD was October 05, 2021 Outcome: Attempted to reach patient. No answer, unable to leave message as voicemail has not been set up. Letter has been printed and sent to [employer] to have mailed to patients home address. Thank you Patient Identified by Name and : NO Outreach Outcome/Action Unable to reach patient: Voicemail has not been set up Letter mailed Did you use a PCP flex slot to schedule this appointment? N/A Reason for Outreach HCC or suspected condition Payer: Payor: MEDICARE / Plan: MEDICARE A AND B / Product Type: Medicare / Care Gap Reviewed:: Annual Wellness visit Reminder: Reminder note to check Health Maintenance for items below Health Maintenance items due: DTAP,TDAP,TD(1 - Tdap) Never done SHINGRIX VACCINE(1 of 2) Never done PNEUMOCOCCAL: 65+(2 - PCV) due on 05/16/2016 COVID-19 VACCINE(3 - Pfizer series) due on 11/06/2020 ADVANCE DIRECTIVE DISCUSSION Never done DIABETIC FOOT EXAM due on 03/27/2022 DILATED RETINAL EXAM due on 06/22/2022 Navigation Signature: Sarah Reyez MA September 30, 2022 1:26 [facility]07-13-2023 NotePatient Outreach (DIONNAV) SEAN SMITH ([id number]) 1955 M Date Time Provider Department 09/30/22 SARAH REYEZ During your visit today, we recorded the following information about you: Sarah Reyez MA 09/30/2022 1:34 PM Signed POPULATION HEALTH NAVIGATION OUTREACH Action/FYI September 30, 2022 1:26 PM HCC Gaps E11.9 - Diabetes (HCC) F32.4 - Major depressive disorder with single episode, in partial remission (HCC) - [id number] Last Billed 03/27/2021 G40.209 - Epilepsy with partial complex seizures (HCC) - [id number] Last Billed 10/05/2021 KENNY with Verena Christian MD was October 05, 2021 Outcome: Attempted to reach patient. No answer, unable to leave message as voicemail has not been set up. Letter has been printed and sent to [employer] to have mailed to patients home address. Thank you Patient Identified by Name and : NO Outreach Outcome/Action Unable to reach patient: Voicemail has not been set up Letter mailed Did you use a PCP flex slot to schedule this appointment? N/A Reason for Outreach HCC or suspected condition Payer: Payor: MEDICARE / Plan: MEDICARE A AND B / Product Type: Medicare / Care Gap Reviewed:: Annual Wellness visit Reminder: Reminder note to check Health Maintenance for items below Health Maintenance items due: DTAP,TDAP,TD(1 - Tdap) Never done SHINGRIX VACCINE(1 of 2) Never done PNEUMOCOCCAL: 65+(2 - PCV) due on 05/16/2016 COVID-19 VACCINE(3 - Pfizer series) due on 11/06/2020 ADVANCE DIRECTIVE DISCUSSION Never done DIABETIC FOOT EXAM due on 03/27/2022 DILATED RETINAL EXAM due on 06/22/2022 Navigation Signature: Sarah Reyez MA September 30, 2022 1:26 PM Allergies As of Date: 09/30/2022 Noted Allergy Reaction LYRICA (PREGABALIN) 10/06/2015 1 - Mental Status Change 14 - Other: See Comments Comments: Rapid heart beat PENICILLINS 10/18/2007 4 - Hives Comments: trouble breathing Date Reviewed: 06/22/2021 Reviewed by: Salena Chow OD - Fully Assessed Reason for Visit: Population Health Navigation Outreach [3910] Cmt: ACO HCC Prescriptions as of 09/30/2022 - carvedilol (COREG) 6.25 mg tablet TAKE ONE (1) TABLET BY MOUTH TWICE DAILY WITH MEALS - empagliflozin (JARDIANCE) 10 mg tablet Take 1 tablet by mouth every morning. - mirtazapine (REMERON) 30 mg tablet Take 1 tablet by mouth daily at bedtime. - atorvastatin (LIPITOR) 20 mg tablet Take 1 tablet by mouth daily at bedtime. For cholesterol. - lisinopril (ZESTRIL) 5 mg tablet Take 1 tablet by mouth once daily. - carbidopa-levodopa (SINEMET 25-100) 25-100 mg per tablet Take 1 tablet by mouth three times daily. - clopidogrel (PLAVIX) 75 mg tablet Take 1 tablet by mouth once daily. - metFORMIN (GLUCOPHAGE) 1,000 mg tablet TAKE ONE (1) TABLET BY MOUTH TWICE DAILY WITH MEALS - OXcarbazepine (TRILEPTAL) 300 mg tablet Take 1 tablet by mouth four times daily. - insulin glargine U-300 conc (TOUJEO SOLOSTAR U-300 INSULIN) 300 unit/mL (1.5 mL) Inject 13 Units subcutaneously daily at bedtime. - Lancets lancets Test blood sugar(s) 3 times daily. Dx: Type 2 DM - Uncontrolled E11.65 Insulin: Yes - blood sugar diagnostic (BLOOD GLUCOSE TEST) test strip Test blood sugar(s) 3 times daily. Dx: Type 2 DM - Uncontrolled E11.65 Insulin: Yes - Insulin Satin, Disposable, (BD ULTRA-FINE KELSIE PEN NEEDLE) 32 gauge x 32 Use one needle for each dose. once/day. - cyclobenzaprine (FLEXERIL) 10 mg tablet Take 1 tablet by mouth three times daily as needed for muscle spasm. - lisinopril (ZESTRIL, PRINIVIL) 5 mg tablet Take 1 tablet by mouth once daily. - polyethylene glycol 3350 (MIRALAX) 17 gram/dose powder Take 17 g by mouth once daily. As needed - pantoprazole DR (PROTONIX) 40 mg tablet Take 1 tablet by mouth twice daily for 14 days. - Bisacodyl (DULCOLAX) 5 mg tab Use as directed for Miralax / Gatorade Bowel Prep Kit - aspirin, enteric coated (ECOTRIN LOW STRENGTH) 81 mg EC tablet Take 1 tablet by mouth once daily. Problem List As Of Date 09/30/2022 Noted Resolved Benign non-nodular prostatic hyperplasia withou*10/18/2007 Bladder neck obstruction [N32.0] 10/18/2007 08/03/2016 MALIG NEOPL KIDNEY [C64.9] 10/18/2007 11/28/2007 Infection of kidney, unspecified [N15.9] 11/28/2007 08/03/2016 Hx of ischemic left MCA stroke [Z86.73] 01/09/2014 Diabetes (HCC) [E11.9] 02/21/2014 ASCVD (arteriosclerotic cardiovascular disease)*05/06/2014 Hypertension [I10] 05/06/2014 10/27/2015 Hyperlipidemia [E78.5] 05/06/2014 10/27/2015 Essential hypertension [I10] 10/14/2015 Mixed hyperlipidemia [E78.2] 10/14/2015 Epilepsy with partial complex seizures (HCC) [G*10/27/2015 Major depressive disorder with single episode, *11/10/2016 Cervical radiculopathy [M54.12] 11/23/2017 Retrolisthesis of vertebrae [M43.10] 10/25/2019 Neck pain [M54.2] 10/30/2019 Iron deficiency anemia (more content not included)...[facility] 09-30-2022 History of Present illness Narrative* Sarah Reyez MA - 09/30/2022 1:26 PM EDT POPULATION HEALTH NAVIGATION OUTREACH Action/I September 30, 2022 1:26 PM HCC Gaps E11.9 - Diabetes (HCC) F32.4 - Major depressive disorder with single episode, in partial remission (HCC) - [id number] Last Billed 03/27/2021 G40.209 - Epilepsy with partial complex seizures (HCC) - [id number] Last Billed 10/05/2021 KENNY with Verena Christian MD was October 05, 2021 Outcome: Attempted to reach patient. No answer, unable to leave message as voicemail has not been set up. Letter has been printed and sent to [employer] to have mailed to patients home address. Thank you Patient Identified by Name and : NO Outreach Outcome/Action Unable to reach patient: Voicemail has not been set up Letter mailed Did you use a PCP flex slot to schedule this appointment? N/A Reason for Outreach HCC or suspected condition Payer: Payor: MEDICARE / Plan: MEDICARE A AND B / Product Type: Medicare / Care Gap Reviewed:: Annual Wellness visit Reminder: Reminder note to check Health Maintenance for items below Health Maintenance items due: DTAP,TDAP,TD(1 - Tdap) Never done SHINGRIX VACCINE(1 of 2) Never done PNEUMOCOCCAL: 65+(2 - PCV) due on 05/16/2016 COVID-19 VACCINE(3 - Pfizer series) due on 11/06/2020 ADVANCE DIRECTIVE DISCUSSION Never done DIABETIC FOOT EXAM due on 03/27/2022 DILATED RETINAL EXAM due on 06/22/2022 Navigation Signature: Sarah Reyez MA September 30, 2022 1:26 PM documented in [facility] encounter[facility]06-[facility]-2023 Miscellaneous Notes* Telephone Encounter - Jeanine Roe LPN - 09/16/2022 1:36 PM EDT Patient/ are aware of need for appointment a one month supply pending. * Telephone Encounter - Jeny Salcedo - 09/16/2022 10:01 AM EDT Patient has been identified by name and date of : Yes, Provider dr. christian Date 09/16/22 Time 1002 Spouse phones for refill(s): Requested Prescriptions Pending Prescriptions Disp Refills carvedilol (COREG) 6.25 mg tablet 180 tablet 1 Sig: TAKE ONE (1) TABLET BY MOUTH TWICE DAILY WITH MEALS Date of last office visit in primary care: 10/05/21 Last 2 Encounter Wt Readings: Date: Wt: 10/05/2021 104.8 kg (231 lb) 03/27/2021 104.8 kg (231 lb) Previous labs/tests for medication: Not applicable Please advise. Thank you. Jeny Salcedo documented in this encounterEast [facility]05-31-2023 Miscellaneous Notes* Telephone Encounter - Jeanine Roe LPN - 08/18/2022 11:27 AM EDT was notified. This is the second time this nurse has told that patient needs scheduled. * Telephone Encounter - Verena Christian MD - 08/18/2022 7:55 AM EDT Sugars are better but still too high. Has not seen us in nearly a year. Needs to follow up to continue on meds and go over labs. documented in this encounterEast [facility]05-23-2023 NotePatient Outreach (NETNAV) SEAN SMITH ([id number]) 1955 Date Time Provider Department 08/10/22 SONJA KO During your visit today, we recorded the following information about you: Sonja Ko MA 08/10/2022 12:06 PM Addendum POPULATION HEALTH NAVIGATION OUTREACH Action/FYI Unable to leave , not set up. No mychart, letter mailed ANNUAL MEDICARE WELLNESS HBA1C due on 06/25/2021 ADVANCE DIRECTIVE DISCUSSION Never done MYCHART ACTIVATION Mailed letter 08/10/2022 MM Patient Identified by Name and : NO Outreach Outcome/Action Unable to reach patient: Phone number not valid / voicemail full Letter mailed Did you use a PCP flex slot to schedule this appointment? No Reason for Outreach Care Gap or Scheduling/Wellness visits Payer: Payor: MEDICARE / Plan: MEDICARE A AND B / Product Type: Medicare / Care Gap Reviewed:: Annual Wellness visit HBA1C Reminder: Reminder note to check Health Maintenance for items below Health Maintenance items due: DTAP,TDAP,TD(1 - Tdap) Never done SHINGRIX VACCINE(1 of 2) Never done PNEUMOCOCCAL: 65+(2 - PCV) due on 05/16/2016 COVID-19 VACCINE(3 - Booster for Pfizer series) due on 11/06/2020 HBA1C due on 06/25/2021 ADVANCE DIRECTIVE DISCUSSION Never done URINE ALBUMIN:CREATININE RATIO due on 03/27/2022 LDL CHOLESTEROL due on 03/27/2022 DIABETIC FOOT EXAM due on 03/27/2022 DILATED RETINAL EXAM due on 06/22/2022 Navigation Signature: Sonja Ko MA August 10, 2022 8:47 AM Allergies As of Date: 08/10/2022 Noted Allergy Reaction LYRICA (PREGABALIN) 10/06/2015 1 - Mental Status Change 14 - Other: See Comments Comments: Rapid heart beat PENICILLINS 10/18/2007 4 - Hives Comments: trouble breathing Date Reviewed: 06/22/2021 Reviewed by: Salena Chow OD - Fully Assessed Reason for Visit: Population Health Navigation Outreach [3910] Cmt: PRINCESS [place] PCSA Prescriptions as of 08/10/2022 - empagliflozin (JARDIANCE) 10 mg tablet Take 1 tablet by mouth every morning. - mirtazapine (REMERON) 30 mg tablet Take 1 tablet by mouth daily at bedtime. - atorvastatin (LIPITOR) 20 mg tablet Take 1 tablet by mouth daily at bedtime. For cholesterol. - lisinopril (ZESTRIL) 5 mg tablet Take 1 tablet by mouth once daily. - carbidopa-levodopa (SINEMET 25-100) 25-100 mg per tablet Take 1 tablet by mouth three times daily. - clopidogrel (PLAVIX) 75 mg tablet Take 1 tablet by mouth once daily. - metFORMIN (GLUCOPHAGE) 1,000 mg tablet TAKE ONE (1) TABLET BY MOUTH TWICE DAILY WITH MEALS - OXcarbazepine (TRILEPTAL) 300 mg tablet Take 1 tablet by mouth four times daily. - insulin glargine U-300 conc (TOUJEO SOLOSTAR U-300 INSULIN) 300 unit/mL (1.5 mL) Inject 13 Units subcutaneously daily at bedtime. - carvedilol (COREG) 6.25 mg tablet TAKE ONE (1) TABLET BY MOUTH TWICE DAILY WITH MEALS - Lancets lancets Test blood sugar(s) 3 times daily. Dx: Type 2 DM - Uncontrolled E11.65 Insulin: Yes - blood sugar diagnostic (BLOOD GLUCOSE TEST) test strip Test blood sugar(s) 3 times daily. Dx: Type 2 DM - Uncontrolled E11.65 Insulin: Yes - Insulin Satin, Disposable, (BD ULTRA-FINE KELSIE PEN NEEDLE) 32 gauge x 32 Use one needle for each dose. once/day. - cyclobenzaprine (FLEXERIL) 10 mg tablet Take 1 tablet by mouth three times daily as needed for muscle spasm. - lisinopril (ZESTRIL, PRINIVIL) 5 mg tablet Take 1 tablet by mouth once daily. - polyethylene glycol 3350 (MIRALAX) 17 gram/dose powder Take 17 g by mouth once daily. As needed - pantoprazole DR (PROTONIX) 40 mg tablet Take 1 tablet by mouth twice daily for 14 days. - Bisacodyl (DULCOLAX) 5 mg tab Use as directed for Miralax / Gatorade Bowel Prep Kit - aspirin, enteric coated (ECOTRIN LOW STRENGTH) 81 mg EC tablet Take 1 tablet by mouth once daily. Problem List As Of Date 08/10/2022 Noted Resolved Benign non-nodular prostatic hyperplasia withou*10/18/2007 Bladder neck obstruction [N32.0] 10/18/2007 08/03/2016 MALIG NEOPL KIDNEY [C64.9] 10/18/2007 11/28/2007 Infection of kidney, unspecified [N15.9] 11/28/2007 08/03/2016 Hx of ischemic left MCA stroke [Z86.73] 01/09/2014 Diabetes (HCC) [E11.9] 02/21/2014 ASCVD (arteriosclerotic cardiovascular disease)*05/06/2014 Hypertension [I10] 05/06/2014 10/27/2015 Hyperlipidemia [E78.5] 05/06/2014 10/27/2015 Essential hypertension [I10] 10/14/2015 Mixed hyperlipidemia [E78.2] 10/14/2015 Epilepsy with partial complex seizures (HCC) [G*10/27/2015 Major depressive disorder with single episode, *11/10/2016 Cervical radiculopathy [M54.12] 11/23/2017 Retrolisthesis of vertebrae [M43.10] 10/25/2019 Neck pain [M54.2] 10/30/2019 Iron deficiency anemia [D50.9] 08/01/2020 Former smoker [Z87.891] 09/26/2020 Class 1 obesity due to excess calories with ser*09/26/2020 Amputation of left great toe (HCC) [S98.112A (more content not included)... [facility] NoteHNO ID: [id number] Author: Sonja Ko MA Service: ? Author Type: Instrument Person Type: Progress Notes Filed: 08/10/2022 3:31 PM Note Text: POPULATION HEALTH NAVIGATION OUTREACH Action/FYI Unable to leave , not set up. No mychart, letter mailed ANNUAL MEDICARE WELLNESS HBA1C due on 06/25/2021 ADVANCE DIRECTIVE DISCUSSION Never done MYCHART ACTIVATION Mailed letter 08/10/2022 MM Patient Identified by Name and : NO Outreach Outcome/Action Unable to reach patient: Phone number not valid / voicemail full Letter mailed Did you use a PCP flex slot to schedule this appointment? No Reason for Outreach Care Gap or Scheduling/Wellness visits Payer: Payor: MEDICARE / Plan: MEDICARE A AND B / Product Type: Medicare / Care Gap Reviewed:: Annual Wellness visit HBA1C Reminder: Reminder note to check Health Maintenance for items below Health Maintenance items due: DTAP,TDAP,TD(1 - Tdap) Never done SHINGRIX VACCINE(1 of 2) Never done PNEUMOCOCCAL: 65+(2 - PCV) due on 05/16/2016 COVID-19 VACCINE(3 - Booster for Pfizer series) due on 11/06/2020 HBA1C due on 06/25/2021 ADVANCE DIRECTIVE DISCUSSION Never done URINE ALBUMIN:CREATININE RATIO due on 03/27/2022 LDL CHOLESTEROL due on 03/27/2022 DIABETIC FOOT EXAM due on 03/27/2022 DILATED RETINAL EXAM due on 06/22/2022 Navigation Signature: Sonja Ko MA August 10, 2022 8:47 [facility]04-25-2023 NotePatient Outreach (INTMMN) SEAN SMITH ([id number]) 1955 M Date Time Provider Department 07/13/22 VERENA CHRISTIAN During your visit today, we recorded the following information about you: Allergies As of Date: 07/13/2022 Noted Allergy Reaction LYRICA (PREGABALIN) 10/06/2015 1 - Mental Status Change 14 - Other: See Comments Comments: Rapid heart beat PENICILLINS 10/18/2007 4 - Hives Comments: trouble breathing Date Reviewed: 06/22/2021 Reviewed by: Salena Chow OD - Fully Assessed Visit Diagnosis:Diabetes (HCC) [E11.9] Order(s):HGB A1C [[id number]] Order #: [id number] FUTURE Prescriptions as of 07/16/2022 - lisinopril (ZESTRIL) 5 mg tablet Take 1 tablet by mouth once daily. - carbidopa-levodopa (SINEMET 25-100) 25-100 mg per tablet Take 1 tablet by mouth three times daily. - empagliflozin (JARDIANCE) 10 mg tablet Take 1 tablet by mouth every morning. - clopidogrel (PLAVIX) 75 mg tablet Take 1 tablet by mouth once daily. - metFORMIN (GLUCOPHAGE) 1,000 mg tablet TAKE ONE (1) TABLET BY MOUTH TWICE DAILY WITH MEALS - OXcarbazepine (TRILEPTAL) 300 mg tablet Take 1 tablet by mouth four times daily. - insulin glargine U-300 conc (TOUJEO SOLOSTAR U-300 INSULIN) 300 unit/mL (1.5 mL) Inject 13 Units subcutaneously daily at bedtime. - mirtazapine (REMERON) 30 mg tablet Take 1 tablet by mouth daily at bedtime. - atorvastatin (LIPITOR) 20 mg tablet Take 1 tablet by mouth daily at bedtime. For cholesterol. - carvedilol (COREG) 6.25 mg tablet TAKE ONE (1) TABLET BY MOUTH TWICE DAILY WITH MEALS - Lancets lancets Test blood sugar(s) 3 times daily. Dx: Type 2 DM - Uncontrolled E11.65 Insulin: Yes - blood sugar diagnostic (BLOOD GLUCOSE TEST) test strip Test blood sugar(s) 3 times daily. Dx: Type 2 DM - Uncontrolled E11.65 Insulin: Yes - Insulin Satin, Disposable, (BD ULTRA-FINE KELSIE PEN NEEDLE) 32 gauge x 5/32 Use one needle for each dose. once/day. - cyclobenzaprine (FLEXERIL) 10 mg tablet Take 1 tablet by mouth three times daily as needed for muscle spasm. - lisinopril (ZESTRIL, PRINIVIL) 5 mg tablet Take 1 tablet by mouth once daily. - polyethylene glycol 3350 (MIRALAX) 17 gram/dose powder Take 17 g by mouth once daily. As needed - pantoprazole DR (PROTONIX) 40 mg tablet Take 1 tablet by mouth twice daily for 14 days. - Bisacodyl (DULCOLAX) 5 mg tab Use as directed for Miralax / Gatorade Bowel Prep Kit - aspirin, enteric coated (ECOTRIN LOW STRENGTH) 81 mg EC tablet Take 1 tablet by mouth once daily. Problem List As Of Date 07/13/2022 Noted Resolved Benign non-nodular prostatic hyperplasia withou*10/18/2007 Bladder neck obstruction [N32.0] 10/18/2007 08/03/2016 MALIG NEOPL KIDNEY [C64.9] 10/18/2007 11/28/2007 Infection of kidney, unspecified [N15.9] 11/28/2007 08/03/2016 Hx of ischemic left MCA stroke [Z86.73] 01/09/2014 Diabetes (HCC) [E11.9] 02/21/2014 ASCVD (arteriosclerotic cardiovascular disease)*05/06/2014 Hypertension [I10] 05/06/2014 10/27/2015 Hyperlipidemia [E78.5] 05/06/2014 10/27/2015 Essential hypertension [I10] 10/14/2015 Mixed hyperlipidemia [E78.2] 10/14/2015 Epilepsy with partial complex seizures (HCC) [G*10/27/2015 Major depressive disorder with single episode, *11/10/2016 Cervical radiculopathy [M54.12] 11/23/2017 Retrolisthesis of vertebrae [M43.10] 10/25/2019 Neck pain [M54.2] 10/30/2019 Iron deficiency anemia [D50.9] 08/01/2020 Former smoker [Z87.891] 09/26/2020 Class 1 obesity due to excess calories with ser*09/26/2020 Amputation of left great toe (HCC) [S98.112A] 03/27/2021 Encounter Status:Closed by EPIC, PRODUSER on 07/16/22[facility] 06-17-[facility]22 NotePatient Outreach (NETNAV) SEAN SMITH ([id number]) 1955 Date Time Provider Department 06/17/22 SONJA KO During your visit today, we recorded the following information about you: Sonja Ko MA 06/17/2022 10:09 AM Addendum POPULATION HEALTH NAVIGATION OUTREACH Action/ NO ANSWER NO MY CHART LETTER MAILED ANNUAL MEDICARE WELLNESS EXAM HBA1C due on 06/25/2021 INFLUENZA(1) due on 11/19/2021 URINE ALBUMIN:CREATININE RATIO due on 03/27/2022 DILATED RETINAL EXAM due on 06/22/2022 MYCHART ACTIVATION Mailed letter 06/18/2022 MM Patient Identified by Name and : NO Outreach Outcome/Action Unable to reach patient: Phone number not valid / voicemail full Letter mailed Did you use a PCP flex slot to schedule this appointment? N/A Reason for Outreach Care Gap or Scheduling/Wellness visits Payer: Payor: MEDICARE / Plan: MEDICARE A AND B / Product Type: Medicare / Care Gap Reviewed:: Annual Wellness visit Diabetic Eye Exam HBA1C Nephropathy (Albumin/Creatinine) Urine Flu Vaccine Reminder: Reminder note to check Health Maintenance for items below Health Maintenance items due: DTAP,TDAP,TD(1 - Tdap) Never done SHINGRIX VACCINE(1 of 2) Never done PNEUMOCOCCAL: 65+(2 - PCV) due on 05/16/2016 COVID-19 VACCINE(3 - Booster for Pfizer series) due on 11/06/2020 HBA1C due on 06/25/2021 INFLUENZA(1) due on 11/19/2021 ADVANCE DIRECTIVE DISCUSSION Never done URINE ALBUMIN:CREATININE RATIO due on 03/27/2022 LDL CHOLESTEROL due on 03/27/2022 DIABETIC FOOT EXAM due on 03/27/2022 DILATED RETINAL EXAM due on 06/22/2022 Navigation Signature: Sonja Ko MA June 17, 2022 7:39 AM Allergies As of Date: 06/17/2022 Noted Allergy Reaction LYRICA (PREGABALIN) 10/06/2015 1 - Mental Status Change 14 - Other: See Comments Comments: Rapid heart beat PENICILLINS 10/18/2007 4 - Hives Comments: trouble breathing Date Reviewed: 06/22/2021 Reviewed by: Salena Chow, OD - Fully Assessed Reason for Visit: Population Health Navigation Outreach [3910] Cmt: ACAmarilis MCFARLAND PCSA Prescriptions as of 06/18/2022 - lisinopril (ZESTRIL) 5 mg tablet Take 1 tablet by mouth once daily. - carbidopa-levodopa (SINEMET 25-100) 25-100 mg per tablet Take 1 tablet by mouth three times daily. - empagliflozin (JARDIANCE) 10 mg tablet Take 1 tablet by mouth every morning. - clopidogrel (PLAVIX) 75 mg tablet Take 1 tablet by mouth once daily. - metFORMIN (GLUCOPHAGE) 1,000 mg tablet TAKE ONE (1) TABLET BY MOUTH TWICE DAILY WITH MEALS - OXcarbazepine (TRILEPTAL) 300 mg tablet Take 1 tablet by mouth four times daily. - insulin glargine U-300 conc (TOUJEO SOLOSTAR U-300 INSULIN) 300 unit/mL (1.5 mL) Inject 13 Units subcutaneously daily at bedtime. - mirtazapine (REMERON) 30 mg tablet Take 1 tablet by mouth daily at bedtime. - atorvastatin (LIPITOR) 20 mg tablet Take 1 tablet by mouth daily at bedtime. For cholesterol. - carvedilol (COREG) 6.25 mg tablet TAKE ONE (1) TABLET BY MOUTH TWICE DAILY WITH MEALS - Lancets lancets Test blood sugar(s) 3 times daily. Dx: Type 2 DM - Uncontrolled E11.65 Insulin: Yes - blood sugar diagnostic (BLOOD GLUCOSE TEST) test strip Test blood sugar(s) 3 times daily. Dx: Type 2 DM - Uncontrolled E11.65 Insulin: Yes - Insulin Satin, Disposable, (BD ULTRA-FINE KELSIE PEN NEEDLE) 32 gauge x 5/32 Use one needle for each dose. once/day. - cyclobenzaprine (FLEXERIL) 10 mg tablet Take 1 tablet by mouth three times daily as needed for muscle spasm. - lisinopril (ZESTRIL, PRINIVIL) 5 mg tablet Take 1 tablet by mouth once daily. - polyethylene glycol 3350 (MIRALAX) 17 gram/dose powder Take 17 g by mouth once daily. As needed - pantoprazole DR (PROTONIX) 40 mg tablet Take 1 tablet by mouth twice daily for 14 days. - Bisacodyl (DULCOLAX) 5 mg tab Use as directed for Miralax / Gatorade Bowel Prep Kit - aspirin, enteric coated (ECOTRIN LOW STRENGTH) 81 mg EC tablet Take 1 tablet by mouth once daily. Problem List As Of Date 06/17/2022 Noted Resolved Benign non-nodular prostatic hyperplasia withou*10/18/2007 Bladder neck obstruction [N32.0] 10/18/2007 08/03/2016 MALIG NEOPL KIDNEY [C64.9] 10/18/2007 11/28/2007 Infection of kidney, unspecified [N15.9] 11/28/2007 08/03/2016 Hx of ischemic left MCA stroke [Z86.73] 01/09/2014 Diabetes (HCC) [E11.9] 02/21/2014 ASCVD (arteriosclerotic cardiovascular disease)*05/06/2014 Hypertension [I10] 05/06/2014 10/27/2015 Hyperlipidemia [E78.5] 05/06/2014 10/27/2015 Essential hypertension [I10] 10/14/2015 Mixed hyperlipidemia [E78.2] 10/14/2015 Epilepsy with partial complex seizures (HCC) [G*10/27/2015 Major depressive disorder with single episode, *11/10/2016 Cervical radiculopathy [M54.12] 11/23/2017 Retrolisthesis of vertebrae [M43.10] 10/25/2019 Neck pain [M54.2] 10/30/2019 Iron defi (more content not included)...[facility]2023 NoteHNO ID: [id number] Author: Sonja Ko MA Service: ? Author Type: Instrument Person Type: Progress Notes Filed: 06/18/2022 4:34 PM Note Text: POPULATION HEALTH NAVIGATION OUTREACH Action/FYI NO ANSWER NO MY CHART LETTER MAILED ANNUAL MEDICARE WELLNESS EXAM HBA1C due on 06/25/2021 INFLUENZA(1) due on 11/19/2021 URINE ALBUMIN:CREATININE RATIO due on 03/27/2022 DILATED RETINAL EXAM due on 06/22/2022 MYCHART ACTIVATION Mailed letter 06/18/2022 MM Patient Identified by Name and : NO Outreach Outcome/Action Unable to reach patient: Phone number not valid / voicemail full Letter mailed Did you use a PCP flex slot to schedule this appointment? N/A Reason for Outreach Care Gap or Scheduling/Wellness visits Payer: Payor: MEDICARE / Plan: MEDICARE A AND B / Product Type: Medicare / Care Gap Reviewed:: Annual Wellness visit Diabetic Eye Exam HBA1C Nephropathy (Albumin/Creatinine) Urine Flu Vaccine Reminder: Reminder note to check Health Maintenance for items below Health Maintenance items due: DTAP,TDAP,TD(1 - Tdap) Never done SHINGRIX VACCINE(1 of 2) Never done PNEUMOCOCCAL: 65+(2 - PCV) due on 05/16/2016 COVID-19 VACCINE(3 - Booster for Pfizer series) due on 11/06/2020 HBA1C due on 06/25/2021 INFLUENZA(1) due on 11/19/2021 ADVANCE DIRECTIVE DISCUSSION Never done URINE ALBUMIN:CREATININE RATIO due on 03/27/2022 LDL CHOLESTEROL due on 03/27/2022 DIABETIC FOOT EXAM due on 03/27/2022 DILATED RETINAL EXAM due on 06/22/2022 Navigation Signature: Sonja Ko MA June 17, 2022 7:39 [facility]03-30-2023 History of Present illness Narrative* Sonja oK MA - 06/17/2022 7:39 AM EDT POPULATION HEALTH NAVIGATION OUTREACH Action/ NO ANSWER NO MY CHART LETTER MAILED ANNUAL MEDICARE WELLNESS EXAM HBA1C due on 06/25/2021 INFLUENZA(1) due on 11/19/2021 URINE ALBUMIN:CREATININE RATIO due on 03/27/2022 DILATED RETINAL EXAM due on 06/22/2022 MYCHART ACTIVATION Patient Identified by Name and : NO Outreach Outcome/Action Unable to reach patient: Phone number not valid / voicemail full Letter mailed Did you use a PCP flex slot to schedule this appointment? N/A Reason for Outreach Care Gap or Scheduling/Wellness visits Payer: Payor: MEDICARE / Plan: MEDICARE A AND B / Product Type: Medicare / Care Gap Reviewed:: Annual Wellness visit Diabetic Eye Exam HBA1C Nephropathy (Albumin/Creatinine) Urine Flu Vaccine Reminder: Reminder note to check Health Maintenance for items below Health Maintenance items due: DTAP,TDAP,TD(1 - Tdap) Never done SHINGRIX VACCINE(1 of 2) Never done PNEUMOCOCCAL: 65+(2 - PCV) due on 05/16/2016 COVID-19 VACCINE(3 - Booster for Pfizer series) due on 11/06/2020 HBA1C due on 06/25/2021 INFLUENZA(1) due on 11/19/2021 ADVANCE DIRECTIVE DISCUSSION Never done URINE ALBUMIN:CREATININE RATIO due on 03/27/2022 LDL CHOLESTEROL due on 03/27/2022 DIABETIC FOOT EXAM due on 03/27/2022 DILATED RETINAL EXAM due on 06/22/2022 Navigation Signature: Sonja Ko MA June 17, 2022 7:39 AM [facility] Miscellaneous Notes* Telephone Encounter - Ruth Britton [facility] - 06/01/2022 8:42 AM EDT Patient has been identified by name and date of : Yes Requested Prescriptions Pending Prescriptions Disp Refills lisinopril (ZESTRIL) 5 mg tablet 90 tablet 1 Sig: Take 1 tablet by mouth once daily. RX INSTRUCTIONS: Patient aware RX will be sent to pharmacy. No need to notify patient. [facility] Miscellaneous Notes* Telephone Encounter - Winston Jane LPN - 05/11/2022 10:14 AM EST Patient phones requesting refills as follows: Requested Prescriptions Pending Prescriptions Disp Refills carbidopa-levodopa (SINEMET 25-100) 25-100 mg per tablet 270 tablet 1 Sig: Take 1 tablet by mouth three times daily. empagliflozin (JARDIANCE) 10 mg tablet 90 tablet 1 Sig: Take 1 tablet by mouth every morning. KENNY 10/05/21 NOV no upcoming appt. Appt on 04/01/22 cancelled. Pt overdue for appt and labs. Labs pending. Please review and advise. SCHEDULERS PLEASE ASSIST PT WITH SCHEDULING OVERDUE APPT WITH PCP TEAM. PT MUST BE SEEN TO CONTINUE RECEIVING MED REFILLS. Please review and advise. Winston Jane LPN * Telephone Encounter - Tiffanie Draper Pss - 05/11/2022 8:02 AM EST Patient has been identified by name and date of : Yes Requested Prescriptions Pending Prescriptions Disp Refills carbidopa-levodopa (SINEMET 25-100) 25-100 mg per tablet 270 tablet 1 Sig: Take 1 tablet by mouth three times daily. empagliflozin (JARDIANCE) 10 mg tablet 90 tablet 1 Sig: Take 1 tablet by mouth every morning. RX INSTRUCTIONS: Patient aware RX will be sent to pharmacy. No need to notify patient. Tiffanie Draper Pss [facility]23 Miscellaneous Notes* Telephone Encounter - Tiffanie Draper Pss - 04/19/2022 8:31 AM EST Patient has been identified by name and date of : Yes Requested Prescriptions Pending Prescriptions Disp Refills clopidogrel (PLAVIX) 75 mg tablet 90 tablet 1 Sig: Take 1 tablet by mouth once daily. RX INSTRUCTIONS: Patient aware RX will be sent to pharmacy. No need to notify patient. Tiffanie Draper Pss documented [facility]01[facility] NotePatient Outreach (NETNAV) SEAN SMITH ([id number]) 1955 M Date Time Provider Department 04/15/22 SONJA KO During your visit today, we recorded the following information about you: Sonja Ko MA 04/15/2022 2:26 PM Addendum POPULATION HEALTH NAVIGATION OUTREACH Action/I BUSY NO MYCHART LETTER MAILED ANNUAL MEDICARE WELLNESS HBA1C due on 06/25/2021 INFLUENZA(1) due on 11/19/2021 URINE ALBUMIN:CREATININE RATIO due on 03/27/2022 MYCHART ACTIVATION Mailed letter 04/15/2022 MM Patient Identified by Name and : NO Outreach Outcome/Action Unable to reach patient: Phone number not valid / voicemail full Letter mailed Did you use a PCP flex slot to schedule this appointment? N/A Reason for Outreach Care Gap or Scheduling/Wellness visits Payer: Payor: MEDICARE / Plan: MEDICARE A AND B / Product Type: Medicare / Care Gap Reviewed:: Annual Wellness visit HBA1C Nephropathy (Albumin/Creatinine) Urine Flu Vaccine Reminder: Reminder note to check Health Maintenance for items below Health Maintenance items due: DTAP,TDAP,TD(1 - Tdap) Never done SHINGRIX VACCINE(1 of 2) Never done PNEUMOCOCCAL: 65+(2 - PCV) due on 05/16/2016 COVID-19 VACCINE(3 - Booster for Pfizer series) due on 11/06/2020 HBA1C due on 06/25/2021 INFLUENZA(1) due on 11/19/2021 ADVANCE DIRECTIVE DISCUSSION Never done URINE ALBUMIN:CREATININE RATIO due on 03/27/2022 LDL CHOLESTEROL due on 03/27/2022 DIABETIC FOOT EXAM due on 03/27/2022 Navigation Signature: Sonja Ko MA April 15, 2022 11:41 AM Allergies As of Date: 04/15/2022 Noted Allergy Reaction LYRICA (PREGABALIN) 10/06/2015 1 - Mental Status Change 14 - Other: See Comments Comments: Rapid heart beat PENICILLINS 10/18/2007 4 - Hives Comments: trouble breathing Date Reviewed: 06/22/2021 Reviewed by: Salena Chow OD - Fully Assessed Reason for Visit: Population Health Navigation Outreach [3910] Cmt: ACO BARTOLO PCSA Prescriptions as of 04/15/2022 - metFORMIN (GLUCOPHAGE) 1,000 mg tablet TAKE ONE (1) TABLET BY MOUTH TWICE DAILY WITH MEALS - OXcarbazepine (TRILEPTAL) 300 mg tablet Take 1 tablet by mouth four times daily. - insulin glargine U-300 conc (TOUJEO SOLOSTAR U-300 INSULIN) 300 unit/mL (1.5 mL) Inject 13 Units subcutaneously daily at bedtime. - mirtazapine (REMERON) 30 mg tablet Take 1 tablet by mouth daily at bedtime. - atorvastatin (LIPITOR) 20 mg tablet Take 1 tablet by mouth daily at bedtime. For cholesterol. - clopidogrel (PLAVIX) 75 mg tablet Take 1 tablet by mouth once daily. - carvedilol (COREG) 6.25 mg tablet TAKE ONE (1) TABLET BY MOUTH TWICE DAILY WITH MEALS - lisinopril (ZESTRIL, PRINIVIL) 5 mg tablet Take 1 tablet by mouth once daily. - Lancets lancets Test blood sugar(s) 3 times daily. Dx: Type 2 DM - Uncontrolled E11.65 Insulin: Yes - blood sugar diagnostic (BLOOD GLUCOSE TEST) test strip Test blood sugar(s) 3 times daily. Dx: Type 2 DM - Uncontrolled E11.65 Insulin: Yes - Insulin Satin, Disposable, (BD ULTRA-FINE KELSIE PEN NEEDLE) 32 gauge x 32 Use one needle for each dose. once/day. - empagliflozin (JARDIANCE) 10 mg tablet Take 1 tablet by mouth every morning. - carbidopa-levodopa (SINEMET 25-100) 25-100 mg per tablet Take 1 tablet by mouth three times daily. - cyclobenzaprine (FLEXERIL) 10 mg tablet Take 1 tablet by mouth three times daily as needed for muscle spasm. - lisinopril (ZESTRIL, PRINIVIL) 5 mg tablet Take 1 tablet by mouth once daily. - polyethylene glycol 3350 (MIRALAX) 17 gram/dose powder Take 17 g by mouth once daily. As needed - pantoprazole DR (PROTONIX) 40 mg tablet Take 1 tablet by mouth twice daily for 14 days. - Bisacodyl (DULCOLAX) 5 mg tab Use as directed for Miralax / Gatorade Bowel Prep Kit - aspirin, enteric coated (ECOTRIN LOW STRENGTH) 81 mg EC tablet Take 1 tablet by mouth once daily. Problem List As Of Date 04/15/2022 Noted Resolved Benign non-nodular prostatic hyperplasia withou*10/18/2007 Bladder neck obstruction [N32.0] 10/18/2007 08/03/2016 MALIG NEOPL KIDNEY [C64.9] 10/18/2007 11/28/2007 Infection of kidney, unspecified [N15.9] 11/28/2007 08/03/2016 Hx of ischemic left MCA stroke [Z86.73] 01/09/2014 Diabetes (HCC) [E11.9] 02/21/2014 ASCVD (arteriosclerotic cardiovascular disease)*05/06/2014 Hypertension [I10] 05/06/2014 10/27/2015 Hyperlipidemia [E78.5] 05/06/2014 10/27/2015 Essential hypertension [I10] 10/14/2015 Mixed hyperlipidemia [E78.2] 10/14/2015 Epilepsy with partial complex seizures (HCC) [G*10/27/2015 Major depressive disorder with single episode, *11/10/2016 Cervical radiculopathy [M54.12] 11/23/2017 Retrolisthesis of vertebrae [M43.10] 10/25/2019 Neck pain [M54.2] 10/30/2019 Iron deficiency anemia [D50.9] 08/01/2020 Former smoker [Z87.891] 09/26/2020 Class 1 obesity due to excess (more content not included)...[facility] NoteHNO ID: [id number] Author: Sonja oK MA Service: ? Author Type: Instrument Person Type: Progress Notes Filed: 04/15/2022 3:08 PM Note Text: POPULATION HEALTH NAVIGATION OUTREACH Action/FYI BUSY NO MYCHART LETTER MAILED ANNUAL MEDICARE WELLNESS HBA1C due on 06/25/2021 INFLUENZA(1) due on 11/19/2021 URINE ALBUMIN:CREATININE RATIO due on 03/27/2022 MYCHART ACTIVATION Mailed letter 04/15/2022 MM Patient Identified by Name and : NO Outreach Outcome/Action Unable to reach patient: Phone number not valid / voicemail full Letter mailed Did you use a PCP flex slot to schedule this appointment? N/A Reason for Outreach Care Gap or Scheduling/Wellness visits Payer: Payor: MEDICARE / Plan: MEDICARE A AND B / Product Type: Medicare / Care Gap Reviewed:: Annual Wellness visit HBA1C Nephropathy (Albumin/Creatinine) Urine Flu Vaccine Reminder: Reminder note to check Health Maintenance for items below Health Maintenance items due: DTAP,TDAP,TD(1 - Tdap) Never done SHINGRIX VACCINE(1 of 2) Never done PNEUMOCOCCAL: 65+(2 - PCV) due on 05/16/2016 COVID-19 VACCINE(3 - Booster for Pfizer series) due on 11/06/2020 HBA1C due on 06/25/2021 INFLUENZA(1) due on 11/19/2021 ADVANCE DIRECTIVE DISCUSSION Never done URINE ALBUMIN:CREATININE RATIO due on 03/27/2022 LDL CHOLESTEROL due on 03/27/2022 DIABETIC FOOT EXAM due on 03/27/2022 Navigation Signature: Sonja Ko MA April 15, 2022 11:41 [facility]01-26-2023 History of Present illness Narrative* Sonja Ko MA - 04/15/2022 11:41 AM EST POPULATION HEALTH NAVIGATION OUTREACH Action/FYI BUSY NO MYCHART LETTER MAILED ANNUAL MEDICARE WELLNESS HBA1C due on 06/25/2021 INFLUENZA(1) due on 11/19/2021 URINE ALBUMIN:CREATININE RATIO due on 03/27/2022 MYCHART ACTIVATION Mailed letter 04/15/2022 MM Patient Identified by Name and : NO Outreach Outcome/Action Unable to reach patient: Phone number not valid / voicemail full Letter mailed Did you use a PCP flex slot to schedule this appointment? N/A Reason for Outreach Care Gap or Scheduling/Wellness visits Payer: Payor: MEDICARE / Plan: MEDICARE A AND B / Product Type: Medicare / Care Gap Reviewed:: Annual Wellness visit HBA1C Nephropathy (Albumin/Creatinine) Urine Flu Vaccine Reminder: Reminder note to check Health Maintenance for items below Health Maintenance items due: DTAP,TDAP,TD(1 - Tdap) Never done SHINGRIX VACCINE(1 of 2) Never done PNEUMOCOCCAL: 65+(2 - PCV) due on 05/16/2016 COVID-19 VACCINE(3 - Booster for Pfizer series) due on 11/06/2020 HBA1C due on 06/25/2021 INFLUENZA(1) due on 11/19/2021 ADVANCE DIRECTIVE DISCUSSION Never done URINE ALBUMIN:CREATININE RATIO due on 03/27/2022 LDL CHOLESTEROL due on 03/27/2022 DIABETIC FOOT EXAM due on 03/27/2022 Navigation Signature: Sonja Ko MA April 15, 2022 11:41 AM [facility] Miscellaneous Notes* Telephone Encounter - Ethel De La O Pss - 03/02/2022 11:12 AM EST Patient has been identified by name and date of : Yes Requested Prescriptions Pending Prescriptions Disp Refills metFORMIN (GLUCOPHAGE) 1,000 mg tablet 180 tablet 3 Sig: TAKE ONE (1) TABLET BY MOUTH TWICE DAILY WITH MEALS OXcarbazepine (TRILEPTAL) 300 mg tablet 360 tablet 3 Sig: Take 1 tablet by mouth four times daily. RX INSTRUCTIONS: Patient aware RX will be sent to pharmacy. No need to notify patient. Ethel De La O Pss documented [facility] Miscellaneous Notes* Telephone Encounter - Jeanine Roe LPN - 10/28/2021 12:09 PM EDT Contacted pharmacy and valid order on file. Tech ran through and will get ready for patient to pickup. * Telephone Encounter - Danielle Clemente - 10/28/2021 11:51 AM EDT Patient has been identified by name and date of : Yes Requested Prescriptions Pending Prescriptions Disp Refills insulin glargine U-300 conc (TOUJEO SOLOSTAR U-300 INSULIN) 300 unit/mL (1.5 mL) 3 Pen 3 Sig: Inject 13 Units subcutaneously daily at bedtime. RX INSTRUCTIONS: Patient aware RX will be sent to pharmacy. No need to notify patient. Danielle Clemente documented [facility] History of Present illness Narrative* Verena Christian MD - 10/05/2021 5:59 PM EDT Patient presents with: Diabetes HPI: Patient presents today for office visit for follow up. Did not keep his appts with cardiology or neurology again. Drinking regular coke today. Still has some issues with sleep remains on remeron. No new seizures. No new numbness or weakness. No chest pain. No shortness of breath. No edema. Needs new sugar meter. His last one broke. See previous ov: Interim hx: 12/09: Had osteomyelitis of his left foot in Nov. Had amputation of his left great toe. Is well healed. Still following with Dr. Cat. Needs diabetic shoes. Did have egd which showed duodenitis and gastritis. Colonoscopy was negative in September. No bowel changes. No bloody or black stools. bp is well controlled. No chest pain or shortness of breath. No edema. Rarely checks his sugars. Have been up and down depending on his diet. Still drinking regular soda. No myalgias. We had referred him to see cardiology for his cad and neurology last year and did not. No recent seizures. No new issues with his stroke. Speech is still difficult to understand. Still has occasional tremor in his right side since the stroke. Has been better on sinemet. Emotionally is stable. Component Latest Ref Rng & Units 03/27/2021 WBC 3.70 - 11.00 k/uL 5.85 RBC 4.20 - 6.00 m/uL 5.06 Hemoglobin 13.0 - 17.0 g/dL 14.2 Hematocrit 39.0 - 51.0 % 45.1 MCV 80.0 - 100.0 fL 89.1 MCH 26.0 - 34.0 pG 28.1 MCHC 30.5 - 36.0 g/dL 31.5 RDW-CV 11.5 - 15.0 % 15.7 (H) Platelet Count 150 - 400 k/uL 289 MPV 9.0 - 12.7 fL 11.8 Neut% % 61.8 Abs Neut (ANC) 1.45 - 7.50 k/uL 3.62 Lymph% % 28.2 Abs Lymph 1.00 - 4.00 k/uL 1.65 Josephine% % 6.2 Abs Josephine <0.87 k/uL 0.36 Eosin% % 3.1 Abs Eosin <0.46 k/uL 0.18 Baso% % 0.7 Abs Baso <0.11 k/uL 0.04 Nucleated Reds 0 /100 WBC 0.0 Absolute nRBC <0.01 k/uL <0.01 Diff Type Auto Diff Protein, Total 6.3 - 8.0 g/dL 7.8 Albumin 3.9 - 4.9 g/dL 4.4 Calcium 8.5 - 10.2 mg/dL 10.1 Bilirubin, Total 0.2 - 1.3 mg/dL 0.3 Alkaline Phosphatase 38 - 113 U/L 108 AST 14 - 40 U/L 29 Glucose 74 - 99 mg/dL 261 (H) BUN 9 - 24 mg/dL 16 Creatinine 0.73 - 1.22 mg/dL 0.76 Sodium 136 - 144 mmol/L 138 Potassium 3.7 - 5.1 mmol/L 5.1 Chloride 97 - 105 mmol/L 103 CO2 22 - 30 mmol/L 22 Anion Gap 9 - 18 mmol/L 13 ALT 10 - 54 U/L 11 eGFR- >60 eGFR-All Other Races . >60 Cholesterol, Total <200 mg/dL 172 Triglyceride <150 mg/dL 197 (H) HDL Cholesterol >39 mg/dL 36 (L) LDL Cholesterol <100 mg/dL 97 Non HDL Cholesterol <130 mg/dL 136 (H) Fasting Time hrs 12 VLDL Cholesterol <30 mg/dL 39 (H) TC:HDL Ratio <5.10 4.78 LDL:HDL Ratio <2.54 2.69 (H) Creatinine, Ur Random (UCRR) 20 - 300 mg/dL 42.2 Albumin, Urine Random mg/L 30.3 Albumin/Creat Ratio <30 mg/g 72 (H) Hemoglobin A1C 4.3 - 5.6 % 9.2 (H) Estimated Average Glucose mg/dL 217 10Hydroxycarbazepine 3.0 - 35.0 ug/mL 17.2 MEDICATIONS: Current Outpatient Medications Medication Sig OXcarbazepine (TRILEPTAL) 300 mg tablet Take 1 tablet by mouth four times daily. metFORMIN (GLUCOPHAGE) 1,000 mg tablet TAKE ONE (1) TABLET BY MOUTH TWICE DAILY WITH MEALS clopidogrel (PLAVIX) 75 mg tablet Take 1 tablet by mouth once daily. mirtazapine (REMERON) 30 mg tablet Take 1 tablet by mouth daily at bedtime. atorvastatin (LIPITOR) 20 mg tablet Take 1 tablet by mouth daily at bedtime. For cholesterol. Insulin Satin, Disposable, (BD ULTRA-FINE KELSIE PEN NEEDLE) 32 gauge x Use one needle for each dose. twice/day. empagliflozin (JARDIANCE) 10 mg tablet Take 1 tablet by mouth every morning. carbidopa-levodopa (SINEMET 25-100) 25-100 mg per tablet Take 1 tablet by mouth three times daily. carvedilol (COREG) 6.25 mg tablet TAKE ONE (1) TABLET BY MOUTH TWICE DAILY WITH MEALS cyclobenzaprine (FLEXERIL) 10 mg tablet Take 1 tablet by mouth three times daily as needed for muscle spasm. lisinopril (ZESTRIL, PRINIVIL) 5 mg tablet Take 1 tablet by mouth once daily. polyethylene glycol 3350 (MIRALAX) 17 gram/dose powder Take 17 g by mouth once daily. As needed pantoprazole DR (PROTONIX) 40 mg tablet Take 1 tablet by mouth twice daily for 14 days. Bisacodyl (DULCOLAX) 5 mg tab Use as directed for Miralax / Gatorade Bowel Prep Kit insulin glargine U-300 conc (TOUJEO SOLOSTAR U-300 INSULIN) 300 unit/mL (1.5 mL) Inject 13 Units subcutaneously daily at bedtime. lisinopril (ZESTRIL, PRINIVIL) 5 mg tablet Take 1 tablet by mouth once daily. aspirin, enteric coated (ECOTRIN LOW STRENGTH) 81 mg EC tablet Take 1 tablet by mouth once daily. No current facility-administered medications for this visit. ALLERGIES: ALLERGIES Allergen Reactions Lyrica [Pregabalin] Mental Status Change, Other: See Comments Rapid heart beat Penicillins Hives trouble breathing PAST MEDICAL HISTORY Diagnosis Date Acute SC ([facility]) 01/06/14 CAD (coronary artery disease) CVA (cerebral vascular accident) ([facility]) 01/09/14 Epilepsy ([facility]) Dr. 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 Social History Tobacco Use Smoking status: Former Smoker Packs/day: 1.50 Years: 40.00 Pack years: 60.00 Types: Cigarettes Quit date: 01/06/2014 Years since quittin.7 Smokeless tobacco: Never Used Tobacco comment: has not smoked since heart attack on 01/06/14 Substance Use Topics Alcohol use: No Drug use: No Reviewed current medications, allergies, past medical history, surgical history, family history andsocial history today. REVIEW OF SYSTEMS GI: Negative for change in bowel habit : Negative All other reviewed and negative other than HPI. HEALTH MAINTENANCE: Reviewed health maintenance issues today and recommended the following in detail. LUNG CANCER SCREENING -declines. PNEUMOCOCCAL: 65+(2 - PCV) due on 05/16/2016 ADVANCE DIRECTIVE DISCUSSION -does not have one. Discussed. HBA1C due on 06/25/2021 VITALS: BP 124/72 Pulse 84 Wt 104.8 kg (231 lb) BMI 33.15 kg/m Last 4 Encounter Wt Readings: Date: Wt: 10/05/2021 104.8 kg (231 lb) 03/27/2021 104.8 kg (231 lb) 09/26/2020 104.2 kg (229 lb 12.8 oz) 08/19/2020 103.9 kg (229 lb) PHYSICAL EXAMINATION: General appearance: Well appearing, alert, in no acute distress, well-hydrated, well nourished. Skin: Skin color, texture, turgor normal, no suspicious rashes or lesions Head: Normocephalic, no masses, lesions, tenderness or abnormalities Lungs: Lungs clear to auscultation. No wheezing, rhonchi, rales Heart: RRR without murmur, gallop, or rubs. No ectopy Abdomen: Normal abdominal exam, Abdomen soft, non-tender. Bowel sounds normal. No masses, organomegaly Extremities: No deformities, edema, skin discoloration, clubbing or cyanosis. Good capillary refill. Musculoskeletal: No joint swelling, deformity, or tenderness Peripheral pulses: Normal Neuro: Negative. ASSESSMENT/PLAN: 1. Partial symptomatic epilepsy with complex partial seizures, intractable, without status epilepticus (HCC) - ICD9: 345.41, ICD10: G40.219 (primary diagnosis) - reinforced to see neurology - OXCARBAZEPINE BLD 2. Diabetes mellitus due to underlying condition with diabetic nephropathy, unspecified whether termite exterminator helper insulin use (HCC) - ICD9: 249.40, 583.81, ICD10: E08.21 - check labs. Reinforced need to be compliant - BLOOD-GLUCOSE METER - BLOOD GLUCOSE CONTROL, NORMAL SOLUTION - LANCETS - BLOOD GLUCOSE TEST STRIPS - PEN NEEDLE, DIABETIC 32 GAUGE X - EMPAGLIFLOZIN 10 MG TABLET - TOUJEO SOLOSTAR U-300 INSULIN 300 UNIT/ML (1.5 ML) SUBCUTANEOUS PEN - CBC + DIFF - COMP METABOLIC PANEL - HGB A1C 3. Cerebrovascular accident (CVA), unspecified mechanism (HCC) - ICD9: 434.91, ICD10: I63.9 - see neurology - CARBIDOPA 25 MG-LEVODOPA 100 MG TABLET 4. Essential hypertension - ICD9: 401.9, ICD10: I10 - good control - Continue current medication(s) - Goal of BP <130/80 - CARVEDILOL 6.25 MG TABLET 5. Hx of ischemic left MCA stroke - ICD9: V12.54, ICD10: Z86.73 - as above. 6. ASCVD (arteriosclerotic cardiovascular disease) - ICD9: 429.2, 440.9, ICD10: I25.10 - see cardiology - Red flags for re-assessment reviewed with patient in detail. 7. Mixed hyperlipidemia - ICD9: 272.2, ICD10: E78.2 - good control - Continue current medication. Verena Christian RTO in six months and prn. documented in [facility] encounter[facility]06-20-2022 Miscellaneous Notes* Telephone Encounter - Winston Jane LPN - 09/07/2021 9:54 AM EDT KENNY 03/27/21 NOV 09/24/21 * Telephone Encounter - Berna Silver Pss - 09/07/2021 8:52 AM EDT Patient wants to know if scripts can be sent gauri. Said he is out of medication. Said they have been without power for a week and had no way of calling for refill. * Telephone Encounter - Berna Salazar - 09/07/2021 8:51 AM EDT Patient has been identified by name and date of : Yes Pending Prescriptions Disp Refills OXCARBAZEPINE 300 MG TABLET 360 tablet 1 Sig: Take 1 tablet by mouth four times daily. CAESAR: No METFORMIN 1,000 MG TABLET 180 tablet 1 Sig: TAKE ONE (1) TABLET BY MOUTH TWICE DAILY WITH MEALS CAESAR: No RX INSTRUCTIONS: Patient aware RX will be sent to pharmacy. No need to notify patient. Berna Salazar documented in this encounter[facility]04-29-2022 Miscellaneous Notes* Telephone Encounter - PATT Sesay - 07/17/2021 12:39 PM EDT KENNY 03/27/2021 Appointment scheduled for 09/24/2021 Please advise. Thank you. PATT Sesay * Telephone Encounter - Ethel Salazar - 07/17/2021 12:06 PM EDT Patient has been identified by name and date of : Yes Pending Prescriptions Disp Refills CLOPIDOGREL 75 MG TABLET 90 tablet 1 Sig: Take 1 tablet by mouth once daily. CAESAR: No MIRTAZAPINE 30 MG TABLET 90 tablet 1 Sig: Take 1 tablet by mouth daily at bedtime. CAESAR: No ATORVASTATIN 20 MG TABLET 90 tablet 1 Sig: Take 1 tablet by mouth daily at bedtime. For cholesterol. CAESAR: No RX INSTRUCTIONS: Patient aware RX will be sent to pharmacy. No need to notify patient. Ethel Salazar documented in [facility] encounter[facility]04-04-2022 History of Present illness Narrative* Salena Chow OD - 06/22/2021 1:48 PM EDT 1. Type 2 diabetes mellitus without retinopathy (HCC) Risk of diabetic changes and vision loss can be minimized by tight control of blood sugar, blood pressure, and cholesterol levels. Educated patient to continue care with primary care doctor and/or train system operator to maintain optimum levels as they are important to avoid ocular complications. Encouraged patient to call the office immediately with any changes to vision or visual concerns. Advised to not wait until the next scheduled exam. Patient states type II but problem list says type I 2. Combined forms of age-related cataract of both eyes Mild. Monitor 3. Myopia, bilateral 4. Regular astigmatism of both eyes 5. Presbyopia Finalized spec rx. Follow-up in 1 year Salena Chow, OD June 22, 2021 1:48 PM documented in this encounterEast [facility]02-16-2015 History of Past illness Narrative* Problem Noted Date Resolved Date Hypertension 05/06/2014 10/27/2015 Hyperlipidemia 05/06/2014 10/27/2015 Infection of kidney, unspecified 11/28/2007 08/03/2016 Bladder neck obstruction 10/18/2007 017 Malignant neoplasm of kidney, except pelvis 07/3 11/28/2007 documented as of this encounter (statuses as of 06/22/2021) [address]16-2015 History of Past illness Narrative* Problem Noted Date Resolved Date Hypertension 05/06/2014 10/27/2015 Hyperlipidemia 05/06/2014 10/27/2015 Infection of kidney, unspecified 11/28/2007 08/03/2016 Bladder neck obstruction 10/18/2007 017 Malignant neoplasm of kidney, except pelvis 07/3 11/28/2007 documented as of this encounter (statuses as of 07/17/2021) [facility] of [facility] illness Narrative* Problem Noted Date Resolved Date Hypertension 05/06/2014 10/27/2015 Hyperlipidemia 05/06/2014 10/27/2015 Infection of kidney, unspecified 11/28/2007 08/03/2016 Bladder neck obstruction 10/18/2007 017 Malignant neoplasm of kidney, except pelvis 07/3 11/28/2007 documented as of this encounter (statuses as of 09/07/2021) [address]16-2015 History of Past illness Narrative* Problem Noted Date Resolved Date Hypertension 05/06/2014 10/27/2015 Hyperlipidemia 05/06/2014 10/27/2015 Infection of kidney, unspecified 11/28/2007 08/03/2016 Bladder neck obstruction 10/18/2007 017 Malignant neoplasm of kidney, except pelvis 07/3 11/28/2007 documented as of this encounter (statuses as of 10/05/2021) [address]16-2015 History of Past illness Narrative* Problem Noted Date Resolved Date Hypertension 05/06/2014 10/27/2015 Hyperlipidemia 05/06/2014 10/27/2015 Infection of kidney, unspecified 11/28/2007 08/03/2016 Bladder neck obstruction 10/18/2007 017 Malignant neoplasm of kidney, except pelvis 07/3 11/28/2007 documented as of this encounter (statuses as of 10/28/2021) [address]16-2015 History of Past illness Narrative* Problem Noted Date Resolved Date Hypertension 05/06/2014 10/27/2015 Hyperlipidemia 05/06/2014 10/27/2015 Infection of kidney, unspecified 11/28/2007 08/03/2016 Bladder neck obstruction 10/18/2007 017 Malignant neoplasm of kidney, except pelvis 07/3 11/28/2007 documented as of this encounter (statuses as of 03/02/2022) [facility] Narrative* Problem Noted Date Resolved Date Hypertension 05/06/2014 10/27/2015 Hyperlipidemia 05/06/2014 10/27/2015 Infection of kidney, unspecified 11/28/2007 08/03/2016 Bladder neck obstruction 10/18/2007 017 Malignant neoplasm of kidney, except pelvis 07/3 11/28/2007 documented as of this encounter (statuses as of 04/15/2022) [address]16-2015 History of Past illness Narrative* Problem Noted Date Resolved Date Hypertension 05/06/2014 10/27/2015 Hyperlipidemia 05/06/2014 10/27/2015 Infection of kidney, unspecified 11/28/2007 08/03/2016 Bladder neck obstruction 10/18/2007 017 Malignant neoplasm of kidney, except pelvis 07/3 11/28/2007 documented as of this encounter (statuses as of 04/19/2022) [address]16-2015 History of Past illness Narrative* Problem Noted Date Resolved Date Hypertension 05/06/2014 10/27/2015 Hyperlipidemia 05/06/2014 10/27/2015 Infection of kidney, unspecified 11/28/2007 08/03/2016 Bladder neck obstruction 10/18/2007 017 Malignant neoplasm of kidney, except pelvis 07/3 11/28/2007 documented as of this encounter (statuses as of 05/11/2022) [address]16-2015 History of Past illness Narrative* Problem Noted Date Resolved Date Hypertension 05/06/2014 10/27/2015 Hyperlipidemia 05/06/2014 10/27/2015 Infection of kidney, unspecified 11/28/2007 08/03/2016 Bladder neck obstruction 10/18/2007 017 Malignant neoplasm of kidney, except pelvis 07/3 11/28/2007 documented as of this encounter (statuses as of 06/01/2022) [address]16-2015 History of Past illness Narrative* Problem Noted Date Resolved Date Hypertension 05/06/2014 10/27/2015 Hyperlipidemia 05/06/2014 10/27/2015 Infection of kidney, unspecified 11/28/2007 08/03/2016 Bladder neck obstruction 10/18/2007 017 Malignant neoplasm of kidney, except pelvis 07/3 11/28/2007 documented as of this encounter (statuses as of 06/17/2022) [address]16-2015 History of Past illness Narrative* Problem Noted Date Resolved Date Hypertension 05/06/2014 10/27/2015 Hyperlipidemia 05/06/2014 10/27/2015 Infection of kidney, unspecified 11/28/2007 08/03/2016 Bladder neck obstruction 10/18/2007 017 Malignant neoplasm of kidney, except pelvis 07/3 11/28/2007 documented as of this encounter (statuses as of 07/16/2022) [address]16-2015 History of Past illness Narrative* Problem Noted Date Resolved Date Hypertension 05/06/2014 10/27/2015 Hyperlipidemia 05/06/2014 10/27/2015 Infection of kidney, unspecified 11/28/2007 08/03/2016 Bladder neck obstruction 10/18/2007 017 Malignant neoplasm of kidney, except pelvis 07/3 11/28/2007 documented as of this encounter (statuses as of 08/18/2022) [address]16-2015 History of Past illness Narrative* Problem Noted Date Resolved Date Hypertension 05/06/2014 10/27/2015 Hyperlipidemia 05/06/2014 10/27/2015 Infection of kidney, unspecified 11/28/2007 08/03/2016 Bladder neck obstruction 10/18/2007 017 Malignant neoplasm of kidney, except pelvis 07/3 11/28/2007 documented as of this encounter (statuses as of 09/16/2022) [address]16-2015 History of Past illness Narrative* Problem Noted Date Diagnosed Date Resolved Date Hypertension 05/06/2014 10/27/2015 Hyperlipidemia 05/06/2014 10/27/2015 Infection of kidney, unspecified 11/28/2007 08/03/2016 Bladder neck obstruction 10/18/2007 Malignant neoplasm of kidney, except pelvis 10/18/2007 11/28/2007 documented as of this encounter (statuses as of 09/30/2022) [address]16-2015 History of Past illness Narrative* Problem Noted Date Diagnosed Date Resolved Date Hypertension 05/06/2014 10/27/2015 Hyperlipidemia 05/06/2014 10/27/2015 Infection of kidney, unspecified 11/28/2007 08/03/2016 Bladder neck obstruction 10/18/2007 Malignant neoplasm of kidney, except pelvis 10/18/2007 11/28/2007 documented as of this encounter (statuses as of 11/05/2022) [address]16-2015 History of Past illness Narrative* Problem Noted Date Diagnosed Date Resolved Date Hypertension 05/06/2014 10/27/2015 Hyperlipidemia 05/06/2014 10/27/2015 Infection of kidney, unspecified 11/28/2007 08/03/2016 Bladder neck obstruction 10/18/2007 Malignant neoplasm of kidney, except pelvis 10/18/2007 11/28/2007 documented as of this encounter (statuses as of 11/20/2022) [address]16-2015 History of Past illness Narrative* Problem Noted Date Diagnosed Date Resolved Date Hypertension 05/06/2014 10/27/2015 Hyperlipidemia 05/06/2014 10/27/2015 Infection of kidney, unspecified 11/28/2007 08/03/2016 Bladder neck obstruction 10/18/2007 Malignant neoplasm of kidney, except pelvis 10/18/2007 11/28/2007 documented as of this encounter (statuses as of 11/25/2022) [facility] note* Diagnosis Type 2 diabetes mellitus without retinopathy (HCC)- Primary Type II or unspecified type diabetes mellitus without mention of complication, not stated as uncontrolled Combined forms of age-related cataract of both eyes Other and combined forms of senile cataract Myopia, bilateral Myopia Regular astigmatism of both eyes Regular astigmatism Presbyopia documented in this encounter [facility] note* Diagnosis Cerebrovascular accident (CVA), unspecified mechanism (HCC) Major depressive disorder with single episode, in partial remission (HCC) [facility]* Diagnosis Major depressive disorder with single episode, in partial remission (HCC) Diabetes mellitus due to underlying condition with diabetic nephropathy, unspecified whether nursing home insulin use (HCC) [facility]* Diagnosis Partial symptomatic epilepsy with complex partial seizures, intractable, without status epilepticus (HCC)- Primary Diabetes mellitus due to underlying condition with diabetic nephropathy, unspecified whether nursing home insulin use (HCC) Cerebrovascular accident (CVA), unspecified mechanism (HCC) Essential hypertension Unspecified essential hypertension Hx of ischemic left MCA stroke Transient ischemic attack (TIA), and cerebral infarction without residual deficits ASCVD (arteriosclerotic cardiovascular disease) Unspecified cardiovascular disease Mixed hyperlipidemia [facility]* Diagnosis Diabetes mellitus due to underlying condition with diabetic nephropathy, unspecified whether nursing home insulin use (HCC) [facility]* Diagnosis Diabetes mellitus due to underlying condition with diabetic nephropathy, unspecified whether termite exterminator helper insulin use (HCC) Major depressive disorder with single episode, in partial remission (HCC) [facility]* Diagnosis Cerebrovascular accident (CVA), unspecified mechanism (HCC) [facility]* Diagnosis Cerebrovascular accident (CVA), unspecified mechanism (HCC) Diabetes mellitus due to underlying condition with diabetic nephropathy, unspecified whether nursing home insulin use (HCC) documented in this encounter [facility] note* Diagnosis Diabetes (HCC) Type II or unspecified type diabetes mellitus without mention of complication, not stated as uncontrolled documented in this encounter [facility] note* Diagnosis Essential hypertension Unspecified essential hypertension documented in this encounter [facility] note* Diagnosis Cerebrovascular accident (CVA), unspecified mechanism (HCC) documented in this encounter [facility] note* Diagnosis Diabetes mellitus due to underlying condition with diabetic nephropathy, unspecified whether termite exterminator helper insulin use (HCC) documented in this encounter [facility] note* Diagnosis Mixed hyperlipidemia- Primary Essential hypertension Unspecified essential hypertension Diabetes mellitus due to underlying condition with diabetic nephropathy, unspecified whether termite exterminator helper insulin use (HCC) Current use of proton pump inhibitor Encounter for long-term (current) use of other medications documented in this encounter [facility] note* Diagnosis Cerebrovascular accident (CVA), unspecified mechanism (HCC)- Primary Hx of ischemic left MCA stroke Transient ischemic attack (TIA), and cerebral infarction without residual deficits ASCVD (arteriosclerotic cardiovascular disease) Unspecified cardiovascular disease Essential hypertension Unspecified essential hypertension Mixed hyperlipidemia Acute respiratory failure with hypoxia (HCC) Acute respiratory failure Partial symptomatic epilepsy with complex partial seizures, intractable, without status epilepticus (HCC) Uncontrolled type 2 diabetes mellitus with hyperglycemia, without long-term current use of insulin (HCC) Diabetes mellitus due to underlying condition with diabetic nephropathy, unspecified whether termite exterminator helper insulin use (HCC) Type 2 diabetes mellitus with ulcer (HCC) Amputation of left great toe (HCC) Major depressive disorder with single episode, in partial remission (HCC) Encounter for immunization Need for other specified prophylactic vaccination against single bacterial disease Chronic Helicobacter pylori gastritis documented in this encounter [facility] note* Diagnosis Cerebrovascular accident (CVA), unspecified mechanism (HCC) documented in this encounter [facility] Summary Purpose Family History No Family History Records FoundNo Family History Records FoundNo Family History Records FoundNo Family History Records FoundNo Family History Records Found Advance Directives Documents on File Type Date Recorded Patient Supervisor [employer] Expl anation Advance Directive(s) 09/29/2020 9:44 AM Additional Source Comments (unrecognized sect ion and content) No Status Records FoundNo Status Records FoundNo Status Records FoundNo Status Records FoundNo Status Records Found INFORMATION SOURCE (unrecogn ized section and content) DATE CREATED AUTHOR AUTHOR'S ORGANIZ ATION 09/14/2017 [facility] DATE CREATED AUTHOR AUTHOR'S ORGANIZ ATION 10/01/2020 [facility] DATE CREATED AUTHOR AUTHOR'S ORGANIZ ATION 04/12/2021 [facility] DATE CREATED AUTHOR AUTHOR'S ORGANIZ ATION 12/30/2022 [facility] Source Comments (unrecognize d section and content) In the event this informatio n is protected by the Federal Confidentiality of Alcohol and Drug Abuse Patient Records regulations: The Federal rules restrict any use of the information to criminally investigate or prosecute any alcohol or drug abuse patient.[facility] the event this information is protected by the Federal Confidentiality of Alcohol and Drug Abuse Patient Records regulations: The Federal rules restrict any use of the information to criminally investigate or prosecute any alcohol or drug abuse patient.[facility] the event this information is protected by the Federal Confidentiality of Alcohol and Drug Abuse Patient Records regulations: The Federal rules restrict any use of the information to criminally investigate or prosecute any alcohol or drug abuse patient.[facility] the event this information is protected by the Federal Confidentiality of Alcohol and Drug Abuse Patient Records regulations: The Federal rules restrict any use of the information to criminally investigate or prosecute any alcohol or drug abuse patient.[facility] the event this information is protected by the Federal Confidentiality of Alcohol and Drug Abuse Patient Records regulations: The Federal rules restrict any use of the information to criminally investigate or prosecute any alcohol or drug abuse patient.[facility] the event this information is protected by the Federal Confidentiality of Alcohol and Drug Abuse Patient Records regulations: The Federal rules restrict any use of the information to criminally investigate or prosecute any alcohol or drug abuse patient.[facility] the event this information is protected by the Federal Confidentiality of Alcohol and Drug Abuse Patient Records regulations: The Federal rules restrict any use of the information to criminally investigate or prosecute any alcohol or drug abuse patient.[facility] the event this information is protected by the Federal Confidentiality of Alcohol and Drug Abuse Patient Records regulations: The Federal rules restrict any use of the information to criminally investigate or prosecute any alcohol or drug abuse patient.[facility] the event this information is protected by the Federal Confidentiality of Alcohol and Drug Abuse Patient Records regulations: The Federal rules restrict any use of the information to criminally investigate or prosecute any alcohol or drug abuse patient.[facility] the event this information is protected by the Federal Confidentiality of Alcohol and Drug Abuse Patient Records regulations: The Federal rules restrict any use of the information to criminally investigate or prosecute any alcohol or drug abuse patient.[facility] the event this information is protected by the Federal Confidentiality of Alcohol and Drug Abuse Patient Records regulations: The Federal rules restrict any use of the information to criminally investigate or prosecute any alcohol or drug abuse patient.[facility] the event this information is protected by the Federal Confidentiality of Alcohol and Drug Abuse Patient Records regulations: The Federal rules restrict any use of the information to criminally investigate or prosecute any alcohol or drug abuse patient.[facility] the event this information is protected by the Federal Confidentiality of Alcohol and Drug Abuse Patient Records regulations: The Federal rules restrict any use of the information to criminally investigate or prosecute any alcohol or drug abuse patient.[facility] the event this information is protected by the Federal Confidentiality of Alcohol and Drug Abuse Patient Records regulations: The Federal rules restrict any use of the information to criminally investigate or prosecute any alcohol or drug abuse patient.[facility] the event this information is protected by the Federal Confidentiality of Alcohol and Drug Abuse Patient Records regulations: The Federal rules restrict any use of the information to criminally investigate or prosecute any alcohol or drug abuse patient.[facility] the event this information is protected by the Federal Confidentiality of Alcohol and Drug Abuse Patient Records regulations: The Federal rules restrict any use of the information to criminally investigate or prosecute any alcohol or drug abuse patient.[facility] the event this information is protected by the Federal Confidentiality of Alcohol and Drug Abuse Patient Records regulations: The Federal rules restrict any use of the information to criminally investigate or prosecute any alcohol or drug abuse patient.[facility] the event this information is protected by the Federal Confidentiality of Alcohol and Drug Abuse Patient Records regulations: The Federal rules restrict any use of the information to criminally investigate or prosecute any alcohol or drug abuse patient.[facility] the event this information is protected by the Federal Confidentiality of Alcohol and Drug Abuse Patient Records regulations: The Federal rules restrict any use of the information to criminally investigate or prosecute any alcohol or drug abuse patient.[facility] the event this information is protected by the Federal Confidentiality of Alcohol and Drug Abuse Patient Records regulations: The Federal rules restrict any use of the information to criminally investigate or prosecute any alcohol or drug abuse patient.[facility] the event this information is protected by the Federal Confidentiality of Alcohol and Drug Abuse Patient Records regulations: The Federal rules restrict any use of the information to criminally investigate or prosecute any alcohol or drug abuse patient.[facility] the event this information is protected by the Federal Confidentiality of Alcohol and Drug Abuse Patient Records regulations: The Federal rules restrict any use of the information to criminally investigate or prosecute any alcohol or drug abuse patient.[facility] Reason for Visit (unrecogniz ed section and content) Specialty Diagnoses / Procedures Referred By Contac t Referred To Contact Ophthalmology Diagnoses Diabetes mellitus due to underlying condition with diabetic nephropathy, unspecified 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 Navigation Outreach 04/15/2022 [facility] Reason Onset Date Comments Refill Request 04/19/2022 Reason Onset Date Comments Refill Request 05/11/2022 Reason Comments Refill Request Reason Onset Date Comments [facility] Navigation Outreach 06/17/2022 [facility] Reason Comments Results Reason Onset Date Comments Refill Request 09/16/2022 Reason Onset Date Comments [facility] Navigation Outreach 09/30/2022 [facility] Reason Onset Date Comments Refill Request 11/04/2022 Reason Onset Date Comments Refill Request 11/19/2022 Reason Onset Date Comments Refill Request 11/24/2022 Reason Comments Follow Up Reason Comments Medication Problem Reason Onset Date Comments Refill Request 02/08/2023 Reason Onset Date Comments Refill Request 05/11/2023 Care Teams (unrecognized sec tion and content) Facilities Administrator Relationship Specialty Start Date End Date Verena Christian MD [address] [place], [place] [id number] PCP - General Family Practice 02/21/14 Facilities Administrator Relationship Specialty Start Date End Date Verena Christian MD [address] [place], [place] [id number] PCP - General Family Practice 02/21/14 Facilities Administrator Relationship Specialty Start Date End Date Verena Christian MD [address] [place], [place] [id number] PCP - General Family Practice 02/21/14 Facilities Administrator Relationship Specialty Start Date End Date Verena Christian MD [address] [place] [address] PCP - General Family Practice 02/21/14 Facilities Administrator Relationship Specialty Start Date End Date Verena Christian MD [address] [place] [address] PCP - General Family Medicine 02/21/14 Facilities Administrator Relationship Specialty Start Date End Date Verena Christian MD [address] [place] [address] PCP - General Family Medicine 02/21/14 Facilities Administrator Relationship Specialty Start Date End Date Verena Christian MD [address] [place] [address] PCP - General Family Medicine 02/21/14 Facilities Administrator Relationship Specialty Start Date End Date Verena Christian MD [address] [place] [address] PCP - General Family Medicine 02/21/14 Facilities Administrator Relationship Specialty Start Date End Date Verena Christian MD [address] [place] [address] PCP - General Family Medicine 02/21/14 Facilities Administrator Relationship Specialty Start Date End Date Verena Christian MD [address] [place] [address] PCP - General Family Medicine 02/21/14 Facilities Administrator Relationship Specialty Start Date End Date Verena Christian MD [address] [place] [address] PCP - General Family Medicine 02/21/14 Facilities Administrator Relationship Specialty Start Date End Date Verena Christian MD [address] [place] [address] PCP - General Family Medicine 02/21/14 Facilities Administrator Relationship Specialty Start Date End Date Verena Christian MD [address] [place], [place] [id number] PCP - General Family Medicine 02/21/14 Facilities Administrator Relationship Specialty Start Date End Date Verena Christian MD [address] [place], [place] [id number] PCP - General [facility] 02/21/14 Facilities Administrator Relationship Specialty Start Date End Date Verena Christian MD [address] [place], [place] [address] PCP - General [facility] 02/21/14 Facilities Administrator Relationship Specialty Start Date End Date Verena Christian MD [address] [place] [address] PCP - General [facility] 02/21/14 Facilities Administrator Relationship Specialty Start Date End Date Verena Christian MD [address] [place], [place] [id number] PCP - General [facility] 02/21/14 Facilities Administrator Relationship Specialty Start Date End Date Verena Christian MD [address] [place], [place] [id number] PCP - General [facility] 02/21/14 FOR RECORDS PERTAINING TO PATIENTS WHO ARE OR HAVE BEEN ENROLLED IN A CHEMICAL DEPENDENCY/SUBSTANCEABUSE PROGRAM, SOME INFORMATION MAY BE OMITTED. This clinical summary was aggregated from multiple sources. Caution should be exercised in using it in the provision of clinical care. This summary normalizes information from multiple sources, and as a consequence, information in this document may materially change the coding, format and clinical context of patient data. In addition, data may be omitted in some cases. CLINICAL DECISIONS SHOULD BE BASED ON THE PRIMARY CLINICAL RECORDS. [facility]. provides no warranty or guarantee of the accuracy or completeness of information in this document.
--- NOTE | 2023-05-23 22:39 | RAD_ITS ---
INDICATION: Trauma, fall, injury EXAMINATION/TECHNIQUE: X-RAY - RIGHT XR Foot Min 3 Views 3 VIEWS COMPARISON: None. FINDINGS: SOFT TISSUES: No soft tissue swelling or gas. No radiopaque foreign body. BONES/JOINTS: No acute fracture. Joint spaces anatomically aligned. No sclerotic or destructive changes observed. RAD/Foot min 3 Views IMPRESSION: No acute bony injury. Electronically Signed: Brett Marie MD at 23:11 EST ,
--- NOTE | 2023-05-23 22:39 | RAD_ITS ---
INDICATION: Trauma, fall, injury EXAMINATION/TECHNIQUE: X-RAY - XR Sacrum/Coccyx Min 2 Views COMPARISON: None. FINDINGS: SACRUM/COCCYX: No displaced fracture, destructive or sclerotic lesions. Note that overlapping bowel shadows may however obscure fine detail in the frontal view. SACRO-ILIAC JOINTS: The articular structures are unremarkable. SOFT TISSUES: No soft tissue swelling or gas. RAD/Sacrum-Coccyx min 2 Views IMPRESSION: No acute bony injury. Electronically Signed: Brett Marie MD at 23:08 EST ,
[2023-05-23] MEDS: Acetaminophen 500 MG Tablet 1000 MG PO (22:50)
[2023-05-23 23:38] VITALS: BP 145/74; PULSE 69; RESP 12; TEMP 36.4; O2SAT 100
== END 2023-05-23 23:38 | disposition home or self-care (01) ==
PROVIDERS: Emergency Provider Emergency Medicine; PCP Family Medicine; Visit Provider Emergency Medicine
DX: S90.31XA Contusion of right foot, initial encounter (principal); G40.909 Epilepsy, unspecified, not intractable, without status epilepticus; E11.9 Type 2 diabetes mellitus without complications; Z79.4 Long term (current) use of insulin; Z87.891 Personal history of nicotine dependence; S30.0XXA Contusion of lower back and pelvis, initial encounter; W18.39XA Other fall on same level, initial encounter; Y93.89 Activity, other specified; I25.10 Atherosclerotic heart disease of native coronary artery without angina pectoris; E78.5 Hyperlipidemia, unspecified; I10 Essential (primary) hypertension; Z86.73 Personal history of transient ischemic attack (TIA), and cerebral infarction without residual deficits; I25.2 Old myocardial infarction; Z79.899 Other long term (current) drug therapy; Z79.84 Long term (current) use of oral hypoglycemic drugs; Z79.02 Long term (current) use of antithrombotics/antiplatelets; Z95.5 Presence of coronary angioplasty implant and graft
CPT/HCPCS: 72220; 73630; 99282

== ENCOUNTER 2023-08-12 15:36 | Emergency (ER) | payer MEDICARE, SELFPAY ==
[2023-08-12 15:37] VITALS: BP 142/95; PULSE 98; RESP 16; TEMP 36.6; O2SAT 95; BMI 31.6
--- NOTE | 2023-08-12 15:56 | EX.ED.DYSGE1 ---
HPI <JESSICA Radford - Last Filed: 08/12/23 16:27> History of Present Illness Chief Complaint: Abscess Narrative Narrative: Patient is a 68-year-old male with history of TIA, diabetes, hypertension hyperlipidemia, patient presents the emerged department for an abscess to the back of his neck. Patient states started off as a zit however the last 4 to 5 days has gotten progressively worse, more red and swollen now he is having significant amount of pain. Patient denies any fever chills nausea or vomiting. PFSH <JESSICA Radford - Last Filed: 08/12/23 16:27> [facility] Medical History Acute encephalopathy Acute respiratory failure Coronary artery disease Diabetic foot ulcer associated with type 2 diabetes mellitus Former smoker History of stroke Hyperlipidemia Hypertension Incisional hernia Kidney stones Myocardial infarct Paresthesia Seizure Sepsis Speech abnormality TIA (transient ischemic attack) Type II diabetes mellitus Home Medications ?Medication ?Instructions ?Recorded ?Last Taken ?Type atorvastatin 80 mg tablet 20 mg PO QHS cholesterol 10/01/15 12/04/20 20:00 History carbidopa 25 mg-levodopa 100 mg 1 tab PO TIDAC parkinsons 10/01/15 12/05/20 08:00 History tablet carvedilol 6.25 mg tablet 6.25 mg PO BID blood pressure 10/01/15 12/05/20 08:00 History insulin NPH isoph U-100 human 100 13 units subcut QHS diabetes 10/01/15 12/04/20 20:00 History unit/mL (3 mL) subcutaneous pen lisinopril 5 mg tablet 5 mg PO DAILY blood pressure 10/01/15 12/05/20 08:00 History metformin 1,000 mg tablet 1,000 mg PO BIDCM diabetes 10/01/15 12/05/20 08:00 History aspirin 81 mg chewable tablet 81 mg PO DAILY@0800 01/26/17 12/05/20 08:00 Rx clopidogrel 75 mg tablet 75 mg PO DAILY ##30 01/26/17 12/05/20 08:00 Rx empagliflozin 10 mg tablet 10 mg PO DAILY ##30 01/26/17 12/05/20 08:00 Rx oxcarbazepine 600 mg tablet 300 mg PO 4X/DAY anticonvulsant 03/16/18 12/05/20 08:00 History mirtazapine 30 mg tablet 30 mg QHS sleep 12/05/20 12/04/20 20:00 History cephalexin 500 mg capsule 500 mg PO TID #12 caps 12/10/20 Unknown Rx doxycycline hyclate 100 mg capsule 100 mg PO BID #8 caps 12/10/20 Unknown Rx metronidazole 500 mg tablet 500 mg PO TID #12 tabs 12/10/20 Unknown Rx oxycodone 5 mg tablet 5 mg PO Q4H PRN PRN Pain Score 12/10/20 Unknown Rx 7-10 7 days #42 tabs pantoprazole 20 mg tablet,delayed 20 mg PO DAILY 30 days #30 tabs 12/10/20 Unknown Rx release acetaminophen 500 mg tablet 500 - 1,000 mg (1 - 2 x 500 mg) PO 05/23/23 Unknown Rx (Tylenol Extra Strength) Q6H PRN pain #60 tabs cephalexin 500 mg capsule 500 mg PO Q6 #40 CAPSULES 08/12/23 Unknown Rx sulfamethoxazole 800 1 tab PO BID 10 days #20 tabs 08/12/23 Unknown Rx mg-trimethoprim 160 mg tablet (Bactrim DS) Allergy/AdvReac Type Severity Reaction Status Date / Time pregabalin (From Lyrica) Allergy Unknown Verified 08/12/23 15:37 Penicillins AdvReac Hives Verified 08/12/23 15:37 Family History Mother Diabetes Heart disease Hypertension Brother Diabetes Heart disease Hypertension Surgical History History of heart artery stent history of right great toe surgery Status post biopsy of kidney Social History Smoking Status: Former smoker alcohol intake: never substance use type: does not use ROS <JESSICA Radford - Last Filed: 08/12/23 16:27> ROS ED ROS Narrative Constitutional: Negative for fever, chills, weight loss, weakness Eyes: Negative for vision loss, vision change, double vision ENT: Negative for any sore throat, ear pain, congestion Cardiovascular: Negative for any chest pain, tightness, palpitations Respiratory: Negative for any cough, sputum production, hemoptysis, dyspnea, dyspnea on exertion, orthopnea Gastrointestinal: Negative for any abdominal pain, nausea, vomiting, diarrhea, constipation, blood in stool, blood in vomit : Negative for any urinary frequency, dysuria, retention, blood in urine Muscle skeletal: Negative for any neck pain, back pain Neurological: Negative for any headache, syncope, dizziness Skin: Negative for any rashes, itching, abrasions, lacerations. Positive for abscess to the back of the neck Psychiatric: Negative for any depression, anxiety, stress, suicidal ideation, homicidal ideation Hematologic: Negative for any excessive bruising, easy bleeding EXAM <JESSICA Radford - Last Filed: 08/12/23 16:27> Physical Exam Narrative Exam Narrative: Vital signs reviewed. HEET: Head normocephalic atraumatic, TMs clear bilaterally. Posterior pharynx is clear, moist mucous membranes. Nares clear bilaterally. Neck: Supple with no lymphadenopathy or tenderness. No signs of meningismus. Cardiac: Regular rate and rhythm no murmurs gallops or rubs, equal peripheral pulses bilaterally. Respiratory: Lungs clear to auscultation bilaterally. No chest tenderness. Abdomen: Soft, nontender, nondistended. No abdominal bruit or pulsatile masses. No hepatosplenomegaly Extremities: No peripheral edema, no signs of gross trauma or deformity. Active full range of motion of all extremities. Neuro: Cranial nerves II through XII intact, no focal neurological deficits. Skin: Clean dry and intact with no rash, purpura, petechiae, vesicles or pustules. Patient has what appears to be an abscess with some slight surrounding erythema, cellulitis. The abscess is roughly 2 x 2 cm and around fashion. There is fluctuance in the middle, there is no drainage noted. Backs/flank: No CVA tenderness, no midline spinal tenderness, no deformity. Psych: Normal mood and affect. No SI, HI or acute psychosis. Const Vital Signs: 08/12/23 15:37 Temperature 97.8 F Temperature Source Temporal Pulse Rate 98 Respiratory Rate 16 Blood Pressure 142/95 H Blood Pressure Mean 110 Pulse Ox 95 Oxygen Delivery Method Room Air <Dr. Murtaza Argueta, DO - Last Filed: 08/12/23 16:13> Physical Exam Const Vital Signs: 08/12/23 15:37 Temperature 97.8 F Temperature Source Temporal Pulse Rate 98 Respiratory Rate 16 Blood Pressure 142/95 H Blood Pressure Mean 110 Pulse Ox 95 Oxygen Delivery Method Room Air [facility] <JESSICA Radford - Last Filed: 08/12/23 16:27> [facility] Treatment and Re-Evaluation :: Differential diagnosis includes however is not limited to: Cellulitis, abscess, MRSA, infected cyst Patient appears to be in no obvious respiratory distress vital signs are stable. Patient presents to the emerged department with a abscess to the back of the neck. Patient is nontoxic-appearing. Procedure note: Sterile gloves, sterile drapes were used. I was able to cleanse the area with alcohol. I anesthetized the area with 1% lidocaine with epinephrine. Patient tolerated that well. I was able make a 1 cm vertical incision, copious amounts of foul-smelling white discharge was expelled. Patient tolerated well. I was able to break up loculations, immediately get more drainage out. I was then able to pack the area. Patient tolerated well. Patient will be placed on Bactrim, Keflex as well as given a Percocet here for pain. He instructed to use warm compresses, he will take the packing out in 24 to 48 hours if it falls off its own that is fine. Patient is agreeable, stable for discharge. Given return precautions. <Dr. Murtaza Argueta, DO - Last Filed: 08/12/23 16:13> [facility] Narrative Medical decision making narrative: I have personally performed a face to face assessment of the patient and have reviewed the NITA Note. I performed a substantive portion of the visit including all aspects of the following. My car findings include: History: Patient presents with abscess to his neck that has been getting worse over the past week. Patient states he felt like there was a pimple there that he tried to pop. Patient states that it is gradually gotten worse over the past week. Patient denies any discharge or drainage. Patient states his pain is worse with certain movements. Patient denies any fevers or chills. Patient denies any nausea or vomiting. Exam: Vital signs are stable. Patient is afebrile. Patient is in no acute distress. Skin is warm and dry. There is a tender fluctuant abscess over the posterior aspect of the neck. There is some surrounding erythema. There is no discharge or drainage noted. Range of motion of the cervical spine was slightly limited in all motions secondary to pain. Strength is 5/5 bilaterally upper extremities. There are no sensory deficits noted. Medical Decision Making: Patient was advised of the need for incision and drainage. Informed consent was obtained. The wound was cleaned and anesthetized with 1% lidocaine locally. The wound was opened and drained by the NITA under my supervision. Patient tolerated procedure well. Patient was given a prescription for Keflex. Patient was instructed to keep the wound clean and dry. Patient was instructed to follow-up with his primary care physician in 5 to 7 days for wound recheck. Patient and family understood and were agreeable with the plan. All questions were answered. Discharge Plan Triage Chief Complaint: Abscess ED Midlevel Provider: Rusty Thomas ED Provider: Murtaza Argueta Dx/Rx/DC Orders Clinical Impression: Abscess, Cellulitis Instructions: Abscess Drainage, Cellulitis Dc, ED Abscess Incision And Drainage Prescriptions: New cephalexin 500 mg capsule 500 mg PO Q6 Qty: 40 0RF sulfamethoxazole-trimethoprim [Bactrim DS] 800-160 mg tablet 1 tab PO BID 10 Days Qty: 20 0RF No Action atorvastatin 80 MG tablet 20 mg PO QHS carvedilol 6.25 MG tablet 6.25 mg PO BID metformin 1,000 MG tablet 1,000 mg PO BIDCM lisinopril 5 MG tablet 5 mg PO DAILY carbidopa-levodopa 1 TABLET tablet 1 tab PO TIDAC insulin NPH isoph U-100 human 100 UNITS/ML insulin pen 13 units subcut QHS empagliflozin 10 MG tablet 10 mg PO DAILY Qty: 30 0RF clopidogrel 75 MG tablet 75 mg PO DAILY Qty: 30 0RF aspirin 81 MG tablet,chewable 81 mg PO DAILY@0800 0RF oxcarbazepine 600 MG tablet 300 mg PO 4X/DAY mirtazapine 30 mg tablet 30 mg QHS Patient Comments: TAKE 1 TABLET BY MOUTH EVERYDAY AT BEDTIME cephalexin 500 mg capsule 500 mg PO TID Qty: 12 0RF doxycycline hyclate 100 mg capsule 100 mg PO BID Qty: 8 0RF metronidazole 500 mg tablet 500 mg PO TID Qty: 12 0RF Rx Instructions: No alcohol while on this medication pantoprazole 20 mg Tablet,Delayed Release (Dr/Ec) 20 mg PO DAILY 30 Days Qty: 30 0RF oxycodone 5 mg Tablet 5 mg PO Q4H PRN PRN (Reason: Pain Score 7-10) 7 Days Qty: 42 0RF acetaminophen [Tylenol Extra Strength] 500 mg tablet 500 - 1,000 mg PO Q6H PRN (Reason: pain) Qty: 60 0RF Stand Alone Forms: ED Work / School Excuse Primary Care Provider: Connor Chavez Referrals: Connor Chavez MD [Primary Care Provider] - Activity Restrictions/Additional Instructions: Keep the packing in for 24 hours. If it falls out on its own that is fine. Take antibiotics until finished. Print Language: Puerto Rican Disposition Disposition: Home, Self Care
[2023-08-12] MEDS: Lidocaine 1% /Epi 1:100 (20ml) 20 ML Vial 3 ML INFILT (15:59)
[2023-08-12] MEDS: Cephalexin 250 MG Capsule 500 MG PO (16:24)
[2023-08-12] MEDS: Smz/Tmp Ds Tablet 1 TABLET PO (16:25)
[2023-08-12] MEDS: Oxycodone/Apap 5/325 Tablet PO (16:25)
[2023-08-12 16:33] VITALS: BP 142/74; PULSE 82; RESP 16; TEMP 36.8; O2SAT 100
== END 2023-08-12 16:35 | disposition home or self-care (01) ==
PROVIDERS: Emergency Provider Emergency Medicine; PCP Family Medicine; Visit Provider Emergency Medicine
DX: L02.11 Cutaneous abscess of neck (principal); G40.909 Epilepsy, unspecified, not intractable, without status epilepticus; E11.9 Type 2 diabetes mellitus without complications; Z79.4 Long term (current) use of insulin; Z87.891 Personal history of nicotine dependence; Z86.73 Personal history of transient ischemic attack (TIA), and cerebral infarction without residual deficits; I10 Essential (primary) hypertension; E78.5 Hyperlipidemia, unspecified; I25.10 Atherosclerotic heart disease of native coronary artery without angina pectoris; I25.2 Old myocardial infarction; Z79.899 Other long term (current) drug therapy; Z79.84 Long term (current) use of oral hypoglycemic drugs; Z79.82 Long term (current) use of aspirin; Z79.02 Long term (current) use of antithrombotics/antiplatelets; Z95.5 Presence of coronary angioplasty implant and graft; L03.221 Cellulitis of neck
CPT/HCPCS: 21501; 99282

== ENCOUNTER 2024-01-12 12:36 | Emergency (ER) | payer MEDICARE, SELFPAY ==
[2024-01-12 12:38] VITALS: BP 130/55; PULSE 67; RESP 18; TEMP 36.8; O2SAT 96; BMI 32.1
[2024-01-12 12:41] VITALS: BP 130/55; PULSE 67; RESP 18; TEMP 36.8; O2SAT 96
[2024-01-12 14:02] VITALS: BP 126/59; PULSE 72; RESP 16; TEMP 36.7; O2SAT 96
[2024-01-12 14:12] LABS: Absolute Lymphocyte Count 1.81 X10^3/uL (0.83-4.51); Absolute Neutrophil Count 8.1 X10^3/uL (2.0-7.7); Basophil# 0.03 X10^3/uL; Basophil% 0.3 % (0-1); Eosinophil# 0.13 X10^3/uL; Eosinophils% 1.2 % (0-5); Hematocrit 45.7 % (40-54); Hemoglobin 14.4 g/dL (13.0-16.5); Lymphocyte # 1.81 X10^3/ul (0.83-4.51); Lymphocyte % 16.3 % (19-41); Mean Corp Hgb Conc 31.5 g/dL (32-36); Mean Corpuscular Hgb 28.3 pg (27.0-32.0); Mean Platelet Vol. 11.2 fl (6.2-12.0); Monocyte# 0.96 X10^3/uL; Monocyte% 8.7 % (0-10); NRBC Flagged by Analyzer 0 % (0-5); Neutrophil # 8.11 X10^3/uL (2.7-7.7); Platelet Count 253 K/mm3 (150-450); RBC Distribution Width CV 13.2 % (11.6-14.6); RBC Distribution Width SD 43.3 fl (35.1-43.9); Red Blood Count 5.08 M/mm3 (4.6-6.2); White Blood Count 11.1 K/mm3 (4.4-11.0)
[2024-01-12 14:24] LABS: Anion Gap 7 (5-15); BUN 11 mg/dL (7-18); BUN/Creat Ratio 12.2 RATIO (10-20); Calcium,Total 9.8 mg/dL (8.5-10.1); Chloride 104 mmol/L (98-107); EST Glomerular Filtration Rate 89 mL/min (>60); Est Glom Filt Rate - Afr Amer 108 mL/min (>60); Estimated Creatinine Clearance 92.46 ml/min; Glucose 195 mg/dL (74-106); Potassium 4.2 mmol/L (3.5-5.1); Sodium Level 136 mmol/L (136-145)
--- NOTE | 2024-01-12 14:45 | EDS_ITS ---
HPI History of Present Illness Chief Complaint: Cellulitis Informant: patient Narrative Narrative: 68-year-old diabetic has a tender swollen area on the back of his neck that he states has been there and gradually enlarging for about a week. No spontaneous drainage. Hard to sleep because of the pain. No systemic symptoms or fevers. He states his diabetes is well-controlled. He states he had an abscess in a different area of the back of his neck/scalp that needed drained and is feel similar. [facility] Medical History Kidney stones Former smoker Myocardial infarct Incisional hernia Diabetic foot ulcer associated with type 2 diabetes mellitus Paresthesia Speech abnormality Seizure TIA (transient ischemic attack) Sepsis Acute encephalopathy Acute respiratory failure Type II diabetes mellitus Coronary artery disease History of stroke Hyperlipidemia Hypertension Home Medications ?Medication ?Instructions ?Recorded ?Last Taken ?Type carbidopa 25 mg-levodopa 100 mg 1 tab PO TIDAC parkinsons 10/01/15 12/05/20 08:00 History tablet carvedilol 6.25 mg tablet 6.25 mg PO BID blood pressure 10/01/15 12/05/20 08:00 History insulin NPH isoph U-100 human 100 13 units subcut QHS diabetes 10/01/15 12/04/20 20:00 History unit/mL (3 mL) subcutaneous pen lisinopril 5 mg tablet 5 mg PO DAILY blood pressure 10/01/15 12/05/20 08:00 History metformin 1,000 mg tablet 1,000 mg PO BIDCM diabetes 10/01/15 12/05/20 08:00 History aspirin 81 mg chewable tablet 81 mg PO DAILY@0800 01/26/17 12/05/20 08:00 Rx clopidogrel 75 mg tablet 75 mg PO DAILY ##30 01/26/17 12/05/20 08:00 Rx empagliflozin 10 mg tablet 10 mg PO DAILY ##30 01/26/17 12/05/20 08:00 Rx mirtazapine 30 mg tablet 30 mg QHS sleep 12/05/20 12/04/20 20:00 History pantoprazole 20 mg tablet,delayed 20 mg PO DAILY 30 days #30 tabs 12/10/20 Unknown Rx release acetaminophen 500 mg tablet 500 - 1,000 mg (1 - 2 x 500 mg) PO 05/23/23 Unknown Rx (Tylenol Extra Strength) Q6H PRN pain #60 tabs atorvastatin 20 mg tablet 20 mg PO QHS cholesterol 01/12/24 Unknown History insulin glargine 100 unit/mL (3 13 unit subcut QHS 01/12/24 Unknown History mL) subcutaneous pen (Lantus Solostar U-100 Insulin) oxcarbazepine 300 mg tablet 300 mg PO 4X/DAY 01/12/24 Unknown History oxycodone 5 mg tablet 5 mg PO Q4H PRN PRN Pain Score 01/12/24 Unknown Rx 7-10 1 day #4 tabs sulfamethoxazole 800 1 tab PO BID 10 days #20 tabs 01/12/24 Unknown Rx mg-trimethoprim 160 mg tablet (Bactrim DS) Allergy/AdvReac Type Severity Reaction Status Date / Time pregabalin (From Lyrica) Allergy Unknown Verified 01/12/24 12:38 Penicillins AdvReac Hives Verified 01/12/24 12:38 Family History Mother Diabetes Heart disease Hypertension Brother Diabetes Heart disease Hypertension Surgical History History of heart artery stent history of right great toe surgery Status post biopsy of kidney Social History Smoking Status: Former smoker alcohol intake: never substance use type: does not use ROS ROS ED Constitutional Constitutional ED: Denies chills or fever(s) Eyes Eyes: Denies change in vision Musculoskeletal Musculoskeletal: Reports neck pain Integumentary Reports abscess Neurologic Neurologic: Denies headache(s) EXAM Physical Exam Const Vital Signs: 01/12/24 12:38 01/12/24 12:41 01/12/24 14:02 Temperature 98.2 F 98.2 F 98.1 F Temperature Source Temporal Temporal Oral Pulse Rate 67 67 72 Respiratory Rate 18 18 16 Blood Pressure 130/55 H 130/55 H 126/59 H Blood Pressure Mean 80 80 81 Pulse Ox 96 96 96 Oxygen Delivery Method Room Air Room Air Room Air 01/12/24 15:16 Temperature Temperature Source Pulse Rate 91 Respiratory Rate 18 Blood Pressure 135/97 H Blood Pressure Mean 109 Pulse Ox 99 Oxygen Delivery Method Positive well nourished and well developed General Appearance ED: well developed and NAD HEENT Reports moist mucous membranes Negative for trauma Eyes PERRL and EOMs intact bilaterally Neck no lymphadenopathy Neck Narrative: Tender abscess posterior aspect of the right neck, it is not on the side over the front of his neck. Extremity normal to inspection Neuro oriented x3 and CN's II-XII intact bilaterally Psych mental status grossly normal Skin Skin Narrative: Tender erythematous abscess without spontaneous discharge 3 or 4 cm in diameter posterior aspect of the neck more to the right, not over the midline. MDM MDM MDM Narrative Medical decision making narrative: Labs noted. The abscess was opened and drained, see the procedure note. Packing was placed, he was given appropriate discharge instructions and started on Bactrim for suspected MRSA. Stable for outpatient treatment follow-up. Discussed dressing changes and reasons to return. Lab Data Attestation: I reviewed the patient's lab results. Labs: Laboratory Results - last 24 hr 01/12/24 13:30 WBC 11.1 H RBC 5.08 Hgb 14.4 Hct 45.7 MCV 90.0 MCH 28.3 MCHC 31.5 L RDW Std Deviation 43.3 RDW Coeff of Ana 13.2 Plt Count 253 MPV 11.2 Immature Gran % (Auto) 0.500 Neut % (Auto) 73.0 H Lymph % (Auto) 16.3 L [place] % (Auto) 8.7 Eos % (Auto) 1.2 Baso % (Auto) 0.3 Absolute Neuts (auto) 8.1 H Absolute Lymphs (auto) 1.81 Nucleated RBC % 0 Sodium 136 Potassium 4.2 Chloride 104 Carbon Dioxide 25.0 Anion Gap 7 BUN 11 Creatinine 0.90 Estim Creat Clear Calc 92.46 Est GFR (MDRD) Af Amer 108 Est GFR (MDRD) Non-Af 89 BUN/Creatinine Ratio 12.2 Glucose 195 H Calcium 9.8 Procedures Other Procedures Procedure(s): Incision and drainage complex abscess posterior neck: Area was prepped and draped in a sterile fashion using chlorhexidine and isopropyl normal combination. Informed consent obtained from the patient. Locally anesthetized with 4 cc of plain 1% lidocaine, incised centrally #10 blade, a moderate to large amount of purulent material was expressed. Deloculated area resulting in more purulence being expressed. The cavity was irrigated with 10 cc of sterile saline, cleansed thoroughly, packed with half-inch gauze, and dressed with bacitracin. Tolerated well no complications. Discharge Plan Triage Chief Complaint: Cellulitis ED Provider: Daniel Dinh Dx/Rx/DC Orders Clinical Impression: Cutaneous abscess of neck Instructions: ED Abscess Incision And Drainage Prescriptions: Continued carvedilol 6.25 MG tablet 6.25 mg PO BID metformin 1,000 MG tablet 1,000 mg PO BIDCM lisinopril 5 MG tablet 5 mg PO DAILY carbidopa-levodopa 1 TABLET tablet 1 tab PO TIDAC insulin NPH isoph U-100 human 100 UNITS/ML insulin pen 13 units subcut QHS empagliflozin 10 MG tablet 10 mg PO DAILY Qty: 30 0RF clopidogrel 75 MG tablet 75 mg PO DAILY Qty: 30 0RF aspirin 81 MG tablet,chewable 81 mg PO DAILY@0800 0RF mirtazapine 30 mg tablet 30 mg QHS Patient Comments: TAKE 1 TABLET BY MOUTH EVERYDAY AT BEDTIME pantoprazole 20 mg Tablet,Delayed Release (Dr/Ec) 20 mg PO DAILY 30 Days Qty: 30 0RF atorvastatin 20 mg tablet 20 mg PO QHS oxcarbazepine 300 mg tablet 300 mg PO 4X/DAY insulin glargine [Lantus Solostar U-100 Insulin] 100 unit/mL (3 mL) insulin pen 13 unit subcut QHS sulfamethoxazole-trimethoprim [Bactrim DS] 800-160 mg tablet 1 tab PO BID 10 Days Qty: 20 0RF oxycodone 5 mg Tablet 5 mg PO Q4H PRN PRN (Reason: Pain Score 7-10) 1 Days Qty: 4 0RF acetaminophen [Tylenol Extra Strength] 500 mg tablet 500 - 1,000 mg PO Q6H PRN (Reason: pain) Qty: 60 0RF Discontinued cephalexin 500 mg capsule 500 mg PO TID Qty: 12 0RF doxycycline hyclate 100 mg capsule 100 mg PO BID Qty: 8 0RF metronidazole 500 mg tablet 500 mg PO TID Qty: 12 0RF Rx Instructions: No alcohol while on this medication cephalexin 500 mg capsule 500 mg PO Q6 Qty: 40 0RF Primary Care Provider: Connor Chavez Referrals: Connor Chavez MD [Primary Care Provider] - As Needed Activity Restrictions/Additional Instructions: Try to leave packing intact for 48 hours and then remove and discard. If it falls out earlier than that, do not worry about it, just continue dressing changes. If there is any water that gets into the area after a shower or what not, you may gently apply pressure to the surrounding area to express it prior to a new dressing change. Antibiotic ointment on the area with these dressing changes okay as well. If you are concerned about it recurring or getting worse, return to the ER for reevaluation. Print Language: Nigerien Disposition Disposition: Home, Self Care
[2024-01-12] MEDS: Smz/Tmp Ds Tablet 1 TABLET PO (15:15)
[2024-01-12 15:16] VITALS: BP 135/97; PULSE 91; RESP 18; O2SAT 99
[2024-01-12] MEDS: Lidocaine 1% (20 ml mdv) 20 ML Vial INFILT (16:17)
== END 2024-01-12 16:24 | disposition home or self-care (01) ==
PROVIDERS: Emergency Provider Emergency Medicine; PCP Family Medicine; Visit Provider Emergency Medicine
DX: L02.11 Cutaneous abscess of neck (principal); E11.9 Type 2 diabetes mellitus without complications; Z79.4 Long term (current) use of insulin; E78.5 Hyperlipidemia, unspecified; Z87.891 Personal history of nicotine dependence; I25.10 Atherosclerotic heart disease of native coronary artery without angina pectoris; Z86.73 Personal history of transient ischemic attack (TIA), and cerebral infarction without residual deficits; I10 Essential (primary) hypertension; Z79.899 Other long term (current) drug therapy; Z79.84 Long term (current) use of oral hypoglycemic drugs; Z79.82 Long term (current) use of aspirin; Z79.02 Long term (current) use of antithrombotics/antiplatelets; I25.2 Old myocardial infarction
CPT/HCPCS: 10061; 80048; 85025; 99283; A4216

== ENCOUNTER 2024-01-23 03:25 | Emergency (ER) | payer MEDICARE, SELFPAY ==
[2024-01-23 03:26] VITALS: BP 163/73; PULSE 107; RESP 20; TEMP 37.1; O2SAT 92; BMI 32.3
--- NOTE | 2024-01-23 03:44 | CT_ITS ---
INDICATION: right flank pain EXAMINATION: CT ABDOMEN AND PELVIS WITHOUT CONTRAST - CT Abdomen And Pelvis W/O Contrast Injection TECHNIQUE: Helically acquired images were obtained of the abdomen and pelvis without oral or IV contrast. A radiation dose optimization technique was used for this scan. IV Contrast dosage and agent: None. Oral contrast: None. RADIATION DOSAGE (If Supplied By Facility): CTDIvol = ( 17.96 ) mGy, DLP = ( 1031.87 ) mGycm COMPARISON: Prior study dated: 06/14/2020 FINDINGS: LOWER CHEST: Linear bibasilar atelectasis. Coronary artery calcifications are seen. No cardiomegaly or pericardial effusion. LIVER: The liver is normal in size, shape, and attenuation. No focal mass. GALLBLADDER AND BILIARY TREE: The gallbladder is normally distended. Small stones are seen. No gallbladder wall thickening or edema. No intra- or extrahepatic biliary ductal dilation. PANCREAS: No focal cystic or solid mass. SPLEEN: Normal size without focal cystic or solid mass. Calcified granulomas present. ADRENAL GLANDS: Bilateral adrenal gland nodules are again noted. These are similar to prior. These likely represent lipid rich adenomas, with no specific follow-up recommended. The right-sided nodule measures 3.6 cm. 1.6 cm left adrenal adenoma. KIDNEYS AND URETERS: Normal renal size and position. No hydronephrosis or nephrolithiasis. Simple left renal cyst. No specific follow-up recommended. Calcified densities along the right kidney are unchanged. This could be fat infarct. PERITONEUM: No ascites or free air. No other fluid collection. BOWEL: The stomach is unremarkable. Normal caliber small bowel. No obstruction. No colonic wall thickening or inflammatory changes. No evidence of acute appendicitis. LYMPH NODES: No enlarged mesenteric or retroperitoneal lymph nodes. VESSELS: Aorta is non-dilated. Severe atherosclerotic calcification. Dense calcification causes stenosis in the left common iliac artery. This has progressed since 2020. URINARY BLADDER: Unremarkable. REPRODUCTIVE ORGANS: Enlarged prostate measures 6.7 cm. ABDOMINAL WALL: Fat-containing bilateral inguinal hernias. BONES: No acute or suspicious osseous abnormality. Mild degenerative changes of the spine. CT/Abdomen/Pelvis without Cont IMPRESSION: No hydronephrosis or nephrolithiasis. Unchanged calcifications along the right kidney. Severe atherosclerotic calcifications. Progressive dense calcification in the left common iliac artery resulting in stenosis. Electronically Signed: Galindo Miller MD at 5:19 EST ,
--- NOTE | 2024-01-23 03:45 | EKG12_ITS ---
Test Reason : CP Blood Pressure : */* mmHG Vent. Rate : 104 BPM Atrial Rate : 104 BPM P-R Int : 140 ms QRS Dur : 132 ms QT Int : 380 ms P-R-T Axes : 73 -69 64 degrees QTcB Int : 499 ms Sinus tachycardia Left axis deviation Right bundle branch block Inferior infarct (cited on or before 06-Jan-2014) Anterolateral infarct (cited on or before 06-Jan-2014) Abnormal ECG Confirmed by Reggie Bueno ([id number]), editorial specialist JOSE R GREEN ([id number]) on 01/24/2024 9:14:22 AM Referred By: SLY Confirmed By: Reggie Bueno
[2024-01-23 03:56] LABS: Absolute Lymphocyte Count 2.06 X10^3/uL (0.83-4.51); Absolute Neutrophil Count 8.1 X10^3/uL (2.0-7.7); Basophil# 0.03 X10^3/uL; Basophil% 0.3 % (0-1); Eosinophil# 0.17 X10^3/uL; Eosinophils% 1.5 % (0-5); Hematocrit 44.8 % (40-54); Hemoglobin 14.4 g/dL (13.0-16.5); Lymphocyte # 2.06 X10^3/ul (0.83-4.51); Lymphocyte % 18.6 % (19-41); Mean Corp Hgb Conc 32.1 g/dL (32-36); Mean Corpuscular Hgb 28.5 pg (27.0-32.0); Mean Corpuscular Volume 88.7 fL (80-94); Mean Platelet Vol. 10.6 fl (6.2-12.0); Monocyte# 0.64 X10^3/uL; Monocyte% 5.8 % (0-10); NRBC Flagged by Analyzer 0 % (0-5); Neutrophil # 8.07 X10^3/uL (2.7-7.7); Neutrophil % 73.1 % (47-70); Platelet Count 334 K/mm3 (150-450); RBC Distribution Width CV 13.1 % (11.6-14.6); RBC Distribution Width SD 42.4 fl (35.1-43.9); Red Blood Count 5.05 M/mm3 (4.6-6.2); White Blood Count 11.1 K/mm3 (4.4-11.0)
[2024-01-23] MEDS: Ketorolac 30 MG/ML Syringe IV (04:02)
[2024-01-23] MEDS: 0.9% Normal Saline (1000mL) 1,000 ML 999 ML IV (04:02)
--- NOTE | 2024-01-23 04:20 | RAD_ITS ---
INDICATION: chest pain EXAMINATION/TECHNIQUE: X-RAY - XR Chest 2 Views COMPARISON: Prior study dated: 12/05/2020 FINDINGS: LINES/DEVICES: None. LUNGS: No consolidation. A few granulomata left lung. No pneumothorax. MEDIASTINUM: The aorta is atherosclerotic. CARDIAC SILHOUETTE: Not enlarged. BONES AND SOFT TISSUES: No acute abnormalities. RAD/Chest PA and Lateral IMPRESSION: No evidence of active intrathoracic disease. Electronically Signed: Sarah Swanson MD at 5:05 EST ,
[2024-01-23 04:22] LABS: AST(SGOT) 14 U/L (15-37); Alanine Aminotransfer ALT/SGPT 18 U/L (16-61); Albumin, Serum 3.6 g/dL (3.2-5.0); Alkaline Phosphatase 121 U/L (45-117); Anion Gap 9 (5-15); BUN 17 mg/dL (7-18); BUN/Creat Ratio 15.6 RATIO (10-20); Bilirubin, Direct 0.14 mg/dL (0.00-0.30); Calcium,Total 9.3 mg/dL (8.5-10.1); Chloride 103 mmol/L (98-107); Creatinine, Serum 1.09 mg/dL (0.70-1.30); EST Glomerular Filtration Rate 71 mL/min (>60); Est Glom Filt Rate - Afr Amer 86 mL/min (>60); Estimated Creatinine Clearance 74.38 ml/min; Globulin 4.7 g/dL (2.2-4.2); Glucose 219 mg/dL (74-106); Lipase 57 U/L (13-75); Potassium 4.1 mmol/L (3.5-5.1); Protein, Total 8.3 g/dL (6.4-8.2); Sodium Level 135 mmol/L (136-145); Troponin-I HS 22 pg/mL (3.0-78.0)
--- NOTE | 2024-01-23 04:43 | EDS_ITS ---
HPI History of Present Illness Chief Complaint: Chest Pain Informant: patient and EMS Narrative Narrative: Patient is a 68-year-old male with past medical history of insulin-dependent type 2 diabetes hypertension hyperlipidemia and coronary artery disease. He sta wilmar he was taking oral out around midnight as he was working on his car and he noted pain along the right sided abdomen/flank that he felt radiated up towards his right chest. He denied any nausea vomiting diaphoresis or shortness of breath. He states there was no trauma. He states because of his history of coronary disease he was concerned this could be his heart and therefore EMS was called to bring him in for evaluation. [facility] Medical History Kidney stones Former smoker Myocardial infarct Incisional hernia Diabetic foot ulcer associated with type 2 diabetes mellitus Paresthesia Speech abnormality Seizure TIA (transient ischemic attack) Sepsis Acute encephalopathy Acute respiratory failure Type II diabetes mellitus Coronary artery disease History of stroke Hyperlipidemia Hypertension Home Medications ?Medication ?Instructions ?Recorded ?Last Taken ?Type carbidopa 25 mg-levodopa 100 mg 1 tab PO TIDAC parkinsons 10/01/15 12/05/20 08:00 History tablet carvedilol 6.25 mg tablet 6.25 mg PO BID blood pressure 10/01/15 12/05/20 08:00 History insulin NPH isoph U-100 human 100 13 units subcut QHS diabetes 10/01/15 12/04/20 20:00 History unit/mL (3 mL) subcutaneous pen lisinopril 5 mg tablet 5 mg PO DAILY blood pressure 10/01/15 12/05/20 08:00 History metformin 1,000 mg tablet 1,000 mg PO BIDCM diabetes 10/01/15 12/05/20 08:00 History aspirin 81 mg chewable tablet 81 mg PO DAILY@0800 01/26/17 12/05/20 08:00 Rx clopidogrel 75 mg tablet 75 mg PO DAILY ##30 01/26/17 12/05/20 08:00 Rx empagliflozin 10 mg tablet 10 mg PO DAILY ##30 01/26/17 12/05/20 08:00 Rx mirtazapine 30 mg tablet 30 mg QHS sleep 12/05/20 12/04/20 20:00 History pantoprazole 20 mg tablet,delayed 20 mg PO DAILY 30 days #30 tabs 12/10/20 Unknown Rx release acetaminophen 500 mg tablet 500 - 1,000 mg (1 - 2 x 500 mg) PO 05/23/23 Unknown Rx (Tylenol Extra Strength) Q6H PRN pain #60 tabs atorvastatin 20 mg tablet 20 mg PO QHS cholesterol 01/12/24 Unknown History insulin glargine 100 unit/mL (3 13 unit subcut QHS 01/12/24 Unknown History mL) subcutaneous pen (Lantus Solostar U-100 Insulin) oxcarbazepine 300 mg tablet 300 mg PO 4X/DAY 01/12/24 Unknown History oxycodone 5 mg tablet 5 mg PO Q4H PRN PRN Pain Score 01/12/24 Unknown Rx 7-10 1 day #4 tabs sulfamethoxazole 800 1 tab PO BID 10 days #20 tabs 01/12/24 Unknown Rx mg-trimethoprim 160 mg tablet (Bactrim DS) methocarbamol 500 mg tablet 500 mg PO 4X/DAY PRN Muscle 01/23/24 Unknown Rx pain/spasm #40 tabs oxycodone-acetaminophen 5 mg-325 1 tab PO Q6H PRN pain 3 days #12 01/23/24 U nknown Rx mg tablet (Percocet) tabs Allergy/AdvReac Type Severity Reaction Status Date / Time pregabalin (From Lyrica) Allergy Unknown Verified 01/12/24 12:38 Penicillins AdvReac Hives Verified 01/12/24 12:38 Family History Mother Diabetes Heart disease Hypertension Brother Diabetes Heart disease Hypertension Surgical History History of heart artery stent history of right great toe surgery Status post biopsy of kidney Social History Smoking Status: Former smoker alcohol intake: never substance use type: does not use ROS ROS ED Constitutional Constitutional ED: Denies chills or fever(s) Eyes Eyes: Denies change in vision or diplopia ENT ENT ED: Denies sore throat Cardiovascular Cardiovascular: Reports chest pain; Denies palpitations or racing heartbeat Respiratory/Chest Respiratory/Chest: Denies cough or dyspnea Gastrointestinal Gastrointestinal: Reports abdominal pain; Denies diarrhea, nausea or vomiting Genitourinary Genitourinary ED: Denies dysuria or hematuria Musculoskeletal Musculoskeletal: Reports back pain Integumentary Denies rash Neurologic Neurologic: Denies headache(s) Hematologic/Lymphatic Hematologic/Lymphatic: Reports easy bleeding and easy bruising EXAM Physical Exam Const Vital Signs: 01/23/24 03:26 01/23/24 03:30 Temperature 98.8 F Temperature Source Oral Pulse Rate 107 H Respiratory Rate 20 H Respiratory Effort Normal Non-Labored Blood Pressure 163/73 H Blood Pressure Mean 103 Pulse Ox 92 Oxygen Delivery Method Room Air Positive well nourished, well developed and obese General Appearance ED: well developed; Negative for pallor Nutritional Appearance: obese HEENT HEENT Narrative: Normocephalic atraumatic Eyes PERRL and EOMs intact bilaterally General Eye ED: Negative for scleral icterus Neck supple Neck Narrative: No nuchal rigidity or meningeal signs Chest Wall palpation of chest normal Chest Narrative: No bony deformity or crepitance of the chest wall noted on palpation No reproducible pain with palpation Resp normal respiratory effort and clear to auscultation bilaterally Cardio regular rate and regular rhythm Rate: other Other Details: Heart is regular rate and rhythm No obvious murmurs rubs or gallop Radial and carotid pulses are equal and symmetric No carotid bruit noted GI non-distended and no masses GI Narrative: Abdomen is soft and nondistended with normal active bowel sounds. There is pain with palpation along the right lateral upper abdomen without voluntary guarding or rigidity. No pulsatile mass or fluid wave. Negative Gunderson sign. Auscultation: normoactive bowel sounds Palpation: soft Back/Spine Back/Spine Narrative: Mild right CVA pain noted Extremity normal to inspection Extremity Narrative: No asymmetric edema no pitting edema negative Homans' sign bilaterally Neuro oriented x3, CN's II-XII intact bilaterally and no sensory deficits noted Sensorium / Orientation: alert Motor Exam: strength 5/5 throughout Psych mental status grossly normal Skin no rashes or lesions noted and no wounds General Skin Exam: Negative for jaundice or pallor MDM MDM MDM Narrative Medical decision making narrative: Patient arrived to the ER hypertensive but otherwise with stable vitals. He reported his pain was more along the right lateral abdomen and flank and occurred when he was carrying oil as he was working on his car. This is atypical for acute coronary syndrome but he does have diabetes and known CAD and therefore cardiac workup was performed. Initial troponin was normal at 22 and delta actually down trended to 18 indicating no signs of ACS. His EKG was sinus rhythm as well without ischemic changes going against ACS and there was no cardiac dysrhythmia noted on EKG or while on the front desk monitor. With pain along the right lateral abdomen and flank there is concern for kidney stone versus biliary colic versus acute cholecystitis. Patient could also have atypic al lung pathology such as pneumonia or pneumothorax. Chest x-ray was obtained which revealed no acute findings or widening of the mediastinum to suggest dissection. The CT scan displayed chronic findings with small gallstones within the gallbladder but no signs of acute cholecystitis. The patient states he did have sausage for dinner which could have stimulated a gallbladder spasm. Urine sample showed no acute blood going against kidney stone as well. There was question of UTI with +1 bacteria and 5-10 white cells without any skin contaminant. As the patient does not have any urinary symptoms I will send the urine for culture but do not feel the need for antibiotics at this time as he does not have any significant leukocytosis and is afebrile and denies urinary symptoms. The patient reported improvement of his pain with the provided medication. 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 The radiologist documented stenosis secondary to his worsening calcifications of his left iliac but the patient does not have any pain on that side and he still has distal pulses into the left leg and therefore this is not clinically correlate and I do not feel there is a need for a CT with runoff. Therefore at this time as patient's had improvement of his pain stabilization of his vitals and his workup does not show signs of acute kidney injury acute coronary syndrome or cardiac dysrhythmia or acute cholecystitis he will be discharged home and can follow-up as an outpatient History & Record Review Discussion w/independent historian: EMS personnel and Patient Lab Data Attestation: I reviewed the patient's lab results. Labs: Laboratory Results - last 24 hr 01/23/24 01/23/24 01/23/24 03:32 03:55 05:23 WBC 11.1 H RBC 5.05 Hgb 14.4 Hct 44.8 MCV 88.7 MCH 28.5 MCHC 32.1 RDW Std Deviation 42.4 RDW Coeff of Ana 13.1 Plt Count 334 MPV 10.6 Immature Gran % (Auto) 0.700 Neut % (Auto) 73.1 H Lymph % (Auto) 18.6 L [place] % (Auto) 5.8 Eos % (Auto) 1.5 Baso % (Auto) 0.3 Absolute Neuts (auto) 8.1 H Absolute Lymphs (auto) 2.06 Nucleated RBC % 0 Sodium 135 L Potassium 4.1 Chloride 103 Carbon Dioxide 23.0 Anion Gap 9 BUN 17 Creatinine 1.09 Estim Creat Clear Calc 74.38 Est GFR (MDRD) Af Amer 86 Est GFR (MDRD) Non-Af 71 BUN/Creatinine Ratio 15.6 Glucose 219 H Calcium 9.3 Total Bilirubin 0.40 Direct Bilirubin 0.14 AST 14 L ALT 18 Alkaline Phosphatase 121 H Troponin I High Sens 22 18 Total Protein 8.3 H Albumin 3.6 Globulin 4.7 H Lipase 57 Urine Color Yellow Urine Clarity Clear Urine pH 6.0 Ur Specific [place] 1.015 Urine Protein 15 H Urine Glucose (UA) 1000 H Urine Ketones Negative Urine Occult Blood 10 H Urine Nitrite Negative Urine Bilirubin Negative Urine Urobilinogen Normal Ur Leukocyte Esterase 25 H Urine RBC 0-5 SEEN Urine WBC 5-10 SEEN Ur Squamous Epith Cells 0-5 SEEN Urine Bacteria 1+ Urine Mucus 0 SEEN Radiography Diagnostic Testing: Clinical Impression(s) from Imaging Studies Abdomen/Pelvis CT 01/23/24 03:44 IMPRESSION: No hydronephrosis or nephrolithiasis. Unchanged calcifications along the right kidney. Severe atherosclerotic calcifications. Progressive dense calcification in the left common iliac artery resulting in stenosis. Electronically Signed: Galindo Miller MD at 5:19 EST , Chest X-Ray 01/23/24 04:20 IMPRESSION: No evidence of active intrathoracic disease. Electronically Signed: Sarah Swanson MD at 5:05 EST , Chest x-ray as interpreted by the emergency medicine physician reveals no acute infiltrate pneumothorax pleural effusion or widening of the mediastinum Discharge Plan Triage Chief Complaint: Chest Pain ED Provider: Armen Campos Dx/Rx/DC Orders Clinical Impression: Biliary colic, Cholelithiasis, Hypertension, Hyperlipidemia, Diabetes mellitus type 2, insulin dependent Instructions: ED Gallstones with Biliary Colic Prescriptions: New oxycodone-acetaminophen [Percocet] 5-325 mg tablet 1 tab PO Q6H PRN (Reason: pain) 3 Days Qty: 12 0RF methocarbamol 500 mg tablet 500 mg PO 4X/DAY PRN (Reason: Muscle pain/spasm) Qty: 40 0RF No Action carvedilol 6.25 MG tablet 6.25 mg PO BID metformin 1,000 MG tablet 1,000 mg PO BIDCM lisinopril 5 MG tablet 5 mg PO DAILY carbidopa-levodopa 1 TABLET tablet 1 tab PO TIDAC insulin NPH isoph U-100 human 100 UNITS/ML insulin pen 13 units subcut QHS empagliflozin 10 MG tablet 10 mg PO DAILY Qty: 30 0RF clopidogrel 75 MG tablet 75 mg PO DAILY Qty: 30 0RF aspirin 81 MG tablet,chewable 81 mg PO DAILY@0800 0RF mirtazapine 30 mg tablet 30 mg QHS Patient Comments: TAKE 1 TABLET BY MOUTH EVERYDAY AT BEDTIME pantoprazole 20 mg Tablet,Delayed Release (Dr/Ec) 20 mg PO DAILY 30 Days Qty: 30 0RF atorvastatin 20 mg tablet 20 mg PO QHS oxcarbazepine 300 mg tablet 300 mg PO 4X/DAY insulin glargine [Lantus Solostar U-100 Insulin] 100 unit/mL (3 mL) insulin pen 13 unit subcut QHS sulfamethoxazole-trimethoprim [Bactrim DS] 800-160 mg tablet 1 tab PO BID 10 Days Qty: 20 0RF oxycodone 5 mg Tablet 5 mg PO Q4H PRN PRN (Reason: Pain Score 7-10) 1 Days Qty: 4 0RF acetaminophen [Tylenol Extra Strength] 500 mg tablet 500 - 1,000 mg PO Q6H PRN (Reason: pain) Qty: 60 0RF Primary Care Provider: Connor Chavez Referrals: Connor Chavez MD [Primary Care Provider] - Print Language: [place] Disposition Disposition: Home, Self Care
[2024-01-23 04:52] LABS: Mucous, Urine 0 SEEN /hpf (<or=2+)
[2024-01-23 04:54] LABS: Color, Urine Yellow (Yellow); Glucose, Dipstick 1000 mg/dl (Normal); Ketone-Dipstick Negative (Negative); Leukocyte Esterase-Dipstick 25 /ul (Negative); Nitrite-Dipstick Negative (Negative); Occult Blood-Urine 10 /ul (Negative); Protein-Dipstick 15 mg/dl (Negative); Specific Gravity, Urine 1.015 (1.002-1.030); Urine Bilirubin Dipstick Negative (Negative); Urine Clarity Clear (Clear); Urine Urobilinogen Normal (Normal)
[2024-01-23] MEDS: Ondansetron 4 MG/2 ML Vial IV (05:01)
[2024-01-23] MEDS: fentaNYL 100 MCG/2 ML Ampul 25 MCG IV (05:03)
[2024-01-23 05:06] LABS: Bacteria 1+ /hpf (None Seen); Red Blood Cells-Urine 0-5 SEEN /hpf (0-5); Squamous Epithelial Cells - UA 0-5 SEEN /hpf (0-5); White Blood Cells 5-10 SEEN /hpf (0-5)
[2024-01-23 05:26] VITALS: BP 110/80; PULSE 90; RESP 18; O2SAT 92
[2024-01-23 05:47] LABS: Troponin-I HS 18 pg/mL (3.0-78.0)
[2024-01-23] MEDS: oxyCODONE 5 MG Tablet PO (06:03)
[2024-01-23] MEDS: Orphenadrine 100 MG Tablet PO (06:03)
[2024-01-23 06:15] VITALS: BP 107/47; PULSE 90; RESP 17; TEMP 35.9; O2SAT 92
== END 2024-01-23 06:18 | disposition home or self-care (01) ==
PROVIDERS: Emergency Provider Emergency Medicine; PCP Family Medicine; Visit Provider Emergency Medicine
DX: K80.70 Calculus of gallbladder and bile duct without cholecystitis without obstruction (principal); E11.9 Type 2 diabetes mellitus without complications; Z79.4 Long term (current) use of insulin; Z87.891 Personal history of nicotine dependence; E78.5 Hyperlipidemia, unspecified; I10 Essential (primary) hypertension; I25.10 Atherosclerotic heart disease of native coronary artery without angina pectoris; I25.2 Old myocardial infarction; Z86.73 Personal history of transient ischemic attack (TIA), and cerebral infarction without residual deficits; Z79.899 Other long term (current) drug therapy; Z79.84 Long term (current) use of oral hypoglycemic drugs; Z79.82 Long term (current) use of aspirin; Z79.02 Long term (current) use of antithrombotics/antiplatelets; Z95.5 Presence of coronary angioplasty implant and graft; K80.20 Calculus of gallbladder without cholecystitis without obstruction
CPT/HCPCS: 71046; 74176; 80048; 80076; 81001; 83690; 84484; 85025; 87086; 93005; 96361; 96374; 96375; 99285; J7030; J2405

== ENCOUNTER 2024-01-27 12:58 | Inpatient (IN) | payer MEDICARE, SELFPAY ==
[2024-01-27] VITALS (8 sets, daily range): BP systolic 124–159; BP diastolic 70–85; PULSE 85–112; RESP 14–18; TEMP 36.1–36.9; O2SAT 87–97; BMI 32.5; BMI 31.9
--- NOTE | 2024-01-27 13:40 | US_ITS ---
INDICATION: PAIN EXAMINATION: Ultrasound US Abdomen Limited (quadrant) TECHNIQUE: Dumont scale and color doppler imaging was performed of the right upper quadrant. COMPARISON: CT scan of the abdomen and pelvis of 01/23/2024 FINDINGS: LIVER: The liver is enlarged measuring about 20 cm in length and is echogenic in texture. The portal vein is patent with normal hepatopedal flow. Hypoechoic area adjacent to gallbladder fossa measuring about 2.4 cm could represent focal fatty sparing difficult to accurately evaluate on this exam. There is no free fluid. GALLBLADDER AND BILIARY TREE: Multiple gallstones are seen normal gallbladder wall measures 2.4 mm. The proximal common bile duct measures 5.6 mm, which is within normal limits for the patient''s age. Sonographic Gunderson''s sign: Negative. PANCREAS: No focal abnormality is demonstrated in the pancreas. No pancreatic ductal dilatation. Right kidney: The right kidney measures 11 cm in length. The renal cortex measures 1.4 cm. No evidence of hydronephrosis. US/Gallbladder IMPRESSION: 1. Multiple gallstones. 2. Hepatomegaly and hepatic steatosis. 3. Hypoechoic area adjacent to gallbladder fossa could represent focal fatty sparing difficult to accurately evaluate on this exam. Electronically Signed: Elver Frank MD at 15:00 EST ,
[2024-01-27 14:15] LABS: Absolute Lymphocyte Count 1.92 X10^3/uL (0.83-4.51); Absolute Neutrophil Count 7.2 X10^3/uL (2.0-7.7); Basophil# 0.03 X10^3/uL; Basophil% 0.3 % (0-1); Hematocrit 41.8 % (40-54); Hemoglobin 13.8 g/dL (13.0-16.5); Lymphocyte # 1.92 X10^3/ul (0.83-4.51); Lymphocyte % 19.4 % (19-41); Mean Corpuscular Hgb 28.9 pg (27.0-32.0); Mean Corpuscular Volume 87.6 fL (80-94); Mean Platelet Vol. 10.2 fl (6.2-12.0); Monocyte# 0.61 X10^3/uL; Monocyte% 6.2 % (0-10); NRBC Flagged by Analyzer 0 % (0-5); Neutrophil # 7.17 X10^3/uL (2.7-7.7); Neutrophil % 72.5 % (47-70); Platelet Count 349 K/mm3 (150-450); RBC Distribution Width SD 41.3 fl (35.1-43.9); Red Blood Count 4.77 M/mm3 (4.6-6.2); White Blood Count 9.9 K/mm3 (4.4-11.0)
[2024-01-27 14:30] LABS: BNP,B-Type NATRIURETIC PEPTIDE 303.3 pg/mL (0-100)
--- NOTE | 2024-01-27 14:30 | RAD_ITS ---
INDICATION: Shortness of breath EXAMINATION/TECHNIQUE: X-RAY - XR Chest 1 View COMPARISON: Prior study dated: [424 FINDINGS: LINES/DEVICES: None. LUNGS: No consolidation, edema or effusion. No pneumothorax. MEDIASTINUM AND CARDIOVASCULAR STRUCTURES: Cardiac silhouette not enlarged. Central airways and mediastinal contour are unremarkable. BONES AND SOFT TISSUES: Unremarkable. RAD/Chest 1 View (Portable) IMPRESSION: No radiographic evidence of acute cardiopulmonary disease. Electronically Signed: Elver Frank MD at 14:44 EST ,
--- NOTE | 2024-01-27 14:30 | ED.VIS.DYS ---
HPI History of Present Illness Chief Complaint: Shortness of Breath Narrative Narrative: Chief complaint and HPI: Right upper quadrant arturo pain. 68-year-old male with history of DM 2, HTN, HLD, CAD, CVA with dysarthria presents for evaluation of right upper quadrant abdominal pain. Patient states onset of symptoms started last night and into today. He states that it radiates to the right chest. He endorses some shortness of breath secondary to the pain. He denies any fever, chills, URI symptoms, cough, nausea, vomiting, diarrhea, dysuria, constipation. Of note, patient was seen in our emergency department on 01/22 for same complaint. Patient was diagnosed with bariatric colic secondary to cholelithiasis. He had a CT abdomen pelvis and labs performed at that time. Review of systems: See HPI Medications: As listed on the chart Allergies: As listed on the chart PFSH: Per chart Vital signs: As listed on the chart. Reviewed. Physical exam: Gen: A&O x3, NAD Head: Normocephalic, atraumatic Eyes: No sclera icterus, conjunctiva clear ENT: Moist mucous membranes Neck: Trachea midline, No JVD CV: RRR, no murmurs, no peripheral edema Resp: Lungs CTA BL, no w/r/c GI: Abd soft, non-distended, mild mild tenderness to palpation of the right upper quadrant, negative Gunderson's, no r/r/g Musc: Full ROM, no deformity Skin: Warm, dry Neuro: Alert, oriented, grossly intact, sensation intact Psych: Cooperative, appropriate mood and affect [facility] Medical History Kidney stones Former smoker Myocardial infarct Incisional hernia Diabetic foot ulcer associated with type 2 diabetes mellitus Paresthesia Speech abnormality Seizure TIA (transient ischemic attack) Sepsis Acute encephalopathy Acute respiratory failure Type II diabetes mellitus Coronary artery disease History of stroke Hyperlipidemia Hypertension Home Medications ?Medication ?Instructions ?Recorded ?Last Taken ?Type carbidopa 25 mg-levodopa 100 mg 1 tab PO TIDAC parkinsons 10/01/15 12/05/20 08:00 History tablet carvedilol 6.25 mg tablet 6.25 mg PO BID blood pressure 10/01/15 12/05/20 08:00 History insulin NPH isoph U-100 human 100 13 units subcut QHS diabetes 10/01/15 12/04/20 20:00 History unit/mL (3 mL) subcutaneous pen lisinopril 5 mg tablet 5 mg PO DAILY blood pressure 10/01/15 12/05/20 08:00 History metformin 1,000 mg tablet 1,000 mg PO BIDCM diabetes 10/01/15 12/05/20 08:00 History aspirin 81 mg chewable tablet 81 mg PO DAILY@0800 01/26/17 12/05/20 08:00 Rx clopidogrel 75 mg tablet 75 mg PO DAILY ##30 01/26/17 12/05/20 08:00 Rx empagliflozin 10 mg tablet 10 mg PO DAILY ##30 01/26/17 12/05/20 08:00 Rx mirtazapine 30 mg tablet 30 mg QHS sleep 12/05/20 12/04/20 20:00 History pantoprazole 20 mg tablet,delayed 20 mg PO DAILY 30 days #30 tabs 12/10/20 Unknown Rx release acetaminophen 500 mg tablet 500 - 1,000 mg (1 - 2 x 500 mg) PO 05/23/23 Unknown Rx (Tylenol Extra Strength) Q6H PRN pain #60 tabs atorvastatin 20 mg tablet 20 mg PO QHS cholesterol 01/12/24 Unknown History insulin glargine 100 unit/mL (3 13 unit subcut QHS 01/12/24 Unknown History mL) subcutaneous pen (Lantus Solostar U-100 Insulin) oxcarbazepine 300 mg tablet 300 mg PO 4X/DAY 01/12/24 Unknown History oxycodone 5 mg tablet 5 mg PO Q4H PRN PRN Pain Score 01/12/24 Unknown Rx 7-10 1 day #4 tabs sulfamethoxazole 800 1 tab PO BID 10 days #20 tabs 01/12/24 Unknown Rx mg-trimethoprim 160 mg tablet (Bactrim DS) methocarbamol 500 mg tablet 500 mg PO 4X/DAY PRN Muscle 01/23/24 Unknown Rx pain/spasm #40 tabs oxycodone-acetaminophen 5 mg-325 1 tab PO Q6H PRN pain 3 days #12 01/23/24 Unknown Rx mg tablet (Percocet) tabs Allergy/AdvReac Type Severity Reaction Status Date / Time pregabalin (From Lyrica) Allergy Unknown Verified 01/27/24 12:59 Penicillins AdvReac Hives Verified 01/27/24 12:59 Family History Mother Diabetes Heart disease Hypertension Brother Diabetes Heart disease Hypertension Surgical History History of heart artery stent history of right great toe surgery Status post biopsy of kidney Social History Smoking Status: Former smoker alcohol intake: never substance use type: does not use EXAM Physical Exam Const Vital Signs: 01/27/24 12:59 01/27/24 13:00 01/27/24 13:04 Temperature 97 F L Temperature Source Temporal Pulse Rate 112 H 112 H Respiratory Rate 14 16 Respiratory Effort Short of Breath Respiratory Depth Normal Respiratory Pattern Normal Blood Pressure 150/85 H 159/81 H Blood Pressure Mean 106 107 Pulse Ox 87 88 Oxygen Delivery Method Room Air Room Air Oxygen Flow Rate (L/min) 01/27/24 15:15 Temperature Temperature Source Pulse Rate Respiratory Rate Respiratory Effort Respiratory Depth Respiratory Pattern Blood Pressure Blood Pressure Mean Pulse Ox Oxygen Delivery Method Nasal Cannula Oxygen Flow Rate (L/min) 3 MDM MDM MDM Narrative Medical decision making narrative: 68-year-old male presents for evaluation of right upper quadrant abdominal pain and shortness of breath. Was seen in our emergency department on 01/22 for same complaint. Was ultimately discharged home with biliary colic due to cholelithiasis. Had a CT abdomen pelvis at that time that was negative for any acute intra-abdominal process. Patient does have vascular calcifications. Differential diagnosis includes but is not limited to biliary colic from cholelithiasis, cholecystitis, pancreatitis, ACS, PE. Laboratory workup ordered including ultrasound of the gallbladder. I do not think there is any need to repeat CT abdomen pelvis at this time. Patient is hypertensive, tachycardic, hypoxic. Placed on 3 L nasal cannula. EKG and chest x-ray reviewed, see below. CBC without leukocytosis or anemia. CMP without ROD. Patient without transaminitis. Troponin elevated at 93. Will get delta. Patient is troponin was normal on 01/22. BNP elevated at 303. Patient is not fluid overloaded on chest x-ray or exam. D-dimer elevated at 3.63. CTA chest ordered to assess for PE. COVID, flu, RSV negative. Ultrasound of the gallbladder shows multiple gallstones. Hepatomegaly and hepatic steatosis. Hyperechoic area adjacent to the gallbladder fossa could represent focal fatty sparing. No acute cholecystitis. CTA chest shows bilateral PE in the main right and left pulmonary arteries. No saddle PE. He has focal densities in the lingula and right upper lobe could be due to infiltrate or scarring however cannot exclude tumor. Recommend follow-up exam. Right adrenal mass likely due to adenoma. Partially visualized lipoma in the left adrenal gland. Although patient has no right heart strain on CTA chest he does have an elevated troponin as well as BNP therefore this is consistent with submassive bilateral PE. Heparin started. Patient will warrant admission for further treatments and likely echocardiogram. Patient was updated all his results and confirmed understanding of plan. Patient will get admitted to the hospitalist service, Dr. Sweeney accepted. EKG: Interpreted by me/EM physician: EKG shows normal sinus rhythm with PACs. He has known right bundle branch block. No acute ischemic changes. Diagnostic: Interpreted by me/EM physician: Chest x-ray without pneumonia, effusion, cardiomegaly, pneumothorax Impression: 1. Submassive bilateral pulmonary embolism 2. Acute hypoxic respiratory failure requiring oxygen 3. Incidental found focal densities in the lingula and right upper lobe could be due to infiltrate or scarring however cannot exclude tumor. Right adrenal mass likely due to adenoma. Partially visualized lipoma in the left adrenal gland Lab Data Labs: Laboratory Results - last 24 hr 01/27/24 14:05 WBC 9.9 RBC 4.77 Hgb 13.8 Hct 41.8 MCV 87.6 MCH 28.9 MCHC 33.0 RDW Std Deviation 41.3 RDW Coeff of Ana 13.0 Plt Count 349 MPV 10.2 Immature Gran % (Auto) 0.600 Neut % (Auto) 72.5 H Lymph % (Auto) 19.4 [place] % (Auto) 6.2 Eos % (Auto) 1.0 Baso % (Auto) 0.3 Absolute Neuts (auto) 7.2 Absolute Lymphs (auto) 1.92 Nucleated RBC % 0 D-Dimer Quant (PE/DVT) 3.63 H* Sodium 138 Potassium 4.0 Chloride 106 Carbon Dioxide 23.0 Anion Gap 9 BUN 11 Creatinine 0.81 Est GFR (MDRD) Af Amer 121 Est GFR (MDRD) Non-Af 100 BUN/Creatinine Ratio 13.5 Glucose 155 H Calcium 9.4 Total Bilirubin 0.40 AST 9 L ALT < 6 L Alkaline Phosphatase 110 Troponin I High Sens 93 H B-Natriuretic Peptide 303.3 H Total Protein 7.6 Albumin 3.2 Globulin 4.4 H Albumin/Globulin Ratio 0.7 L Lipase 65 Radiography Diagnostic Testing: Clinical Impression(s) from Imaging Studies Gallbladder Ultrasound 01/27/24 13:40 IMPRESSION: 1. Multiple gallstones. 2. Hepatomegaly and hepatic steatosis. 3. Hypoechoic area adjacent to gallbladder fossa could represent focal fatty sparing difficult to accurately evaluate on this exam. Electronically Signed: Elver Frank MD at 15:00 EST , Chest X-Ray 01/27/24 14:30 IMPRESSION: No radiographic evidence of acute cardiopulmonary disease. Electronically Signed: Elver Frank MD at 14:44 EST , Chest CTA 01/27/24 14:32 IMPRESSION: 1. Pulmonary emboli in the main right and left pulmonary arteries extending to the peripheral branches. No evidence of saddle embolism. 2. Focal densities in the lingula and right upper lobe could be due to infiltrate or scarring. Tumor cannot be excluded. Follow-up exam in 3 months or correlation with PET scan is recommended. 3. Right adrenal mass likely due to adenoma. Further evaluation with nonemergent MRI with contrast or CT scan with adrenal gland protocol is recommended. 4. Partially visualized lipoma in the left adrenal gland. Electronically Signed: Elver Frank MD at 15:33 EST , Discharge Plan Triage Chief Complaint: Shortness of Breath ED Provider: Yogesh Landaverde Dx/Rx/DC Orders Prescriptions: No Action carvedilol 6.25 MG tablet 6.25 mg PO BID metformin 1,000 MG tablet 1,000 mg PO BIDCM lisinopril 5 MG tablet 5 mg PO DAILY carbidopa-levodopa 1 TABLET tablet 1 tab PO TIDAC insulin NPH isoph U-100 human 100 UNITS/ML insulin pen 13 units subcut QHS empagliflozin 10 MG tablet 10 mg PO DAILY Qty: 30 0RF clopidogrel 75 MG tablet 75 mg PO DAILY Qty: 30 0RF aspirin 81 MG tablet,chewable 81 mg PO DAILY@0800 0RF mirtazapine 30 mg tablet 30 mg QHS Patient Comments: TAKE 1 TABLET BY MOUTH EVERYDAY AT BEDTIME pantoprazole 20 mg Tablet,Delayed Release (Dr/Ec) 20 mg PO DAILY 30 Days Qty: 30 0RF atorvastatin 20 mg tablet 20 mg PO QHS oxcarbazepine 300 mg tablet 300 mg PO 4X/DAY insulin glargine [Lantus Solostar U-100 Insulin] 100 unit/mL (3 mL) insulin pen 13 unit subcut QHS sulfamethoxazole-trimethoprim [Bactrim DS] 800-160 mg tablet 1 tab PO BID 10 Days Qty: 20 0RF oxycodone 5 mg Tablet 5 mg PO Q4H PRN PRN (Reason: Pain Score 7-10) 1 Days Qty: 4 0RF acetaminophen [Tylenol Extra Strength] 500 mg tablet 500 - 1,000 mg PO Q6H PRN (Reason: pain) Qty: 60 0RF oxycodone-acetaminophen [Percocet] 5-325 mg tablet 1 tab PO Q6H PRN (Reason: pain) 3 Days Qty: 12 0RF methocarbamol 500 mg tablet 500 mg PO 4X/DAY PRN (Reason: Muscle pain/spasm) Qty: 40 0RF Primary Care Provider: Connor Chavez Referrals: Connor Chavez MD [Primary Care Provider] - Print Language: Syriac
[2024-01-27 14:31] LABS: D-Dimer Quantitative (DVT/PE) 3.63 FEU/ug/m (0.27-0.49)
--- NOTE | 2024-01-27 14:32 | CT_ITS ---
We are attempting to reach an attending provider to discuss findings. An addendum with communication details will be sent when the communication is complete. STUDY: CTA CHEST REASON FOR EXAM: Male, 68 years old. Assess for PE RADIATION DOSAGE (If Supplied By Facility): CTDIvol = ( 15.36 ) mGy, DLP = ( 477.05 ) mGycm TECHNIQUE: The examination was performed with the intravenous administration of IV 100mL Isovue-370. Post-processing of the angiographic images was performed, with multiplanar reformation and 3D reconstruction. The protocol utilizes one or more of the following dose reduction techniques: automated exposure control, adjustment of mA and/or kV according to patient size,and/or use of iterative reconstruction technique. COMPARISON: No relevant prior comparison study available FINDINGS: Normal enhancement of the main pulmonary artery. Filling defects consistent with pulmonary emboli in the proximal main pulmonary arteries extending into the peripheral branches of the upper and lower lobes. Atherosclerotic excretions of the thoracic aorta without evidence of aneurysm. There is no demonstrated aortic dissection. Normal heart and pericardium. There are calcifications of the coronary arteries. Normal mediastinum. Normal hilar regions. Normal visualized trachea and bronchi. The lungs are well expanded. Focal somewhat irregular opacity in the superior lingula measuring about 3.5 cm. Pleural-based density in the right upper lobe abutting the minor fissure laterally could be due to focal scarring or atelectasis. Underlying tumor cannot be excluded. There are no pleural effusions. Normal chest wall structures. There are degenerative changes of thoracic spine. Calcified granulomata in the spleen. Partially visualized calcifications posterior to the liver. 3.9 cm low-density mass in the right adrenal gland partially visualized on this exam without low attenuation values suggestive of adenoma. Fatty lesion in the left adrenal gland again partially visualized measuring about 3.5 cm likely due to lipoma. CT/CTA Chest W/WO Contrast IMPRESSION: 1. Pulmonary emboli in the main right and left pulmonary arteries extending to the peripheral branches. No evidence of saddle embolism. 2. Focal densities in the lingula and right upper lobe could be due to infiltrate or scarring. Tumor cannot be excluded. Follow-up exam in 3 months or correlation with PET scan is recommended. 3. Right adrenal mass likely due to adenoma. Further evaluation with nonemergent MRI with contrast or CT scan with adrenal gland protocol is recommended. 4. Partially visualized lipoma in the left adrenal gland. Electronically Signed: Elver Frank MD at 15:33 EST ,
[2024-01-27 14:35] LABS: ALB/GLOB Ratio 0.7 RATIO (0.9-2.4); AST(SGOT) 9 U/L (15-37); Alanine Aminotransfer ALT/SGPT < 6 U/L (16-61); Albumin, Serum 3.2 g/dL (3.2-5.0); Alkaline Phosphatase 110 U/L (45-117); Anion Gap 9 (5-15); BUN 11 mg/dL (7-18); BUN/Creat Ratio 13.5 RATIO (10-20); Calcium,Total 9.4 mg/dL (8.5-10.1); Chloride 106 mmol/L (98-107); Creatinine, Serum 0.81 mg/dL (0.70-1.30); EST Glomerular Filtration Rate 100 mL/min (>60); Est Glom Filt Rate - Afr Amer 121 mL/min (>60); Globulin 4.4 g/dL (2.2-4.2); Glucose 155 mg/dL (74-106); Lipase 65 U/L (13-75); Protein, Total 7.6 g/dL (6.4-8.2); Sodium Level 138 mmol/L (136-145); Troponin-I HS (w/2H Reflex) 93 pg/mL (3.0-78.0)
--- NOTE | 2024-01-27 14:40 | EKG12_ITS ---
Test Reason : ARRYTH Blood Pressure : */* mmHG Vent. Rate : 88 BPM Atrial Rate : 88 BPM P-R Int : 150 ms QRS Dur : 126 ms QT Int : 394 ms P-R-T Axes : 34 -72 5 degrees QTcB Int : 476 ms Sinus rhythm with Premature atrial complexes Left axis deviation Right bundle branch block Inferior infarct (cited on or before 06-Jan-2014) Anterolateral infarct (cited on or before 06-Jan-2014) Abnormal ECG Confirmed by HAYLIE SMITH, SURYA ([id number]), make up editor JOSE R GREEN ([id number]) on 01/30/2024 10:28:27 AM Referred By: Confirmed By: SURYA STALLINGS MD
[2024-01-27] MEDS: Ondansetron 4 MG/2 ML Vial IV (15:08)
[2024-01-27] MEDS: Morphine 4 MG/ML Syringe IV (15:09)
[2024-01-27 15:50] LABS: Mucous, Urine 0 SEEN /hpf (<or=2+); Red Blood Cells-Urine 0 SEEN /hpf (0-5); Squamous Epithelial Cells - UA 0 SEEN /hpf (0-5)
[2024-01-27 15:54] LABS: Color, Urine Yellow (Yellow); Glucose, Dipstick 1000 mg/dl (Normal); Ketone-Dipstick 5 mg/dl (Negative); Leukocyte Esterase-Dipstick 100 /ul (Negative); Nitrite-Dipstick Negative (Negative); Occult Blood-Urine 10 /ul (Negative); Protein-Dipstick 30 mg/dl (Negative); Urine Bilirubin Dipstick Negative (Negative); Urine Clarity Clear (Clear); Urine Urobilinogen Normal (Normal)
[2024-01-27] MEDS: Heparin Injection (Vial) 5,000 UNIT/ML VIAL 4000 UNIT IV (16:00)
[2024-01-27] MEDS: HEPARIN/D5w 25,000 UNITS 25,000 UNITS/250 ML IV.SOLN. 10 UNITS CONT INF (16:04)
[2024-01-27 16:09] LABS: International Normalized Ratio 1.1; Partial Thromboplast Time 24.5 Seconds (24.1-36.2)
[2024-01-27 16:12] LABS: Reflex Troponin-HS? (from REC) Y
[2024-01-27 16:40] LABS: White Blood Cells 50-100 SEEN /hpf (0-5)
[2024-01-27 16:43] LABS: Bacteria RARE /hpf (None Seen); Yeast-Urine RARE /hpf (None Seen)
--- NOTE | 2024-01-27 17:03 | ED.RN ---
CALLED AND UPDATED ON PATIENT CONDITION AND STATUS AT THIS TIME. MADE AWARE OF ADMISSION
[2024-01-27 17:05] LABS: Troponin-I HS 116 pg/mL (3.0-78.0)
--- NOTE | 2024-01-27 17:18 | HP.PCM.HOS_ITS ---
HPI - General General Date of Admission: 01/27/24 HPI Narrative JAUN SMITH, is a 68-year-old male history of diabetes, CVA, hypertension, CAD, Parkinson's, GERD who presented [facility] ED 01/27/2024 due to right upper quadrant abdominal pain.? Symptoms started last night and it progressed into today and it radiates to the right chest and also has had some shortness of breath.? He was seen in the emergency department 01/22 for the same complaint and was diagnosed with biliary colic secondary to cholelithiasis. ?In the ED on this visit he was 87% on room air and started on 3 L. ?In the ED he was found to have elevated troponin, BNP, D-dimer.? He had CTA which demonstrated PE.? Patient started on heparin drip and hospitalist contacted for admission. Patient evaluated in ED and reports that he has had the right upper quadrant pain since last night and thought that his shortness of breath was due to pain. Not particularly coughing. Reports he still has the pain in the right upper quadrant but feels like his breathing is roughly the same or a little bit better. Denies any fevers, ROS otherwise negative. [facility] Medical History (Updated 01/27/24 @ 17:[address] Meron Sweeney MD) Acute encephalopathy Acute respiratory failure Coronary artery disease Diabetes Diabetic foot ulcer associated with type 2 diabetes mellitus Former smoker History of stroke Hyperlipidemia Hypertension Incisional hernia Kidney stones Myocardial infarct Paresthesia Pulmonary embolism Seizure Seizures Sepsis Speech abnormality Stroke/cerebrovascular accident TIA (transient ischemic attack) Type II diabetes mellitus Home Medications ?Medication ?Instructions ?Recorded ?Last Taken ?Type carbidopa 25 mg-levodopa 100 mg 1 tab PO TIDAC parkinsons 10/01/15 12/05/20 08:00 History tablet carvedilol 6.25 mg tablet 6.25 mg PO BID blood pressure 10/01/15 12/05/20 08:00 History insulin NPH isoph U-100 human 100 13 units subcut QHS diabetes 10/01/15 12/04/20 20:00 History unit/mL (3 mL) subcutaneous pen lisinopril 5 mg tablet 5 mg PO DAILY blood pressure 10/01/15 12/05/20 08:00 History metformin 1,000 mg tablet 1,000 mg PO BIDCM diabetes 10/01/15 12/05/20 08:00 History aspirin 81 mg chewable tablet 81 mg PO DAILY@0800 01/26/17 12/05/20 08:00 Rx clopidogrel 75 mg tablet 75 mg PO DAILY ##30 01/26/17 12/05/20 08:00 Rx empagliflozin 10 mg tablet 10 mg PO DAILY ##30 01/26/17 12/05/20 08:00 Rx mirtazapine 30 mg tablet 30 mg PO QHS sleep 12/05/20 12/04/20 20:00 History atorvastatin 20 mg tablet 20 mg PO QHS cholesterol 01/12/24 Unknown History insulin glargine 100 unit/mL (3 13 unit subcut QHS 01/12/24 Unknown History mL) subcutaneous pen (Lantus Solostar U-100 Insulin) oxcarbazepine 300 mg tablet 300 mg PO 4X/DAY 01/12/24 Unknown History oxycodone 5 mg tablet 5 mg PO Q4H PRN PRN Pain Score 01/12/24 Unknown Rx 7-10 1 day #4 tabs methocarbamol 500 mg tablet 500 mg PO 4X/DAY PRN Muscle 01/23/24 Unknown Rx pain/spasm #40 tabs oxycodone-acetaminophen 5 mg-325 1 tab PO Q6H PRN pain 3 days #12 01/23/24 Unknown Rx mg tablet (Percocet) tabs Allergy/AdvReac Type Severity Reaction Status Date / Time pregabalin (From Lyrica) Allergy Unknown Verified 01/27/24 12:59 Penicillins AdvReac Hives Verified 01/27/24 12:59 Family History Mother Diabetes Heart disease Hypertension Brother Diabetes Heart disease Hypertension Surgical History History of heart artery stent history of right great toe surgery Status post biopsy of kidney Social History Smoking Status: Former smoker alcohol intake: never substance use type: does not use ROS ROS Narrative General: Denies fever/chills HENT: Denies headache, denies stuffy nose, denies sore throat EYES: Denies changes in vision Resp: Denies cough, has had some increased shortness of breath since yesterday Cardiac: Denies chest pain GI: Some right upper quadrant pain, denies changes in bowel, denies nausea/vomiting : Denies changes in urination Extremity: Denies swelling MSK: Denies weakness Neuro: Denies any numbness/tingling Heme: Denies any bleeding or bruising Skin: Denies rashes Psychiatric: No complaints voiced Vital Signs Vital Signs Vital Signs: 01/27/24 12:59 01/27/24 13:00 01/27/24 13:04 Temperature 97 F L Temperature Source Temporal Pulse Rate 112 H 112 H Respiratory Rate 14 16 Respiratory Effort Short of Breath Respiratory Depth Normal Respiratory Pattern Normal Blood Pressure 150/85 H 159/81 H Blood Pressure Mean 106 107 Pulse Ox 87 88 Oxygen Delivery Method Room Air Room Air Oxygen Flow Rate (L/min) 01/27/24 15:15 01/27/24 16:00 01/27/24 16:00 Temperature 98.5 F Temperature Source Pulse Rate 100 100 Respiratory Rate 18 18 Respiratory Effort Respiratory Depth Respiratory Pattern Blood Pressure 124/70 H 124/70 H Blood Pressure Mean 88 88 Pulse Ox 95 95 Oxygen Delivery Method Nasal Cannula Nasal Cannula Oxygen Flow Rate (L/min) 3 3 Weight Weight: 99.79 kg Body Mass Index (BMI) 32.5 Physical Exam Narrative General: Alert, oriented, no apparent distress HEENT: Atraumatic, normocephalic Eyes: Anicteric, normal conjunctiva, extraocular movements grossly intact Neck: Supple Respiratory: Diminished bilaterally, some increased work of breathing Cardiovascular: Regular rate and rhythm GI: Not particularly tender, no rebound, guarding, rigidity Extremities: No edema Musculoskeletal: Moving all extremities Neuro: No overt focal neurological deficits, does have some slurred speech which she reports is baseline from previous CVA Skin: No rashes appreciated Psych: Cooperative Results Lab / Micro Data 01/27/24 14:05 01/27/24 14:05 Labs: Laboratory Results - last 24 hr 01/27/24 14:05: WBC 9.9, RBC 4.77, Hgb 13.8, Hct 41.8, MCV 87.6, MCH 28.9, MCHC 33.0, RDW Std Deviation 41.3, RDW Coeff of Ana 13.0, Plt Count 349, MPV 10.2, Immature Gran % (Auto) 0.600, Neut % (Auto) 72.5 H, Lymph % (Auto) 19.4, [place] % (Auto) 6.2, Eos % (Auto) 1.0, Baso % (Auto) 0.3, Absolute Neuts (auto) 7.2, Absolute Lymphs (auto) 1.92, Nucleated RBC % 0, D-Dimer Quant (PE/DVT) 3.63 H*, Sodium 138, Potassium 4.0, Chloride 106, Carbon Dioxide 23.0, Anion Gap 9, BUN 11, Creatinine 0.81, Est GFR (MDRD) Af Amer 121, Est GFR (MDRD) Non-Af 100, BUN/Creatinine Ratio 13.5, Glucose 155 H, Calcium 9.4, Total Bilirubin 0.40, AST 9 L, ALT < 6 L, Alkaline Phosphatase 110, Troponin I High Sens 93 H, B- Natriuretic Peptide 303.3 H, Total Protein 7.6, Albumin 3.2, Globulin 4.4 H, A lbumin/Globulin Ratio 0.7 L, Lipase 65 01/27/24 15:37: PT 14.0, INR 1.1, APTT 24.5 01/27/24 15:39: Urine Color Yellow, Urine Clarity Clear, Urine pH 6.0, Ur Specific [place] 1.010, Urine Protein 30 H, Urine Glucose (UA) 1000 H, Urine Ketones 5 H, Urine Occult Blood 10 H, Urine Nitrite Negative, Urine Bilirubin Negative, Urine Urobilinogen Normal, Ur Leukocyte Esterase 100 H, Urine RBC 0 SEEN, Urine WBC 50-100 SEEN, Ur Squamous Epith Cells 0 SEEN, Urine Bacteria RARE, Urine Mucus 0 SEEN, Urine Yeast RARE 01/27/24 16:25: Troponin I High Sens 116 H Micro: Microbiology 01/27/24 13:48 Mucosa - Nasopharyngeal SARS-CoV-2, Influenza & RSV (PCR) - Final Imaging Radiology Impression Gallbladder Ultrasound 01/27/24 13:40 IMPRESSION: 1. Multiple gallstones. 2. Hepatomegaly and hepatic steatosis. 3. Hypoechoic area adjacent to gallbladder fossa could represent focal fatty sparing difficult to accurately evaluate on this exam. Electronically Signed: Elver Frank MD at 15:00 EST , Chest X-Ray 01/27/24 14:30 IMPRESSION: No radiographic evidence of acute cardiopulmonary disease. Electronically Signed: Elver Frank MD at 14:44 EST , Chest CTA 01/27/24 14:32 IMPRESSION: 1. Pulmonary emboli in the main right and left pulmonary arteries extending to the peripheral branches. No evidence of saddle embolism. 2. Focal densities in the lingula and right upper lobe could be due to infiltrate or scarring. Tumor cannot be excluded. Follow-up exam in 3 months or correlation with PET scan is recommended. 3. Right adrenal mass likely due to adenoma. Further evaluation with nonemergent MRI with contrast or CT scan with adrenal gland protocol is recommended. 4. Partially visualized lipoma in the left adrenal gland. Electronically Signed: Elver Frank MD at 15:33 EST , ADDENDUM: 01/27/24 1550 IMPRESSION: 1. Pulmonary emboli in the main right and left pulmonary arteries extending to the peripheral branches. No evidence of saddle embolism. 2. Focal densities in the lingula and right upper lobe could be due to infiltrate or scarring. Tumor cannot be excluded. Follow-up exam in 3 months or correlation with PET scan is recommended. 3. Right adrenal mass likely due to adenoma. Further evaluation with nonemergent MRI with contrast or CT scan with adrenal gland protocol is recommended. 4. Partially visualized lipoma in the left adrenal gland. N.B. : The above Results were Read Back by Elver Frank MD to Yogesh Landaverde DO, and understanding confirmed on 01/27/2024 15:44:00 (ET). Electronically Signed: Elver Frank MD at 15:33 EST , Assessment & Plan Assessment/Plan (1) Pulmonary embolism: PLAN: Plan # Hypoxia secondary to pulmonary embolism -Patient was 87% on room air and has proved saturations to mid 90s on 3 L, suspect this is secondary to pulmonary embolism -Seen on CTA in the ED demonstrated PE in main right and left pulmonary arteries with no saddle embolism -Continue heparin drip today with ultimate plan to transition to oral anticoagulation -Obtain echo # Elevated troponin -Suspect secondary to pulmonary embolism -Initial is 93 and trended up to 116, will continue to trend -Obtain echo # Right lingular density -3.5 cm somewhat irregular opacity in superior lingula -Will need further workup and imaging on outpatient basis with either follow-up exam in 3 months for PET scan -Discussed with patient, verbalized understanding # Bilateral adrenal lesions -Low-attenuation, suspected to be adenoma on right and lipoma on left -May need further imaging on nonemergent basis #Type 2 diabetes mellitus -Glucose checks and sliding scale insulin -Hold home oral hypoglycemics -Will start NPH at lower dose to avoid hypoglycemia and uptitrate as p.o. intake improves and glucoses increase # History of coronary artery disease -On aspirin, Plavix, statin and beta-kimmy -May be able to adjust antiplatelets given patient will ultimately be on full dose anticoagulation #HX CVA -With residual dysarthria -Continue aspirin, Plavix, statin -May be able to adjust antiplatelets given patient will ultimately be on full dose anticoagulation # History of Parkinson's -Continue carbidopa levodopa #Hypertension -Will decrease carvedilol and hold lisinopril, can resume or increase if patient does not become hypotensive #GERD -Continue PPI #DVT ppx: Heparin drip Meron Sweeney MD Charges/Coding Visit Charges Inpatient E&M: 65072 Init Hosp L2
--- NOTE | 2024-01-27 17:39 | ECHOD_ITS ---
Reason For Study: PULMONARY EMBOLISM Procedure This was a 2D Doppler, Color Flow transthoracic echocardiogram. The study was technically difficult. Contrast injection was performed. Exam performed portable in patient room. Left Ventricle Normal left ventricle. The estimated ejection fraction is 50-55 %. Right Ventricle Mild hypertrophy of the right ventricle. Mild segmental dysfunction of right ventricle. Atria Normal left atrium. Normal right atrium. Mitral Valve The mitral valve is structurally normal. No prolapse or stenosis seen. Trivial mitral valve insufficiency. Tricuspid Valve Normal tricuspid valve. Aortic Valve The aortic valve is not well visualized in the short axis view. Pulmonic Valve The pulmonic valve is not well visualized. Great Vessels Normal aortic root. Pericardium/Pleural No pericardial effusion. Medication Diluted definity 1.5ml given slow IV push to enhance endocardial definition. MMode/2D Measurements & Calculations LVIDd: 4.1 cm IVSd: 1.2 cm LAV(MOD-bp): 34.3 ml LVIDs: 2.9 cm LVPWd: 1.4 cm FS: 29.0 % LAV(MOD-bp) Indexed: 16.1 ml/m2 LAV(MOD-sp2): 24.7 ml LAV(MOD-sp4): 36.3 ml SV(MOD-sp4): 38.7 ml SV(sp4-el): 42.0 ml LVAd ap4: 30.5 cm2 LVLd ap4: 9.0 cm SI(MOD-sp4): 18.1 ml/m2 EDV(MOD-sp4): 86.0 ml EDV(sp4-el): 88.0 ml LVAs ap4: 21.2 cm2 LVLs ap4: 8.3 cm ESV(MOD-sp4): 47.3 ml ESV(sp4-el): 46.0 ml EF(MOD-sp4): 45.0 % EF(sp4-el): 47.7 % LA dimension(2D): 2.3 cm LA A4 area: 16.6 cm2 RA A4 area: 11.6 cm2 Time Measurements MV dec time: 0.10 sec Doppler Measurements & Calculations MV E max tomas: 44.5 cm/sec Lat Peak E' Tomas: 6.0 cm/sec Med Peak E' Tomas: 8.1 cm/sec MV A max tomas: 84.0 cm/sec E/E' lat: 7.4 E/E' med: 5.5 MV E/A: 0.53 MV V2 max: 90.2 cm/sec MV dec slope: 427.1 cm/sec2 Ao V2 max: 107.7 cm/sec MV max P.3 mmHg Ao max P.7 mmHg MV V2 mean: 47.1 cm/sec Ao V2 mean: 71.7 cm/sec MV mean P.1 mmHg Ao mean P.5 mmHg MV V2 VTI: 18.3 cm Ao V2 VTI: 16.7 cm AV (velocity ratio): 1.0 LV V1 max: 102.1 cm/sec TR max tomas: 356.2 cm/sec LV V1 max P.2 mmHg TR max P.7 mmHg LV V1 mean P.3 mmHg LV V1 mean: 71.2 cm/sec LV V1 VTI: 17.1 cm ECHO/Echo Complete Interpretation Summary The estimated ejection fraction is 50-55 %. Low normal EF In comparison to previous echo no significant change Overall limited study Ordering Physician: Meron Sweeney Referring Physician: VERENA CASPER Performed By: Amaya Cadet RCS
[2024-01-27] MEDS: OXcarbazepine 300 MG Tablet PO ×2 (18:16→22:14)
[2024-01-27 18:35] LABS: Bedside Glucose 146 mg/dL (74-106)
[2024-01-27 20:52] LABS: Troponin-I HS 89 pg/mL (3.0-78.0)
[2024-01-27] MEDS: Carvedilol 3.125 MG TABLET PO (22:14)
[2024-01-27] MEDS: Insulin Glargine-YFGN 100 UNIT/ML Pen SC (22:14)
[2024-01-27] MEDS: Atorvastatin Calcium 20 MG Tablet PO (22:14)
[2024-01-27] MEDS: Mirtazapine 30 MG Tablet PO (22:14)
[2024-01-27] MEDS: Insulin Lispro 100 UNIT/ML INSULN.PEN SC (22:17)
[2024-01-27 23:04] LABS: Bedside Glucose 203 mg/dL (74-106)
[2024-01-27 23:59] LABS: Partial Thromboplast Time 30.5 Seconds (24.1-36.2)
[2024-01-28] VITALS (9 sets, daily range): BP systolic 107–136; BP diastolic 65–80; PULSE 85–92; RESP 16–18; TEMP 36.1–36.8; O2SAT 88–96
[2024-01-28] MEDS: Heparin Injection (Vial) 5,000 UNIT/ML VIAL IV (00:35)
[2024-01-28 04:52] LABS: Absolute Lymphocyte Count 2.64 X10^3/uL (0.83-4.51); Absolute Neutrophil Count 5.3 X10^3/uL (2.0-7.7); Basophil# 0.04 X10^3/uL; Basophil% 0.4 % (0-1); Eosinophil# 0.13 X10^3/uL; Eosinophils% 1.5 % (0-5); Hematocrit 43.2 % (40-54); Hemoglobin 13.6 g/dL (13.0-16.5); Lymphocyte # 2.64 X10^3/ul (0.83-4.51); Lymphocyte % 29.7 % (19-41); Mean Corp Hgb Conc 31.5 g/dL (32-36); Mean Corpuscular Hgb 28.5 pg (27.0-32.0); Mean Corpuscular Volume 90.6 fL (80-94); Mean Platelet Vol. 10.1 fl (6.2-12.0); Monocyte# 0.72 X10^3/uL; Monocyte% 8.1 % (0-10); NRBC Flagged by Analyzer 0 % (0-5); Neutrophil # 5.31 X10^3/uL (2.7-7.7); Neutrophil % 59.7 % (47-70); Platelet Count 364 K/mm3 (150-450); RBC Distribution Width SD 43.4 fl (35.1-43.9); Red Blood Count 4.77 M/mm3 (4.6-6.2); White Blood Count 8.9 K/mm3 (4.4-11.0)
[2024-01-28 05:01] LABS: Partial Thromboplast Time 28.7 Seconds (24.1-36.2)
[2024-01-28 05:11] LABS: ALB/GLOB Ratio 0.7 RATIO (0.9-2.4); AST(SGOT) 8 U/L (15-37); Alanine Aminotransfer ALT/SGPT 12 U/L (16-61); Albumin, Serum 3.3 g/dL (3.2-5.0); Alkaline Phosphatase 111 U/L (45-117); Anion Gap 7 (5-15); BUN 17 mg/dL (7-18); BUN/Creat Ratio 18.3 RATIO (10-20); Calcium,Total 9.4 mg/dL (8.5-10.1); Chloride 105 mmol/L (98-107); Creatinine, Serum 0.93 mg/dL (0.70-1.30); EST Glomerular Filtration Rate 86 mL/min (>60); Est Glom Filt Rate - Afr Amer 104 mL/min (>60); Estimated Creatinine Clearance 86.59 ml/min; Globulin 4.5 g/dL (2.2-4.2); Glucose 162 mg/dL (74-106); Potassium 3.9 mmol/L (3.5-5.1); Protein, Total 7.8 g/dL (6.4-8.2); Sodium Level 137 mmol/L (136-145)
--- NOTE | 2024-01-28 07:19 | PCM.PN.HOSP ---
Reason for Visit Reason for Visit: Diagnoses Other pulmonary embolism without acute cor pulmonale (01/27/24) Subjective Subjective Patient denies any acute events overnight per self and per nursing report. He notes that the pleuritic chest discomfort has lessened and he denies any currently but still has some shortness of breath especially when exerts himself but is improved with oxygen supplementation. Discussed plan of care which had included echocardiogram with EF noted to 50 to 55%, low normal EF with no significant change from prior with no evidence of significant cardiac strain. Discussed cost of Eliquis and he noted that $11 per month was affordable. Discussed plan of care for oxygen assessment and discharge likely 01/29/2024 if continued to clinically improved which she is amenable. Patient denies fevers, chills, nausea, emesis, abdominal pain. Objective Data Objective Data Vital Signs: Vital Signs Temp Pulse Resp BP Pulse Ox O2 Del Method O2 Flow Rate 97.0 F L 87 18 134/80 H 94 Nasal Cannula 2 01/28/24 05:50 01/28/24 05:50 01/28/24 05:50 01/28/24 05:50 01/28/24 05:50 01/28/24 05:50 01/28/24 05:50 Oxygen Flow Rate (L/min) 2 Oxygen Delivery Method Nasal Cannula Weight: 216 lb 4.375 oz Body Mass Index (BMI) 31.9 Intake & Output: Intake and Output for Last 24 Hours 01/26/24 01/27/24 01/28/24 23:59 23:59 23:59 Intake Total 999.73 / 999.73 Output Total 0 / 0 Balance 999.73 / 999.73 Lab / Micro Data 01/28/24 04:15 01/28/24 04:15 Labs: Laboratory Results - last 24 hr 01/27/24 14:05: WBC 9.9, RBC 4.77, Hgb 13.8, Hct 41.8, MCV 87.6, MCH 28.9, MCHC 33.0, RDW Std Deviation 41.3, RDW Coeff of Ana 13.0, Plt Count 349, MPV 10.2, Immature Gran % (Auto) 0.600, Neut % (Auto) 72.5 H, Lymph % (Auto) 19.4, [place] % (Auto) 6.2, Eos % (Auto) 1.0, Baso % (Auto) 0.3, Absolute Neuts (auto) 7.2, Absolute Lymphs (auto) 1.92, Nucleated RBC % 0, D-Dimer Quant (PE/DVT) 3.63 H*, Sodium 138, Potassium 4.0, Chloride 106, Carbon Dioxide 23.0, Anion Gap 9, BUN 11, Creatinine 0.81, Est GFR (MDRD) Af Amer 121, Est GFR (MDRD) Non-Af 100, BUN/Creatinine Ratio 13.5, Glucose 155 H, Calcium 9.4, Total Bilirubin 0.40, AST 9 L, ALT < 6 L, Alkaline Phosphatase 110, Troponin I High Sens 93 H, B-Natriuretic Peptide 303.3 H, Total Protein 7.6, Albumin 3.2, Globulin 4.4 H, Albumin/Globulin Ratio 0.7 L, Lipase 65 01/27/24 15:37: PT 14.0, INR 1.1, APTT 24.5 01/27/24 15:39: Urine Color Yellow, Urine Clarity Clear, Urine pH 6.0, Ur Specific [place] 1.010, Urine Protein 30 H, Urine Glucose (UA) 1000 H, Urine Ketones 5 H, Urine Occult Blood 10 H, Urine Nitrite Negative, Urine Bilirubin Negative, Urine Urobilinogen Normal, Ur Leukocyte Esterase 100 H, Urine RBC 0 SEEN, Urine WBC 50-100 SEEN, Ur Squamous Epith Cells 0 SEEN, Urine Bacteria RARE, Urine Mucus 0 SEEN, Urine Yeast RARE 01/27/24 16:25: Troponin I High Sens 116 H 01/27/24 18:15: POC Glucose 146 H 01/27/24 20:10: Troponin I High Sens 89 H 01/27/24 22:10: POC Glucose 203 H 01/27/24 23:25: APTT 30.5 01/28/24 04:15: WBC 8.9, RBC 4.77, Hgb 13.6, Hct 43.2, MCV 90.6, MCH 28.5, MCHC 31.5 L, RDW Std Deviation 43.4, RDW Coeff of Naa 13.0, Plt Count 364, MPV 10.1, Immature Gran % (Auto) 0.600, Neut % (Auto) 59.7, Lymph % (Auto) 29.7, [place] % (Auto) 8.1, Eos % (Auto) 1.5, Baso % (Auto) 0.4, Absolute Neuts (auto) 5.3, Absolute Lymphs (auto) 2.64, Nucleated RBC % 0, APTT 28.7, Sodium 137, Potassium 3.9, Chloride 105, Carbon Dioxide 25.0, Anion Gap 7, BUN 17, Creatinine 0.93, Estim Creat Clear Calc 86.59, Est GFR (MDRD) Af Amer 104, Est GFR (MDRD) Non-Af 86, BUN/Creatinine Ratio 18.3, Glucose 162 H, Calcium 9.4, Total Bilirubin 0.30, AST 8 L, ALT 12 L, Alkaline Phosphatase 111, Total Protein 7.8, Albumin 3.3, Globulin 4.5 H, Albumin/Globulin Ratio 0.7 L Micro: Microbiology 01/27/24 13:48 Mucosa - Nasopharyngeal SARS-CoV-2, Influenza & RSV (PCR) - Final Radiography Diagnostic Testing: Radiology Impression Gallbladder Ultrasound 01/27/24 13:40 IMPRESSION: 1. Multiple gallstones. 2. Hepatomegaly and hepatic steatosis. 3. Hypoechoic area adjacent to gallbladder fossa could represent focal fatty sparing difficult to accurately evaluate on this exam. Electronically Signed: Elver Frank MD at 15:00 EST , Chest X-Ray 01/27/24 14:30 IMPRESSION: No radiographic evidence of acute cardiopulmonary disease. Electronically Signed: Elver Frank MD at 14:44 EST , Chest CTA 01/27/24 14:32 IMPRESSION: 1. Pulmonary emboli in the main right and left pulmonary arteries extending to the peripheral branches. No evidence of saddle embolism. 2. Focal densities in the lingula and right upper lobe could be due to infiltrate or scarring. Tumor cannot be excluded. Follow-up exam in 3 months or correlation with PET scan is recommended. 3. Right adrenal mass likely due to adenoma. Further evaluation with nonemergent MRI with contrast or CT scan with adrenal gland protocol is recommended. 4. Partially visualized lipoma in the left adrenal gland. Electronically Signed: Elver Frank MD at 15:33 EST , ADDENDUM: 01/27/24 1550 IMPRESSION: 1. Pulmonary emboli in the main right and left pulmonary arteries extending to the peripheral branches. No evidence of saddle embolism. 2. Focal densities in the lingula and right upper lobe could be due to infiltrate or scarring. Tumor cannot be excluded. Follow-up exam in 3 months or correlation with PET scan is recommended. 3. Right adrenal mass likely due to adenoma. Further evaluation with nonemergent MRI with contrast or CT scan with adrenal gland protocol is recommended. 4. Partially visualized lipoma in the left adrenal gland. N.B. : The above Results were Read Back by Elver Frank MD to Yogesh Landaverde DO, and understanding confirmed on 01/27/2024 15:44:00 (ET). Electronically Signed: Elver Frank MD at 15:33 EST , Physical Exam Narrative Physical Examination: General: Awake, alert, oriented x 3 and cooperative, seated upright in PCU bedside chair, notes feeling improved, less dyspnea, resolved chest discomfort primarily. Skin: Normal color, normal turgor, no icterus, no cyanosis. HEENT: AT/NC, EOMI, PERRLA, MMM. Lungs: Diminished, greater bases, mildly decreased effort secondary to discomfort with deep inspiration but notes is significantly improved, no rales, ronchi or wheezing. Heart: Regular rate and rhythm; no gallop, rub audible. Abdomen: Soft, obese, NTTP, ND, normal BS. Extremities: No cyanosis, no clubbing, mild ankle not markedly pitting edema bilaterally. Neurological: Patient awake, alert, oriented as noted cognitive function intact, chronic dysarthria baseline from previous CVA, pupils equally reactive to light and accommodation, cranial nerves gross normal, moving all 4 extremities, no focal deficits, strength moderately globally decreased. Psychiatric: Affect appears normal, no acute evidence of depressive or anxiety feelings. Assessment & Plan Assessment/Plan (1) Pulmonary embolism: PLAN: Plan The patient is a 68 y/o M w/ PMHx: Obesity, Diabetes mellitus type II w/ Hx diabetic foot wounds, HTN, HLD, CAD s/p PCI, Parkinson's disease, Hx CVA w/ chronic weakness/debility/dysarthria, GERD who presents to the [facility] ED on 01/27/24 with history of initially right upper quadrant discomfort starting the evening prior with then radiation to the right chest with associated dyspnea prompting ED evaluation. #1. Acute Hypoxia, dyspnea, chest pain secondary to Acute Submassive BL Pulmonary Emboli: Admitted to PCU, initiated and continued on heparin drip however at this time we will transition to oral Eliquis given patient is able to afford $11 daily, echocardiogram obtained with no obvious evidence of cardiac strain or concerning findings, will plan oxygenation trial and if remains clinically appropriate we will plan discharge to home 01/29/2024. #2. Elevated indeterminate cardiac enzyme, secondary to acute presentation #1 submassive pulmonary emboli: Admission initial cardiac enzyme 93 trended up to 116, but de-escalated down again to 89, will maintain on telemetry monitoring, likely associated with acute presentation although echocardiogram was obtained but no acute strain demonstrated, EF 50 to 55% with low normal EF with no significant change from prior. Transition from therapeutic heparin to Eliquis. Will de-escalate off aspirin and continue Eliquis and Plavix. Magnesium level requested. #3. Incidentally noted right lingular density: CT of the chest with noted 3.5 cm irregular opacity in the superior lingula, no obvious current presentation concerning for pneumonia however given this presentation will require a follow-up imaging potentially PET scan in 3 months especially given his presentation with acute submassive pulmonary emboli to assess for potential cancer. #4. Incidentally noted bilateral adrenal lesions: Low-attenuation, suspected adenoma on the right and lipoma on the left, encourage continued outpatient follow-up and imaging outpatient. #5. History CVA: Patient with significant residual dysarthria and debility/weakness, transitioning from therapeutic heparin to Eliquis, de-escalate off baby aspirin, continue Plavix, statin, hypertensive regimen as noted as well as diabetic regimen as noted. Continue outpatient therapies. #6. CAD: s/p PCI prior. Given current presentation will de-escalate off baby aspirin as transitioning from therapeutic heparin to Eliquis and continue home Plavix, statin and beta-kimmy therapy, will encourage early follow-up with cardiology given this plan change however would load to keep patient on dual antiplatelet and anticoagulant therapy as high risk. #7. Diabetes mellitus type II: Hold oral home regimen, continue home insulin regimen, ADA diet, accu checks w/ ISS. #8. Parkinson's disease: Will continue patient home Sinemet regimen, maintain on fall precautions, continue outpatient therapies. #9. Hypertension: Will continue Coreg however at lower dose as patient was hypotensive in the emergency room, held lisinopril, PRN hydralazine. 01/28/2024 BP normal range, may need to continue these adjustments at discharge. #10. Hyperlipidemia: We will continue patient home statin therapy. #11. Obesity: Weight loss and lifestyle changes encouraged. #12. GERD: We will continue patient on PPI. #13. DVT prophylaxis: Will de-escalate off heparin drip and transition to oral Eliquis regimen given this is affordable. #14. CODE status: Full Code status. Charges/Coding Visit Charges Inpatient E&M: [address] [facility] Hosp L3
[2024-01-28] MEDS: Insulin Lispro 100 UNIT/ML INSULN.PEN SC ×3 (07:57→16:26)
[2024-01-28] MEDS: APIXABAN 5 MG TABLET 10 MG PO ×2 (07:57→22:10)
[2024-01-28] MEDS: Carbidopa/Levodopa 25/100 Tablet PO ×3 (07:57→16:26)
[2024-01-28 08:17] LABS: Bedside Glucose 151 mg/dL (74-106)
[2024-01-28] MEDS: Carvedilol 3.125 MG TABLET PO ×2 (10:45→22:10)
[2024-01-28] MEDS: Aspirin 81 MG TAB.CHEW PO (10:45)
[2024-01-28] MEDS: OXcarbazepine 300 MG Tablet PO ×4 (10:46→22:12)
[2024-01-28] MEDS: Acetaminophen 325 MG Tablet 650 MG PO (11:03)
--- NOTE | 2024-01-28 11:05 | CASEMGMT ---
TYSHAWN JONES Face to Face with patient for initial transition planning/care coordination assessment. RN CM introduced self and role at [facility]. Patient sitting in chair, alert and oriented. Patient willing to participate in assessment and is able to answer all questions appropriately. Care providers, pharmacy, and demographics verified. Strata: 3 PCP: Scott Specialists: [facility] Preferred [facility]acy: [facility] Insurance: [facility] Prescription Benefit: yes, Eliquis copay is $11.20 Living Will/HPOA: none LNOK: daughter, ex- Living Arrangements: Patient lives with x- and daughter in a mobile home with 3 steps and railing to enter. Patient states he is indepnedent at home. Transportation: self, family DME/HHC: Patient has cane at home. No previous HHC or SNF. Will monitor for home oxygen, prefers [employer], green sheet on chart. Patient wishes to discharge home, denies need for home health at this time. Patient states he has no further needs or concerns at this time. CM to follow for discharge planning needs that may arise. Disposition Plan: Patient to discharge home with family support and follow-up plans in place. Will monitor for home oxygen at discharge. Katlyn FULLER, RN, CM
[2024-01-28 11:24] LABS: Bedside Glucose 180 mg/dL (74-106)
[2024-01-28 16:47] LABS: Bedside Glucose 167 mg/dL (74-106)
[2024-01-28 17:30] LABS: Magnesium 2.2 mg/dL (1.6-2.6)
[2024-01-28] MEDS: Atorvastatin Calcium 20 MG Tablet PO (22:11)
[2024-01-28] MEDS: Mirtazapine 30 MG Tablet PO (22:11)
[2024-01-28] MEDS: Insulin Glargine-YFGN 100 UNIT/ML Pen SC (22:12)
[2024-01-28] MEDS: 0.9% Saline Lock 10 ML Syringe IV (22:12)
[2024-01-28 22:33] LABS: Bedside Glucose 148 mg/dL (74-106)
[2024-01-29 04:37] VITALS: BP 120/65; PULSE 84; RESP 18; TEMP 36.7; O2SAT 92
--- NOTE | 2024-01-29 06:31 | DCINST_ITS ---
Discharge Instructions Diet Discharge Diet: Low fat / Low cholesterol and 1800 Calorie Control Diet Activity Discharge Activity: - (We encourage routine activity in the home. Continue incentive spirometry 10x/hr from waking to bed x 2 weeks.) May resume sexual activity in: 10-14 days Weight Bearing Status: Weight bearing as tolerated Dressing / Incision Call your doctor if you observe: Fever of 101 or Higher, Numbness or Tingling, Shortness of breath, Dizziness, Chest pain, Increased palpitations (irregular heartbeat), Calf discomfort and Uncontrolled pain Follow Up Care Test Results: Test results from this visit will be discussed in further detail at your follow- up appointment, if applicable. Discharge Plan Admission Admit Date/Time: 01/27/24 17:19 Primary Reason for Your Visit: Acute Bilateral Pulmonary Emboli, Hypoxia Attending Provider: Gladis Rich Primary Care Provider: Connor Chavez Consulting Providers: Meron Sweeney Instructions Additional Instructions / Restrictions: ADDITIONAL DISCHARGE INSTRUCTIONS: At discharge you have been maintained on oxygen supplementation which she will need to be continued as prescribed until you have been appropriately weaned off to room air by your physician at follow-up. Given initiation of anticoagulation with Eliquis therapy we have de-escalated you off of aspirin and continued Eliquis and Plavix at this time. Please continue to follow with your primary care physician for ongoing Eliquis scripts and evaluation of pulmonary emboli. During admission you incidentally had a right lingular density on the CT of the chest as well as incidentally noted bilateral adrenal lesions which will both need to be followed up outpatient with recommendation for follow-up imaging for the right lingular density in approximately 3 months. Discharge Orders/Prescriptions Prescriptions: New Eliquis 5 mg tablet 5 mg PO BID Qty: 74 0RF Rx Instructions: Take 10 mg (2 tablets) twice daily x 7 days then transition to 5 mg (1 tablet) twice daily thereafter. Continued carvedilol 6.25 MG tablet 6.25 mg PO BID metformin 1,000 MG tablet 1,000 mg PO BIDCM lisinopril 5 MG tablet 5 mg PO DAILY carbidopa-levodopa 1 TABLET tablet 1 tab PO TIDAC insulin NPH isoph U-100 human 100 UNITS/ML insulin pen 13 units subcut QHS empagliflozin 10 MG tablet 10 mg PO DAILY Qty: 30 0RF clopidogrel 75 MG tablet 75 mg PO DAILY Qty: 30 0RF mirtazapine 30 mg tablet 30 mg PO QHS Patient Comments: TAKE 1 TABLET BY MOUTH EVERYDAY AT BEDTIME atorvastatin 20 mg tablet 20 mg PO QHS oxcarbazepine 300 mg tablet 300 mg PO 4X/DAY insulin glargine [Lantus Solostar U-100 Insulin] 100 unit/mL (3 mL) insulin pen 13 unit subcut QHS methocarbamol 500 mg tablet 500 mg PO 4X/DAY PRN (Reason: Muscle pain/spasm) Qty: 40 0RF oxycodone-acetaminophen [Percocet] 5-325 mg tablet 1 tab PO Q6H PRN (Reason: pain) 3 Days Qty: 12 0RF Discontinued aspirin 81 MG tablet,chewable 81 mg PO DAILY@0800 0RF Referrals / Follow Up: Connor Chavez MD [Primary Care Provider] - Disposition Disposition (needs filled in before D/C Order can be placed): Home Health Service
--- NOTE | 2024-01-29 06:31 | PCM.DC.SUM ---
Providers Date of Admission: 01/27/24 Date of Discharge: 01/29/24 Primary Care Physician: Dr. Connor Casper MD Reason For Visit: SUBMASSIVE BILATERAL PE ACUTE HYPOXIA Diagnosis Discharge Diagnosis (1) Pulmonary embolism: Status: Acute Code(s): I26.99 - Other pulmonary embolism without acute cor pulmonale Plan: DISCHARGE DIAGNOSES: #1. Acute Hypoxia, dyspnea, chest pain secondary to Acute Submassive BL Pulmonary Emboli #2. Elevated indeterminate cardiac enzyme, likely demand, secondary to acute presentation #1 submassive pulmonary emboli #3. Incidentally noted right lingular density, unclear etiology #4. Incidentally noted bilateral adrenal lesions, suspected adenoma on the right and lipoma on the left #5. History CVA w/ chronic dyarthria #6. CAD s/p PCI prior #7. Diabetes mellitus type II #8. Parkinson's disease #9. Hypertension #10. Hyperlipidemia #11. Obesity #12. GERD #13. CODE status: Full Code status. Medications at Discharge Home Medications carbidopa 25 mg-levodopa 100 mg tablet 1 tab PO TIDAC parkinsons 10/01/15 carvedilol 6.25 mg tablet 6.25 mg PO BID blood pressure 10/01/15 insulin NPH isoph U-100 human 100 unit/mL (3 mL) subcutaneous pen 13 units subcut QHS diabetes 10/01/15 lisinopril 5 mg tablet 5 mg PO DAILY blood pressure 10/01/15 metformin 1,000 mg tablet 1,000 mg PO BIDCM diabetes 10/01/15 clopidogrel 75 mg tablet 75 mg PO DAILY ##30 01/26/17 empagliflozin 10 mg tablet 10 mg PO DAILY ##30 01/26/17 mirtazapine 30 mg tablet 30 mg PO QHS sleep 12/05/20 atorvastatin 20 mg tablet 20 mg PO QHS cholesterol 01/12/24 insulin glargine 100 unit/mL (3 mL) subcutaneous pen (Lantus Solostar U-100 Insulin) 13 unit subcut QHS 01/12/24 oxcarbazepine 300 mg tablet 300 mg PO 4X/DAY 01/12/24 methocarbamol 500 mg tablet 500 mg PO 4X/DAY PRN Muscle pain/spasm #40 tabs 01/23/24 apixaban 5 mg tablet (Eliquis) 5 mg PO BID PE #74 tabs 01/28/24 oxycodone-acetaminophen 5 mg-325 mg tablet (Endocet) 1 tab PO Q6H PRN pain 3 days #20 tabs 01/29/24 Hospital Course Operations None Procedures 2-D Echocardiogram and EKG Summary of Care Provided Minutes Spent on Discharge: 35 Hospital Course: The patient is a 68 y/o M w/ PMHx: Obesity, Diabetes mellitus type II w/ Hx diabetic foot wounds, HTN, HLD, CAD s/p PCI, Parkinson's disease, Hx CVA w/ chronic weakness/debility/dysarthria, GERD who presented to the [facility] ED on 01/27/24 with history of initially right upper quadrant discomfort starting the evening prior with then radiation to the right chest with associated dyspnea prompting ED evaluation. Admitted to PCU, initiated and continued on heparin drip, 01/28/2024 transitioned to oral Eliquis given patient is able to afford $11 daily, echocardiogram obtained with no obvious evidence of cardiac strain or concerning findings. Oxygenation trial performed with patient noted to be 92% on room air, 88% while ambulating on room air with improvement to 91% on 2 L nasal cannula. This oxygen testing was reviewed and this patient does qualify for home equipment and portability and is mobile in the home and community therefore case management/social work assisted with setting up oxygen for discharge. Admission initial cardiac enzyme 93 trended up to 116, but de-escalated down again to 89, will maintain on telemetry monitoring, likely associated with acute presentation although echocardiogram was obtained but no acute strain demonstrated, EF 50 to 55% with low normal EF with no significant change from prior. Transitioned from therapeutic heparin to Eliquis. CT of the chest with noted 3.5 cm irregular opacity in the superior lingula, no obvious current presentation concerning for pneumonia however given this presentation will require a follow-up imaging potentially PET scan in 3 months especially given his presentation with acute submassive pulmonary emboli to assess for potential cancer. Also noted incidental bilateral adrenal lesion, low-attenuation, suspected adenoma on the right and lipoma on the left, encourage continued outpatient follow-up and imaging outpatient. Given patient history he was de-escalated off of aspirin and continued on Plavix and Eliquis at discharge. Recommended patient follow-up with his primary care physician to review admission and medication changes as well as ongoing evaluation for oxygen weaning. DAY OF DISCHARGE PROGRESS NOTE: Subjective: Patient without acute event overnight per self and nursing report. Patient is amenable for discharge to home and understands he will need to continue oxygen supplementation until appropriately weaned by his physician. Patient denies fever, chills, nausea, emesis, abdominal pain, chest pain or dyspnea. He does state he lives in a mobile home but does not have many steps to get in and feels well enough to transition to this setting. Patient will be discharged with follow-up with primary care physician within 3-5 days. Objective: T96.1, heart rate 81, BP 124/62, respiratory rate 18, 99% on 2 L nasal cannula. Physical Examination: General: Awake, alert, oriented x 3 and cooperative, seated upright in PCU bed, notes feeling improved, no chest discomfort or marked dyspnea. Skin: Normal color, normal turgor, no icterus, no cyanosis. HEENT: AT/NC, EOMI, PERRLA, MMM. Lungs: Diminished, greater bases, mildly decreased effort secondary to discomfort with deep inspiration but notes is significantly improved, no rales, ronchi or wheezing. Heart: Regular rate and rhythm; no gallop, rub audible. Abdomen: Soft, obese, NTTP, ND, normal BS. Extremities: No cyanosis, no clubbing, mild ankle not markedly pitting edema bilaterally. Neurological: Patient awake, alert, oriented as noted cognitive function intact, chronic dysarthria baseline from previous CVA, pupils equally reactive to light and accommodation, cranial nerves gross normal, moving all 4 extremities, no focal deficits, strength moderately globally decreased. Psychiatric: Affect appears normal, no acute evidence of depressive or anxiety feelings. Assessment and Plan: Please see hospital summary above. Weight / BMI Weight Weight: 216 lb 4.375 oz Body Mass Index (BMI) 31.9 ABG / Lab / Microbiology Data 01/28/24 04:15 01/28/24 04:15 Laboratory: Laboratory Results - last 24 hr 01/28/24 04:15: Magnesium 2.2 01/28/24 07:55: POC Glucose 151 H 01/28/24 11:01: POC Glucose 180 H 01/28/24 16:24: POC Glucose 167 H 01/28/24 22:09: POC Glucose 148 H Microbiology: Microbiology 01/27/24 13:48 Mucosa - Nasopharyngeal SARS-CoV-2, Influenza & RSV (PCR) - Final Radiography Diagnostic Testing: Radiology Impression Echocardiogram 01/27/24 17:39 Interpretation Summary The estimated ejection fraction is 50-55 %. Low normal EF In comparison to previous echo no significant change Overall limited study Ordering Physician: Meron Sweeney Referring Physician: CONNOR CASPER Performed By: Amaya Cadet RCS D/C Instructions Discharge Diet: Low fat / Low cholesterol and 1800 Calorie Control Diet May resume sexual activity in: 10-14 days Weight Bearing Status: Weight bearing as tolerated Call your doctor if you observe: Fever of 101 or Higher, Numbness or Tingling, Shortness of breath, Dizziness, Chest pain, Increased palpitations (irregular heartbeat), Calf discomfort and Uncontrolled pain Meaningful Use Info Meaningful Use Meaningful Use Diagnoses (Choose all that apply): VTE Ischemic Stroke Statin Dosing Therapy Reference: STATIN DOSE THERAPY REFERENCE: * Patients > 75 years receive moderate or high dose statin therapy. * Patients 75 years or YOUNGER should receive HIGH intensity statin dose unless contraindicated. You will be required to document reason for non-treatment if statin daily dose does not meet guidelines. HIGH DOSE STATIN THERAPY DAILY Atorvastatin > than or = to 40 mg Rosuvastatin > than or = to 20 mg Amlodipine + Atorvastatin > than or = to 2.5/40 mg Ezetimibe + Simvastatin 10/80 mg Simvastatin 80mg VTE Anticoag overlap given w/in hospital stay or rx'd at dc?: No Pt receive overlap for 5 days?: No Reason overlap not ordered, prescribed, or given for 5 days: Treatment Not Indicated Discharge Plan Admission Admit Date/Time: 01/27/24 17:19 Primary Reason for Your Visit: Acute Bilateral Pulmonary Emboli, Hypoxia Attending Provider: Gladis Rich Primary Care Provider: Connor Casper Consulting Providers: Meron Sweeney Instructions Patient Instructions: DVT/PE Discharge instruction sheet, Pulmonary Embolism, Traveling with Oxygen Additional Instructions / Restrictions: ADDITIONAL DISCHARGE INSTRUCTIONS: At discharge you have been maintained on oxygen supplementation which she will need to be continued as prescribed until you have been appropriately weaned off to room air by your physician at follow-up. Given initiation of anticoagulation with Eliquis therapy we have de-escalated you off of aspirin and continued Eliquis and Plavix at this time. Please continue to follow with your primary care physician for ongoing Eliquis scripts and evaluation of pulmonary emboli. During admission you incidentally had a right lingular density on the CT of the chest as well as incidentally noted bilateral adrenal lesions which will both need to be followed up outpatient with recommendation for follow-up imaging for the right lingular density in approximately 3 months. Discharge Orders/Prescriptions Prescriptions: New Eliquis 5 mg tablet 5 mg PO BID Qty: 74 0RF Rx Instructions: Take 10 mg (2 tablets) twice daily x 7 days then transition to 5 mg (1 tablet) twice daily thereafter. oxycodone-acetaminophen [Endocet] 5-325 mg tablet 1 tab PO Q6H PRN (Reason: pain) 3 Days Qty: 20 0RF Continued carvedilol 6.25 MG tablet 6.25 mg PO BID metformin 1,000 MG tablet 1,000 mg PO BIDCM lisinopril 5 MG tablet 5 mg PO DAILY carbidopa-levodopa 1 TABLET tablet 1 tab PO TIDAC insulin NPH isoph U-100 human 100 UNITS/ML insulin pen 13 units subcut QHS empagliflozin 10 MG tablet 10 mg PO DAILY Qty: 30 0RF clopidogrel 75 MG tablet 75 mg PO DAILY Qty: 30 0RF mirtazapine 30 mg tablet 30 mg PO QHS Patient Comments: TAKE 1 TABLET BY MOUTH EVERYDAY AT BEDTIME atorvastatin 20 mg tablet 20 mg PO QHS oxcarbazepine 300 mg tablet 300 mg PO 4X/DAY insulin glargine [Lantus Solostar U-100 Insulin] 100 unit/mL (3 mL) insulin pen 13 unit subcut QHS methocarbamol 500 mg tablet 500 mg PO 4X/DAY PRN (Reason: Muscle pain/spasm) Qty: 40 0RF Discontinued aspirin 81 MG tablet,chewable 81 mg PO DAILY@0800 0RF oxycodone-acetaminophen [Percocet] 5-325 mg tablet 1 tab PO Q6H PRN (Reason: pain) 3 Days Qty: 12 0RF Referrals / Follow Up: Connor Casper MD [Primary Care Provider] - (Follow-up within 3-5 days to review admission, continue to be reassessed for oxygen wean.) Disposition Disposition (needs filled in before D/C Order can be placed): Home Health Service Charges/Coding Visit Charges Inpatient E&M: 30766 Disch Hosp >30min
[2024-01-29] MEDS: Carbidopa/Levodopa 25/100 Tablet PO ×2 (06:43→11:15)
[2024-01-29 07:01] LABS: Bedside Glucose 133 mg/dL (74-106)
[2024-01-29 09:05] VITALS: BP 124/62; PULSE 81; RESP 18; TEMP 35.6; O2SAT 99
[2024-01-29] MEDS: APIXABAN 5 MG TABLET 10 MG PO (09:08)
[2024-01-29] MEDS: Carvedilol 3.125 MG TABLET PO (09:08)
[2024-01-29] MEDS: OXcarbazepine 300 MG Tablet PO ×2 (09:08→13:46)
[2024-01-29] MEDS: Insulin Lispro 100 UNIT/ML INSULN.PEN SC (11:15)
[2024-01-29 11:27] LABS: Bedside Glucose 165 mg/dL (74-106)
== END 2024-01-29 14:24 | disposition home health service (06) | DRG 175 ==
LOC: ED 14:00 → PCU 16:14
PROVIDERS: Admitting Provider Internal Medicine; Emergency Provider Surgery; PCP Family Medicine; Visit Provider Family Medicine
DX: I26.94 Multiple subsegmental thrombotic pulmonary emboli without acute cor pulmonale (principal); J96.01 Acute respiratory failure with hypoxia; C34.90 Malignant neoplasm of unspecified part of unspecified bronchus or lung; I69.322 Dysarthria following cerebral infarction; E27.8 Other specified disorders of adrenal gland; K80.70 Calculus of gallbladder and bile duct without cholecystitis without obstruction; R16.0 Hepatomegaly, not elsewhere classified; G20.A1 Parkinson's disease without dyskinesia, without mention of fluctuations; E11.9 Type 2 diabetes mellitus without complications; I10 Essential (primary) hypertension; E66.9 Obesity, unspecified; Z79.4 Long term (current) use of insulin; K21.9 Gastro-esophageal reflux disease without esophagitis; I25.10 Atherosclerotic heart disease of native coronary artery without angina pectoris; E78.5 Hyperlipidemia, unspecified; Z87.891 Personal history of nicotine dependence; Z79.01 Long term (current) use of anticoagulants; D35.01 Benign neoplasm of right adrenal gland; Z79.82 Long term (current) use of aspirin; Z79.891 Long term (current) use of opiate analgesic; Z79.02 Long term (current) use of antithrombotics/antiplatelets; D17.1 Benign lipomatous neoplasm of skin and subcutaneous tissue of trunk; D35.02 Benign neoplasm of left adrenal gland; Z79.84 Long term (current) use of oral hypoglycemic drugs; Z95.5 Presence of coronary angioplasty implant and graft
CPT/HCPCS: 36415; 71045; 71275; 76705; 80053; 81001; 82962; 83690; 83735; 83880; 84484; 85025; 85379; 85610; 85730; 87631; 93005; 93306; 94668; 97802; 99285; Q9957; Q9967; A4216; J2405